=== PATIENT | male | born 1975 | race Caucasian/White ===

== ENCOUNTER → 2016-08-14 | Outpatient (CLI) | payer MEDICAID ==
[~2016-08-14] MED LIST: ACET65TA; ALBUTEROL MDI; ALTA5CAP; DEPA500T; HYDR-727; NAPR250T; POTA10CA; PRIL20CA; THERGRAN; VALI2TAB
[2016-08-14 12:53] LABS: ANION GAP 8 MEQ/L (8-16); BLOOD UREA NITROGEN 24 MG/DL (7-18); CALCIUM LEVEL 8.7 MG/DL (8.5-10.1); CARBON DIOXIDE LEVEL 30 MEQ/L (21-32); CHLORIDE LEVEL 103 MEQ/L (98-107); CREATININE FOR GFR 1.08 MG/DL (0.70-1.30); GLOMERULAR FILTRATION RATE > 60.0 (>60); GLUCOSE, FASTING 113 MG/DL (70-105); POTASSIUM SERUM 4.2 MEQ/L (3.5-5.1); SODIUM LEVEL 141 MEQ/L (136-145)
== END ==
LOC: M WUC 09:55
PROVIDERS: ATTEND Nurse Practitioner Family
DX: R51 Headache (principal)

== ENCOUNTER → 2016-09-23 | Outpatient (CLI) | payer MEDICAID ==
[2016-09-23 13:20] LABS: ALBUMIN 4.1 GM/DL (3.2-5.2); ALBUMIN/GLOBULIN RATIO 1.21 (1.00-1.93); ALKALINE PHOSPHATASE 96 U/L (45-117); ALT/SGPT 17 U/L (12-78); ANION GAP 10 MEQ/L (8-16); AST/SGOT 11 U/L (15-37); BILIRUBIN,TOTAL 0.5 MG/DL (0.2-1.0); BLOOD UREA NITROGEN 15 MG/DL (7-18); CALCIUM LEVEL 8.4 MG/DL (8.5-10.1); CARBON DIOXIDE LEVEL 28 MEQ/L (21-32); CHLORIDE LEVEL 100 MEQ/L (98-107); CHOLESTEROL LEVEL 152 MG/DL (<200); GLOMERULAR FILTRATION RATE > 60.0 (>60); GLUCOSE, FASTING 101 MG/DL (70-105); POTASSIUM SERUM 4.2 MEQ/L (3.5-5.1); SODIUM LEVEL 138 MEQ/L (136-145); TOTAL PROTEIN 7.5 GM/DL (6.4-8.2); TRIGLYCERIDES LEVEL 156 MG/DL (<150)
[2016-09-25 00:08] LABS: PSA TOTAL 0.4 ng/mL (0.0-4.0)
== END ==
LOC: M WUC 08:40
PROVIDERS: ATTEND Nurse Practitioner Family
DX: Z12.5 Encounter for screening for malignant neoplasm of prostate (principal); E78.4 Other hyperlipidemia; I10 Essential (primary) hypertension

== ENCOUNTER → 2017-01-24 | Outpatient (CLI) | payer MEDICAID, OTHER ==
[2017-01-24 18:41] LABS: ANION GAP 6 MEQ/L (8-16); BLOOD UREA NITROGEN 20 MG/DL (7-18); CALCIUM LEVEL 8.1 MG/DL (8.5-10.1); CARBON DIOXIDE LEVEL 27 MEQ/L (21-32); CHLORIDE LEVEL 103 MEQ/L (98-107); CREATININE FOR GFR 0.92 MG/DL (0.70-1.30); FREE T4 1.04 NG/DL (0.76-1.46); GLOMERULAR FILTRATION RATE > 60.0 (>60); GLUCOSE, FASTING 98 MG/DL (70-105); POTASSIUM SERUM 4.3 MEQ/L (3.5-5.1); SODIUM LEVEL 136 MEQ/L (136-145)
== END ==
LOC: M WUC 09:57
PROVIDERS: ATTEND Nurse Practitioner Family
DX: I10 Essential (primary) hypertension (principal); R00.2 Palpitations

== ENCOUNTER → 2017-06-16 | Outpatient (CLI) | payer OTHER ==
--- NOTE | 2017-06-16 10:01 | REP ---
Right upper quadrant sonography: History: Gastroesophageal reflux disease with esophagitis. History of biliary colic type abdominal pain. Evaluate gallbladder and biliary tree. Comparison study: No comparison study. Findings: Scanning through the right upper quadrant of the abdomen demonstrates a normal sized, thin-walled gallbladder without evidence of stone or polyp. Common bile duct is normal measuring 0.5 cm in greatest diameter. No focal liver lesion is seen. There is evidence of mild fatty infiltration of the liver. Liver size is normal. No pancreatic abnormality is observed. No right renal abnormality is seen. There is no evidence of ascites. The right kidney measures 11.8 x 4.6 x 5.2 cm. Impression: Mild fatty infiltration of the liver suspected, otherwise negative right upper quadrant sonography. Signed by Amrik Mckee MD 06/16/2017 11:18 A
== END ==
LOC: M RAD 08:44
PROVIDERS: ATTEND Internal Medicine Gastroenterology
DX: K21.9 Gastro-esophageal reflux disease without esophagitis (principal)

== ENCOUNTER 2017-07-27 09:35 | Day surgery (SDC) | payer OTHER ==
[2017-07-27] MEDS: NS 1,000 ML IV (10:51)
[2017-07-27] MEDS ORDERED: fentaNYL 100 MCG/2 ML INJECTION (J3010) As Ordered (11:26)
[2017-07-27] MEDS ORDERED: LIDOCAINE 2% INJ 100 MG/5 ML SDV (FOR ANES.) As Ordered (11:36)
[2017-07-27] MEDS ORDERED: PROPOFOL 200 MG/20 ML VIAL As Ordered (11:36)
== END 2017-07-27 12:25 | disposition home or self-care (01) ==
LOC: M OPP 09:35
DX: K21.0 Gastro-esophageal reflux disease with esophagitis (principal); K29.70 Gastritis, unspecified, without bleeding; I10 Essential (primary) hypertension; F17.210 Nicotine dependence, cigarettes, uncomplicated; R06.83 Snoring; Z79.899 Other long term (current) drug therapy; Z88.0 Allergy status to penicillin; Z88.2 Allergy status to sulfonamides; Z88.8 Allergy status to other drugs, medicaments and biological substances; Z91.89 Other specified personal risk factors, not elsewhere classified; Z87.820 Personal history of traumatic brain injury; Z87.09 Personal history of other diseases of the respiratory system
CPT/HCPCS: 43239

== ENCOUNTER → 2017-10-12 | Outpatient (CLI) | payer OTHER ==
[2017-10-12 14:19] LABS: BASO % 0.6 % (0.0-1.0); EOS # 0.1 10^3/uL (0.0-0.50); EOS % 1.9 % (0.0-3.0); HEMATOCRIT 42.3 % (42.0-52.0); HEMOGLOBIN 14.3 g/dl (14.0-18.0); IMMATURE GRANULOCYTE % 0.3 % (0-3.0); LYMPH # 1.8 10^3/uL (1.5-4.5); LYMPH % 27.2 % (24.0-44.0); MEAN CORPUSCULAR HGB CONC 33.8 g/dl (32.0-36.5); MEAN CORPUSCULAR VOLUME 91.6 fl (80.0-96.0); MONO # 0.5 10^3/uL (0.0-0.8); MONO % 7.6 % (0.0-5.0); NEUTROPHILS # 4.2 10^3/uL (1.8-7.7); NEUTROPHILS % 62.4 % (36.0-66.0); PLATELET COUNT, AUTOMATED 170 10^3/uL (150-450); RED BLOOD COUNT 4.62 10^6/uL (4.30-6.10); RED CELL DISTRIBUTION WIDTH 12.5 % (11.5-14.5); WHITE BLOOD COUNT 6.7 10^3/uL (4.0-10.0)
[2017-10-12 14:40] LABS: ALBUMIN 3.8 GM/DL (3.2-5.2); ALBUMIN/GLOBULIN RATIO 1.09 (1.00-1.93); ALKALINE PHOSPHATASE 92 U/L (45-117); ALT/SGPT 50 U/L (12-78); ANION GAP 7 MEQ/L (8-16); AST/SGOT 22 U/L (7-37); BILIRUBIN,TOTAL 0.3 MG/DL (0.2-1.0); BLOOD UREA NITROGEN 17 MG/DL (7-18); CALCIUM LEVEL 8.3 MG/DL (8.5-10.1); CARBON DIOXIDE LEVEL 28 MEQ/L (21-32); CHLORIDE LEVEL 107 MEQ/L (98-107); CHOLESTEROL LEVEL 178 MG/DL (<200); CHOLESTEROL RISK RATIO 4.564 (<5); CREATININE FOR GFR 0.94 MG/DL (0.70-1.30); GLOMERULAR FILTRATION RATE > 60.0 (>60); GLUCOSE, FASTING 87 MG/DL (70-100); HDL CHOLESTEROL 39 MG/DL (>40); LDL CHOLESTEROL 104.6 MG/DL (<100); NON-HDL-C 139 MG/DL; POTASSIUM SERUM 4.6 MEQ/L (3.5-5.1); SODIUM LEVEL 142 MEQ/L (136-145); TOTAL PROTEIN 7.3 GM/DL (6.4-8.2); TRIGLYCERIDES LEVEL 172 MG/DL (<150)
== END ==
LOC: M WUC 08:28
DX: E78.4 Other hyperlipidemia (principal); I10 Essential (primary) hypertension
CPT/HCPCS: 80053

== ENCOUNTER 2018-02-27 19:49 | Emergency (ER) | payer MEDICAID ==
[2018-02-27 20:12] LABS: BASO # 0.1 10^3/uL (0.0-0.2); BASO % 0.5 % (0.0-1.0); EOS # 0.2 10^3/uL (0.0-0.50); EOS % 1.3 % (0.0-3.0); HEMATOCRIT 39.4 % (42.0-52.0); HEMOGLOBIN 13.4 g/dl (13.5-17.5); IMMATURE GRANULOCYTE % 0.2 % (0-3.0); LYMPH % 30.2 % (24.0-44.0); MONO % 7.2 % (0.0-5.0); NEUTROPHILS # 8.1 10^3/uL (1.8-7.7); NEUTROPHILS % 60.6 % (36.0-66.0); PLATELET COUNT, AUTOMATED 207 10^3/uL (150-450); RED BLOOD COUNT 4.19 10^6/uL (4.30-6.10); RED CELL DISTRIBUTION WIDTH 12.2 % (11.5-14.5); WHITE BLOOD COUNT 13.4 10^3/uL (4.0-10.0)
[2018-02-27] MEDS: ONDANSETRON 4MG/2ML VIAL (J2405) IV ×2 (20:15)
[2018-02-27 20:25] LABS: INR 0.95; PROTHROMBIN TIME 12.8 SECONDS (12.1-14.4)
[2018-02-27 20:26] LABS: PARTIAL THROMBOPLASTIN TIME 29.4 SECONDS (25.4-37.6)
[2018-02-27 20:34] LABS: LACTIC ACID SEPSIS PROTOCOL 1.2 MMOL/L (0.4-2.0)
[2018-02-27 20:35] LABS: ALBUMIN 3.6 GM/DL (3.2-5.2); ALBUMIN/GLOBULIN RATIO 0.92 (1.00-1.93); ALKALINE PHOSPHATASE 83 U/L (45-117); ALT/SGPT 27 U/L (12-78); ANION GAP 6 MEQ/L (8-16); AST/SGOT 17 U/L (7-37); BILIRUBIN,DIRECT < 0.1 MG/DL (0.0-0.2); BILIRUBIN,TOTAL 0.3 MG/DL (0.2-1.0); BLOOD UREA NITROGEN 21 MG/DL (7-18); CALCIUM LEVEL 8.5 MG/DL (8.5-10.1); CARBON DIOXIDE LEVEL 30 MEQ/L (21-32); CHLORIDE LEVEL 105 MEQ/L (98-107); CK-MB VALUE MASS 3.2 NG/ML (<3.6); CPK CREATINE PHOSPHOKINASE 102 U/L (39-308); CREATININE FOR GFR 1.26 MG/DL (0.70-1.30); GLOMERULAR FILTRATION RATE > 60.0 (>60); GLUCOSE, FASTING 90 MG/DL (70-100); MB/CK RELATIVE INDEX 3.13 (< OR =4); SODIUM LEVEL 141 MEQ/L (136-145); TOTAL PROTEIN 7.5 GM/DL (6.4-8.2)
[2018-02-27 20:51] LABS: TROPONIN I 1.84 NG/ML (< 0.10)
[2018-02-27] MEDS: PANTOPRAZOLE 40MG TAB (PROTONIX) PO ×2 (21:15)
[2018-02-27] MEDS: ATORVASTATIN 20 MG TAB PO ×2 (21:15)
[2018-02-27] MEDS: HEPARIN SOD (PORCINE) 5000 UNITS/ML VIAL IV ×2 (21:55)
[2018-02-27] MEDS: HEPARIN DRIP 25,000 UNITS in APPROPRIATE DILUENT 1 EA IV (21:55)
[2018-02-27] MEDS: MORPHINE 2 MG/ML 1ML SYRINGE (J2270) IV ×2 (22:10)
[2018-03-08] MEDS ORDERED: ONDANSETRON 4MG/2ML VIAL (J2405) IV ×2 (16:45)
[2018-03-08] MEDS ORDERED: NITROGLYCERIN 0.4 MG SUBL TABLET SL ×2 (16:45)
== END 2018-02-27 22:10 | disposition short-term general hospital (02) ==
LOC: M ED 19:49
DX: I20.0 Unstable angina (principal); I10 Essential (primary) hypertension; K21.9 Gastro-esophageal reflux disease without esophagitis
CPT/HCPCS: 71045

== ENCOUNTER 2018-03-08 15:51 | Emergency (ER) | payer OTHER, MEDICAID ==
[2018-03-08 16:23] LABS: BASO % 0.4 % (0.0-1.0); EOS # 0.1 10^3/uL (0.0-0.50); EOS % 0.8 % (0.0-3.0); HEMATOCRIT 40.5 % (42.0-52.0); HEMOGLOBIN 13.9 g/dl (13.5-17.5); IMMATURE GRANULOCYTE % 0.2 % (0-3.0); LYMPH # 2.5 10^3/uL (1.5-4.5); LYMPH % 26.1 % (24.0-44.0); MEAN CORPUSCULAR HEMOGLOBIN 31.5 pg (27.0-33.0); MEAN CORPUSCULAR HGB CONC 34.3 g/dl (32.0-36.5); MEAN CORPUSCULAR VOLUME 91.8 fl (80.0-96.0); MONO # 0.7 10^3/uL (0.0-0.8); MONO % 7.3 % (0.0-5.0); NEUTROPHILS # 6.3 10^3/uL (1.8-7.7); NEUTROPHILS % 65.2 % (36.0-66.0); PLATELET COUNT, AUTOMATED 195 10^3/uL (150-450); RED BLOOD COUNT 4.41 10^6/uL (4.30-6.10); RED CELL DISTRIBUTION WIDTH 12.4 % (11.5-14.5); WHITE BLOOD COUNT 9.6 10^3/uL (4.0-10.0)
[2018-03-08 16:36] LABS: INR 0.98; PROTHROMBIN TIME 13.1 SECONDS (12.1-14.4)
[2018-03-08 16:51] LABS: ALBUMIN 3.6 GM/DL (3.2-5.2); ALKALINE PHOSPHATASE 80 U/L (45-117); ALT/SGPT 25 U/L (12-78); ANION GAP 6 MEQ/L (8-16); AST/SGOT 14 U/L (7-37); BILIRUBIN,DIRECT 0.1 MG/DL (0.0-0.2); BILIRUBIN,TOTAL 0.4 MG/DL (0.2-1.0); BLOOD UREA NITROGEN 19 MG/DL (7-18); CALCIUM LEVEL 8.3 MG/DL (8.5-10.1); CARBON DIOXIDE LEVEL 29 MEQ/L (21-32); CHLORIDE LEVEL 104 MEQ/L (98-107); CPK CREATINE PHOSPHOKINASE 91 U/L (39-308); CREATININE FOR GFR 1.19 MG/DL (0.70-1.30); GLOMERULAR FILTRATION RATE > 60.0 (>60); GLUCOSE, FASTING 107 MG/DL (70-100); LIPASE 147 U/L (73-393); POTASSIUM SERUM 3.7 MEQ/L (3.5-5.1); SODIUM LEVEL 139 MEQ/L (136-145); TOTAL PROTEIN 7.2 GM/DL (6.4-8.2); TROPONIN I < 0.02 NG/ML (< 0.10)
[2018-03-08 16:55] LABS: ERYTHROCYTE SEDIMENTATION RATE 7 mm/hr (0-15)
[2018-03-08 16:57] LABS: CK-MB VALUE MASS 1.4 NG/ML (<3.6); MB/CK RELATIVE INDEX 1.53 (< OR =4); NT-PRO BNP 104 PG/ML (<125)
[2018-03-08] MEDS: NITROGLYCERIN 0.4 MG SUBL TABLET SL ×3 (17:20)
[2018-03-08] MEDS ORDERED: ISOVUE-370 76% 100ML VIAL (Q9967) As Ordered ×3 (17:40)
[2018-03-08] MEDS: APIXABAN 5 MG TAB (ELIQUIS) PO ×3 (20:53)
[2018-03-08 21:45] LABS: CK-MB VALUE MASS 1.4 NG/ML (<3.6); CPK CREATINE PHOSPHOKINASE 76 U/L (39-308); INR 0.99; MB/CK RELATIVE INDEX 1.84 (< OR =4); PARTIAL THROMBOPLASTIN TIME 29.8 SECONDS (25.4-37.6); PROTHROMBIN TIME 13.2 SECONDS (12.1-14.4); TROPONIN I 0.03 NG/ML (< 0.10)
[2018-03-08 21:46] LABS: NT-PRO BNP 92 PG/ML (<125)
[2018-03-14 14:12] LABS: ANTI THROMBIN 3 ANTIGEN IMMUNO 99 % (72-124); ANTI THROMBIN 3 FUNCT ACTIVITY 105 % (75-135); CARDIOLIPIN IGA ANTIBODY <9 APL U/mL (0-11); CARDIOLIPIN IGG ANTIBODY <9 GPL U/mL (0-14); CARDIOLIPIN IGM ANTIBODY <9 MPL U/mL (0-12); PROTEIN C FUNCTIONAL ACTIVITY 136 % (73-180); PROTEIN S FUNCTIONAL ACTIVITY 86 % (63-140)
[2018-03-14 14:12] LABS: PHOSPHOLIPIDS LEVEL 162 mg/dL (150-250)
[2018-03-15 10:58] LABS: DRVV SCREEN 42.3 SEC
== END 2018-03-08 22:54 | disposition home or self-care (01) ==
LOC: M ED 15:51
DX: I26.99 Other pulmonary embolism without acute cor pulmonale (principal); R11.0 Nausea; Z95.5 Presence of coronary angioplasty implant and graft; Z88.8 Allergy status to other drugs, medicaments and biological substances; Z88.4 Allergy status to anesthetic agent; Z88.0 Allergy status to penicillin; Z88.2 Allergy status to sulfonamides; Z79.899 Other long term (current) drug therapy; Z79.02 Long term (current) use of antithrombotics/antiplatelets; Z98.890 Other specified postprocedural states
CPT/HCPCS: Q9967

== ENCOUNTER → 2018-04-08 | Outpatient (REF) | payer OTHER ==
[2018-04-08 16:27] LABS: CHOLESTEROL LEVEL 107 MG/DL (<200); CHOLESTEROL RISK RATIO 3.147 (<5); HDL CHOLESTEROL 34 MG/DL (>40); LDL CHOLESTEROL 47 MG/DL (<100); NON-HDL-C 73 MG/DL; TRIGLYCERIDES LEVEL 128 MG/DL (<150)
== END ==
LOC: M LABDRAW1 12:16
DX: E78.1 Pure hyperglyceridemia (principal)
CPT/HCPCS: 80061

== ENCOUNTER 2018-04-14 12:28 | Outpatient (RCR) | payer OTHER | END 2018-04-17 | LOC: M CR 12:28 | DX: Z98.61 Coronary angioplasty status (principal) | CPT/HCPCS: 93798 ==

== ENCOUNTER 2018-04-18 13:50 | Outpatient (RCR) | payer OTHER | END 2018-05-18 | LOC: M CR 13:50 | DX: Z98.61 Coronary angioplasty status (principal) | CPT/HCPCS: 93798 ==

== ENCOUNTER → 2018-04-23 | Outpatient (CLI) | payer OTHER | LOC: M ADAMS 11:41 | DX: M25.562 Pain in left knee (principal) | CPT/HCPCS: 73564 ==

== ENCOUNTER 2018-05-19 14:54 | Outpatient (RCR) | payer OTHER | END 2018-06-17 | LOC: M CR 14:54 | DX: Z98.61 Coronary angioplasty status (principal); I25.2 Old myocardial infarction | CPT/HCPCS: 93798 ==

== ENCOUNTER → 2018-07-14 | Outpatient (REF) | payer OTHER ==
[~2018-07-14] MED LIST changes: +AMIT10TA PO; +AMIT25TA PO; +ATOR40TA75 PO; +CLOP75TA2 PO; +COLC1TAB13 PO; +ELIQ5TAB PO; +FLON1SPR; +FLUTISP; +LANS15CA PO; +LISI-542 PO; +LISI-672 PO; +METO37.5 PO; +MULT1TAB10 PO; +MULTCAP PO; +NITR0.4S14 SL; +PAME25CA PO; +PANT40TA3 PO; +PROBCAP4 PO; +VERA40TA PO
[2018-07-14 20:04] LABS: ALBUMIN 4.1 GM/DL (3.2-5.2); ALT/SGPT 38 U/L (12-78); BILIRUBIN,TOTAL 0.3 MG/DL (0.2-1.0); BLOOD UREA NITROGEN 18 MG/DL (7-18); CALCIUM LEVEL 8.8 MG/DL (8.5-10.1); CARBON DIOXIDE LEVEL 28 MEQ/L (21-32); CHLORIDE LEVEL 102 MEQ/L (98-107); CREATININE FOR GFR 0.88 MG/DL (0.70-1.30); GLOMERULAR FILTRATION RATE > 60.0 (>60); GLUCOSE, FASTING 78 MG/DL (70-100); POTASSIUM SERUM 4.1 MEQ/L (3.5-5.1); SODIUM LEVEL 139 MEQ/L (136-145); TOTAL PROTEIN 7.5 GM/DL (6.4-8.2)
[2018-07-14 20:12] LABS: HEMATOCRIT 42.5 % (42.0-52.0); MEAN CORPUSCULAR HEMOGLOBIN 30.6 pg (27.0-33.0); MEAN CORPUSCULAR HGB CONC 32.9 g/dl (32.0-36.5); PLATELET COUNT, AUTOMATED 162 10^3/uL (150-450); RED BLOOD COUNT 4.57 10^6/uL (4.30-6.10); WHITE BLOOD COUNT 8.9 10^3/uL (4.0-10.0)
== END ==
LOC: M SFHCADAM 15:24
PROVIDERS: ATTEND Physician Assistant
DX: I25.118 Atherosclerotic heart disease of native coronary artery with other forms of angina pectoris (principal)

== ENCOUNTER → 2018-07-27 | Outpatient (REF) | payer OTHER | LOC: M SFHCADAM 13:21 | PROVIDERS: ATTEND Physician Assistant | DX: I27.82 Chronic pulmonary embolism (principal) ==

== ENCOUNTER → 2018-09-23 | Outpatient (REF) | payer OTHER ==
[2018-09-27 08:06] LABS: ANTI THROMBIN 3 FUNCT ACTIVITY 108 % (75-135); CARDIOLIPIN IGA ANTIBODY <9 APL U/mL (0-11); CARDIOLIPIN IGG ANTIBODY <9 GPL U/mL (0-14); CARDIOLIPIN IGM ANTIBODY <9 MPL U/mL (0-12); PROTEIN C FUNCTIONAL ACTIVITY 119 % (73-180); PROTEIN S FUNCTIONAL ACTIVITY 90 % (63-140)
[2018-09-27 09:49] LABS: DRVV SCREEN 45.1 SEC
[2018-09-27 09:53] LABS: PTT LUPUS TYPE ANTICOAG SCREEN 1.1 (0-1.2)
== END ==
LOC: M SFHCADAM 08:41
PROVIDERS: ATTEND Physician Assistant
DX: I27.82 Chronic pulmonary embolism (principal)

== ENCOUNTER → 2018-10-16 | Outpatient (CLI) | payer OTHER ==
[2018-10-16 18:30] LABS: CHOLESTEROL RISK RATIO 3.277 (<5)
== END ==
LOC: M ADAMS 10:52
PROVIDERS: ATTEND Physician Assistant
DX: I25.10 Atherosclerotic heart disease of native coronary artery without angina pectoris (principal)

== ENCOUNTER → 2019-08-31 | Outpatient (CLI) | payer OTHER ==
[~2019-08-31] MED LIST changes: +ACET-683 PO; +ALBU83IN INH; +COZA1TAB PO; +DOXY100C PO; +LISI-538 PO; +MONT10TA4 PO; +MULTTAB4 PO; +PRED20TA PO; +SYMB16INH INH
--- NOTE | 2019-08-31 10:43 | REP ---
Clinical: Asthma with acute exacerbation. Dyspnea. Comparison: 03/08/2018 . Technique: PA and lateral. Findings: The mediastinum and cardiac silhouette are normal. The lung chino are clear and without acute consolidation, effusion, or pneumothorax. The skeletal structures are intact and normal. Impression: 1. No focal consolidation. Electronically Signed by Milton Levy MD 08/31/2019 10:35 A
== END ==
LOC: M ADAMS 09:35
PROVIDERS: ATTEND Physician Assistant
DX: J45.41 Moderate persistent asthma with (acute) exacerbation (principal)

== ENCOUNTER 2019-09-04 12:41 | Inpatient (IN) | payer OTHER ==
[~2019-09-04] VITALS: Ht 182.9 cm; Wt 135.5 kg
[~2019-09-04 12:41] MED LIST changes: -ACET-683 PO; -ALBU83IN INH; -COZA1TAB PO; -DOXY100C PO; -LISI-538 PO; -MONT10TA4 PO; -MULTTAB4 PO; -PRED20TA PO; -SYMB16INH INH
[2019-09-04] MEDS ORDERED: ALBU83IN INH (13:02)
[2019-09-04] MEDS ORDERED: DOXY100C PO (13:02)
[2019-09-04] MEDS ORDERED: PRED20TA PO (13:02)
[2019-09-04] MEDS ORDERED: LISI-538 PO (13:02)
[2019-09-04 13:22] LABS: BASO % 0.3 % (0.0-1.0); HEMATOCRIT 43.8 % (42.0-52.0); HEMOGLOBIN 14.8 g/dl (13.5-17.5); LYMPH # 0.9 10^3/uL (1.5-5.0); LYMPH % 14.6 % (24.0-44.0); MEAN CORPUSCULAR HEMOGLOBIN 31.1 pg (27.0-33.0); MEAN CORPUSCULAR HGB CONC 33.8 g/dl (32.0-36.5); MONO # 0.3 10^3/uL (0.0-0.8); MONO % 5.5 % (0.0-5.0); NEUTROPHILS # 4.9 10^3/uL (1.5-8.5); NEUTROPHILS % 79.1 % (36.0-66.0); PLATELET COUNT, AUTOMATED 149 10^3/uL (150-450); RED BLOOD COUNT 4.76 10^6/uL (4.30-6.10); WHITE BLOOD COUNT 6.2 10^3/uL (4.0-10.0)
--- NOTE | 2019-09-04 13:25 | REP ---
Clinical: Shortness of breath . Comparison: 08/31/2019 . Findings: The mediastinum and cardiac silhouette are stable and within normal limits for portable technique. No focal consolidation. No effusion. Skeletal structures are intact. Impression: No focal consolidation or effusion. Electronically Signed by Milton Levy MD 09/04/2019 01:17 P
[2019-09-04 13:34] LABS: INR 0.97; PROTHROMBIN TIME 12.6 SECONDS (11.8-14.0)
[2019-09-04 13:55] LABS: CK-MB VALUE MASS 2.4 NG/ML (<3.6); CPK CREATINE PHOSPHOKINASE 445 U/L (39-308); MB/CK RELATIVE INDEX 0.54 (< OR =4); NT-PRO BNP 14 PG/ML (<125); TROPONIN I < 0.02 NG/ML (< 0.10)
[2019-09-04] MEDS ORDERED: ISOVUE-370 76% 100ML VIAL (Q9967) As Ordered ONE (15:17)
--- NOTE | 2019-09-04 16:06 | REP ---
Clinical: Shortness of breath . Technique: Axial contrast enhanced images from the thoracic inlet to the upper abdomen using 100 ml Isovue 370 intravenous contrast material with multiplanar re-formations. Findings: Satisfactory enhancement of the pulmonary vasculature is achieved and no filling defects are identified to suggest pulmonary embolus. Subtle scattered ground-glass opacities and non solid nodular densities are noted primarily involving the bilateral upper lobes and perihilar regions consistent with early acute multifocal pneumonia. No discrete focal consolidation. No effusion. Further evaluation of the mediastinum demonstrates normal thoracic aorta without aneurysm or dissection. Cardiomegaly is suggested without pericardial effusion. No significant adenopathy. Musculoskeletal structures are intact. Impression: 1. No evidence for pulmonary embolus. 2. Ground-glass opacities and subtle scattered non solid densities primarily involving the perihilar regions and upper lobes most suggestive of early acute pneumonia. Correlation is recommended. 3. Cardiomegaly. Electronically Signed by Milton Levy MD 09/04/2019 03:58 P
[2019-09-04] MEDS ORDERED: MOM 30ML SUSPENSION UDC PO PRN (17:00)
[2019-09-04] MEDS ORDERED: MAALOX 30 ML SUSP *UDC PO PRN (17:00)
[2019-09-04] MEDS ORDERED: MULTTAB4 PO (17:18)
[2019-09-04] MEDS ORDERED: ACET-683 PO (17:21)
[2019-09-04 18:00] VITALS: BP 143/90
[2019-09-04] MEDS ORDERED: ALBUTEROL SULFATE 2.5 MG/0.5 ML INH NEB SOLN NEB PRN (18:00)
[2019-09-04] MEDS: methylPREDNISolone INJ 40 MG/1 ML VIAL (J2920) IV SCH (18:22)
--- NOTE | 2019-09-04 18:25 | HPEPDOC ---
General Date of Admission 09/04/19 Date of Service: Sep 04, 2019 Chief Complaint The patient is a 44-year-old male admitted with a reason for visit of Diff Breathing. Source: Patient, RN/, Old records History of Present Illness 44 year old male with PMH of CAD s/p stents, asthma, arthritis presented to the ED with SOb , cough for 11 days and fever for 3 days. He started with wheezing and sob about 11 days ago when to urgent care was given nebs and prednisone was not improving so went to see PMD and was started on doxycycline, given im solumedrol and continued with the prednisone 40 mg daily however his symptoms were not getting better. Continued to have chest tightness, wheezing and cough , dry in nature. He started having low grade fever of about 101, 3 days ago which continued till yesterday. He has pooor appetite In ED he was found to have Infulenza A , CT angio showed Ground-glass opacities and subtle scattered non solid densities primarily involving the perihilar regions and upper lobes most suggestive of early acute pneumonia. There was no PE, no pericardial efussion, there was cardiomegaly, no dissection or aneurysm. Home Medications Scheduled Amitriptyline HCl (Amitriptyline HCl) 25 Mg Tab, 25 MG PO QHS, (Reported) Atorvastatin Calcium (Atorvastatin Calcium) 40 Mg Tab, 40 MG PO DAILY, (Reported) Clopidogrel Bisulfate (Clopidogrel) 75 Mg Tab, 75 MG PO DAILY, (Reported) Doxycycline Hyclate (Doxycycline Hyclate) 100 Mg Capsule, 100 MG PO BID, (Reported) FILLED ON 08/29/2019 FOR A 10 DAY COURSE Fluticasone Propionate (Fluticasone Propionate) 50 Mcg/Act Spr, 1 SPRAY NA QHS, (Reported) Lisinopril (Lisinopril) 20 Mg Tablet, 20 MG PO DAILY, (Reported) Multivitamin (Multivitamins) 1 Each Tablet, 1 TAB PO DAILY, (Reported) Pantoprazole Sodium (Pantoprazole Sodium) 40 Mg Tab, 40 MG PO DAILY, (Reported) Prednisone (Prednisone) 20 Mg Tablet, 20 MG PO BID, (Reported) FILLED ON 08/31/2019 FOR A 5 DAY SUPPLY Scheduled PRN Acetaminophen (Acetaminophen) 500 Mg Tablet, 1,000 MG PO Q6H PRN for PAIN, (Reported) Albuterol Sulf (Albuterol Sulfate) 2.5 Mg/3 Ml Vial.neb, 1 NEB INH Q4H PRN for SHORTNESS OF BREATH, (Reported) Nitroglycerin (Nitroglycerin) 0.4 Mg Sub, 0.4 MG SL Q5MP PRN for ANGINA, (Reported) Allergies Coded Allergies: Cephalosporins (Verified Allergy, Severe, Anaphylaxis, 09/04/19) Penicillins (Verified Allergy, Severe, Anaphylaxis, 09/04/19) Sulfa (Sulfonamide Antibiotics) (Verified Allergy, Severe, Anaphylaxis, 09/04/19) procaine (Verified Allergy, Severe, Anaphylaxis, 09/04/19) aspirin (Verified Adverse Reaction, Mild, GI upset, 09/04/19) Past Medical History Medical History ASPIRIN ALLERGY CAD S/P NON ST ELEVATION LA 02/2018 AND 2 VESSEL STENT, REPEAT CATH 02/28/18 SHOWED PATENT STENTS THEREFORE TEATED FOR PERICARDITIS 02/28/18 GERD HYPERLIPIDEMIA HTN PE 03/08/18 - S/P 6 MONTHS ELIQUIS (RISK FACTOR - SITS IN TRUCK ALL DAY FOR WORK) ASTHMA ALLERGIC RHINNITIS Surgical History HEART CATHETERIZATION X 2 02/25/18,02/28/18 HEART STENT 02/25/18 TESTICLE SURGERY AGE 12 TONSILLECTOMY AGE 7 ADENOIDECTOMY AGE 7 ORAL SURGERY A CHILD Family History FATHER: CAD S/P LA 30 Y/O, DIAGNOSED WITH DIABETES MOTHER: PVD, COPD, CAD SIBLINGS: SISTER - BREAST CANCER Social History * Smoker: Denies Alcohol: rarely Drugs: denies A-FIB/CHADSVASC A-FIB History Current/History of A-Fib/PAF?: No Review of Systems Constitutional: Reports: Chills, Fever, Weakness Eyes: Denies: Pain, Vision change ENT: Reports: Sinus Congestion; Denies: Head Aches, Ear Pain, Dysphagia Skin: Denies: Rash, Lesions, Breakdown Pulmonary: Reports: Dyspnea, Cough Cardiovascular: Denies: Chest Pain, Palpitations, Orthopnea, Paroxysmal Noc. Dyspnea, Lt Headedness Gastrointestinal: Denies: Nausea, Vomiting, Abdominal Pain, Diarrhea Genitourinary: Denies: Dysuria, Frequency, Incontinence, Retention Hematologic: Denies: Bruising, Bleeding Excessively Musculoskeletal: Denies: Neck Pain, Back Pain, Joint Pain, Muscle Pain, Spasms Neurological: Denies: Weakness, Numbness, Change in speech, Confusion Physical Examination General Exam: Positive: Alert, Cooperative, No Acute Distress Eye Exam: Positive: PERRLA, Conjunctiva & lids normal, EOMI; Negative: Sclera icteric ENT Exam: Positive: Atraumatic, Mucous membr. moist/pink, Pharynx Normal Neck Exam: Positive: Supple; Negative: JVD, thyromegaly Chest Exam: Positive: Rhonchi, Wheezing Heart Exam: Positive: Tachycardic, Regular Rhythm, Normal S1, Normal S2; Negative: Murmurs, Rubs Abdomen Exam: Positive: Normal bowel sounds, Soft; Negative: Tenderness, Hepatospenomegaly Extremity Exam: Positive: Normal pulses; Negative: Clubbing, Cyanosis, Edema Skin Exam: Positive: Nl turgor and temperature; Negative: Breakdown, Lesion Neuro Exam: Positive: Normal Speech, Strength at 5/5 X4 ext, Normal Tone Vital Signs Vital Signs Date Time Temp Pulse Resp B/P (MAP) Pulse Ox O2 Delivery O2 Flow Rate FiO2 09/04/19 13:15 77 22 138/86 (103) 95 Nasal Cannula 3.5 09/04/19 12:41 98.1 Laboratory Data Labs 24H Laboratory Tests 2 09/04/19 13:08: Immature Granulocyte % (Auto) 0.5, Neutrophils (%) (Auto) 79.1H, Lymphocytes (%) (Auto) 14.6L, Monocytes (%) (Auto) 5.5H, Eosinophils (%) (Auto) 0.0, Basophils (%) (Auto) 0.3, Neutrophils # (Auto) 4.9, Lymphocytes # (Auto) 0.9L, Monocytes # (Auto) 0.3, Eosinophils # (Auto) 0.0, Basophils # (Auto) 0.0, Nucleated Red Blood Cells % (auto) 0.0, Prothrombin Time 12.6, Prothromb Time International Ratio 0.97, Total Creatine Kinase 445H, Creatine Kinase MB 2.4, Creatine Kinase MB Relative Index 0.54, Troponin I < 0.02, HW-Sut-F-Type Natriuretic Peptide 14 09/04/19 13:09: Lactic Acid Level 1.3 09/04/19 13:16: POC Glucose (Misc Panel) 115H, POC Sodium (Misc Panel) 139, POC Potassium (Misc Panel) 4.0, POC Chloride (Misc Panel) 100, POC Total CO2 (Misc Panel) 29.0H, POC Blood Urea Nitrogen (Misc Panel 21, POC Ionized Calcium (Misc Panel) 4.5, POC C reatinine (Misc Panel) 0.8, POC Hematocrit (Misc Panel) 42.0 CBC/BMP Laboratory Tests 09/04/19 13:08 Microbiology Microbiology 09/04/19 Respiratory Virus Panel (PCR) ([facility]) - Final, Complete Influenza A H1-200809/04/19 Blood Culture, Received Pending 09/04/19 Blood Culture, Received Pending Assessment/Plan 44 year old male with PMH of CAD s/p stents, asthma, arthritis presented to the ED with SOb , cough for 11 days and fever for 3 days. He started with wheezing and sob about 11 days ago when to urgent care was given nebs and prednisone was not improving so went to see PMD and was started on doxycycline, given im solumedrol and continued with the prednisone 40 mg daily however his symptoms were not getting better. Continued to have chest tightness, wheezing and cough , dry in nature. He started having low grade fever of about 101, 3 days ago which continued till yesterday. He has poor appetite. In ED he was found to have Infulenza A , CT angio showed Ground-glass opacities and subtle scattered non solid densities primarily involving the perihilar regions and upper lobes most suggestive of early acute pneumonia. There was no PE, no pericardial effusion, there was cardiomegaly, no dissection or aneurysm. He was admitted for Influenza A, possible viral pneumonia, post infectious bronchospasm and asthma exacerbation. Influenza A with viral pneumonia Symptomatic management No WBC, No fever at this point pateint was on doxycycline at home will not give any antibiotics. outside the window for tamiflu. isolation Asthma exacerbation/ post infectious bronchospasm will give symbicort, albuterol nebs and methyl prednisone. CAD Continue home meds plavix, stain. Morbid obesity complicating care. Hypertension lisinopril Hyperlipidemia continue statin Plan / VTE VTE Prophylaxis Ordered?: Yes VAIBHAV EILAS MD Sep 04, 2019 17:12
[2019-09-04] MEDS: SYMBICORT 160/4.5MCG INHALER 6GM INH SCH (18:28)
[2019-09-04] MEDS ORDERED: guaiFENesin SYRUP 200 MG/10 ML UDC PO PRN (19:00)
--- NOTE | 2019-09-04 19:45 | ECGEPIP ---
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
[2019-09-04] MEDS: DOCUSATE SODIUM 100 MG CAP PO SCH (20:16)
[2019-09-04 22:00] VITALS: BP 144/88
[2019-09-05] MEDS: methylPREDNISolone INJ 40 MG/1 ML VIAL (J2920) IV SCH ×5 (00:14→23:51)
[2019-09-05 06:00] VITALS: BP 136/84
[2019-09-05 06:14] LABS: HEMATOCRIT 40.7 % (42.0-52.0); HEMOGLOBIN 13.4 g/dl (13.5-17.5); LYMPH # 0.9 10^3/uL (1.5-5.0); LYMPH % 14.9 % (24.0-44.0); MEAN CORPUSCULAR HEMOGLOBIN 30.5 pg (27.0-33.0); MEAN CORPUSCULAR HGB CONC 32.9 g/dl (32.0-36.5); MEAN CORPUSCULAR VOLUME 92.5 fl (80.0-96.0); MONO # 0.1 10^3/uL (0.0-0.8); MONO % 2.3 % (0.0-5.0); NEUTROPHILS # 4.7 10^3/uL (1.5-8.5); NEUTROPHILS % 82.3 % (36.0-66.0); PLATELET COUNT, AUTOMATED 169 10^3/uL (150-450); WHITE BLOOD COUNT 5.7 10^3/uL (4.0-10.0)
[2019-09-05 06:41] LABS: BLOOD UREA NITROGEN 22 MG/DL (7-18); CALCIUM LEVEL 8.9 MG/DL (8.5-10.1); CARBON DIOXIDE LEVEL 27 MEQ/L (21-32); CHLORIDE LEVEL 102 MEQ/L (98-107); CREATININE FOR GFR 0.82 MG/DL (0.70-1.30); GLOMERULAR FILTRATION RATE > 60.0 (>60); GLUCOSE, FASTING 139 MG/DL (70-100); POTASSIUM SERUM 4.1 MEQ/L (3.5-5.1); SODIUM LEVEL 137 MEQ/L (136-145)
[2019-09-05] MEDS: SYMBICORT 160/4.5MCG INHALER 6GM INH SCH ×2 (07:59→21:27)
[2019-09-05] MEDS: DOCUSATE SODIUM 100 MG CAP PO SCH ×2 (09:00→20:24)
[2019-09-05] MEDS: PANTOPRAZOLE 40MG INJ (PROTONIX) (C9113) IV SCH ×2 (09:00→11:16)
[2019-09-05] MEDS: ENOXAPARIN 40 MG/0.4 ML SYRINGE (J1650) SC SCH (09:13)
--- NOTE | 2019-09-05 09:21 | IPNPDOC ---
Subjective Date Seen The patient was seen on 09/05/19. Subjective Chief Complaint/HPI Pt this morning states that his breathing is slightly better today. He feels like he is moving air a little better. + Cough, feels like he is breaking up stuff in his chest better today than he has been. General: Denies: Fatigue Constitutional: Denies: Chills, Fever ENT: Denies: Head Aches Pulmonary: Reports: Dyspnea, Cough Cardiovascular: Denies: Chest Pain, Palpitations Gastrointestinal: Denies: Nausea, Vomiting, Diarrhea Neurological: Denies: Weakness Psych: Reports: Mood Normal Objective Physical Examination General Exam: Positive: Alert, Cooperative, No Acute Distress Eye Exam: Positive: Conjunctiva & lids normal; Negative: Sclera icteric ENT Exam: Positive: Atraumatic, Mucous membr. moist/pink, Pharynx Normal Neck Exam: Positive: Supple; Negative: JVD, thyromegaly Chest Exam: Positive: Rhonchi, Wheezing Heart Exam: Positive: Tachycardic, Regular Rhythm, Normal S1, Normal S2; Negative: Murmurs, Rubs Abdomen Exam: Positive: Normal bowel sounds, Soft; Negative: Tenderness, Hepatospenomegaly Extremity Exam: Positive: Normal pulses; Negative: Clubbing, Cyanosis, Edema Skin Exam: Positive: Nl turgor and temperature; Negative: Breakdown, Lesion Neuro Exam: Positive: Normal Speech, Strength at 5/5 X4 ext, Normal Tone Assessment /Plan Problems (1) Asthma exacerbation Status: Acute Response to Treatment: Stable Discussed With: Nurse, Patient Problem Specific Plan: Monitor Clinically, Repeat Labs Problem Text: Cont with SM 40 mg IV q6h, nebs, will change from PRN to scheduled. Afebrile for more than 24 hours. (2) Influenza A virus subtype H1 2009 pandemic strain present Status: Acute Problem Text: see above. No tamiflu, pt now afebrile. Plan/VTE VTE Prophylaxis Ordered?: Yes VS, I&O, 24H, Fishbone Vital Signs/I&O Vital Signs Date Time Temp Pulse Resp B/P (MAP) Pulse Ox O2 Delivery O2 Flow Rate FiO2 09/05/19 06:00 96.8 63 20 136/84 (101) 92 09/04/19 18:00 Room Air 09/04/19 15:52 3.0 I&O- Last 24 Hours up to 6 AM 09/05/19 06:00 Intake Total 1260 ml Output Total 1250 ml Balance 10 ml Laboratory Data 24H LABS Laboratory Tests 2 09/04/19 13:08: Immature Granulocyte % (Auto) 0.5, Neutrophils (%) (Auto) 79.1H, Lymphocytes (%) (Auto) 14.6L, Monocytes (%) (Auto) 5.5H, Eosinophils (%) (Auto) 0.0, Basophils (%) (Auto) 0.3, Neutrophils # (Auto) 4.9, Lymphocytes # (Auto) 0.9L, Monocytes # (Auto) 0.3, Eosinophils # (Auto) 0.0, Basophils # (Auto) 0.0, Nucleated Red Blood Cells % (auto) 0.0, Prothrombin Time 12.6, Prothromb Time International Ratio 0.97, Total Creatine Kinase 445H, Creatine Kinase MB 2.4, Creatine Kinase MB Relative Index 0.54, Troponin I < 0.02, FI-Gce-I-Type Natriuretic Peptide 14 09/04/19 13:09: Lactic Acid Level 1.3 09/04/19 13:16: POC Glucose (Misc Panel) 115H, POC Sodium (Misc Panel) 139, POC Potassium (Misc Panel) 4.0, POC Chloride (Misc Panel) 100, POC Total CO2 (Misc Panel) 29.0H, POC Blood Urea Nitrogen (Misc Panel 21, POC Ionized Calcium (Misc Panel) 4.5, POC Cr eatinine (Misc Panel) 0.8, POC Hematocrit (Misc Panel) 42.0 09/05/19 05:34: Immature Granulocyte % (Auto) 0.5, Neutrophils (%) (Auto) 82.3H, Lymphocytes (%) (Auto) 14.9L, Monocytes (%) (Auto) 2.3, Eosinophils (%) (Auto) 0.0, Basophils (%) (Auto) 0.0, Neutrophils # (Auto) 4.7, Lymphocytes # (Auto) 0.9L, Monocytes # (Auto) 0.1, Eosinophils # (Auto) 0.0, Basophils # (Auto) 0.0, Nucleated Red Blood Cells % (auto) 0.0, Anion Gap 8, Glomerular Filtration Rate > 60.0, Calcium Level 8.9 CBC/BMP Laboratory Tests 09/04/19 13:08 09/05/19 05:34 Microbiology Microbiology 09/04/19 Respiratory Virus Panel (PCR) ([facility]LES) - Final, Complete Influenza A H1-200809/04/19 Blood Culture, Received Pending 09/04/19 Blood Culture, Received Pending NIGEL RODRIGUEZ PA-C Sep 05, 2019 09:21
[2019-09-05] MEDS: CLOPIDOGREL 75 MG TAB PO SCH (11:15)
[2019-09-05] MEDS: ATORVASTATIN 20 MG TAB PO SCH (11:15)
[2019-09-05] MEDS: lisinopriL 5 MG TAB PO SCH (11:16)
[2019-09-05] MEDS: ALBUTEROL SULFATE 2.5 MG/0.5 ML INH NEB SOLN NEB PRN ×2 (11:18→23:25)
[2019-09-05] MEDS: ALBUTEROL SULFATE 2.5 MG/0.5 ML INH NEB SOLN NEB SCH ×2 (13:58→21:27)
[2019-09-05 14:00] VITALS: BP 155/72
[2019-09-05] MEDS: ACETAMINOPHEN TAB 650MG DOSE (2X325MG) PO PRN (20:28)
[2019-09-05 22:00] VITALS: BP 134/85
[2019-09-06] MEDS: ALBUTEROL SULFATE 2.5 MG/0.5 ML INH NEB SOLN NEB SCH ×4 (03:33→19:47)
[2019-09-06] MEDS: methylPREDNISolone INJ 40 MG/1 ML VIAL (J2920) IV SCH (05:22)
[2019-09-06 06:00] VITALS: BP 133/67
[2019-09-06] MEDS: SYMBICORT 160/4.5MCG INHALER 6GM INH SCH ×2 (07:37→19:47)
[2019-09-06 07:49] LABS: HEMOGLOBIN 14.1 g/dl (13.5-17.5); LYMPH # 0.9 10^3/uL (1.5-5.0); LYMPH % 8.2 % (24.0-44.0); MEAN CORPUSCULAR HEMOGLOBIN 30.9 pg (27.0-33.0); MEAN CORPUSCULAR HGB CONC 33.6 g/dl (32.0-36.5); MEAN CORPUSCULAR VOLUME 91.9 fl (80.0-96.0); MONO # 0.4 10^3/uL (0.0-0.8); MONO % 3.5 % (0.0-5.0); NEUTROPHILS # 9.1 10^3/uL (1.5-8.5); NEUTROPHILS % 87.5 % (36.0-66.0); PLATELET COUNT, AUTOMATED 200 10^3/uL (150-450); RED BLOOD COUNT 4.57 10^6/uL (4.30-6.10); WHITE BLOOD COUNT 10.4 10^3/uL (4.0-10.0)
[2019-09-06 08:16] LABS: BLOOD UREA NITROGEN 22 MG/DL (7-18); CALCIUM LEVEL 8.7 MG/DL (8.5-10.1); CARBON DIOXIDE LEVEL 27 MEQ/L (21-32); CHLORIDE LEVEL 106 MEQ/L (98-107); CREATININE FOR GFR 0.87 MG/DL (0.70-1.30); GLOMERULAR FILTRATION RATE > 60.0 (>60); GLUCOSE, FASTING 132 MG/DL (70-100); POTASSIUM SERUM 4.1 MEQ/L (3.5-5.1); SODIUM LEVEL 139 MEQ/L (136-145)
[2019-09-06] MEDS: ENOXAPARIN 40 MG/0.4 ML SYRINGE (J1650) SC SCH (08:48)
[2019-09-06] MEDS: CLOPIDOGREL 75 MG TAB PO SCH (08:48)
[2019-09-06] MEDS: ATORVASTATIN 20 MG TAB PO SCH (08:48)
[2019-09-06] MEDS: PANTOPRAZOLE 40MG INJ (PROTONIX) (C9113) IV SCH (08:48)
[2019-09-06] MEDS: DOCUSATE SODIUM 100 MG CAP PO SCH ×3 (08:48→20:15)
[2019-09-06] MEDS: lisinopriL 5 MG TAB PO SCH (08:50)
--- NOTE | 2019-09-06 10:01 | REP ---
Clinical: Follow-up recent pneumonitis. . Comparison: 09/04/2019, 08/31/2019 . Technique: PA and lateral. Findings: The mediastinum and cardiac silhouette are normal. The lung chino are clear and without acute consolidation, effusion, or pneumothorax. The skeletal structures are intact and normal. Impression: 1. No acute cardiopulmonary process. Electronically Signed by Milton Levy MD 09/06/2019 09:52 A
--- NOTE | 2019-09-06 10:15 | IPNPDOC ---
Subjective Date Seen The patient was seen on 09/06/19. Subjective Chief Complaint/HPI feels about the same. some productive sputum. Constitutional: Denies: Chills ENT: Denies: Head Aches Pulmonary: Denies: Dyspnea, Cough Cardiovascular: Denies: Chest Pain, Orthopnea Gastrointestinal: Denies: Nausea, Abdominal Pain Hematologic: Denies: Bruising Musculoskeletal: Denies: Neck Pain, Back Pain Neurological: Denies: Weakness Psych: Reports: Mood Normal Objective Physical Examination General Exam: Positive: Alert, Cooperative, No Acute Distress Eye Exam: Positive: Conjunctiva & lids normal; Negative: Sclera icteric ENT Exam: Positive: Atraumatic, Mucous membr. moist/pink, Pharynx Normal Neck Exam: Positive: Supple; Negative: JVD, thyromegaly Chest Exam: Positive: Rhonchi, Wheezing, Other (fair air movement; no accessory muscle use.); Negative: Rales Heart Exam: Positive: Tachycardic, Regular Rhythm, Normal S1, Normal S2; Negative: Murmurs, Rubs Abdomen Exam: Positive: Normal bowel sounds, Soft; Negative: Tenderness, Hepatospenomegaly Extremity Exam: Positive: Normal pulses; Negative: Clubbing, Cyanosis, Edema Skin Exam: Positive: Nl turgor and temperature; Negative: Breakdown, Lesion Neuro Exam: Positive: Normal Speech, Strength at 5/5 X4 ext, Normal Tone Psych Exam: Positive: Mental status NL, Mood NL Assessment /Plan Problems (1) Asthma exacerbation Status: Acute Response to Treatment: Stable Discussed With: Nurse, Patient Problem Specific Plan: Monitor Clinically, Repeat Labs Problem Text: 09/06: still wheezing diffusely but he has good air movement and no accessory muscle use. Sats are adequate but not normal on Room Air at 92% Cont with SM 40 mg IV q6h, nebs, will change from PRN to scheduled. Afebrile for more than 24 hours. (2) Influenza A virus subtype H1 2009 pandemic strain present Status: Acute Response to Treatment: Stable Problem Text: 09/06 with persistent symptoms, will check sputum for bacterial secondary infection and repeat CXR. see above. No tamiflu, pt now afebrile. Plan/VTE VTE Prophylaxis Ordered?: Yes VS, I&O, 24H, Fishbone Vital Signs/I&O Vital Signs Date Time Temp Pulse Resp B/P (MAP) Pulse Ox O2 Delivery O2 Flow Rate FiO2 09/06/19 08:50 142/86 09/06/19 06:00 97.1 78 20 91 09/04/19 18:00 Room Air 09/04/19 15:52 3.0 I&O- Last 24 Hours up to 6 AM 09/06/19 06:00 Intake Total 1855 ml Output Total 2425 ml Balance -570 ml Laboratory Data 24H LABS Laboratory Tests 2 09/06/19 07:24: Immature Granulocyte % (Auto) 0.8, Neutrophils (%) (Auto) 87.5H, Lymphocytes (%) (Auto) 8.2L, Monocytes (%) (Auto) 3.5, Eosinophils (%) (Auto) 0.0, Basophils (%) (Auto) 0.0, Neutrophils # (Auto) 9.1H, Lymphocytes # (Auto) 0.9L, Monocytes # (Auto) 0.4, Eosinophils # (Auto) 0.0, Basophils # (Auto) 0.0, Nucleated Red Blood Cells % (auto) 0.0, Anion Gap 6L, Glomerular Filtration Rate > 60.0, Calcium Level 8.7 CBC/BMP Laboratory Tests 09/06/19 07:24 Microbiology Microbiology 09/04/19 Respiratory Virus Panel (PCR) ([facility]) - Final, Complete Influenza A H1-2009 09/04/19 Blood Culture - Preliminary, Resulted No growth after 24 hours . All specim... 09/04/19 Blood Culture - Preliminary, Resulted No growth after 24 hours . All specim... Titus Norton MD Sep 06, 2019 10:15
[2019-09-06] MEDS: methylPREDNISolone INJ 125 MG/2 ML VIAL (J2930) IV SCH ×2 (11:55→18:57)
[2019-09-06 14:00] VITALS: BP 144/85
[2019-09-06 22:00] VITALS: BP 141/84
[2019-09-07] MEDS: methylPREDNISolone INJ 125 MG/2 ML VIAL (J2930) IV SCH ×4 (02:19→21:31)
[2019-09-07] MEDS: ALBUTEROL SULFATE 2.5 MG/0.5 ML INH NEB SOLN NEB SCH ×2 (02:36→08:27)
[2019-09-07 05:53] LABS: BASO % 0.2 % (0.0-1.0); HEMATOCRIT 40.4 % (42.0-52.0); HEMOGLOBIN 13.4 g/dl (13.5-17.5); LYMPH # 0.8 10^3/uL (1.5-5.0); LYMPH % 6.8 % (24.0-44.0); MEAN CORPUSCULAR HEMOGLOBIN 30.4 pg (27.0-33.0); MEAN CORPUSCULAR HGB CONC 33.2 g/dl (32.0-36.5); MEAN CORPUSCULAR VOLUME 91.6 fl (80.0-96.0); MONO # 0.4 10^3/uL (0.0-0.8); MONO % 3.2 % (0.0-5.0); NEUTROPHILS # 9.9 10^3/uL (1.5-8.5); NEUTROPHILS % 88.8 % (36.0-66.0); PLATELET COUNT, AUTOMATED 207 10^3/uL (150-450); RED BLOOD COUNT 4.41 10^6/uL (4.30-6.10); WHITE BLOOD COUNT 11.2 10^3/uL (4.0-10.0)
[2019-09-07 06:00] VITALS: BP 130/85
[2019-09-07] MEDS ORDERED: DOXYCYCLINE HYCLATE 100 MG TAB PO SCH (06:00)
[2019-09-07 06:13] LABS: BLOOD UREA NITROGEN 25 MG/DL (7-18); CALCIUM LEVEL 8.2 MG/DL (8.5-10.1); CARBON DIOXIDE LEVEL 26 MEQ/L (21-32); CHLORIDE LEVEL 107 MEQ/L (98-107); CREATININE FOR GFR 0.94 MG/DL (0.70-1.30); GLOMERULAR FILTRATION RATE > 60.0 (>60); GLUCOSE, FASTING 139 MG/DL (70-100); POTASSIUM SERUM 4.3 MEQ/L (3.5-5.1); SODIUM LEVEL 140 MEQ/L (136-145)
[2019-09-07] MEDS ORDERED: IPRATROPIUM 0.5MG/ALBUTEROL 2.5MG INH SOL UD 3ML (DUONEB)(J7620) NEB SCH (08:00)
[2019-09-07] MEDS: SYMBICORT 160/4.5MCG INHALER 6GM INH SCH (08:27)
[2019-09-07] MEDS: DOCUSATE SODIUM 100 MG CAP PO SCH ×2 (08:52→21:00)
--- NOTE | 2019-09-07 09:47 | IPNPDOC ---
Subjective Date Seen The patient was seen on 09/07/19. Subjective Chief Complaint/HPI asthma exacerbation. influenza Events since last encounter Breathing is unchanged per patient report. Sputum cx poor quality. CXR negative for pneumonia. Constitutional: Denies: Chills, Fever, Night Sweats Pulmonary: Reports: Dyspnea, Cough Cardiovascular: Denies: Chest Pain, Palpitations, Orthopnea, Paroxysmal Noc. Dyspnea, Lt Headedness Gastrointestinal: Denies: Nausea, Vomiting, Abdominal Pain, Diarrhea, Constipation Psych: Reports: Mood Normal; Denies: Depression, Memory Issues Objective Physical Examination General Exam: Positive: Alert, Cooperative, No Acute Distress Eye Exam: Positive: Conjunctiva & lids normal; Negative: Sclera icteric ENT Exam: Positive: Atraumatic, Mucous membr. moist/pink, Pharynx Normal Neck Exam: Positive: Supple; Negative: JVD, thyromegaly Chest Exam: Positive: Rhonchi, Wheezing, Other (fair air movement; no accessory muscle use.); Negative: Rales Heart Exam: Positive: Tachycardic, Regular Rhythm, Normal S1, Normal S2; Negative: Murmurs, Rubs Abdomen Exam: Positive: Normal bowel sounds, Soft; Negative: Tenderness, Hepatospenomegaly Extremity Exam: Positive: Normal pulses; Negative: Clubbing, Cyanosis, Edema Skin Exam: Positive: Nl turgor and temperature; Negative: Breakdown, Lesion Neuro Exam: Positive: Normal Speech, Strength at 5/5 X4 ext, Normal Tone Psych Exam: Positive: Mental status NL, Mood NL Assessment /Plan Problems (1) Asthma exacerbation Status: Acute Response to Treatment: Stable Discussed With: Nurse, Patient Problem Specific Plan: Monitor Clinically, Repeat Labs Problem Text: 09/07/2019: continues with wheeze. Has occasional desaturations to 86-87%. Was sleeping during the 87% range this am. May have a component of sleep apnea. Will DC Symbicort and start duoneb q [address] chest reviewed with potential early multifocal pneumonia. Added on Doxycycline. Changed to Levofloxacin 750 daily. and after discussion with Dr. Sosa, change solumedrol to 80 q6 hours. Started Tamiflu. 09/06: still wheezing diffusely but he has good air movement and no accessory muscle use. Sats are adequate but not normal on Room Air at 92% Cont with SM 40 mg IV q6h, nebs, will change from PRN to scheduled. Afebrile for more than 24 hours. (2) Influenza A virus subtype H1 2009 pandemic strain present Status: Acute Response to Treatment: Stable Problem Text: 09/07/19: CXR: NAD. sputum cx poor quality. Culture not set up due to poor quality specimen. 09/06 with persistent symptoms, will check sputum for bacterial secondary i nfection and repeat CXR. see above. No tamiflu, pt now afebrile. Plan/VTE VTE Prophylaxis Ordered?: Yes VS, I&O, 24H, Fishbone Vital Signs/I&O Vital Signs Date Time Temp Pulse Resp B/P (MAP) Pulse Ox O2 Delivery O2 Flow Rate FiO2 09/07/19 08:50 63 09/07/19 06:00 98.0 18 130/85 (100) 98 Room Air 09/04/19 15:52 3.0 I&O- Last 24 Hours up to 6 AM 09/07/19 06:00 Intake Total 1255 ml Output Total 1875 ml Balance -620 ml Laboratory Data 24H LABS Laboratory Tests 2 09/07/19 05:31: Immature Granulocyte % (Auto) 1.0, Neutrophils (%) (Auto) 88.8H, Lymphocytes (%) (Auto) 6.8L, Monocytes (%) (Auto) 3.2, Eosinophils (%) (Auto) 0.0, Basophils (%) (Auto) 0.2, Neutrophils # (Auto) 9.9H, Lymphocytes # (Auto) 0.8L, Monocytes # (Auto) 0.4, Eosinophils # (Auto) 0.0, Basophils # (Auto) 0.0, Nucleated Red Blood Cells % (auto) 0.0, Anion Gap 7L, Glomerular Filtration Rate > 60.0, Calcium Level 8.2L CBC/BMP Laboratory Tests 09/07/19 05:31 Microbiology Microbiology 09/06/19 Gram Stain - Final, Complete 09/06/19 Sputum Culture - Final, Complete 09/04/19 Respiratory Virus Panel (PCR) ([facility]) - Final, Complete Influenza A H1-200809/04/19 Blood Culture - Preliminary, Resulted No Growth after 48 hours. All Specime... 09/04/19 Blood Culture - Preliminary, Resulted No Growth after 48 hours. All Specime... Anahy Cool Sep 07, 2019 09:47 Titus Norton MD Sep 07, 2019 12:22
[2019-09-07] MEDS: ENOXAPARIN 40 MG/0.4 ML SYRINGE (J1650) SC SCH (09:59)
[2019-09-07] MEDS: CLOPIDOGREL 75 MG TAB PO SCH (09:59)
[2019-09-07] MEDS: ATORVASTATIN 20 MG TAB PO SCH (09:59)
[2019-09-07] MEDS: PANTOPRAZOLE 40MG INJ (PROTONIX) (C9113) IV SCH (10:00)
[2019-09-07] MEDS: lisinopriL 5 MG TAB PO SCH (10:00)
[2019-09-07] MEDS: ACETAMINOPHEN TAB 650MG DOSE (2X325MG) PO PRN (10:03)
[2019-09-07] MEDS: OSELTAMIVIR PHOSPHATE 75 MG CAP (TAMIFLU) PO SCH ×2 (10:29→21:31)
[2019-09-07] MEDS: ALBUTEROL SULFATE 2.5 MG/0.5 ML INH NEB SOLN NEB PRN (11:33)
[2019-09-07] MEDS: IPRATROPIUM 0.5MG/ALBUTEROL 2.5MG INH SOL UD 3ML (DUONEB)(J7620) NEB SCH ×3 (12:00→19:38)
[2019-09-07] MEDS: LevoFLOXacin IV 750 MG in IV 1 EA IV SCH (13:36)
[2019-09-07 14:00] VITALS: BP 134/81
[2019-09-07 22:00] VITALS: BP 139/70
[2019-09-08] MEDS: methylPREDNISolone INJ 125 MG/2 ML VIAL (J2930) IV SCH ×4 (02:28→20:33)
[2019-09-08] MEDS: IPRATROPIUM 0.5MG/ALBUTEROL 2.5MG INH SOL UD 3ML (DUONEB)(J7620) NEB SCH ×7 (04:00→23:03)
[2019-09-08] MEDS: ALBUTEROL SULFATE 2.5 MG/0.5 ML INH NEB SOLN NEB PRN (05:51)
[2019-09-08 06:00] VITALS: BP 146/72
[2019-09-08 06:01] LABS: BASO % 0.1 % (0.0-1.0); HEMATOCRIT 40.3 % (42.0-52.0); HEMOGLOBIN 13.3 g/dl (13.5-17.5); LYMPH # 0.7 10^3/uL (1.5-5.0); LYMPH % 6.7 % (24.0-44.0); MEAN CORPUSCULAR HEMOGLOBIN 30.4 pg (27.0-33.0); MEAN CORPUSCULAR VOLUME 92.2 fl (80.0-96.0); MONO # 0.3 10^3/uL (0.0-0.8); MONO % 2.6 % (0.0-5.0); NEUTROPHILS # 9.6 10^3/uL (1.5-8.5); NEUTROPHILS % 89.6 % (36.0-66.0); PLATELET COUNT, AUTOMATED 201 10^3/uL (150-450); RED BLOOD COUNT 4.37 10^6/uL (4.30-6.10); WHITE BLOOD COUNT 10.7 10^3/uL (4.0-10.0)
[2019-09-08 06:17] LABS: BLOOD UREA NITROGEN 28 MG/DL (7-18); CALCIUM LEVEL 8.3 MG/DL (8.5-10.1); CARBON DIOXIDE LEVEL 28 MEQ/L (21-32); CHLORIDE LEVEL 107 MEQ/L (98-107); GLOMERULAR FILTRATION RATE > 60.0 (>60); GLUCOSE, FASTING 155 MG/DL (70-100); POTASSIUM SERUM 4.3 MEQ/L (3.5-5.1); SODIUM LEVEL 139 MEQ/L (136-145)
[2019-09-08] MEDS: DOCUSATE SODIUM 100 MG CAP PO SCH ×2 (09:00→20:33)
--- NOTE | 2019-09-08 09:45 | IPNPDOC ---
Subjective Date Seen The patient was seen on 09/08/19. Subjective Chief Complaint/HPI felt definite improvement until after he had missed [place] dose of nebs, and 0400 dose was delayed, now feels about the same as yesterday Constitutional: Denies: Chills ENT: Denies: Head Aches Skin: Denies: Rash Pulmonary: Reports: Cough, Pleuritic Chest Pain (managed with ice pack.), Other Symptoms (wheezes. scant productivity to cough) Cardiovascular: Reports: Chest Pain, Orthopnea; Denies: Palpitations Gastrointestinal: Denies: Nausea, Abdominal Pain, Diarrhea Hematologic: Denies: Bruising Endocrine: Denies: Polydipsia Musculoskeletal: Denies: Neck Pain Neurological: Denies: Weakness, Numbness Psych: Reports: Mood Normal Objective Physical Examination General Exam: Positive: Alert, Cooperative, No Acute Distress Eye Exam: Positive: Conjunctiva & lids normal; Negative: Sclera icteric ENT Exam: Positive: Atraumatic, Mucous membr. moist/pink, Pharynx Normal Neck Exam: Positive: Supple; Negative: JVD, thyromegaly Chest Exam: Positive: Rhonchi, Wheezing, Other (still has good air movement. Sats are >90 on room air. no accessory muscle use. rhonchi/wheezes, slightly better than yesterday afternoon); Negative: Rales Heart Exam: Positive: Tachycardic, Regular Rhythm, Normal S1, Normal S2; Negative: Murmurs, Rubs Abdomen Exam: Positive: Normal bowel sounds, Soft; Negative: Tenderness, Hepatospenomegaly Extremity Exam: Positive: Normal pulses; Negative: Clubbing, Cyanosis, Edema Skin Exam: Positive: Nl turgor and temperature; Negative: Breakdown, Lesion Neuro Exam: Positive: Normal Speech, Strength at 5/5 X4 ext, Normal Tone Psych Exam: Positive: Mental status NL, Mood NL Assessment /Plan Problems (1) Asthma exacerbation Status: Acute Response to Treatment: Stable Discussed With: Nurse, Patient Problem Specific Plan: Monitor Clinically, Repeat Labs Problem Text: 09/08: slightly improved. antibiotic added and steroids added after d/w Dr. Sosa. \ 09/07/2019: continues with wheeze. Has occasional desaturations to 86-87%. Was sleeping during the 87% range this am. May have a component of sleep apnea. Will DC Symbicort and start duoneb q [address] chest reviewed with potential early multifocal pneumonia. Added on Doxycycline. Changed to Levofloxacin 750 daily. and after discussion with Dr. Sosa, change solumedrol to 80 q6 hours. Started Tamiflu. 09/06: still wheezing diffusely but he has good air movement and no accessory muscle use. Sats are adequate but not normal on Room Air at 92% Cont with SM 40 mg IV q6h, nebs, will change from PRN to scheduled. Afebrile for more than 24 hours. (2) Influenza A virus subtype H1 2009 pandemic strain present Status: Acute Response to Treatment: Stable, Improving Problem Text: 09/08: started oseltamivir yesterday, even though it was late. decided that still might be of value and low probability of adverse rxn. 09/07/19: CXR: NAD. sputum cx poor quality. Culture not set up due to poor quality specimen. 09/06 with persistent symptoms, will check sputum for bacterial secondary infection and repeat CXR. see above. No tamiflu, pt now afebrile. Plan/VTE VTE Prophylaxis Ordered?: Yes VS, I&O, 24H, Fishbone Vital Signs/I&O Vital Signs Date Time Temp Pulse Resp B/P (MAP) Pulse Ox O2 Delivery O2 Flow Rate FiO2 09/08/19 06:00 98.0 97 19 146/72 (96) 93 Room Air 09/04/19 15:52 3.0 I&O- Last 24 Hours up to 6 AM 09/08/19 06:00 Intake Total 595 ml Output Total 0 ml Balance 595 ml Laboratory Data 24H LABS Laboratory Tests 2 09/08/19 05:44: Immature Granulocyte % (Auto) 1.0, Neutrophils (%) (Auto) 89.6H, Lymphocytes (%) (Auto) 6.7L, Monocytes (%) (Auto) 2.6, Eosinophils (%) (Auto) 0.0, Basophils (%) (Auto) 0.1, Neutrophils # (Auto) 9.6H, Lymphocytes # (Auto) 0.7L, Monocytes # (Auto) 0.3, Eosinophils # (Auto) 0.0, Basophils # (Auto) 0.0, Nucleated Red Blood Cells % (auto) 0.0, Anion Gap 4L, Glomerular Filtration Rate > 60.0, Calcium Level 8.3L CBC/BMP Laboratory Tests 09/08/19 05:44 Microbiology Microbiology 09/06/19 Gram Stain - Final, Complete 09/06/19 Sputum Culture - Final, Complete 09/04/19 Respiratory Virus Panel (PCR) ([facility]) - Final, Complete Influenza A H1-2009 09/04/19 Blood Culture - Preliminary, Resulted No Growth after 72 hours. All specime... 09/04/19 Blood Culture - Preliminary, Resulted No Growth after 72 hours. All specime... Titus Norton MD Sep 08, 2019 09:45
[2019-09-08] MEDS: CLOPIDOGREL 75 MG TAB PO SCH (09:54)
[2019-09-08] MEDS: ATORVASTATIN 20 MG TAB PO SCH (09:54)
[2019-09-08] MEDS: ENOXAPARIN 40 MG/0.4 ML SYRINGE (J1650) SC SCH (09:54)
[2019-09-08] MEDS: OSELTAMIVIR PHOSPHATE 75 MG CAP (TAMIFLU) PO SCH ×2 (09:54→20:34)
[2019-09-08] MEDS: lisinopriL 5 MG TAB PO SCH (09:55)
[2019-09-08] MEDS: PANTOPRAZOLE 40MG TAB (PROTONIX) PO SCH (09:55)
[2019-09-08 14:00] VITALS: BP 165/79
[2019-09-08] MEDS: LevoFLOXacin IV 750 MG in IV 1 EA IV SCH (14:13)
[2019-09-08] MEDS: ACETAMINOPHEN TAB 650MG DOSE (2X325MG) PO PRN (20:34)
[2019-09-08] MEDS: SYMBICORT 160/4.5MCG INHALER 6GM INH SCH (21:27)
[2019-09-08 22:00] VITALS: BP 140/80
[2019-09-09] MEDS: methylPREDNISolone INJ 125 MG/2 ML VIAL (J2930) IV SCH ×4 (01:33→20:09)
[2019-09-09] MEDS: IPRATROPIUM 0.5MG/ALBUTEROL 2.5MG INH SOL UD 3ML (DUONEB)(J7620) NEB SCH ×6 (02:56→23:32)
[2019-09-09 06:00] VITALS: BP 149/88
[2019-09-09 07:15] LABS: BASO % 0.1 % (0.0-1.0); HEMATOCRIT 40.7 % (42.0-52.0); HEMOGLOBIN 13.5 g/dl (13.5-17.5); LYMPH # 0.7 10^3/uL (1.5-5.0); LYMPH % 6.3 % (24.0-44.0); MEAN CORPUSCULAR HEMOGLOBIN 30.5 pg (27.0-33.0); MEAN CORPUSCULAR HGB CONC 33.2 g/dl (32.0-36.5); MEAN CORPUSCULAR VOLUME 91.9 fl (80.0-96.0); MONO # 0.2 10^3/uL (0.0-0.8); MONO % 2.3 % (0.0-5.0); NEUTROPHILS # 9.5 10^3/uL (1.5-8.5); NEUTROPHILS % 90.1 % (36.0-66.0); PLATELET COUNT, AUTOMATED 196 10^3/uL (150-450); RED BLOOD COUNT 4.43 10^6/uL (4.30-6.10); WHITE BLOOD COUNT 10.6 10^3/uL (4.0-10.0)
[2019-09-09 07:41] LABS: BLOOD UREA NITROGEN 27 MG/DL (7-18); CALCIUM LEVEL 8.4 MG/DL (8.5-10.1); CARBON DIOXIDE LEVEL 27 MEQ/L (21-32); CHLORIDE LEVEL 107 MEQ/L (98-107); CREATININE FOR GFR 0.94 MG/DL (0.70-1.30); GLOMERULAR FILTRATION RATE > 60.0 (>60); GLUCOSE, FASTING 144 MG/DL (70-100); POTASSIUM SERUM 3.9 MEQ/L (3.5-5.1); SODIUM LEVEL 140 MEQ/L (136-145)
[2019-09-09] MEDS: ATORVASTATIN 20 MG TAB PO SCH (08:47)
[2019-09-09] MEDS: CLOPIDOGREL 75 MG TAB PO SCH (08:47)
[2019-09-09] MEDS: PANTOPRAZOLE 40MG TAB (PROTONIX) PO SCH (08:47)
[2019-09-09] MEDS: OSELTAMIVIR PHOSPHATE 75 MG CAP (TAMIFLU) PO SCH ×2 (08:47→20:09)
[2019-09-09] MEDS: lisinopriL 5 MG TAB PO SCH (08:47)
[2019-09-09] MEDS: ENOXAPARIN 40 MG/0.4 ML SYRINGE (J1650) SC SCH (08:48)
[2019-09-09] MEDS: DOCUSATE SODIUM 100 MG CAP PO SCH ×2 (08:48→20:08)
[2019-09-09] MEDS: SYMBICORT 160/4.5MCG INHALER 6GM INH SCH ×2 (09:20→21:16)
[2019-09-09] MEDS: LevoFLOXacin IV 750 MG in IV 1 EA IV SCH (13:26)
[2019-09-09 14:00] VITALS: BP 136/79
--- NOTE | 2019-09-09 16:27 | IPNPDOC ---
Subjective Date Seen The patient was seen on 09/09/19. Subjective Chief Complaint/HPI He was "a little tight" this am but better now. Constitutional: Denies: Chills, Malaise Eyes: Denies: Pain ENT: Denies: Head Aches, Sore Throat Skin: Denies: Rash Pulmonary: Reports: Cough; Denies: Pleuritic Chest Pain Cardiovascular: Denies: Chest Pain, Palpitations Gastrointestinal: Denies: Nausea, Vomiting Genitourinary: Denies: Dysuria Hematologic: Denies: Bruising Musculoskeletal: Denies: Neck Pain, Back Pain Neurological: Reports: Other Symptoms (tremor); Denies: Weakness, Numbness Psych: Reports: Mood Normal Objective Physical Examination General Exam: Positive: Alert, Cooperative, No Acute Distress Eye Exam: Positive: Conjunctiva & lids normal; Negative: Sclera icteric ENT Exam: Positive: Atraumatic, Mucous membr. moist/pink, Pharynx Normal Neck Exam: Positive: Supple; Negative: JVD, thyromegaly Chest Exam: Positive: Rhonchi, Wheezing, Other (reduced noise with breathing, better air movement.); Negative: Rales Heart Exam: Positive: Tachycardic, Regular Rhythm, Normal S1, Normal S2; Negative: Murmurs, Rubs Abdomen Exam: Positive: Normal bowel sounds, Soft; Negative: Tenderness, Hepatospenomegaly Extremity Exam: Positive: Normal pulses; Negative: Clubbing, Cyanosis, Edema Skin Exam: Positive: Nl turgor and temperature; Negative: Breakdown, Lesion Neuro Exam: Positive: Normal Speech, Strength at 5/5 X4 ext, Normal Tone Psych Exam: Positive: Mental status NL, Mood NL Assessment /Plan Problems (1) Asthma exacerbation Status: Acute Response to Treatment: Stable Discussed With: Nurse, Patient Problem Specific Plan: Monitor Clinically, Repeat Labs Problem Text: 09/09 improving today. Symbicort added back last night. 09/08: slightly improved. antibiotic added and steroids added after d/w Dr. Sosa. \\ 09/07/2019: continues with wheeze. Has occasional desaturations to 86-87%. Was sleeping during the 87% range this am. May have a component of sleep apnea. Will DC Symbicort and start duoneb q [address] chest reviewed with potential early multifocal pneumonia. Added on Doxycycline. Changed to Levofloxacin 750 daily. and after discussion with Dr. Sosa, change solumedrol to 80 q6 hours. Started Tamiflu. 09/06: still wheezing diffusely but he has good air movement and no accessory muscle use. Sats are adequate but not normal on Room Air at 92% Cont with SM 40 mg IV q6h, nebs, will change from PRN to scheduled. Afebrile for more than 24 hours. (2) Influenza A virus subtype H1 2009 pandemic strain present Status: Acute Response to Treatment: Stable, Improving Problem Text: 09/08: started oseltamivir yesterday, even though it was late. decided that still might be of value and low probability of adverse rxn. 09/07/19: CXR: NAD. sputum cx poor quality. Culture not set up due to poor quality specimen. 09/06 with persistent symptoms, will check sputum for bacterial secondary infection and repeat CXR. see above. No tamiflu, pt now afebrile. Plan/VTE VTE Prophylaxis Ordered?: Yes VS, I&O, 24H, Fishbone Vital Signs/I&O Vital Signs Date Time Temp Pulse Resp B/P (MAP) Pulse Ox O2 Delivery O2 Flow Rate FiO2 09/09/19 14:00 98.7 94 19 136/79 (98) 91 Room Air 09/04/19 15:52 3.0 I&O- Last 24 Hours up to 6 AM 09/09/19 06:00 Intake Total 2010 ml Output Total 800 ml Balance 1210 ml Laboratory Data 24H LABS Laboratory Tests 2 09/09/19 06:51: Immature Granulocyte % (Auto) 1.2, Neutrophils (%) (Auto) 90.1H, Lymphocytes (%) (Auto) 6.3L, Monocytes (%) (Auto) 2.3, Eosinophils (%) (Auto) 0.0, Basophils (%) (Auto) 0.1, Neutrophils # (Auto) 9.5H, Lymphocytes # (Auto) 0.7L, Monocytes # (Auto) 0.2, Eosinophils # (Auto) 0.0, Basophils # (Auto) 0.0, Nucleated Red Blood Cells % (auto) 0.0, Anion Gap 6L, Glomerular Filtration Rate > 60.0, Calcium Level 8.4L CBC/BMP Laboratory Tests 09/09/19 06:51 Microbiology Microbiology 09/06/19 Gram Stain - Final, Complete 09/06/19 Sputum Culture - Final, Complete 09/04/19 Respiratory Virus Panel (PCR) ([facility]) - Final, Complete Influenza A H1-2009 09/04/19 Blood Culture - Final, Complete NO GROWTH AFTER 5 DAYS 09/04/19 Blood Culture - Final, Complete NO GROWTH AFTER 5 DAYS Titus Norton MD Sep 09, 2019 16:27
[2019-09-09 22:00] VITALS: BP 138/80
[2019-09-10] MEDS: methylPREDNISolone INJ 125 MG/2 ML VIAL (J2930) IV SCH ×4 (02:22→21:07)
[2019-09-10] MEDS: IPRATROPIUM 0.5MG/ALBUTEROL 2.5MG INH SOL UD 3ML (DUONEB)(J7620) NEB SCH ×6 (03:57→23:40)
[2019-09-10 06:00] VITALS: BP 148/82
[2019-09-10 06:07] LABS: BASO % 0.1 % (0.0-1.0); EOS % 0.1 % (0.0-3.0); HEMATOCRIT 39.3 % (42.0-52.0); HEMOGLOBIN 13.3 g/dl (13.5-17.5); LYMPH # 0.5 10^3/uL (1.5-5.0); LYMPH % 5.2 % (24.0-44.0); MEAN CORPUSCULAR HEMOGLOBIN 31.1 pg (27.0-33.0); MEAN CORPUSCULAR HGB CONC 33.8 g/dl (32.0-36.5); MEAN CORPUSCULAR VOLUME 91.8 fl (80.0-96.0); MONO # 0.3 10^3/uL (0.0-0.8); MONO % 3.3 % (0.0-5.0); NEUTROPHILS # 8.7 10^3/uL (1.5-8.5); PLATELET COUNT, AUTOMATED 195 10^3/uL (150-450); RED BLOOD COUNT 4.28 10^6/uL (4.30-6.10); WHITE BLOOD COUNT 9.7 10^3/uL (4.0-10.0)
[2019-09-10 06:34] LABS: BLOOD UREA NITROGEN 29 MG/DL (7-18); CALCIUM LEVEL 8.2 MG/DL (8.5-10.1); CARBON DIOXIDE LEVEL 28 MEQ/L (21-32); CHLORIDE LEVEL 107 MEQ/L (98-107); CREATININE FOR GFR 0.95 MG/DL (0.70-1.30); GLOMERULAR FILTRATION RATE > 60.0 (>60); GLUCOSE, FASTING 154 MG/DL (70-100); POTASSIUM SERUM 4.4 MEQ/L (3.5-5.1); SODIUM LEVEL 140 MEQ/L (136-145)
[2019-09-10] MEDS: SYMBICORT 160/4.5MCG INHALER 6GM INH SCH ×2 (08:08→21:20)
[2019-09-10] MEDS: ATORVASTATIN 20 MG TAB PO SCH (10:48)
[2019-09-10] MEDS: CLOPIDOGREL 75 MG TAB PO SCH (10:48)
[2019-09-10] MEDS: OSELTAMIVIR PHOSPHATE 75 MG CAP (TAMIFLU) PO SCH ×2 (10:48→21:07)
[2019-09-10] MEDS: ENOXAPARIN 40 MG/0.4 ML SYRINGE (J1650) SC SCH (10:48)
[2019-09-10] MEDS: PANTOPRAZOLE 40MG TAB (PROTONIX) PO SCH (10:49)
[2019-09-10] MEDS: lisinopriL 5 MG TAB PO SCH (10:49)
[2019-09-10] MEDS: DOCUSATE SODIUM 100 MG CAP PO SCH ×2 (10:49→20:05)
--- NOTE | 2019-09-10 11:21 | IPNPDOC ---
Subjective Date Seen The patient was seen on 09/10/19. Subjective Chief Complaint/HPI still wheezing and coughing. about the same as yesterday. Constitutional: Denies: Chills ENT: Denies: Head Aches Skin: Denies: Rash Pulmonary: Reports: Dyspnea (after getting up to shower.), Cough Cardiovascular: Denies: Chest Pain, Palpitations Gastrointestinal: Denies: Nausea, Abdominal Pain Endocrine: Denies: Polydipsia Neurological: Denies: Weakness, Numbness Psych: Reports: Mood Normal Objective Physical Examination General Exam: Positive: Alert, Cooperative, No Acute Distress Eye Exam: Positive: Conjunctiva & lids normal; Negative: Sclera icteric ENT Exam: Positive: Atraumatic, Mucous membr. moist/pink, Pharynx Normal Neck Exam: Positive: Supple; Negative: JVD, thyromegaly Chest Exam: Positive: Normal air movement, Rhonchi, Wheezing, Other (rhonchi and wheezes througout. about the same as previous day; good air movement. no rales.); Negative: Rales Heart Exam: Positive: Tachycardic, Regular Rhythm, Normal S1, Normal S2; Negative: Murmurs, Rubs Abdomen Exam: Positive: Normal bowel sounds, Soft; Negative: Tenderness, Hepatospenomegaly Extremity Exam: Positive: Normal pulses; Negative: Clubbing, Cyanosis, Edema Skin Exam: Positive: Nl turgor and temperature; Negative: Breakdown, Lesion Neuro Exam: Positive: Normal Speech, Strength at 5/5 X4 ext, Normal Tone Psych Exam: Positive: Mental status NL, Mood NL Assessment /Plan Problems (1) Asthma exacerbation Status: Acute Response to Treatment: Stable Discussed With: Nurse, Patient Problem Specific Plan: Monitor Clinically, Repeat Labs Problem Text: 09/10 Little change compared to yesterday. Tomorrow may be ready for steroid taper. 09/09 improving today. Symbicort added back last night. 09/08: slightly improved. antibiotic added and steroids added after d/w Dr. Sosa. \ 09/07/2019: continues with wheeze. Has occasional desaturations to 86-87%. Was sleeping during the 87% range this am. May have a component of sleep apnea. Will DC Symbicort and start duoneb q [address] chest reviewed with potential early multifocal pneumonia. Added on Doxycycline. Changed to Levofloxacin 750 daily. and after discussion with Dr. Sosa, change solumedrol to 80 q6 hours. Started Tamiflu. 09/06: still wheezing diffusely but he has good air movement and no accessory muscle use. Sats are adequate but not normal on Room Air at 92% Cont with SM 40 mg IV q6h, nebs, will change from PRN to scheduled. Afebrile for more than 24 hours. (2) Influenza A virus subtype H1 2009 pandemic strain present Status: Acute Response to Treatment: Stable, Improving Problem Text: 09/08: started oseltamivir yesterday, even though it was late. decided that still might be of value and low probability of adverse rxn. 09/07/19: CXR: NAD. sputum cx poor quality. Culture not set up due to poor quality specimen. 09/06 with persistent symptoms, will check sputum for bacterial secondary infection and repeat CXR. see above. No tamiflu, pt now afebrile. Plan/VTE VTE Prophylaxis Ordered?: Yes Plan Anticipated Discharge: Home VS, I&O, 24H, [facility] Vital Signs/I&O Vital Signs Date Time Temp Pulse Resp B/P (MAP) Pulse Ox O2 Delivery O2 Flow Rate FiO2 09/10/19 10:49 148/82 09/10/19 06:00 97.6 77 20 92 09/09/19 14:00 Room Air 09/04/19 15:52 3.0 I&O- Last 24 Hours up to 6 AM 09/10/19 06:00 Intake Total 2718 ml Output Total 1050 ml Balance 1668 ml Laboratory Data 24H LABS Laboratory Tests 2 09/10/19 05:32: Immature Granulocyte % (Auto) 1.3, Neutrophils (%) (Auto) 90.0H, Lymphocytes (%) (Auto) 5.2L, Monocytes (%) (Auto) 3.3, Eosinophils (%) (Auto) 0.1, Basophils (%) (Auto) 0.1, Neutrophils # (Auto) 8.7H, Lymphocytes # (Auto) 0.5L, Monocytes # (Auto) 0.3, Eosinophils # (Auto) 0.0, Basophils # (Auto) 0.0, Nucleated Red Blood Cells % (auto) 0.0, Anion Gap 5L, Glomerular Filtration Rate > 60.0, Calcium Level 8.2L CBC/BMP Laboratory Tests 09/10/19 05:32 Microbiology Microbiology 09/06/19 Gram Stain - Final, Complete 09/06/19 Sputum Culture - Final, Complete 09/04/19 Respiratory Virus Panel (PCR) ([facility]) - Final, Complete Influenza A H1-2009 09/04/19 Blood Culture - Final, Complete NO GROWTH AFTER 5 DAYS 09/04/19 Blood Culture - Final, Complete NO GROWTH AFTER 5 DAYS Titus Norton MD Sep 10, 2019 11:20
[2019-09-10 14:00] VITALS: BP 135/70
[2019-09-10] MEDS: LevoFLOXacin IV 750 MG in IV 1 EA IV SCH (15:08)
[2019-09-10 22:00] VITALS: BP 139/83
[2019-09-11] MEDS: methylPREDNISolone INJ 125 MG/2 ML VIAL (J2930) IV SCH ×4 (01:57→20:57)
[2019-09-11] MEDS: IPRATROPIUM 0.5MG/ALBUTEROL 2.5MG INH SOL UD 3ML (DUONEB)(J7620) NEB SCH ×6 (04:09→23:52)
[2019-09-11 05:49] LABS: BASO % 0.1 % (0.0-1.0); HEMATOCRIT 37.2 % (42.0-52.0); HEMOGLOBIN 12.4 g/dl (13.5-17.5); LYMPH # 0.4 10^3/uL (1.5-5.0); LYMPH % 3.8 % (24.0-44.0); MEAN CORPUSCULAR HEMOGLOBIN 30.8 pg (27.0-33.0); MEAN CORPUSCULAR HGB CONC 33.3 g/dl (32.0-36.5); MEAN CORPUSCULAR VOLUME 92.3 fl (80.0-96.0); MONO # 0.2 10^3/uL (0.0-0.8); MONO % 2.5 % (0.0-5.0); NEUTROPHILS # 8.4 10^3/uL (1.5-8.5); PLATELET COUNT, AUTOMATED 182 10^3/uL (150-450); RED BLOOD COUNT 4.03 10^6/uL (4.30-6.10); WHITE BLOOD COUNT 9.1 10^3/uL (4.0-10.0)
[2019-09-11] MEDS: ACETAMINOPHEN TAB 650MG DOSE (2X325MG) PO PRN (05:56)
[2019-09-11 06:00] VITALS: BP 145/82
[2019-09-11 06:10] LABS: BLOOD UREA NITROGEN 26 MG/DL (7-18); CALCIUM LEVEL 8.1 MG/DL (8.5-10.1); CARBON DIOXIDE LEVEL 28 MEQ/L (21-32); CHLORIDE LEVEL 106 MEQ/L (98-107); CREATININE FOR GFR 0.97 MG/DL (0.70-1.30); GLOMERULAR FILTRATION RATE > 60.0 (>60); GLUCOSE, FASTING 165 MG/DL (70-100); POTASSIUM SERUM 4.2 MEQ/L (3.5-5.1); SODIUM LEVEL 138 MEQ/L (136-145)
[2019-09-11] MEDS: DOCUSATE SODIUM 100 MG CAP PO SCH ×2 (09:00→20:57)
[2019-09-11] MEDS: SYMBICORT 160/4.5MCG INHALER 6GM INH SCH ×2 (09:22→20:25)
[2019-09-11] MEDS: CLOPIDOGREL 75 MG TAB PO SCH (09:28)
[2019-09-11] MEDS: PANTOPRAZOLE 40MG TAB (PROTONIX) PO SCH (09:28)
[2019-09-11] MEDS: OSELTAMIVIR PHOSPHATE 75 MG CAP (TAMIFLU) PO SCH ×2 (09:28→20:57)
[2019-09-11] MEDS: ATORVASTATIN 20 MG TAB PO SCH (09:29)
[2019-09-11] MEDS: lisinopriL 5 MG TAB PO SCH (09:36)
[2019-09-11] MEDS: ENOXAPARIN 40 MG/0.4 ML SYRINGE (J1650) SC SCH (09:37)
[2019-09-11] MEDS: LevoFLOXacin 750 MG TABLET PO SCH (09:39)
--- NOTE | 2019-09-11 11:17 | IPNPDOC ---
Subjective Date Seen The patient was seen on 09/11/19. Subjective Chief Complaint/HPI Pt this morning without new concerns. at bedside. He states that he is frustrated he isn't getting better faster. General: Denies: Fatigue Constitutional: Denies: Chills, Fever Pulmonary: Reports: Dyspnea, Cough (mostly dry) Cardiovascular: Denies: Chest Pain, Palpitations Gastrointestinal: Denies: Nausea, Vomiting, Abdominal Pain, Diarrhea Psych: Reports: Mood Normal Objective Physical Examination General Exam: Positive: Alert, Cooperative, No Acute Distress Eye Exam: Negative: Sclera icteric ENT Exam: Positive: Mucous membr. moist/pink Neck Exam: Positive: Supple; Negative: JVD, thyromegaly Chest Exam: Positive: Normal air movement, Rhonchi, Wheezing, Other (rhonchi and wheezes througout, good air movement. no rales.); Negative: Rales Heart Exam: Positive: Rate Normal, Regular Rhythm, Normal S1, Normal S2; Negative: Murmurs, Rubs Abdomen Exam: Positive: Normal bowel sounds, Soft; Negative: Tenderness, Hepatospenomegaly Extremity Exam: Positive: Normal pulses; Negative: Clubbing, Cyanosis, Edema Skin Exam: Positive: Nl turgor and temperature; Negative: Breakdown, Lesion Neuro Exam: Positive: Normal Speech Psych Exam: Positive: Mental status NL, Mood NL Assessment /Plan Problems (1) Asthma exacerbation Status: Acute Response to Treatment: Stable Discussed With: Nurse, Patient Problem Specific Plan: Monitor Clinically, Repeat Labs Problem Text: 09/11 He is moving air much better than he was last week, He is SM 80 mg Q6h, will reduce him to 60 mg Q8h, cont with nebs. 09/10 Little change compared to yesterday. Tomorrow may be ready for steroid ta per. 09/09 improving today. Symbicort added back last night. 09/08: slightly improved. antibiotic added and steroids added after d/w Dr. Sosa. \ 09/07/2019: continues with wheeze. Has occasional desaturations to 86-87%. Was sleeping during the 87% range this am. May have a component of sleep apnea. Will DC Symbicort and start duoneb q [address] chest reviewed with potential early multifocal pneumonia. Added on Doxycycline. Changed to Levofloxacin 750 daily. and after discussion with Dr. Sosa, change solumedrol to 80 q6 hours. Started Tamiflu. 09/06: still wheezing diffusely but he has good air movement and no accessory muscle use. Sats are adequate but not normal on Room Air at 92% Cont with SM 40 mg IV q6h, nebs, will change from PRN to scheduled. Afebrile for more than 24 hours. (2) Influenza A virus subtype H1 2009 pandemic strain present Status: Acute Response to Treatment: Stable, Improving Problem Text: 09/08: started oseltamivir yesterday, even though it was late. decided that still might be of value and low probability of adverse rxn. 09/07/19: CXR: NAD. sputum cx poor quality. Culture not set up due to poor quality specimen. 09/06 with persistent symptoms, will check sputum for bacterial secondary infection and repeat CXR. see above. No tamiflu, pt now afebrile. Plan/VTE VTE Prophylaxis Ordered?: Yes Plan Anticipated Discharge: Home VS, I&O, 24H, [facility] Vital Signs/I&O Vital Signs Date Time Temp Pulse Resp B/P (MAP) Pulse Ox O2 Delivery O2 Flow Rate FiO2 09/11/19 09:36 147/86 09/11/19 06:00 97.9 87 20 94 09/09/19 14:00 Room Air I&O- Last 24 Hours up to 6 AM 09/11/19 06:00 Intake Total 2450 ml Output Total 1400 ml Balance 1050 ml Laboratory Data 24H LABS Laboratory Tests 2 09/11/19 05:26: Immature Granulocyte % (Auto) 1.6, Neutrophils (%) (Auto) 92.0H, Lymphocytes (%) (Auto) 3.8L, Monocytes (%) (Auto) 2.5, Eosinophils (%) (Auto) 0.0, Basophils (%) (Auto) 0.1, Neutrophils # (Auto) 8.4, Lymphocytes # (Auto) 0.4L, Monocytes # (Auto) 0.2, Eosinophils # (Auto) 0.0, Basophils # (Auto) 0.0, Nucleated Red Bl ood Cells % (auto) 0.0, Anion Gap 4L, Glomerular Filtration Rate > 60.0, Calcium Level 8.1L CBC/BMP Laboratory Tests 09/11/19 05:26 Microbiology Microbiology 09/06/19 Gram Stain - Final, Complete 09/06/19 Sputum Culture - Final, Complete 09/04/19 Respiratory Virus Panel (PCR) ([facility]) - Final, Complete Influenza A H1-2009 09/04/19 Blood Culture - Final, Complete NO GROWTH AFTER 5 DAYS 09/04/19 Blood Culture - Final, Complete NO GROWTH AFTER 5 DAYS NIGEL RODRIGUEZ PA-C Sep 11, 2019 11:17
[2019-09-11 14:00] VITALS: BP 145/88
[2019-09-11 22:00] VITALS: BP 135/84
[2019-09-12] MEDS: methylPREDNISolone INJ 125 MG/2 ML VIAL (J2930) IV SCH ×4 (02:05→20:42)
[2019-09-12] MEDS: IPRATROPIUM 0.5MG/ALBUTEROL 2.5MG INH SOL UD 3ML (DUONEB)(J7620) NEB SCH ×6 (04:03→23:36)
[2019-09-12 06:00] VITALS: BP 132/78
[2019-09-12] MEDS: LevoFLOXacin 750 MG TABLET PO SCH (06:08)
[2019-09-12] MEDS: CLOPIDOGREL 75 MG TAB PO SCH (08:19)
[2019-09-12] MEDS: ATORVASTATIN 20 MG TAB PO SCH (08:19)
[2019-09-12] MEDS: OSELTAMIVIR PHOSPHATE 75 MG CAP (TAMIFLU) PO SCH ×2 (08:19→20:42)
[2019-09-12] MEDS: ACETAMINOPHEN TAB 650MG DOSE (2X325MG) PO PRN ×2 (08:19→12:19)
[2019-09-12] MEDS: ENOXAPARIN 40 MG/0.4 ML SYRINGE (J1650) SC SCH (08:20)
[2019-09-12] MEDS: PANTOPRAZOLE 40MG TAB (PROTONIX) PO SCH (08:20)
[2019-09-12] MEDS: DOCUSATE SODIUM 100 MG CAP PO SCH ×2 (08:20→20:26)
[2019-09-12] MEDS: lisinopriL 5 MG TAB PO SCH (08:20)
[2019-09-12] MEDS: SYMBICORT 160/4.5MCG INHALER 6GM INH SCH ×2 (09:21→20:19)
--- NOTE | 2019-09-12 11:55 | IPNPDOC ---
Subjective Date Seen The patient was seen on 09/12/19. Subjective Chief Complaint/HPI Continues to having wheezing and KERN - not much improvement since admission Constitutional: Denies: Chills, Fever Pulmonary: Reports: Dyspnea; Denies: Cough Cardiovascular: Denies: Chest Pain, Palpitations Gastrointestinal: Denies: Nausea, Vomiting, Abdominal Pain, Diarrhea, Constipation Objective Physical Examination General Exam: Positive: Alert, Cooperative, No Acute Distress Eye Exam: Negative: Sclera icteric Chest Exam: Positive: Normal air movement, Wheezing; Negative: Rales Heart Exam: Positive: Rate Normal, Regular Rhythm, Normal S1, Normal S2; Negative: Murmurs, Rubs Abdomen Exam: Positive: Normal bowel sounds, Soft, Hepatospenomegaly; Negative: Tenderness Extremity Exam: Negative: Edema Psych Exam: Positive: Mental status NL, Mood NL Assessment /Plan Problems (1) Asthma exacerbation Status: Acute Response to Treatment: Stable Discussed With: Nurse, Patient Problem Specific Plan: Monitor Clinically, Repeat Labs Problem Text: D2 levo 09/12 - Continues to have wheezing and KERN. Better air movement on exam and able to talk without bronchospastic cough now, but over all not that much better than when he was seen in the office on 08/29 despite HD Solumedrol and nebulized bronchodilators and inhaled steroids and broad spectrum antibiotics. favor slow, albeit steady improvement. + monte 10 QHS, repeat CT chest to reeval GG opacities, hold ACEI, check interstitial pneumonia mckoy CT angio on admission: 1. No evidence for pulmonary embolus. 2. Ground-glass opacities and subtle scattered non solid densities primarily involving the perihilar regions and upper lobes most suggestive of early acute pneumonia. Correlation is recommended. 3. Cardiomegaly. 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 09/10 Little change compared to yesterday. Tomorrow may be ready for steroid taper. 09/09 improving today. Symbicort added back last night. 09/08: slightly improved. antibiotic added and steroids added after d/w Dr. Sosa. \ 09/07/2019: continues with wheeze. Has occasional desaturations to 86-87%. Was sleeping during the 87% range this am. May have a component of sleep apnea. Will DC Symbicort and start duoneb q [address] chest reviewed with potential early multifocal pneumonia. Added on Doxycycline. Changed to Levofloxacin 750 daily. and after discussion with Dr. Sosa, change solumedrol to 80 q6 hours. Started Tamiflu. 09/06: still wheezing diffusely but he has good air movement and no accessory muscle use. Sats are adequate but not normal on Room Air at 92% Cont with SM 40 mg IV q6h, nebs, will change from PRN to scheduled. Afebrile for more than 24 hours. (2) Interstitial pneumonia Status: Acute Problem Text: favor 2 inf A, but check mckoy (3) Influenza A virus subtype H1 2009 pandemic strain present Status: Acute Response to Treatment: Stable, Improving Problem Text: 09/08: started oseltamivir yesterday, even though it was late. decided that still might be of value and low probability of adverse rxn. 09/07/19: CXR: NAD. sputum cx poor quality. Culture not set up due to poor quality specimen. 09/06 with persistent symptoms, will check sputum for bacterial secondary infection and repeat CXR. see above. No tamiflu, pt now afebrile. (4) Presence of stent in coronary artery in patient with coronary artery disease Status: Chronic Response to Treatment: Stable Problem Text: Per cardiology Last Echo 2018 - consider repeat due to persistent KERN and wheezing - No CHF clinically but lack of response to traditional management for viral URI/Asthma Exacerbation (5) History of pulmonary embolism Problem Text: H/O PE in 2018 s/p 6 months AC - hypercoag wkup neg - no recurrence Plan/VTE VTE Prophylaxis Ordered?: Yes Plan Anticipated Discharge: Home VS, I&O, 24H, Fishbone Vital Signs/I&O Vital Signs Date Time Temp Pulse Resp B/P (MAP) Pulse Ox O2 Delivery O2 Flow Rate FiO2 09/12/19 08:20 147/86 09/12/19 06:00 98.3 76 19 92 Room Air I&O- Last 24 Hours up to 6 AM 09/12/19 06:00 Intake Total 1300 ml Output Total 1300 ml Balance 0 ml Laboratory Data Microbiology Microbiology 2/19/20 Gram Stain - Final, Complete 09/06/19 Sputum Culture - Final, Complete 09/04/19 Respiratory Virus Panel (PCR) ([facility]) - Final, Complete Influenza A H1-2009 09/04/19 Blood Culture - Final, Complete NO GROWTH AFTER 5 DAYS 09/04/19 Blood Culture - Final, Complete NO GROWTH AFTER 5 DAYS SABRINA PADRON PA-C Sep 12, 2019 11:55 Edgard Cobb M.D. Sep 12, 2019 18:21
[2019-09-12 14:00] VITALS: BP 132/82
[2019-09-12 19:19] LABS: RHEUMATOID FACTOR QUANT < 10.0 IU/ML (<15.0)
[2019-09-12] MEDS: MONTELUKAST 10 MG TAB PO SCH (20:42)
[2019-09-12 22:00] VITALS: BP 148/54
[2019-09-13] MEDS: methylPREDNISolone INJ 125 MG/2 ML VIAL (J2930) IV SCH ×3 (02:21→21:13)
[2019-09-13] MEDS: IPRATROPIUM 0.5MG/ALBUTEROL 2.5MG INH SOL UD 3ML (DUONEB)(J7620) NEB SCH ×5 (04:01→19:45)
[2019-09-13 06:00] VITALS: BP 153/88
[2019-09-13] MEDS: LevoFLOXacin 750 MG TABLET PO SCH (06:15)
[2019-09-13] MEDS: SYMBICORT 160/4.5MCG INHALER 6GM INH SCH ×2 (07:54→21:37)
[2019-09-13] MEDS ORDERED: ISOVUE-370 76% 100ML VIAL (Q9967) As Ordered ONE (07:57)
[2019-09-13] MEDS: DOCUSATE SODIUM 100 MG CAP PO SCH ×2 (09:26→21:12)
[2019-09-13] MEDS: PANTOPRAZOLE 40MG TAB (PROTONIX) PO SCH (09:26)
[2019-09-13] MEDS: ATORVASTATIN 20 MG TAB PO SCH (09:26)
[2019-09-13] MEDS: CLOPIDOGREL 75 MG TAB PO SCH (09:26)
[2019-09-13] MEDS: OSELTAMIVIR PHOSPHATE 75 MG CAP (TAMIFLU) PO SCH ×2 (09:26→21:12)
[2019-09-13] MEDS: ENOXAPARIN 40 MG/0.4 ML SYRINGE (J1650) SC SCH (09:27)
--- NOTE | 2019-09-13 11:04 | REP ---
CT CHEST WITH IV CONTRAST: HISTORY: Reassess pneumonia. CT CONTRAST DOSE: 75 mL of intravenous Isovue 370. Comparison CT study is from September 04, 2019. CT FINDINGS: There is improved aeration in the lung chino diffusely. There are however scattered multifocal predominately peripheral areas of parenchymal opacification consistent with post inflammatory changes in the upper lobes bilaterally. There are some perihilar and peribronchovascular changes remaining in the upper lobes bilaterally. No pleural or pericardial effusion is seen. There is fairly prominent coronary artery vascular calcification versus stenting. No hilar or mediastinal mass is seen. No adenopathy. Normal adrenal glands. IMPRESSION: Improved aeration in the lung chino with some residual scattered peripheral and peribronchovascular opacities in the upper lobes bilaterally. Electronically Signed by Amrik Mckee MD 09/13/2019 07:31 P
--- NOTE | 2019-09-13 11:22 | IPNPDOC ---
Subjective Date Seen The patient was seen on 09/13/19. Subjective Chief Complaint/HPI Feels much better today Constitutional: Denies: Chills, Fever Pulmonary: Reports: Dyspnea (still with KERN, but improving), Cough Cardiovascular: Denies: Chest Pain, Palpitations, Orthopnea Gastrointestinal: Denies: Nausea, Vomiting, Abdominal Pain, Diarrhea, Constipation Objective Physical Examination General Exam: Positive: Alert, Cooperative, No Acute Distress Chest Exam: Positive: Normal air movement; Negative: Rales, Rhonchi, Wheezing Heart Exam: Positive: Rate Normal, Regular Rhythm, Normal S1, Normal S2; Negative: Murmurs, Rubs Abdomen Exam: Positive: Normal bowel sounds, Soft, Hepatospenomegaly; Negative: Tenderness Extremity Exam: Negative: Edema Psych Exam: Positive: Mental status NL, Mood NL Assessment /Plan Problems (1) Asthma exacerbation Status: Acute Response to Treatment: Stable Discussed With: Nurse, Patient Problem Specific Plan: Monitor Clinically, Repeat Labs Problem Text: 09/13 - Much improved with addition of Singulair- less bronchospasm. Still with fair amount of KERN - Get echo F/U CT results: Improved aeration in the lung chino with some residual scat tered peripheral and peribronchovascular opacities in the upper lobes bilaterally. D7 levofloxacin Decrease Solumedrol and plan to d/c home tomorrow if continues to improve. Since symptoms rapidly improved with addition of Singulair, I will continue ARNAUD, but may need to d/c if cough persists. 09/12 - Continues to have wheezing and KERN. Better air movement on exam and able to talk without bronchospastic cough now, but over all not that much better than when he was seen in the office on 08/29 despite HD Solumedrol and nebulized bronchodilators and inhaled steroids and broad spectrum antibiotics. favor slow, albeit steady improvement. + monte 10 QHS, repeat CT chest to reeval GG opacities, hold ACEI, check interstitial pneumonia mckoy CT angio on admission: 1. No evidence for pulmonary embolus. 2. Ground-glass opacities and subtle scattered non solid densities primarily involving the perihilar regions and upper lobes most suggestive of early acute pneumonia. Correlation is recommended. 3. Cardiomegaly. 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 09/10 Little change compared to yesterday. Tomorrow may be ready for steroid taper. 09/09 improving today. Symbicort added back last night. 09/08: slightly improved. antibiotic added and steroids added after d/w Dr. Sosa. \ 09/07/2019: continues with wheeze. Has occasional desaturations to 86-87%. Was sleeping during the 87% range this am. May have a component of sleep apnea. Will DC Symbicort and start duoneb q [address] chest reviewed with potential early multifocal pneumonia. Added on Doxycycline. Changed to Levofloxacin 750 daily. and after discussion with Dr. Sosa, change solumedrol to 80 q6 hours. Started Tamiflu. 09/06: still wheezing diffusely but he has good air movement and no accessory muscle use. Sats are adequate but not normal on Room Air at 92% Cont with SM 40 mg IV q6h, nebs, will change from PRN to scheduled. Afebrile for more than 24 hours. (2) Interstitial pneumonia Status: Acute Problem Text: favor 2 inf A, but check mckoy (3) Influenza A virus subtype H1 2009 pandemic strain present Status: Acute Response to Treatment: Stable, Improving Problem Text: 09/08: started oseltamivir yesterday, even though it was late. decided that still might be of value and low probability of adverse rxn. 09/07/19: CXR: NAD. sputum cx poor quality. Culture not set up due to poor quality specimen. 09/06 with persistent symptoms, will check sputum for bacterial secondary infection and repeat CXR. see above. No tamiflu, pt now afebrile. (4) Presence of stent in coronary artery in patient with coronary artery disease Status: Chronic Response to Treatment: Stable Problem Text: Per cardiology Last Echo 2017 - consider repeat due to persistent KERN and wheezing - No CHF clinically but lack of response to traditional management for viral URI/Asthma Exacerbation (5) History of pulmonary embolism Problem Text: H/O PE in 2018 s/p 6 months AC - hypercoag wkup neg - no recurrence Plan/VTE VTE Prophylaxis Ordered?: Yes Plan Anticipated Discharge: Home VS, I&O, 24H, Fishbone Vital Signs/I&O Vital Signs Date Time Temp Pulse Resp B/P (MAP) Pulse Ox O2 Delivery O2 Flow Rate FiO2 09/13/19 06:00 98.6 80 18 153/88 (109) 90 Room Air I&O- Last 24 Hours up to 6 AM 09/13/19 05:59 Intake Total 600 ml Output Total 1850 ml Balance -1250 ml Laboratory Data 24H LABS Laboratory Tests 2 09/12/19 19:18: Microbiology Microbiology 09/06/19 Gram Stain - Final, Complete 09/06/19 Sputum Culture - Final, Complete 09/04/19 Respiratory Virus Panel (PCR) ([facility]) - Final, Complete Influenza A H1-2009 09/04/19 Blood Culture - Final, Complete NO GROWTH AFTER 5 DAYS 09/04/19 Blood Culture - Final, Complete NO GROWTH AFTER 5 DAYS SABRINA PADRON PA-C Sep 13, 2019 11:22
[2019-09-13] MEDS: lisinopriL 5 MG TAB PO SCH (12:04)
[2019-09-13 14:00] VITALS: BP 148/83
[2019-09-13] MEDS: MONTELUKAST 10 MG TAB PO SCH (21:12)
[2019-09-13 22:00] VITALS: BP 122/84
[2019-09-14] MEDS: IPRATROPIUM 0.5MG/ALBUTEROL 2.5MG INH SOL UD 3ML (DUONEB)(J7620) NEB SCH ×6 (00:14→19:57)
[2019-09-14] MEDS: diphenhydrAMINE 25 MG CAP PO PRN (05:11)
[2019-09-14] MEDS: LevoFLOXacin 750 MG TABLET PO SCH (05:11)
[2019-09-14 06:00] VITALS: BP 152/89
[2019-09-14] MEDS: SYMBICORT 160/4.5MCG INHALER 6GM INH SCH ×2 (08:37→19:57)
[2019-09-14] MEDS: ENOXAPARIN 40 MG/0.4 ML SYRINGE (J1650) SC SCH (08:41)
[2019-09-14] MEDS: CLOPIDOGREL 75 MG TAB PO SCH (08:41)
[2019-09-14] MEDS: PANTOPRAZOLE 40MG TAB (PROTONIX) PO SCH (08:41)
[2019-09-14] MEDS: ATORVASTATIN 20 MG TAB PO SCH (08:42)
[2019-09-14] MEDS: OSELTAMIVIR PHOSPHATE 75 MG CAP (TAMIFLU) PO SCH (08:42)
[2019-09-14] MEDS: lisinopriL 5 MG TAB PO SCH (08:42)
[2019-09-14] MEDS: DOCUSATE SODIUM 100 MG CAP PO SCH ×2 (08:42→20:01)
[2019-09-14] MEDS: methylPREDNISolone INJ 125 MG/2 ML VIAL (J2930) IV SCH (08:42)
--- NOTE | 2019-09-14 10:49 | ECHO ---
DATE OF STUDY: 09/13/2019 AGE: 44. HEIGHT: 72 inches. WEIGHT: 299 pounds. BODY SURFACE AREA: 2.53 sq m. INPATIENT: [address] [place] [address], room 4234. REFERRING PROVIDER: FEDERICO Sanches INDICATION: Dyspnea. MEASUREMENTS: 2D measurements: RV - 4.2 cm LV - 5.2 cm Septum 1.2 cm Posterior wall 1.2 cm Aortic root 3.8 cm LA - 4.6 cm LVEF 75% Doppler measurements: AV - 1.83 m/s LVOT - 1.28 m/s LVOT diameter 2.3 cm MV - E 87 A 96 EA ratio 0.9 Early mitral deceleration time 225 ms E prime medial 8.3 A prime medial 12 E prime lateral 10.5 Average E/E prime ratio 9.3/PCWP - 13.4 mmHg PV - 1.1 m/s Pulmonary artery acceleration time 95 ms PASP 36 mmHg IVC - 2.1 cm COMMENTS: Normal sinus rhythm without intraventricular conduction disturbance. Technically challenging study in light of the patient's body habitus, but diagnostically useful information was still obtained. M-mode and two-dimensional echocardiography was performed with pulsed, continuous wave, color flow, and tissue Doppler studies. Borderline concentric left ventricle hypertrophy with hyperkinetic wall motion. Mildly dilated left atrium with grade 1 LV diastolic dysfunction and estimated mean left atrial pressure upper limits of normal to slightly increased. Right heart chamber sizes upper limits of normal in size with normal wall motion and current estimated pulmonary arterial pressure only mildly increased. IVC size upper limits of normal with marginally reduced respiratory collapse consistent with central venous pressure upper limits of normal. Normal-appearing valvular structures and function. No apparent intracardiac mass or pericardial effusion. Aortic root size upper limits of normal.
--- NOTE | 2019-09-14 12:49 | IPNPDOC ---
Subjective Date Seen The patient was seen on 09/14/19. Subjective Chief Complaint/HPI Breathing has improved - still with some KERN. Getting hives on hands after Solumedrol - takes Benedryl with relief Constitutional: Denies: Chills, Fever Pulmonary: Denies: Dyspnea, Cough Cardiovascular: Denies: Chest Pain, Palpitations, Orthopnea Gastrointestinal: Denies: Nausea, Vomiting, Abdominal Pain, Diarrhea, Constipation Objective Physical Examination General Exam: Positive: Alert, Cooperative, No Acute Distress Chest Exam: Positive: Normal air movement; Negative: Rales, Rhonchi, Wheezing Heart Exam: Positive: Rate Normal, Regular Rhythm, Normal S1, Normal S2; Negative: Murmurs, Rubs Abdomen Exam: Positive: Normal bowel sounds, Soft, Hepatospenomegaly; Negative: Tenderness Extremity Exam: Negative: Edema Psych Exam: Positive: Mental status NL, Mood NL Assessment /Plan Problems (1) Asthma exacerbation Status: Acute Response to Treatment: Stable Discussed With: Nurse, Patient Problem Specific Plan: Monitor Clinically, Repeat Labs Problem Text: 09/14 - Change to oral prednisone, ACEI (lisin 5 QD-HD was 20 QD) to ARB los 25 BID to avoid any component of ACEI-induced angioedema Stop Levaquin D# 8 09/13 - Much improved with addition of Singulair- less bronchospasm. Still with fair amount of KERN - Get echo F/U CT results: Improved aeration in the lung chino with some residual scattered peripheral and peribronchovascular opacities in the upper lobes bilaterally. D7 levofloxacin Decrease Solumedrol and plan to d/c home tomorrow if continues to improve. Since symptoms rapidly improved with addition of Singulair, I will continue ARNAUD, but may need to d/c if cough persists. 09/12 - Continues to have wheezing and KERN. Better air movement on exam and able to talk without bronchospastic cough now, but over all not that much better than when he was seen in the office on 08/29 despite HD Solumedrol and nebulized bronchodilators and inhaled steroids and broad spectrum antibiotics. favor slow, albeit steady improvement. + monte 10 QHS, repeat CT chest to reeval GG opacities, hold ACEI, check interstitial pneumonia mckoy CT angio on admission: 1. No evidence for pulmonary embolus. 2. Ground-glass opacities and subtle scattered non solid densities primarily involving the perihilar regions and upper lobes most suggestive of early acute pneumonia. Correlation is recommended. 3. Cardiomegaly. 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 09/10 Little change compared to yesterday. Tomorrow may be ready for steroid taper. 09/09 improving today. Symbicort added back last night. 09/08: slightly improved. antibiotic added and steroids added after d/w Dr. Sosa. \ 09/07/2019: continues with wheeze. Has occasional desaturations to 86-87%. Was sleeping during the 87% range this am. May have a component of sleep apnea. Will DC Symbicort and start duoneb q [address] chest reviewed with potential early multifocal pneumonia. Added on Doxycycline. Changed to Levofloxacin 750 daily. and after discussion with Dr. Sosa, change solumedrol to 80 q6 hours. Started Tamiflu. 09/06: still wheezing diffusely but he has good air movement and no accessory muscle use. Sats are adequate but not normal on Room Air at 92% Cont with SM 40 mg IV q6h, nebs, will change from PRN to scheduled. Afebrile for more than 24 hours. (2) Interstitial pneumonia Status: Acute Problem Text: 09/14 - F/U CT - IMPRESSION: Improved aeration in the lung chino with some residual scattered peripheral and peribronchovascular opacities in the upper lobes bilaterally. favor 2 inf A, but check mckoy (3) Influenza A virus subtype H1 2009 pandemic strain present Status: Acute Response to Treatment: Stable, Improving Problem Text: 09/08: started oseltamivir yesterday, even though it was late. decided that still might be of value and low probability of adverse rxn. 09/07/19: CXR: NAD. sputum cx poor quality. Culture not set up due to poor quality specimen. 09/06 with persistent symptoms, will check sputum for bacterial secondary infection and repeat CXR. see above. No tamiflu, pt now afebrile. (4) Presence of stent in coronary artery in patient with coronary artery disease Status: Chronic Response to Treatment: Stable Problem Text: F/U Echo:Normal sinus rhythm without intraventricular conduction disturbance. Technically challenging study in light of the patient's body habitus, but diagnostically useful information was still obtained. M-mode and two-dimensional echocardiography was performed with pulsed, continuous wave, color flow, and tissue Doppler studies. Borderline concentric left ventricle hypertrophy with hyperkinetic wall motion. Mildly dilated left atrium with grade 1 LV diastolic dysfunction and estimated mean left atrial pressure upper limits of normal to slightly increased. Right heart chamber sizes upper limits of normal in size with normal wall motion and current estimated pulmonary arterial pressure only mildly increased. IVC size upper limits of normal with marginally reduced respiratory collapse consistent with central venous pressure upper limits of normal. Normal-appearing valvular structures and function. No apparent intracardiac mass or pericardial effusion Last Echo 2018 - consider repeat due to persistent KERN and wheezing - No CHF clinically but lack of response to traditional management for viral URI/Asthma Exacerbation (5) History of pulmonary embolism Problem Text: H/O PE in 2018 s/p 6 months AC - hypercoag wkup neg - no recurrence Plan/VTE VTE Prophylaxis Ordered?: Yes Plan Anticipated Discharge: Home VS, I&O, 24H, Fishbone Vital Signs/I&O Vital Signs Date Time Temp Pulse Resp B/P (MAP) Pulse Ox O2 Delivery O2 Flow Rate FiO2 09/14/19 08:42 152/89 09/14/19 06:00 97.8 80 18 95 Room Air I&O- Last 24 Hours up to 6 AM 09/14/19 06:00 Intake Total 1820 ml Output Total 850 ml Balance 970 ml Laboratory Data Microbiology Microbiology 09/06/19 Gram Stain - Final, Complete 09/06/19 Sputum Culture - Final, Complete 09/04/19 Respiratory Virus Panel (PCR) ([facility]) - Final, Complete Influenza A H1-2009 09/04/19 Blood Culture - Final, Complete NO GROWTH AFTER 5 DAYS 09/04/19 Blood Culture - Final, Complete NO GROWTH AFTER 5 DAYS SABRINA PADRON PA-C Sep 14, 2019 12:48 Edgard Cobb M.D. Sep 14, 2019 16:07
[2019-09-14 14:00] VITALS: BP 159/98
[2019-09-14] MEDS: LOSARTAN 25 MG TAB PO SCH (20:01)
[2019-09-14] MEDS: predniSONE 10 MG TAB PO SCH (20:01)
[2019-09-14] MEDS: MONTELUKAST 10 MG TAB PO SCH (20:01)
[2019-09-14 22:00] VITALS: BP 147/72
[2019-09-15] MEDS: IPRATROPIUM 0.5MG/ALBUTEROL 2.5MG INH SOL UD 3ML (DUONEB)(J7620) NEB SCH ×7 (00:26→23:37)
[2019-09-15] MEDS: LevoFLOXacin 750 MG TABLET PO SCH (05:06)
[2019-09-15 06:00] VITALS: BP 140/83
[2019-09-15] MEDS: SYMBICORT 160/4.5MCG INHALER 6GM INH SCH ×2 (08:03→20:03)
[2019-09-15] MEDS: CLOPIDOGREL 75 MG TAB PO SCH (08:25)
[2019-09-15] MEDS: PANTOPRAZOLE 40MG TAB (PROTONIX) PO SCH (08:25)
[2019-09-15] MEDS: ATORVASTATIN 20 MG TAB PO SCH (08:26)
[2019-09-15] MEDS: predniSONE 10 MG TAB PO SCH ×2 (08:26→22:42)
[2019-09-15] MEDS: LOSARTAN 25 MG TAB PO SCH ×2 (08:27→22:43)
[2019-09-15] MEDS: ENOXAPARIN 40 MG/0.4 ML SYRINGE (J1650) SC SCH (08:28)
[2019-09-15] MEDS: DOCUSATE SODIUM 100 MG CAP PO SCH ×2 (08:28→21:00)
[2019-09-15] MEDS ORDERED: COZA1TAB PO (10:29)
[2019-09-15] MEDS ORDERED: MONT10TA4 PO (10:29)
[2019-09-15] MEDS ORDERED: PRED20TA PO (10:29)
[2019-09-15] MEDS ORDERED: SYMB16INH INH (10:29)
[2019-09-15] MEDS: diphenhydrAMINE 25 MG CAP PO PRN (10:56)
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
[2019-09-15 14:00] VITALS: BP 121/70
[2019-09-15] MEDS: MONTELUKAST 10 MG TAB PO SCH (22:43)
[2019-09-16] MEDS: IPRATROPIUM 0.5MG/ALBUTEROL 2.5MG INH SOL UD 3ML (DUONEB)(J7620) NEB SCH ×3 (03:53→11:05)
[2019-09-16] MEDS: diphenhydrAMINE 25 MG CAP PO PRN (04:34)
[2019-09-16 06:00] VITALS: BP 123/72
[2019-09-16] MEDS: CLOPIDOGREL 75 MG TAB PO SCH (08:52)
[2019-09-16] MEDS: ATORVASTATIN 20 MG TAB PO SCH (08:52)
[2019-09-16] MEDS: PANTOPRAZOLE 40MG TAB (PROTONIX) PO SCH (08:52)
[2019-09-16] MEDS: predniSONE 10 MG TAB PO SCH (08:52)
[2019-09-16 08:53] VITALS: BP 153/96
[2019-09-16] MEDS: LOSARTAN 25 MG TAB PO SCH (08:53)
[2019-09-16] MEDS: ENOXAPARIN 40 MG/0.4 ML SYRINGE (J1650) SC SCH (08:53)
[2019-09-16] MEDS: DOCUSATE SODIUM 100 MG CAP PO SCH (08:53)
[2019-09-16] MEDS: SYMBICORT 160/4.5MCG INHALER 6GM INH SCH (09:01)
[2019-09-18 14:06] LABS: ASPERGILLUS FUMIGATUS AB Negative (Negative); AUREOBASIDIUM PULLULANS Negative (Negative); CYCLIC CITRULLINATED PEPTIDE 9 units (0-19); MICROPOLYSPORA FAENI AB Negative (Negative); PIGEON SERUM AB Negative (Negative); THERMOACTINOMYCES SACCHARI Negative (Negative); THERMOACTINOMYCES VULGARIS Negative (Negative)
== END 2019-09-16 11:53 | disposition home or self-care (01) | DRG 141 ==
LOC: M ED 12:41 → M ED INP 16:59 → ENRESERV 17:20 → M MSPAV 17:55
PROVIDERS: ADMIT Internal Medicine Nephrology; ATTEND Family Medicine
DX: J45.901 Unspecified asthma with (acute) exacerbation (principal); J10.00 Influenza due to other identified influenza virus with unspecified type of pneumonia; Z68.41 Body mass index [BMI] 40.0-44.9, adult; E66.01 Morbid (severe) obesity due to excess calories; I10 Essential (primary) hypertension; K21.9 Gastro-esophageal reflux disease without esophagitis; I25.10 Atherosclerotic heart disease of native coronary artery without angina pectoris; Z95.1 Presence of aortocoronary bypass graft; M19.90 Unspecified osteoarthritis, unspecified site; R50.9 Fever, unspecified; R06.02 Shortness of breath; Z79.899 Other long term (current) drug therapy; Z88.0 Allergy status to penicillin; Z88.1 Allergy status to other antibiotic agents; Z88.2 Allergy status to sulfonamides; Z88.6 Allergy status to analgesic agent; E78.5 Hyperlipidemia, unspecified; Z86.711 Personal history of pulmonary embolism; Z90.49 Acquired absence of other specified parts of digestive tract

== ENCOUNTER → 2019-10-10 | Outpatient (REF) | payer OTHER ==
[~2019-10-10] MED LIST changes: +ACET-683 PO; +ALBU83IN INH; +COZA1TAB PO; +DOXY100C PO; +LISI-538 PO; +MONT10TA4 PO; +MULTTAB4 PO; +PRED20TA PO; +SYMB16INH INH
[2019-10-10 14:13] LABS: EOS # 0.1 10^3/uL (0.0-0.5)
[2019-10-12 14:06] LABS: D001-IgE D pteronyssinus <0.10 kU/L (Class 0); E001-IgE Cat Epith/Dander < 0.10 kU/L (Class 0); E005-IgE Dog Dander < 0.10 kU/L (Class 0); G002-IgE Bermuda Grass < 0.10 kU/L (Class 0); G008-IgE Kentucky Bluegrass < 0.10 kU/L (Class 0); M001-IgE Penicillium chrysogen < 0.10 kU/L (Class 0); M002 IgE Cladosporium herbaru < 0.10 kU/L (Class 0); M003 IgE Aspergillus fumigatu < 0.10 kU/L (Class 0); M006-IgE Alternaria alternata 0.25 kU/L (Class 0/I); T001-IgE Maple/Box Elder < 0.10 kU/L (Class 0); T003-IgE Common Silver Birch < 0.10 kU/L (Class 0); T006-IgE Cedar, Mountain < 0.10 kU/L (Class 0); T007-IgE Oak, White < 0.10 kU/L (Class 0); T008-IgE Elm, American < 0.10 kU/L (Class 0); T015-IgE Ash, White < 0.10 kU/L (Class 0); T041-IgE Hickory, White < 0.10 kU/L (Class 0); T070-IgE White Mulberry < 0.10 kU/L (Class 0); W001-IgE Ragweed, Short < 0.10 kU/L (Class 0); W009-IgE Plantain, English < 0.10 kU/L (Class 0); W014-IgE Pigweed, Rough < 0.10 kU/L (Class 0); W018-IgE Sheep Sorrel < 0.10 kU/L (Class 0)
== END ==
LOC: M LAB REF 13:14
PROVIDERS: ATTEND Internal Medicine Pulmonary Disease
DX: J30.9 Allergic rhinitis, unspecified (principal)

== ENCOUNTER → 2020-03-01 | Outpatient (CLI) | payer OTHER ==
[~2020-03-01] MED LIST changes: -LISI-672 PO; +LISI30TA4 PO; +MULT1TAB74 PO; -MULTTAB4 PO; +PANT40TA29 PO; -PANT40TA3 PO
--- NOTE | 2020-04-12 10:27 | REP ---
CT STUDY OF THE CHEST WITHOUT CONTRAST HISTORY: Other nonspecific abnormal finding of lung field. COMPARISON: Chest CT studies are reviewed the most remote of which is from 03/08/2018 and the most recent is dated 09/13/2019. CT FINDINGS: There are very subtle areas of postinflammatory fibrosis in the right upper lobe posteriorly and the left upper lobe anteriorly where earlier study showed infiltrate. There is no evidence of pulmonary nodule or mass lesion. No focal infiltrate is seen at present. No pleural or pericardial effusion is seen. Normal adrenal glands are seen bilaterally. No mediastinal mass or adenopathy is observed. There is extensive vascular calcification including the coronary bed. IMPRESSION: Coronary artery vascular calcification. Bilateral subtle areas of fibrosis improved from the earlier study. MTDD
== END ==
LOC: M RAD 13:25
PROVIDERS: ATTEND Internal Medicine Pulmonary Disease
DX: R91.8 Other nonspecific abnormal finding of lung field (principal)

== ENCOUNTER → 2020-08-01 | Outpatient (CLI) | payer OTHER ==
[~2020-08-01] MED LIST changes: -AMIT25TA PO; +AMIT25TA17 PO; +COLC0.6T47 PO; -COLC1TAB13 PO; -MONT10TA4 PO; +MONT5TAB2 PO
== END ==
LOC: M RAD 07:48
PROVIDERS: ATTEND Physician Assistant
DX: R60.0 Localized edema (principal); M79.605 Pain in left leg

== ENCOUNTER 2020-12-19 11:53 | Emergency (ER) | payer MEDICAID, OTHER, SELFPAY ==
[~2020-12-19] VITALS: Ht 182.9 cm; Wt 138.6 kg
[~2020-12-19 11:53] MED LIST changes: -AMIT10TA PO; +AMIT10TA7 PO; -LISI-538 PO; -LISI-542 PO; +LISI-898 PO; +LISI20TA33 PO; +MONT10TA10 PO; -MONT5TAB2 PO
[2020-12-19] MEDS ORDERED: fentaNYL 100 MCG/2 ML INJECTION (J3010) IV ONE (13:05)
[2020-12-19] MEDS ORDERED: NS 1,000 ML IV ONE (13:05)
[2020-12-19] MEDS ORDERED: ONDANSETRON 4MG/2ML VIAL IV ONE (13:50)
[2020-12-19] MEDS ORDERED: MORPHINE 4 MG/ML 1ML VIAL/SYRINGE (J2270) IV ONE (13:50)
[2020-12-19] MEDS ORDERED: BACITRACIN OINTMENT 30GM TUBE TOP STA (14:40)
[2020-12-19] MEDS ORDERED: BACI500O21 TOP (14:43)
[2020-12-19] MEDS ORDERED: HYDR-3713 PO (14:43)
[2020-12-19 15:00] VITALS: BP 159/79
== END 2020-12-19 15:03 | disposition home or self-care (01) ==
LOC: M ED 11:53
DX: T22.211A Burn of second degree of right forearm, initial encounter (principal); X19.XXXA Contact with other heat and hot substances, initial encounter; Y92.018 Other place in single-family (private) house as the place of occurrence of the external cause; I25.2 Old myocardial infarction; Z95.5 Presence of coronary angioplasty implant and graft; Z79.899 Other long term (current) drug therapy; Z79.01 Long term (current) use of anticoagulants; Z88.0 Allergy status to penicillin; Z88.1 Allergy status to other antibiotic agents; Z88.2 Allergy status to sulfonamides; Z88.6 Allergy status to analgesic agent; Z88.8 Allergy status to other drugs, medicaments and biological substances; F17.220 Nicotine dependence, chewing tobacco, uncomplicated
CPT/HCPCS: 96361; 96374; 96375; 99284; J2270; J2405; J3010

== ENCOUNTER → 2021-01-31 | Outpatient (CLI) | payer OTHER ==
[~2021-01-31] MED LIST changes: +BACI500O21 TOP; +HYDR-3713 PO
--- NOTE | 2021-01-31 12:36 | REP ---
INDICATION: ELLE LEG EDEMA. COMPARISON: Comparison sonography March 07 study 2017.. TECHNIQUE: Bilateral lower extremity duplex venous scanning is performed from the groin to the ankle level. FINDINGS: The deep veins are anechoic and fully compressible from the groin to the popliteal fossa in the left and right lower extremity. Color flow imaging is homogeneous. Spectral Doppler interrogation demonstrates intact respiratory variation in flow and normal manual augmentation of flow. There is no evidence of deep vein thrombosis in the femoropopliteal veins. There is no evidence of deep vein thrombosis in the visualized calf veins. Calf vein visualization was severely limited, particularly on the left, due to patient body habitus. IMPRESSION: No evidence of DVT in the femoropopliteal veins. No DVT in the visible portions of the calf veins. <Electronically signed by Shubham Mckee > 01/31/21 [id number]
--- NOTE | 2021-01-31 13:42 | REP ---
INDICATION: ELLE LEG EDEMA COMPARISON: None. TECHNIQUE: Bilateral lower extremity arterial ultrasound with Doppler FINDINGS: All numeric values represent peak systolic velocity in cm / SEC On the right: The ankle brachial index is unobtainable SECTION CREWS ACTIVITIES CLERK: 98.5 triphasic Profunda: 62.4 triphasic SFA proximal: 74.8 triphasic SFA Mid: 74.2 triphasic SFA distal: 67.6 triphasic Popliteal: 62.4 triphasic NAINA proximal: 39.1 triphasic Tibioperoneal trunk: 84.7 triphasic TECHNICIAN'S HELPER proximal: 52.4 triphasic TECHNICIAN'S HELPER distal: 67.0 triphasic NAINA distal: 65.4 triphasic On the left: The ankle brachial index is unobtainable SECTION CREWS ACTIVITIES CLERK: 112.7 triphasic Profunda: 42.9 triphasic SFA proximal: 88.6 triphasic SFA Mid: 87.2 triphasic SFA distal: 76.4 triphasic Popliteal: 69.9 triphasic NAINA proximal: 45.5 triphasic Tibioperoneal trunk: 83.8 triphasic TECHNICIAN'S HELPER proximal: 66.5 triphasic TECHNICIAN'S HELPER distal: 60.7 triphasic NAINA distal: 101.9 triphasic Minimal plaque was seen bilaterally. IMPRESSION: As above. <Electronically signed by Sreedhar Acosta > 01/31/21 [id number]
== END ==
LOC: M RAD 10:40
PROVIDERS: ATTEND Physician Assistant
DX: R60.0 Localized edema (principal)

== ENCOUNTER → 2021-06-24 | Outpatient (REF) | payer OTHER ==
[~2021-06-24] MED LIST changes: -DOXY100C PO; +DOXY100C3 PO
[2021-06-24 17:10] LABS: BASO # 0.1 10^3/uL (0.0-0.2); BASO % 0.8 % (0.0-1.0); EOS # 0.1 10^3/uL (0.0-0.5); EOS % 1.3 % (0.0-3.0); HEMATOCRIT 43.4 % (42.0-52.0); HEMOGLOBIN 14.5 g/dl (13.5-17.5); LYMPH # 2.6 10^3/uL (1.5-5.0); LYMPH % 25.6 % (24.0-44.0); MEAN CORPUSCULAR HEMOGLOBIN 30.7 pg (27.0-33.0); MEAN CORPUSCULAR HGB CONC 33.4 g/dl (32.0-36.5); MEAN CORPUSCULAR VOLUME 91.8 fl (80.0-96.0); MONO # 0.7 10^3/uL (0.0-0.8); NEUTROPHILS # 6.6 10^3/uL (1.5-8.5); NEUTROPHILS % 64.9 % (36.0-66.0); PLATELET COUNT, AUTOMATED 201 10^3/uL (150-450); RED BLOOD COUNT 4.73 10^6/uL (4.30-6.10); WHITE BLOOD COUNT 10.1 10^3/uL (4.0-10.0)
[2021-06-24 17:38] LABS: ALBUMIN 4.2 GM/DL (3.2-5.2); ALT/SGPT 27 U/L (12-78); BILIRUBIN,TOTAL 0.5 MG/DL (0.2-1.0); BLOOD UREA NITROGEN 20 MG/DL (7-18); CALCIUM LEVEL 8.4 MG/DL (8.5-10.1); CARBON DIOXIDE LEVEL 31 MEQ/L (21-32); CHLORIDE LEVEL 104 MEQ/L (98-107); CREATININE FOR GFR 1.03 MG/DL (0.70-1.30); GLOMERULAR FILTRATION RATE > 60.0 (>60); GLUCOSE, FASTING 81 MG/DL (70-100); POTASSIUM SERUM 3.9 MEQ/L (3.5-5.1); SODIUM LEVEL 141 MEQ/L (136-145); TOTAL PROTEIN 7.5 GM/DL (6.4-8.2)
== END ==
LOC: M SFHCADAM 16:19
PROVIDERS: ATTEND Physician Assistant
DX: J45.41 Moderate persistent asthma with (acute) exacerbation (principal); R07.81 Pleurodynia; Z86.711 Personal history of pulmonary embolism

== ENCOUNTER → 2021-07-03 | Outpatient (CLI) | payer OTHER ==
[~2021-07-03] MED LIST changes: +ISOVUE-370 76% 100ML VIAL As Ordered ONE
--- NOTE | 2021-07-03 10:33 | REP ---
INDICATION: COUGH, CHEST PAIN, SOB COMPARISON: Chest CT dated 03/01/2020 TECHNIQUE: Axial contrast enhanced images from the thoracic inlet to the upper abdomen using pulmonary embolus technique with multiplanar re-formations. 75 ml Isovue 370 intravenous contrast material administered without complication. This CT examination was performed using the following dose reduction techniques: Automated exposure control, adjustment of mA and/or kv according to the patient's size, and use of iterative reconstruction technique. FINDINGS: Satisfactory enhancement of the pulmonary vasculature is achieved and no filling defects are identified to suggest pulmonary embolus. Further evaluation of the mediastinum demonstrates normal thoracic aorta. Atherosclerotic changes to the coronary arteries noted without cardiomegaly or pericardial effusion. The bilateral lung chino are well aerated and clear without consolidation pleural effusion or pneumothorax. Tracheobronchial tree is patent. No nodule or mass lesion is identified. No adenopathy noted. Surrounding musculoskeletal structures intact IMPRESSION: No evidence for pulmonary embolus. No acute mediastinal or pleural parenchymal process. <Electronically signed by Milton Levy > 07/03/21 [id number]
== END ==
LOC: M RAD 08:51
PROVIDERS: ATTEND Physician Assistant
DX: R05.9 Cough, unspecified (principal); R07.81 Pleurodynia; R06.02 Shortness of breath
CPT/HCPCS: 71275; Q9967

== ENCOUNTER 2021-08-07 15:36 | Emergency (ER) | payer OTHER ==
[~2021-08-07] VITALS: Ht 182.9 cm; Wt 142.7 kg
[~2021-08-07 15:36] MED LIST changes: -ISOVUE-370 76% 100ML VIAL As Ordered ONE; -LISI-898 PO; +LISI5TAB11 PO; -MONT10TA10 PO; +MONT10TA97 PO
[2021-08-07] MEDS ORDERED: MOLN200C (15:55)
[2021-08-07] MEDS ORDERED: LOSA25TA13 PO (15:55)
[2021-08-07] MEDS ORDERED: FURO20TA2 (15:55)
[2021-08-07] MEDS ORDERED: FLUT11IN (15:56)
[2021-08-07] MEDS ORDERED: CETI10CH PO (15:56)
[2021-08-07] MEDS ORDERED: dexameTHASONE 20MG/5ML VIAL (J1100 PER 1MG) IV ONE (21:10)
[2021-08-07] MEDS ORDERED: IPRATROPIUM 0.5MG/ALBUTEROL 2.5MG INH SOL UD 3ML (DUONEB) NEB ONE ×2 (21:10)
[2021-08-07 22:07] LABS: HEMATOCRIT 42.9 % (42.0-52.0); HEMOGLOBIN 14.5 g/dl (13.5-17.5); MEAN CORPUSCULAR HEMOGLOBIN 30.7 pg (27.0-33.0); MEAN CORPUSCULAR HGB CONC 33.8 g/dl (32.0-36.5); MEAN CORPUSCULAR VOLUME 90.9 fl (80.0-96.0); PLATELET COUNT, AUTOMATED 209 10^3/uL (150-450); RED BLOOD COUNT 4.72 10^6/uL (4.30-6.10); WHITE BLOOD COUNT 10.7 10^3/uL (4.0-10.0)
[2021-08-07 22:30] LABS: ALBUMIN 4.1 GM/DL (3.2-5.2); ALT/SGPT 40 U/L (12-78); BILIRUBIN,TOTAL 0.4 MG/DL (0.2-1.0); BLOOD UREA NITROGEN 19 MG/DL (7-18); CARBON DIOXIDE LEVEL 29 MEQ/L (21-32); CHLORIDE LEVEL 107 MEQ/L (98-107); CREATININE FOR GFR 1.03 MG/DL (0.70-1.30); GLOMERULAR FILTRATION RATE > 60.0 (>60); GLUCOSE, FASTING 100 MG/DL (70-100); MAGNESIUM LEVEL 2.2 MG/DL (1.8-2.4); POTASSIUM SERUM 3.8 MEQ/L (3.5-5.1); SODIUM LEVEL 141 MEQ/L (136-145); TOTAL PROTEIN 7.2 GM/DL (6.4-8.2)
[2021-08-07] MEDS ORDERED: DEXA6TAB PO (22:51)
[2021-08-07] MEDS ORDERED: IPRA0.00 NEB (22:51)
[2021-08-07 23:58] VITALS: BP 111/58
== END 2021-08-08 00:08 | disposition home or self-care (01) ==
LOC: M ED 15:36
DX: J45.909 Unspecified asthma, uncomplicated (principal); J98.01 Acute bronchospasm; I11.0 Hypertensive heart disease with heart failure; I50.9 Heart failure, unspecified; E78.5 Hyperlipidemia, unspecified; K21.9 Gastro-esophageal reflux disease without esophagitis; Z95.5 Presence of coronary angioplasty implant and graft; Z79.899 Other long term (current) drug therapy; Z79.01 Long term (current) use of anticoagulants; Z88.0 Allergy status to penicillin; Z88.1 Allergy status to other antibiotic agents; Z88.2 Allergy status to sulfonamides; Z88.4 Allergy status to anesthetic agent; Z88.8 Allergy status to other drugs, medicaments and biological substances
CPT/HCPCS: 71045; 80053; 83735; 84484; 85027; 85379; 93005; 96374; 99284; J1100

== ENCOUNTER → 2021-10-15 | Outpatient (REF) | payer OTHER ==
[~2021-10-15] MED LIST changes: +CETI10CH PO; +DEXA6TAB PO; +FLUT11IN; +FURO20TA2; +IPRA0.00 NEB; +LOSA25TA13 PO; +MOLN200C
== END ==
LOC: M SFHCADAM 12:17
PROVIDERS: ATTEND Physician Assistant
DX: R09.89 Other specified symptoms and signs involving the circulatory and respiratory systems (principal)

== ENCOUNTER 2022-03-15 20:14 | Emergency (ER) | payer OTHER ==
[~2022-03-15] VITALS: Ht 182.9 cm; Wt 142.8 kg
[~2022-03-15 20:14] MED LIST changes: +ALBU2.5V10 INH; -ALBU83IN INH
[2022-03-15] MEDS ORDERED: LASI20TA3 PO (20:23)
[2022-03-15] MEDS ORDERED: LIDOCAINE 4% CREAM 5GM (LMX4) TOP ONE (21:25)
[2022-03-15] MEDS ORDERED: ACETAMINOPHEN 500 MG TAB PO ONE (21:25)
[2022-03-15 22:00] LABS: BASO # 0.1 10^3/uL (0.0-0.2); BASO % 0.8 % (0.0-1.0); EOS # 0.1 10^3/uL (0.0-0.5); EOS % 1.1 % (0.0-3.0); HEMATOCRIT 38.8 % (42.0-52.0); HEMOGLOBIN 12.9 g/dl (13.5-17.5); LYMPH % 21.3 % (24.0-44.0); MEAN CORPUSCULAR HEMOGLOBIN 30.7 pg (27.0-33.0); MEAN CORPUSCULAR HGB CONC 33.2 g/dl (32.0-36.5); MEAN CORPUSCULAR VOLUME 92.4 fl (80.0-96.0); MONO # 0.7 10^3/uL (0.0-0.8); MONO % 7.5 % (2.0-8.0); NEUTROPHILS # 6.6 10^3/uL (1.5-8.5); NEUTROPHILS % 69.1 % (36.0-66.0); PLATELET COUNT, AUTOMATED 172 10^3/uL (150-450); WHITE BLOOD COUNT 9.5 10^3/uL (4.0-10.0)
[2022-03-15 22:34] LABS: C REACTIVE PROTEIN QUANTITATIV 0.42 MG/DL (0.00-0.30); URIC ACID 6.2 MG/DL (3.5-7.2)
[2022-03-15 22:57] LABS: ERYTHROCYTE SEDIMENTATION RATE 14 mm/hr (0-15)
[2022-03-16 00:23] VITALS: BP 135/87
== END 2022-03-16 00:44 | disposition home or self-care (01) ==
LOC: M ED 20:14
DX: L89.899 Pressure ulcer of other site, unspecified stage (principal); I10 Essential (primary) hypertension; Z86.711 Personal history of pulmonary embolism; Z95.5 Presence of coronary angioplasty implant and graft; Z79.899 Other long term (current) drug therapy; Z79.01 Long term (current) use of anticoagulants; Z88.0 Allergy status to penicillin; Z88.1 Allergy status to other antibiotic agents; Z88.2 Allergy status to sulfonamides; Z88.4 Allergy status to anesthetic agent; Z88.8 Allergy status to other drugs, medicaments and biological substances

== ENCOUNTER → 2022-04-15 | Outpatient (CLI) | payer OTHER ==
[~2022-04-15] MED LIST changes: +LASI20TA3 PO
== END ==
LOC: M RAD 15:18
PROVIDERS: ATTEND Physician Assistant
DX: J45.41 Moderate persistent asthma with (acute) exacerbation (principal)

== ENCOUNTER → 2022-04-15 | Outpatient (REF) | payer OTHER ==
[2022-04-15 17:15] LABS: HEMATOCRIT 43.8 % (42.0-52.0); HEMOGLOBIN 14.6 g/dl (13.5-17.5); MEAN CORPUSCULAR HEMOGLOBIN 30.6 pg (27.0-33.0); MEAN CORPUSCULAR HGB CONC 33.3 g/dl (32.0-36.5); MEAN CORPUSCULAR VOLUME 91.8 fl (80.0-96.0); PLATELET COUNT, AUTOMATED 209 10^3/uL (150-450); RED BLOOD COUNT 4.77 10^6/uL (4.30-6.10); WHITE BLOOD COUNT 13.5 10^3/uL (4.0-10.0)
[2022-04-15 17:44] LABS: ALBUMIN 4.1 GM/DL (3.2-5.2); ALT/SGPT 39 U/L (12-78); BILIRUBIN,TOTAL 0.3 MG/DL (0.2-1.0); BLOOD UREA NITROGEN 18 MG/DL (7-18); CALCIUM LEVEL 9.1 MG/DL (8.5-10.1); CARBON DIOXIDE LEVEL 27 MEQ/L (21-32); CHLORIDE LEVEL 105 MEQ/L (98-107); CREATININE FOR GFR 0.98 MG/DL (0.70-1.30); GLOMERULAR FILTRATION RATE > 60.0 (>60); GLUCOSE, FASTING 107 MG/DL (70-100); SODIUM LEVEL 137 MEQ/L (136-145); TOTAL PROTEIN 7.8 GM/DL (6.4-8.2)
== END ==
LOC: M SFHCADAM 14:37
PROVIDERS: ATTEND Physician Assistant
DX: J45.41 Moderate persistent asthma with (acute) exacerbation (principal)

== ENCOUNTER → 2022-04-17 | Outpatient (CLI) | payer OTHER ==
[~2022-04-17] MED LIST changes: +ALBU2.5V10 NEB; +LOSA50TA28 PO; +PRED10TA2 PO; +SYMB16INH PO; +VENTAER INH
== END ==
LOC: M LAB 17:23
PROVIDERS: ATTEND Physician Assistant
DX: R06.09 Other forms of dyspnea (principal); Z86.711 Personal history of pulmonary embolism

== ENCOUNTER → 2022-04-17 | Outpatient (CLI) | payer OTHER ==
[~2022-04-17] MED LIST changes: +ISOVUE-370 76% 100ML VIAL As Ordered ONE
== END ==
LOC: M RAD 12:31
PROVIDERS: ATTEND Physician Assistant
DX: R06.09 Other forms of dyspnea (principal); R07.89 Other chest pain; Z86.711 Personal history of pulmonary embolism
CPT/HCPCS: 71275; Q9967

== ENCOUNTER 2022-04-19 17:07 | Inpatient (IN) | payer OTHER ==
[~2022-04-19] VITALS: Ht 182.9 cm; Wt 145.9 kg
[~2022-04-19 17:07] MED LIST changes: -ALBU2.5V10 NEB; -ISOVUE-370 76% 100ML VIAL As Ordered ONE; -LOSA50TA28 PO; -PRED10TA2 PO; -SYMB16INH PO; -VENTAER INH
[2022-04-19] MEDS: IPRATROPIUM 0.5MG/ALBUTEROL 2.5MG INH SOL UD 3ML (DUONEB) NEB PRN ×3 (19:30→20:55)
[2022-04-19 19:38] LABS: BASO % 0.2 % (0.0-1.0); HEMATOCRIT 43.8 % (42.0-52.0); HEMOGLOBIN 14.5 g/dl (13.5-17.5); LYMPH # 1.4 10^3/uL (1.5-5.0); LYMPH % 10.5 % (24.0-44.0); MEAN CORPUSCULAR HEMOGLOBIN 30.5 pg (27.0-33.0); MEAN CORPUSCULAR HGB CONC 33.1 g/dl (32.0-36.5); MEAN CORPUSCULAR VOLUME 92.2 fl (80.0-96.0); MONO # 0.6 10^3/uL (0.0-0.8); MONO % 4.6 % (2.0-8.0); NEUTROPHILS # 11.5 10^3/uL (1.5-8.5); NEUTROPHILS % 84.2 % (36.0-66.0); PLATELET COUNT, AUTOMATED 224 10^3/uL (150-450); RED BLOOD COUNT 4.75 10^6/uL (4.30-6.10); WHITE BLOOD COUNT 13.6 10^3/uL (4.0-10.0)
[2022-04-19 20:08] LABS: CK-MB VALUE MASS 3.3 NG/ML (<3.6); MB/CK RELATIVE INDEX 0.77 (< OR =4)
[2022-04-19] MEDS: MAG SULF 1GM/100ML (MAG RUN) 1 GM in IV 1 EA IV SCH ×2 (20:20→20:31)
[2022-04-19] MEDS ORDERED: NS 1,000 ML IV ONE (20:25)
[2022-04-19] MEDS ORDERED: methylPREDNISolone 125MG 2ML VIAL IV ONE (20:55)
[2022-04-19 21:14] LABS: ALBUMIN 3.8 GM/DL (3.2-5.2); ALT/SGPT 26 U/L (12-78); BILIRUBIN,DIRECT < 0.1 MG/DL (0.0-0.2); BILIRUBIN,TOTAL 0.5 MG/DL (0.2-1.0); BLOOD UREA NITROGEN 19 MG/DL (7-18); CALCIUM LEVEL 8.5 MG/DL (8.5-10.1); CARBON DIOXIDE LEVEL 27 MEQ/L (21-32); CHLORIDE LEVEL 106 MEQ/L (98-107); CREATININE FOR GFR 1.04 MG/DL (0.70-1.30); GLOMERULAR FILTRATION RATE > 60.0 (>60); GLUCOSE, FASTING 113 MG/DL (70-100); NT-PRO BNP 166 PG/ML (<125); POTASSIUM SERUM 4.6 MEQ/L (3.5-5.1); SODIUM LEVEL 138 MEQ/L (136-145); THYROXINE (T4) 5.1 UG/DL (4.5-12.0); TOTAL PROTEIN 7.1 GM/DL (6.4-8.2)
[2022-04-19] MEDS ORDERED: ALBU2.5V10 NEB (22:12)
[2022-04-19] MEDS ORDERED: LOSA50TA28 PO (22:12)
[2022-04-19] MEDS ORDERED: PRED10TA2 PO (22:12)
[2022-04-19] MEDS ORDERED: MONT10TA97 PO (22:12)
[2022-04-19] MEDS ORDERED: SYMB16INH PO (22:12)
[2022-04-19] MEDS ORDERED: HOME MED LIST COMPLETE! XX SCH (22:15)
[2022-04-20] MEDS ORDERED: ACETAMINOPHEN TAB 650MG DOSE (2X325MG) PO PRN (00:05)
[2022-04-20] MEDS ORDERED: ALBUTEROL SULFATE 2.5 MG/0.5 ML INH NEB SOLN INH PRN (00:05)
[2022-04-20] MEDS ORDERED: GLUCOSE 4GM CHEW TABLET PO PRN (00:05)
[2022-04-20] MEDS ORDERED: DEXTROSE 50% 50 ML SYRINGE IV PRN (00:05)
[2022-04-20] MEDS ORDERED: GLUCAGON INJ 1MG VIAL SC PRN (00:05)
[2022-04-20] MEDS: methylPREDNISolone 40MG 1ML VIAL IV SCH ×3 (02:39→14:21)
[2022-04-20 03:18] VITALS: BP 159/83
[2022-04-20] MEDS: HEPARIN SOD (PORCINE) 5000UNITS/ML 1ML VIAL/SYRINGE SC SCH ×3 (05:20→21:17)
[2022-04-20 06:00] VITALS: BP 152/93
[2022-04-20] MEDS: SYMBICORT 160/4.5MCG INHALER 6GM INH SCH ×2 (07:08→20:25)
[2022-04-20] MEDS: IPRATROPIUM 0.5MG/ALBUTEROL 2.5MG INH SOL UD 3ML (DUONEB) NEB SCH ×4 (07:08→20:25)
[2022-04-20] MEDS: MONTELUKAST 10 MG TAB PO SCH (08:06)
[2022-04-20] MEDS: PANTOPRAZOLE 40MG TAB (PROTONIX) PO SCH (08:06)
[2022-04-20] MEDS: ATORVASTATIN 20 MG TAB PO SCH (08:06)
[2022-04-20] MEDS: INSULIN LISPRO (NovoLOG) PER UNIT SC SCH ×3 (08:06→17:46)
[2022-04-20] MEDS: CLOPIDOGREL 75 MG TAB PO SCH (08:06)
[2022-04-20] MEDS ORDERED: LOSARTAN 50MG TABLET PO SCH (09:00)
[2022-04-20 10:00] VITALS: BP 154/88
[2022-04-20 14:00] VITALS: BP 190/86
[2022-04-20 14:36] VITALS: BP 180/88
[2022-04-20] MEDS ORDERED: LOSARTAN 25 MG TAB PO ONE (15:05)
[2022-04-20] MEDS ORDERED: INSULIN LISPRO (NovoLOG) PER UNIT SC SCH (21:00)
[2022-04-20] MEDS: methylPREDNISolone 125MG 2ML VIAL IV SCH (21:17)
[2022-04-20 22:00] VITALS: BP 153/91; O2SAT 92
[2022-04-21 00:50] VITALS: O2SAT 71
[2022-04-21 01:00] VITALS: O2SAT 95
[2022-04-21] MEDS: methylPREDNISolone 125MG 2ML VIAL IV SCH ×2 (01:59→08:53)
[2022-04-21] MEDS ORDERED: FUROSEMIDE 20MG/2ML VIAL (J1940) IV ONE (04:00)
[2022-04-21] MEDS: HEPARIN SOD (PORCINE) 5000UNITS/ML 1ML VIAL/SYRINGE SC SCH (05:17)
[2022-04-21 05:24] VITALS: BP 150/95
[2022-04-21 07:00] LABS: BLOOD UREA NITROGEN 21 MG/DL (7-18); CALCIUM LEVEL 9.1 MG/DL (8.5-10.1); CARBON DIOXIDE LEVEL 28 MEQ/L (21-32); CHLORIDE LEVEL 105 MEQ/L (98-107); CREATININE FOR GFR 1.03 MG/DL (0.70-1.30); GLOMERULAR FILTRATION RATE > 60.0 (>60); GLUCOSE, FASTING 140 MG/DL (70-100); POTASSIUM SERUM 4.1 MEQ/L (3.5-5.1); SODIUM LEVEL 138 MEQ/L (136-145)
[2022-04-21] MEDS: IPRATROPIUM 0.5MG/ALBUTEROL 2.5MG INH SOL UD 3ML (DUONEB) NEB SCH (07:34)
[2022-04-21] MEDS: SYMBICORT 160/4.5MCG INHALER 6GM INH SCH (07:34)
[2022-04-21] MEDS ORDERED: VENTAER INH (08:24)
[2022-04-21] MEDS ORDERED: LOSA50TA28 PO (08:24)
[2022-04-21] MEDS ORDERED: PRED10TA2 PO (08:24)
[2022-04-21] MEDS: CLOPIDOGREL 75 MG TAB PO SCH (08:52)
[2022-04-21] MEDS: PANTOPRAZOLE 40MG TAB (PROTONIX) PO SCH (08:52)
[2022-04-21 08:53] VITALS: BP 150/95
[2022-04-21] MEDS: MONTELUKAST 10 MG TAB PO SCH (08:53)
[2022-04-21] MEDS: ATORVASTATIN 20 MG TAB PO SCH (08:53)
[2022-04-21] MEDS: INSULIN LISPRO (NovoLOG) PER UNIT SC SCH ×2 (08:54→12:00)
[2022-04-21] MEDS ORDERED: LOSARTAN 25 MG TAB PO SCH (09:00)
[2022-04-21] MEDS ORDERED: ALBUTEROL SULFATE 2.5 MG/0.5 ML INH NEB SOLN NEB SCH (12:00)
[2022-04-22] MEDS ORDERED: LOSA50TA28 PO (20:55)
[2022-04-22] MEDS ORDERED: MULT1TAB8 PO (20:57)
== END 2022-04-21 13:05 | disposition home or self-care (01) | DRG 141 ==
LOC: M ED 17:07 → M ED INP 04-20 00:02 → M MS5PR 04-20 01:58
PROVIDERS: ADMIT Internal Medicine; ATTEND General Practice
DX: J45.901 Unspecified asthma with (acute) exacerbation (principal); I10 Essential (primary) hypertension; I31.9 Disease of pericardium, unspecified; E66.01 Morbid (severe) obesity due to excess calories; Z68.41 Body mass index [BMI] 40.0-44.9, adult; G47.33 Obstructive sleep apnea (adult) (pediatric); I25.10 Atherosclerotic heart disease of native coronary artery without angina pectoris; K21.9 Gastro-esophageal reflux disease without esophagitis; E78.5 Hyperlipidemia, unspecified; Z95.5 Presence of coronary angioplasty implant and graft; Z86.711 Personal history of pulmonary embolism; Z79.52 Long term (current) use of systemic steroids; Z79.899 Other long term (current) drug therapy; Z20.822 Contact with and (suspected) exposure to COVID-19; Z88.0 Allergy status to penicillin; Z88.1 Allergy status to other antibiotic agents; Z88.2 Allergy status to sulfonamides; Z88.6 Allergy status to analgesic agent; Z88.8 Allergy status to other drugs, medicaments and biological substances; Z90.49 Acquired absence of other specified parts of digestive tract

== ENCOUNTER 2022-04-22 17:14 | Inpatient (IN) | payer OTHER ==
[~2022-04-22] VITALS: Ht 182.9 cm; Wt 138.1 kg
[~2022-04-22 17:14] MED LIST changes: +ALBU2.5V10 NEB; +LOSA50TA28 PO; +PRED10TA2 PO; +SYMB16INH PO; +VENTAER INH
[2022-04-22] MEDS ORDERED: IPRATROPIUM 0.5MG/ALBUTEROL 2.5MG INH SOL UD 3ML (DUONEB) NEB ONE (17:40)
[2022-04-22] MEDS ORDERED: methylPREDNISolone 125MG 2ML VIAL IV ONE (17:40)
[2022-04-22 18:36] LABS: BASO % 0.1 % (0.0-1.0); HEMATOCRIT 44.2 % (42.0-52.0); HEMOGLOBIN 14.8 g/dl (13.5-17.5); LYMPH # 1.3 10^3/uL (1.5-5.0); LYMPH % 8.9 % (24.0-44.0); MEAN CORPUSCULAR HEMOGLOBIN 30.5 pg (27.0-33.0); MEAN CORPUSCULAR HGB CONC 33.5 g/dl (32.0-36.5); MEAN CORPUSCULAR VOLUME 91.1 fl (80.0-96.0); MONO # 0.9 10^3/uL (0.0-0.8); MONO % 6.2 % (2.0-8.0); NEUTROPHILS # 12.4 10^3/uL (1.5-8.5); NEUTROPHILS % 83.9 % (36.0-66.0); PLATELET COUNT, AUTOMATED 230 10^3/uL (150-450); RED BLOOD COUNT 4.85 10^6/uL (4.30-6.10); WHITE BLOOD COUNT 14.8 10^3/uL (4.0-10.0)
[2022-04-22 19:09] LABS: BLOOD UREA NITROGEN 29 MG/DL (7-18); CALCIUM LEVEL 8.8 MG/DL (8.5-10.1); CARBON DIOXIDE LEVEL 28 MEQ/L (21-32); CHLORIDE LEVEL 106 MEQ/L (98-107); CREATININE FOR GFR 1.17 MG/DL (0.70-1.30); GLOMERULAR FILTRATION RATE > 60.0 (>60); GLUCOSE, FASTING 109 MG/DL (70-100); POTASSIUM SERUM 4.2 MEQ/L (3.5-5.1); SODIUM LEVEL 140 MEQ/L (136-145)
[2022-04-22 19:31] LABS: RSV AMPLIFICATION NEGATIVE (NEGATIVE)
[2022-04-22] MEDS: SYMBICORT 160/4.5MCG INHALER 6GM INH SCH (20:00)
[2022-04-22] MEDS ORDERED: ALBUTEROL SULFATE 2.5 MG/0.5 ML INH NEB SOLN NEB PRN (20:05)
[2022-04-22] MEDS ORDERED: MOM 30ML SUSPENSION UDC PO PRN (20:05)
[2022-04-22] MEDS ORDERED: LOSA50TA28 PO (20:55)
[2022-04-22] MEDS ORDERED: MULT1TAB8 PO (20:57)
[2022-04-22] MEDS ORDERED: ADVAIR HFA 115/21MCG INHALER INH SCH (21:00)
[2022-04-22] MEDS ORDERED: HOME MED LIST COMPLETE! XX SCH (21:00)
[2022-04-22 21:55] VITALS: BP 140/78
[2022-04-22] MEDS: FUROSEMIDE 20 MG TAB PO SCH (22:04)
[2022-04-23 02:24] VITALS: BP 126/72
[2022-04-23] MEDS: methylPREDNISolone 125MG 2ML VIAL IV SCH ×3 (04:05→18:14)
[2022-04-23 04:07] VITALS: BP 123/77
[2022-04-23 06:20] LABS: HEMATOCRIT 44.3 % (42.0-52.0); HEMOGLOBIN 14.4 g/dl (13.5-17.5); MEAN CORPUSCULAR HEMOGLOBIN 30.6 pg (27.0-33.0); MEAN CORPUSCULAR HGB CONC 32.5 g/dl (32.0-36.5); MEAN CORPUSCULAR VOLUME 94.3 fl (80.0-96.0); PLATELET COUNT, AUTOMATED 215 10^3/uL (150-450); WHITE BLOOD COUNT 11.2 10^3/uL (4.0-10.0)
[2022-04-23 07:07] LABS: ALBUMIN 3.7 GM/DL (3.2-5.2); ALT/SGPT 27 U/L (12-78); BILIRUBIN,TOTAL 0.6 MG/DL (0.2-1.0); BLOOD UREA NITROGEN 27 MG/DL (7-18); CALCIUM LEVEL 8.7 MG/DL (8.5-10.1); CARBON DIOXIDE LEVEL 30 MEQ/L (21-32); CHLORIDE LEVEL 103 MEQ/L (98-107); GLOMERULAR FILTRATION RATE > 60.0 (>60); GLUCOSE, FASTING 153 MG/DL (70-100); POTASSIUM SERUM 4.6 MEQ/L (3.5-5.1); SODIUM LEVEL 138 MEQ/L (136-145); TOTAL PROTEIN 7.1 GM/DL (6.4-8.2)
[2022-04-23] MEDS: SYMBICORT 160/4.5MCG INHALER 6GM INH SCH ×2 (08:48→19:47)
[2022-04-23] MEDS: ATORVASTATIN 20 MG TAB PO SCH (09:17)
[2022-04-23] MEDS: LOSARTAN 50MG TABLET PO SCH (09:17)
[2022-04-23] MEDS: PANTOPRAZOLE 40MG TAB (PROTONIX) PO SCH (09:17)
[2022-04-23] MEDS: MONTELUKAST 10 MG TAB PO SCH (09:17)
[2022-04-23] MEDS: CLOPIDOGREL 75 MG TAB PO SCH (09:17)
[2022-04-23] MEDS: FUROSEMIDE 20 MG TAB PO SCH ×2 (09:17→20:46)
[2022-04-23] MEDS: ENOXAPARIN 40MG/0.4ML SYRINGE (J1650 PER 10MG) SC SCH ×2 (09:18→20:46)
[2022-04-23] MEDS ORDERED: INFLUENZA QUADRIVALENT PF VACCINE 0.5ML SYRINGE IM.IMMUN ONE (12:00)
[2022-04-23 14:00] VITALS: BP 146/80
[2022-04-23] MEDS: ALBUTEROL SULFATE 2.5 MG/0.5 ML INH NEB SOLN NEB SCH ×3 (17:10→23:23)
[2022-04-23 20:59] VITALS: BP 140/80
[2022-04-24] MEDS: methylPREDNISolone 125MG 2ML VIAL IV SCH ×3 (03:05→18:13)
[2022-04-24] MEDS: ALBUTEROL SULFATE 2.5 MG/0.5 ML INH NEB SOLN NEB SCH ×6 (04:00→23:50)
[2022-04-24 06:27] VITALS: BP 148/83
[2022-04-24] MEDS: ENOXAPARIN 40MG/0.4ML SYRINGE (J1650 PER 10MG) SC SCH ×2 (09:03→20:38)
[2022-04-24] MEDS: CLOPIDOGREL 75 MG TAB PO SCH (09:05)
[2022-04-24] MEDS: LOSARTAN 50MG TABLET PO SCH (09:05)
[2022-04-24] MEDS: MONTELUKAST 10 MG TAB PO SCH (09:06)
[2022-04-24] MEDS: PANTOPRAZOLE 40MG TAB (PROTONIX) PO SCH (09:06)
[2022-04-24] MEDS: FUROSEMIDE 20 MG TAB PO SCH ×2 (09:06→18:41)
[2022-04-24] MEDS: ATORVASTATIN 20 MG TAB PO SCH (09:06)
[2022-04-24] MEDS: SYMBICORT 160/4.5MCG INHALER 6GM INH SCH ×2 (09:20→19:52)
[2022-04-24] MEDS: ACETAMINOPHEN 500 MG TAB PO PRN ×2 (11:41→20:38)
[2022-04-24 14:00] VITALS: BP 157/79
[2022-04-24 21:39] VITALS: BP 145/80
[2022-04-24 22:00] VITALS: O2SAT 96
[2022-04-25] MEDS: methylPREDNISolone 125MG 2ML VIAL IV SCH ×3 (02:00→17:52)
[2022-04-25] MEDS: ALBUTEROL SULFATE 2.5 MG/0.5 ML INH NEB SOLN NEB SCH ×6 (04:07→23:11)
[2022-04-25 06:00] VITALS: BP 144/80
[2022-04-25] MEDS: SYMBICORT 160/4.5MCG INHALER 6GM INH SCH ×2 (08:02→20:17)
[2022-04-25 09:00] VITALS: O2SAT 95
[2022-04-25] MEDS: ATORVASTATIN 20 MG TAB PO SCH (09:02)
[2022-04-25] MEDS: CLOPIDOGREL 75 MG TAB PO SCH (09:02)
[2022-04-25] MEDS: PANTOPRAZOLE 40MG TAB (PROTONIX) PO SCH (09:02)
[2022-04-25] MEDS: MONTELUKAST 10 MG TAB PO SCH (09:02)
[2022-04-25] MEDS: ENOXAPARIN 40MG/0.4ML SYRINGE (J1650 PER 10MG) SC SCH ×2 (09:02→20:43)
[2022-04-25] MEDS: FUROSEMIDE 20 MG TAB PO SCH ×2 (09:03→17:51)
[2022-04-25] MEDS: LOSARTAN 50MG TABLET PO SCH (09:03)
[2022-04-25] MEDS: AZITHROMYCIN 250MG TABLET PO SCH (13:36)
[2022-04-25 14:00] VITALS: BP 138/78
[2022-04-25] MEDS: ACETAMINOPHEN 500 MG TAB PO PRN (20:43)
[2022-04-25 21:00] VITALS: O2SAT 95
[2022-04-25 22:00] VITALS: BP 134/76
[2022-04-26] MEDS: methylPREDNISolone 125MG 2ML VIAL IV SCH (02:04)
[2022-04-26] MEDS: ALBUTEROL SULFATE 2.5 MG/0.5 ML INH NEB SOLN NEB SCH ×6 (03:50→23:13)
[2022-04-26 06:00] VITALS: BP 144/81
[2022-04-26] MEDS: SYMBICORT 160/4.5MCG INHALER 6GM INH SCH ×2 (07:37→19:32)
[2022-04-26 09:00] VITALS: O2SAT 95
[2022-04-26] MEDS: MONTELUKAST 10 MG TAB PO SCH (09:14)
[2022-04-26] MEDS: PANTOPRAZOLE 40MG TAB (PROTONIX) PO SCH (09:14)
[2022-04-26] MEDS: AZITHROMYCIN 250MG TABLET PO SCH (09:14)
[2022-04-26] MEDS: predniSONE 20 MG TAB PO SCH (09:14)
[2022-04-26] MEDS: CLOPIDOGREL 75 MG TAB PO SCH (09:15)
[2022-04-26] MEDS: FUROSEMIDE 40MG/4ML VIAL (J1940) IV SCH ×2 (09:15→16:14)
[2022-04-26] MEDS: ATORVASTATIN 20 MG TAB PO SCH (09:16)
[2022-04-26] MEDS: ENOXAPARIN 40MG/0.4ML SYRINGE (J1650 PER 10MG) SC SCH ×2 (09:16→20:24)
[2022-04-26] MEDS: LOSARTAN 50MG TABLET PO SCH (09:17)
[2022-04-26 14:00] VITALS: BP 134/78
[2022-04-26] MEDS: ACETAMINOPHEN 500 MG TAB PO PRN (20:24)
[2022-04-26 21:00] VITALS: O2SAT 95
[2022-04-26 21:39] VITALS: BP 126/77
[2022-04-27] MEDS: ALBUTEROL SULFATE 2.5 MG/0.5 ML INH NEB SOLN NEB SCH ×6 (03:33→23:06)
[2022-04-27 04:00] VITALS: O2SAT 64
[2022-04-27 06:00] VITALS: BP 134/75
[2022-04-27] MEDS: SYMBICORT 160/4.5MCG INHALER 6GM INH SCH ×2 (07:22→20:29)
[2022-04-27] MEDS: MONTELUKAST 10 MG TAB PO SCH (08:00)
[2022-04-27] MEDS: PANTOPRAZOLE 40MG TAB (PROTONIX) PO SCH (08:00)
[2022-04-27] MEDS: ATORVASTATIN 20 MG TAB PO SCH (08:01)
[2022-04-27] MEDS: predniSONE 20 MG TAB PO SCH (08:01)
[2022-04-27] MEDS: FUROSEMIDE 40 MG TAB PO SCH ×2 (08:01→16:03)
[2022-04-27] MEDS: CLOPIDOGREL 75 MG TAB PO SCH (08:01)
[2022-04-27] MEDS: AZITHROMYCIN 250MG TABLET PO SCH (08:01)
[2022-04-27] MEDS: LOSARTAN 50MG TABLET PO SCH (08:01)
[2022-04-27] MEDS: ENOXAPARIN 40MG/0.4ML SYRINGE (J1650 PER 10MG) SC SCH ×2 (08:02→20:17)
[2022-04-27 09:25] VITALS: O2SAT 94
[2022-04-27] MEDS ORDERED: methylPREDNISolone 125MG 2ML VIAL IV STA (09:51)
[2022-04-27 10:12] VITALS: BP 140/77
[2022-04-27] MEDS ORDERED: MAALOX 30 ML SUSP *UDC PO ONE (10:40)
[2022-04-27 14:00] VITALS: BP 139/67
[2022-04-27] MEDS: ACETAMINOPHEN 500 MG TAB PO PRN (16:03)
[2022-04-27 20:24] VITALS: BP 143/84
[2022-04-28] MEDS: ALBUTEROL SULFATE 2.5 MG/0.5 ML INH NEB SOLN NEB SCH ×3 (03:05→11:31)
[2022-04-28 06:41] VITALS: BP 133/93
[2022-04-28] MEDS: SYMBICORT 160/4.5MCG INHALER 6GM INH SCH (08:02)
[2022-04-28] MEDS ORDERED: metOLazone 5 MG TAB PO ONE (09:00)
[2022-04-28] MEDS: ENOXAPARIN 40MG/0.4ML SYRINGE (J1650 PER 10MG) SC SCH (09:22)
[2022-04-28] MEDS: MONTELUKAST 10 MG TAB PO SCH (09:23)
[2022-04-28] MEDS: predniSONE 20 MG TAB PO SCH (09:23)
[2022-04-28] MEDS: ATORVASTATIN 20 MG TAB PO SCH (09:23)
[2022-04-28] MEDS: PANTOPRAZOLE 40MG TAB (PROTONIX) PO SCH (09:23)
[2022-04-28] MEDS: CLOPIDOGREL 75 MG TAB PO SCH (09:23)
[2022-04-28] MEDS: AZITHROMYCIN 250MG TABLET PO SCH (09:23)
[2022-04-28 09:24] VITALS: BP 133/93
[2022-04-28] MEDS: LOSARTAN 50MG TABLET PO SCH (09:24)
[2022-04-28] MEDS ORDERED: PRED20TA PO ×2 (09:25→13:10)
[2022-04-28] MEDS ORDERED: PRED10TA2 PO (09:25)
[2022-04-28] MEDS ORDERED: AZIT-12 PO (09:25)
[2022-04-28] MEDS ORDERED: FUROSEMIDE 40MG/4ML VIAL (J1940) IV ONE (09:30)
[2022-04-28 09:53] VITALS: O2SAT 96
[2022-04-28 10:15] LABS: BLOOD UREA NITROGEN 31 MG/DL (7-18); CALCIUM LEVEL 8.6 MG/DL (8.5-10.1); CARBON DIOXIDE LEVEL 31 MEQ/L (21-32); CHLORIDE LEVEL 101 MEQ/L (98-107); CREATININE FOR GFR 1.12 MG/DL (0.70-1.30); GLOMERULAR FILTRATION RATE > 60.0 (>60); GLUCOSE, FASTING 112 MG/DL (70-100); MAGNESIUM LEVEL 2.6 MG/DL (1.8-2.4); NT-PRO BNP 20 PG/ML (<125); POTASSIUM SERUM 3.4 MEQ/L (3.5-5.1); SODIUM LEVEL 137 MEQ/L (136-145)
[2022-04-28] MEDS ORDERED: LASI40TA9 PO (12:56)
[2022-04-28] MEDS ORDERED: POTASSIUM CHLORIDE 10MEQ SR TABLET PO ONE (13:00)
[2022-04-28] MEDS ORDERED: POTA1TAB14 PO (13:09)
[2022-04-28] MEDS ORDERED: SELF1KIT MC (13:09)
[2022-04-28 14:00] VITALS: BP 126/68
[2022-04-28 14:03] LABS: HEMOGLOBIN A1c 5.7 %
== END 2022-04-28 14:55 | disposition home or self-care (01) | DRG 141 ==
LOC: M ED 17:14 → M ED INP 20:01 → M MS5PR 21:45
PROVIDERS: ADMIT Family Medicine; ATTEND General Practice
DX: J45.901 Unspecified asthma with (acute) exacerbation (principal); I25.10 Atherosclerotic heart disease of native coronary artery without angina pectoris; E66.01 Morbid (severe) obesity due to excess calories; G47.33 Obstructive sleep apnea (adult) (pediatric); K21.9 Gastro-esophageal reflux disease without esophagitis; E78.5 Hyperlipidemia, unspecified; I10 Essential (primary) hypertension; Z86.711 Personal history of pulmonary embolism; Z90.49 Acquired absence of other specified parts of digestive tract; Z20.822 Contact with and (suspected) exposure to COVID-19; Z79.52 Long term (current) use of systemic steroids; Z79.899 Other long term (current) drug therapy; Z88.0 Allergy status to penicillin; Z88.1 Allergy status to other antibiotic agents; Z88.2 Allergy status to sulfonamides; Z88.8 Allergy status to other drugs, medicaments and biological substances; Z88.6 Allergy status to analgesic agent; Z95.5 Presence of coronary angioplasty implant and graft; Z68.41 Body mass index [BMI] 40.0-44.9, adult

== ENCOUNTER → 2022-05-05 | Outpatient (CLI) | payer OTHER ==
[~2022-05-05] MED LIST changes: +AZIT-12 PO; +LASI40TA9 PO; +MULT1TAB8 PO; +POTA1TAB14 PO; +SELF1KIT MC
[2022-05-05 13:54] LABS: BLOOD UREA NITROGEN 17 MG/DL (7-18); CALCIUM LEVEL 8.5 MG/DL (8.5-10.1); CARBON DIOXIDE LEVEL 30 MEQ/L (21-32); CHLORIDE LEVEL 101 MEQ/L (98-107); CREATININE FOR GFR 1.24 MG/DL (0.70-1.30); GLOMERULAR FILTRATION RATE > 60.0 (>60); GLUCOSE, FASTING 163 MG/DL (70-100); MAGNESIUM LEVEL 2.1 MG/DL (1.8-2.4); NT-PRO BNP 82 PG/ML (<125); POTASSIUM SERUM 3.8 MEQ/L (3.5-5.1); SODIUM LEVEL 137 MEQ/L (136-145)
== END ==
LOC: M LAB 11:49
PROVIDERS: ATTEND Physician Assistant
DX: R06.02 Shortness of breath (principal)

== ENCOUNTER 2022-05-09 10:13 | Inpatient (IN) | payer OTHER ==
[~2022-05-09] VITALS: Ht 182.9 cm; Wt 146.0 kg
[2022-05-09] MEDS ORDERED: PRED10TA2 PO (12:41)
[2022-05-09] MEDS ORDERED: FURO40TA2 PO (12:41)
[2022-05-09] MEDS ORDERED: POTA-151 PO (12:41)
[2022-05-09] MEDS ORDERED: HOME MED LIST COMPLETE! XX SCH (12:55)
[2022-05-09 13:26] LABS: HEMATOCRIT 41.9 % (42.0-52.0); MEAN CORPUSCULAR HEMOGLOBIN 30.8 pg (27.0-33.0); MEAN CORPUSCULAR HGB CONC 33.4 g/dl (32.0-36.5); MEAN CORPUSCULAR VOLUME 92.1 fl (80.0-96.0); PLATELET COUNT, AUTOMATED 139 10^3/uL (150-450); RED BLOOD COUNT 4.55 10^6/uL (4.30-6.10); WHITE BLOOD COUNT 10.7 10^3/uL (4.0-10.0)
[2022-05-09 13:44] LABS: ALBUMIN 3.7 GM/DL (3.2-5.2); ALT/SGPT 43 U/L (12-78); BILIRUBIN,TOTAL 0.4 MG/DL (0.2-1.0); BLOOD UREA NITROGEN 24 MG/DL (7-18); CALCIUM LEVEL 9.1 MG/DL (8.5-10.1); CARBON DIOXIDE LEVEL 32 MEQ/L (21-32); CHLORIDE LEVEL 104 MEQ/L (98-107); CREATININE FOR GFR 0.98 MG/DL (0.70-1.30); GLOMERULAR FILTRATION RATE > 60.0 (>60); GLUCOSE, FASTING 119 MG/DL (70-100); SODIUM LEVEL 139 MEQ/L (136-145); TOTAL PROTEIN 6.8 GM/DL (6.4-8.2)
[2022-05-09] MEDS: IPRATROPIUM 0.5MG/ALBUTEROL 2.5MG INH SOL UD 3ML (DUONEB) NEB SCH ×2 (13:50→19:45)
[2022-05-09] MEDS: methylPREDNISolone 125MG 2ML VIAL IV SCH (14:13)
[2022-05-09] MEDS: ACETAMINOPHEN TAB 650MG DOSE (2X325MG) PO PRN (14:13)
[2022-05-09 14:39] LABS: IMMUNOGLOBULIN E 33.5 IU/ML (<100)
[2022-05-09 14:49] LABS: BASO % 0.2 % (0.0-1.0); HEMATOCRIT 42.5 % (42.0-52.0); LYMPH # 0.8 10^3/uL (1.5-5.0); LYMPH % 8.5 % (24.0-44.0); MEAN CORPUSCULAR HEMOGLOBIN 30.4 pg (27.0-33.0); MEAN CORPUSCULAR HGB CONC 32.9 g/dl (32.0-36.5); MEAN CORPUSCULAR VOLUME 92.4 fl (80.0-96.0); MONO # 0.4 10^3/uL (0.0-0.8); MONO % 3.9 % (2.0-8.0); NEUTROPHILS # 8.6 10^3/uL (1.5-8.5); NEUTROPHILS % 86.6 % (36.0-66.0); PLATELET COUNT, AUTOMATED 143 10^3/uL (150-450); WHITE BLOOD COUNT 9.9 10^3/uL (4.0-10.0)
[2022-05-09] MEDS: DOXYCYCLINE HYCLATE 100 MG in D5W MINI-BAG PLUS 100 ML IV SCH (15:01)
[2022-05-09 16:00] VITALS: BP 141/79
[2022-05-09] MEDS: IPRATROPIUM 0.5MG/ALBUTEROL 2.5MG INH SOL UD 3ML (DUONEB) NEB PRN ×2 (17:35→23:54)
[2022-05-09] MEDS: SYMBICORT 160/4.5MCG INHALER 6GM INH SCH (19:43)
[2022-05-09] MEDS: MONTELUKAST 10 MG TAB PO SCH (23:14)
[2022-05-10] MEDS: IPRATROPIUM 0.5MG/ALBUTEROL 2.5MG INH SOL UD 3ML (DUONEB) NEB SCH ×4 (01:08→19:58)
[2022-05-10] MEDS: DOXYCYCLINE HYCLATE 100 MG in D5W MINI-BAG PLUS 100 ML IV SCH ×2 (02:00→14:20)
[2022-05-10] MEDS: IPRATROPIUM 0.5MG/ALBUTEROL 2.5MG INH SOL UD 3ML (DUONEB) NEB PRN ×3 (02:05→15:47)
[2022-05-10] MEDS: methylPREDNISolone 125MG 2ML VIAL IV SCH ×2 (02:24→14:19)
[2022-05-10] MEDS: SYMBICORT 160/4.5MCG INHALER 6GM INH SCH ×2 (07:28→19:59)
[2022-05-10 07:38] LABS: HEMATOCRIT 41.4 % (42.0-52.0); HEMOGLOBIN 13.8 g/dl (13.5-17.5); MEAN CORPUSCULAR HEMOGLOBIN 30.6 pg (27.0-33.0); MEAN CORPUSCULAR HGB CONC 33.3 g/dl (32.0-36.5); MEAN CORPUSCULAR VOLUME 91.8 fl (80.0-96.0); PLATELET COUNT, AUTOMATED 137 10^3/uL (150-450); RED BLOOD COUNT 4.51 10^6/uL (4.30-6.10); WHITE BLOOD COUNT 10.2 10^3/uL (4.0-10.0)
[2022-05-10 08:05] LABS: BLOOD UREA NITROGEN 22 MG/DL (7-18); CARBON DIOXIDE LEVEL 28 MEQ/L (21-32); CHLORIDE LEVEL 102 MEQ/L (98-107); GLOMERULAR FILTRATION RATE > 60.0 (>60); GLUCOSE, FASTING 143 MG/DL (70-100); POTASSIUM SERUM 4.1 MEQ/L (3.5-5.1); SODIUM LEVEL 136 MEQ/L (136-145)
[2022-05-10] MEDS ORDERED: LOSARTAN 25 MG TAB PO SCH (09:00)
[2022-05-10] MEDS: PANTOPRAZOLE 40MG TAB (PROTONIX) PO SCH (09:43)
[2022-05-10] MEDS: ATORVASTATIN 20 MG TAB PO SCH (09:43)
[2022-05-10] MEDS: CLOPIDOGREL 75 MG TAB PO SCH (09:43)
[2022-05-10] MEDS: ENOXAPARIN 40MG/0.4ML SYRINGE (J1650 PER 10MG) SC SCH (09:44)
[2022-05-10] MEDS ORDERED: LOSARTAN 25 MG TAB PO ONE (10:40)
[2022-05-10 12:54] VITALS: BP 162/77
[2022-05-10] MEDS: ACETAMINOPH W/CODEINE #3 TAB UD PO PRN (15:05)
[2022-05-10 16:00] VITALS: BP 174/80
[2022-05-10 20:20] VITALS: BP 154/68
[2022-05-10] MEDS: MONTELUKAST 10 MG TAB PO SCH (21:17)
[2022-05-10 23:53] VITALS: BP 145/69
[2022-05-11] MEDS: DOXYCYCLINE HYCLATE 100 MG in D5W MINI-BAG PLUS 100 ML IV SCH (01:14)
[2022-05-11] MEDS: methylPREDNISolone 125MG 2ML VIAL IV SCH ×2 (01:14→13:31)
[2022-05-11] MEDS: ACETAMINOPHEN TAB 650MG DOSE (2X325MG) PO PRN ×2 (01:19→13:31)
[2022-05-11] MEDS: IPRATROPIUM 0.5MG/ALBUTEROL 2.5MG INH SOL UD 3ML (DUONEB) NEB SCH ×4 (01:21→19:43)
[2022-05-11 04:13] VITALS: BP_SYST 145; BP_SYST 182; BP_DIAS 69; BP_DIAS 88
[2022-05-11 06:26] LABS: HEMATOCRIT 38.6 % (42.0-52.0); HEMOGLOBIN 12.8 g/dl (13.5-17.5); MEAN CORPUSCULAR HEMOGLOBIN 30.5 pg (27.0-33.0); MEAN CORPUSCULAR HGB CONC 33.2 g/dl (32.0-36.5); MEAN CORPUSCULAR VOLUME 92.1 fl (80.0-96.0); PLATELET COUNT, AUTOMATED 128 10^3/uL (150-450); RED BLOOD COUNT 4.19 10^6/uL (4.30-6.10); WHITE BLOOD COUNT 10.6 10^3/uL (4.0-10.0)
[2022-05-11] MEDS: IPRATROPIUM 0.5MG/ALBUTEROL 2.5MG INH SOL UD 3ML (DUONEB) NEB PRN ×4 (06:44→23:16)
[2022-05-11 07:15] LABS: BLOOD UREA NITROGEN 26 MG/DL (7-18); CALCIUM LEVEL 8.8 MG/DL (8.5-10.1); CARBON DIOXIDE LEVEL 28 MEQ/L (21-32); CHLORIDE LEVEL 103 MEQ/L (98-107); GLOMERULAR FILTRATION RATE > 60.0 (>60); GLUCOSE, FASTING 151 MG/DL (70-100); POTASSIUM SERUM 4.1 MEQ/L (3.5-5.1); SODIUM LEVEL 139 MEQ/L (136-145)
[2022-05-11 07:40] VITALS: BP 169/90
[2022-05-11] MEDS: ATORVASTATIN 20 MG TAB PO SCH (08:16)
[2022-05-11] MEDS: ENOXAPARIN 40MG/0.4ML SYRINGE (J1650 PER 10MG) SC SCH (08:16)
[2022-05-11] MEDS: CLOPIDOGREL 75 MG TAB PO SCH (08:16)
[2022-05-11] MEDS: LOSARTAN 50MG TABLET PO SCH (08:17)
[2022-05-11] MEDS: PANTOPRAZOLE 40MG TAB (PROTONIX) PO SCH (08:17)
[2022-05-11] MEDS: SYMBICORT 160/4.5MCG INHALER 6GM INH SCH ×2 (09:56→19:41)
[2022-05-11] MEDS: DOXYCYCLINE HYCLATE 100MG TABLET PO SCH ×2 (10:34→20:39)
[2022-05-11 12:01] VITALS: BP 136/84
[2022-05-11] MEDS: INDAPAMIDE 1.25MG TABLET PO SCH (13:31)
[2022-05-11 16:09] VITALS: BP 135/69
[2022-05-11] MEDS: ACETAMINOPH W/CODEINE #3 TAB UD PO PRN ×2 (17:28→22:58)
[2022-05-11 20:05] VITALS: BP 139/68
[2022-05-11] MEDS: MONTELUKAST 10 MG TAB PO SCH (20:38)
[2022-05-12] VITALS (8 sets, daily range): BP systolic 130–180; BP diastolic 77–97
[2022-05-12] MEDS: methylPREDNISolone 125MG 2ML VIAL IV SCH ×4 (01:15→20:11)
[2022-05-12] MEDS: IPRATROPIUM 0.5MG/ALBUTEROL 2.5MG INH SOL UD 3ML (DUONEB) NEB SCH ×4 (02:59→19:44)
[2022-05-12] MEDS: ACETAMINOPH W/CODEINE #3 TAB UD PO PRN ×2 (03:43→12:04)
[2022-05-12] MEDS: IPRATROPIUM 0.5MG/ALBUTEROL 2.5MG INH SOL UD 3ML (DUONEB) NEB PRN ×2 (06:15→17:21)
[2022-05-12] MEDS: SYMBICORT 160/4.5MCG INHALER 6GM INH SCH (07:52)
[2022-05-12] MEDS ORDERED: ALBUTEROL SULFATE 2.5 MG/0.5 ML INH NEB SOLN NEB PRN (08:00)
[2022-05-12] MEDS: ENOXAPARIN 40MG/0.4ML SYRINGE (J1650 PER 10MG) SC SCH (08:43)
[2022-05-12] MEDS: INDAPAMIDE 1.25MG TABLET PO SCH (08:44)
[2022-05-12] MEDS: VITAMIN D 50,000 UNITS CAPSULE (ERGOCALCIFEROL 1.25MG) PO SCH (08:44)
[2022-05-12] MEDS: LOSARTAN 50MG TABLET PO SCH (08:44)
[2022-05-12] MEDS: ATORVASTATIN 20 MG TAB PO SCH (08:44)
[2022-05-12] MEDS: DOXYCYCLINE HYCLATE 100MG TABLET PO SCH ×2 (08:44→20:12)
[2022-05-12] MEDS: PANTOPRAZOLE 40MG TAB (PROTONIX) PO SCH (08:44)
[2022-05-12] MEDS: CLOPIDOGREL 75 MG TAB PO SCH (08:44)
[2022-05-12] MEDS: BUDESONIDE 0.5 MG/2 ML INHALATION SUSPENSION INH SCH ×2 (09:07→19:44)
[2022-05-12 09:27] LABS: HEMOGLOBIN 13.4 g/dl (13.5-17.5); MEAN CORPUSCULAR HEMOGLOBIN 30.9 pg (27.0-33.0); MEAN CORPUSCULAR HGB CONC 32.7 g/dl (32.0-36.5); MEAN CORPUSCULAR VOLUME 94.5 fl (80.0-96.0); PLATELET COUNT, AUTOMATED 118 10^3/uL (150-450); RED BLOOD COUNT 4.34 10^6/uL (4.30-6.10); WHITE BLOOD COUNT 9.7 10^3/uL (4.0-10.0)
[2022-05-12 10:05] LABS: BLOOD UREA NITROGEN 29 MG/DL (7-18); CARBON DIOXIDE LEVEL 27 MEQ/L (21-32); CHLORIDE LEVEL 105 MEQ/L (98-107); CREATININE FOR GFR 1.12 MG/DL (0.70-1.30); GLOMERULAR FILTRATION RATE > 60.0 (>60); GLUCOSE, FASTING 150 MG/DL (70-100); SODIUM LEVEL 138 MEQ/L (136-145)
[2022-05-12] MEDS: FORMOTEROL FUMARATE 20 MCG/2 ML INHALATION SOLUTION (PERFOROMIST) INH SCH ×2 (11:13→19:42)
[2022-05-12] MEDS: **hydrALAZINE HCL** 25 MG TAB PO PRN (12:23)
[2022-05-12] MEDS: MONTELUKAST 10 MG TAB PO SCH (20:12)
[2022-05-12] MEDS: ACETAMINOPHEN TAB 650MG DOSE (2X325MG) PO PRN (20:13)
[2022-05-13] MEDS: methylPREDNISolone 125MG 2ML VIAL IV SCH ×4 (02:32→20:45)
[2022-05-13] MEDS: IPRATROPIUM 0.5MG/ALBUTEROL 2.5MG INH SOL UD 3ML (DUONEB) NEB SCH ×4 (02:37→20:33)
[2022-05-13] MEDS: ACETAMINOPH W/CODEINE #3 TAB UD PO PRN (02:59)
[2022-05-13] MEDS: BUDESONIDE 0.5 MG/2 ML INHALATION SUSPENSION INH SCH ×2 (06:16→20:33)
[2022-05-13 06:26] LABS: HEMATOCRIT 39.5 % (42.0-52.0); HEMOGLOBIN 13.2 g/dl (13.5-17.5); MEAN CORPUSCULAR HEMOGLOBIN 30.8 pg (27.0-33.0); MEAN CORPUSCULAR HGB CONC 33.4 g/dl (32.0-36.5); MEAN CORPUSCULAR VOLUME 92.1 fl (80.0-96.0); PLATELET COUNT, AUTOMATED 131 10^3/uL (150-450); RED BLOOD COUNT 4.29 10^6/uL (4.30-6.10); WHITE BLOOD COUNT 9.6 10^3/uL (4.0-10.0)
[2022-05-13 06:50] VITALS: BP 155/99
[2022-05-13 07:03] LABS: BLOOD UREA NITROGEN 29 MG/DL (7-18); CALCIUM LEVEL 8.8 MG/DL (8.5-10.1); CARBON DIOXIDE LEVEL 26 MEQ/L (21-32); CHLORIDE LEVEL 104 MEQ/L (98-107); CREATININE FOR GFR 1.04 MG/DL (0.70-1.30); GLOMERULAR FILTRATION RATE > 60.0 (>60); GLUCOSE, FASTING 141 MG/DL (70-100); POTASSIUM SERUM 4.6 MEQ/L (3.5-5.1); SODIUM LEVEL 138 MEQ/L (136-145)
[2022-05-13] MEDS: ENOXAPARIN 40MG/0.4ML SYRINGE (J1650 PER 10MG) SC SCH (10:43)
[2022-05-13] MEDS: **hydrALAZINE HCL** 25 MG TAB PO PRN (10:43)
[2022-05-13] MEDS: ATORVASTATIN 20 MG TAB PO SCH (10:43)
[2022-05-13] MEDS: INDAPAMIDE 1.25MG TABLET PO SCH (10:44)
[2022-05-13] MEDS: DOXYCYCLINE HYCLATE 100MG TABLET PO SCH ×2 (10:44→20:43)
[2022-05-13] MEDS: PANTOPRAZOLE 40MG TAB (PROTONIX) PO SCH (10:44)
[2022-05-13] MEDS: CLOPIDOGREL 75 MG TAB PO SCH (10:44)
[2022-05-13] MEDS: LOSARTAN 50MG TABLET PO SCH (10:45)
[2022-05-13] MEDS: FORMOTEROL FUMARATE 20 MCG/2 ML INHALATION SOLUTION (PERFOROMIST) INH SCH ×2 (12:48→20:33)
[2022-05-13 14:00] VITALS: BP 148/82
[2022-05-13 19:42] VITALS: BP 131/76
[2022-05-13] MEDS: ACETAMINOPHEN TAB 650MG DOSE (2X325MG) PO PRN (20:44)
[2022-05-13] MEDS: MONTELUKAST 10 MG TAB PO SCH (20:44)
[2022-05-14] VITALS (9 sets, daily range): BP systolic 129–158; BP diastolic 79–100; O2SAT 92
[2022-05-14] MEDS: methylPREDNISolone 125MG 2ML VIAL IV SCH ×4 (02:59→21:45)
[2022-05-14] MEDS: ACETAMINOPHEN TAB 650MG DOSE (2X325MG) PO PRN ×2 (03:00→18:46)
[2022-05-14] MEDS: IPRATROPIUM 0.5MG/ALBUTEROL 2.5MG INH SOL UD 3ML (DUONEB) NEB SCH ×6 (03:10→23:19)
[2022-05-14] MEDS: guaiFENesin 200 MG TAB PO SCH ×3 (06:00→18:45)
[2022-05-14 06:40] LABS: HEMATOCRIT 39.9 % (42.0-52.0); HEMOGLOBIN 13.6 g/dl (13.5-17.5); MEAN CORPUSCULAR HEMOGLOBIN 30.6 pg (27.0-33.0); MEAN CORPUSCULAR HGB CONC 34.1 g/dl (32.0-36.5); MEAN CORPUSCULAR VOLUME 89.7 fl (80.0-96.0); PLATELET COUNT, AUTOMATED 143 10^3/uL (150-450); RED BLOOD COUNT 4.45 10^6/uL (4.30-6.10); WHITE BLOOD COUNT 10.3 10^3/uL (4.0-10.0)
[2022-05-14 07:21] LABS: BLOOD UREA NITROGEN 28 MG/DL (7-18); CARBON DIOXIDE LEVEL 25 MEQ/L (21-32); CHLORIDE LEVEL 101 MEQ/L (98-107); CREATININE FOR GFR 0.99 MG/DL (0.70-1.30); GLOMERULAR FILTRATION RATE > 60.0 (>60); GLUCOSE, FASTING 142 MG/DL (70-100); SODIUM LEVEL 134 MEQ/L (136-145)
[2022-05-14] MEDS: BUDESONIDE 0.5 MG/2 ML INHALATION SUSPENSION INH SCH ×2 (08:12→20:01)
[2022-05-14] MEDS: FORMOTEROL FUMARATE 20 MCG/2 ML INHALATION SOLUTION (PERFOROMIST) INH SCH ×2 (08:12→20:01)
[2022-05-14] MEDS ORDERED: LIDOCAINE 5% (LIDODERM) PATCH TD SCH (09:00)
[2022-05-14] MEDS: INDAPAMIDE 1.25MG TABLET PO SCH (10:05)
[2022-05-14] MEDS: DOXYCYCLINE HYCLATE 100MG TABLET PO SCH ×2 (10:05→21:45)
[2022-05-14] MEDS: ATORVASTATIN 20 MG TAB PO SCH (10:05)
[2022-05-14] MEDS: CLOPIDOGREL 75 MG TAB PO SCH (10:05)
[2022-05-14] MEDS: LOSARTAN 50MG TABLET PO SCH (10:06)
[2022-05-14] MEDS: **hydrALAZINE HCL** 25 MG TAB PO PRN (10:06)
[2022-05-14] MEDS: ENOXAPARIN 40MG/0.4ML SYRINGE (J1650 PER 10MG) SC SCH (10:07)
[2022-05-14] MEDS: PANTOPRAZOLE 40MG TAB (PROTONIX) PO SCH (10:07)
[2022-05-14] MEDS: ACETAMINOPH W/CODEINE #3 TAB UD PO PRN (10:07)
[2022-05-14] MEDS ORDERED: MAGNESIUM SULFATE IN WATER 2 GM in IV 1 EA IV STA ×2 (12:08)
[2022-05-14] MEDS ORDERED: MAG SULF 1GM/100ML (MAG RUN) X 2 DOSES (2GM TOTAL) IV SCH ×2 (12:30)
[2022-05-14] MEDS: MONTELUKAST 10 MG TAB PO SCH (21:45)
[2022-05-15] MEDS: guaiFENesin 200 MG TAB PO SCH ×5 (00:29→23:54)
[2022-05-15] MEDS: ACETAMINOPHEN TAB 650MG DOSE (2X325MG) PO PRN (02:16)
[2022-05-15] MEDS: methylPREDNISolone 125MG 2ML VIAL IV SCH ×4 (02:17→20:17)
[2022-05-15] MEDS: IPRATROPIUM 0.5MG/ALBUTEROL 2.5MG INH SOL UD 3ML (DUONEB) NEB SCH ×6 (03:04→23:07)
[2022-05-15 04:40] VITALS: BP 146/87
[2022-05-15 06:21] LABS: HEMOGLOBIN 13.4 g/dl (13.5-17.5); MEAN CORPUSCULAR HGB CONC 34.4 g/dl (32.0-36.5); MEAN CORPUSCULAR VOLUME 90.3 fl (80.0-96.0); PLATELET COUNT, AUTOMATED 136 10^3/uL (150-450); RED BLOOD COUNT 4.32 10^6/uL (4.30-6.10); WHITE BLOOD COUNT 10.3 10^3/uL (4.0-10.0)
[2022-05-15 06:58] LABS: BLOOD UREA NITROGEN 31 MG/DL (7-18); CALCIUM LEVEL 8.4 MG/DL (8.5-10.1); CARBON DIOXIDE LEVEL 25 MEQ/L (21-32); CHLORIDE LEVEL 104 MEQ/L (98-107); CREATININE FOR GFR 1.13 MG/DL (0.70-1.30); GLOMERULAR FILTRATION RATE > 60.0 (>60); GLUCOSE, FASTING 175 MG/DL (70-100); POTASSIUM SERUM 3.9 MEQ/L (3.5-5.1); SODIUM LEVEL 136 MEQ/L (136-145)
[2022-05-15] MEDS: FORMOTEROL FUMARATE 20 MCG/2 ML INHALATION SOLUTION (PERFOROMIST) INH SCH ×2 (07:26→19:49)
[2022-05-15] MEDS: BUDESONIDE 0.5 MG/2 ML INHALATION SUSPENSION INH SCH ×2 (07:26→19:49)
[2022-05-15 09:09] LABS: ASPERGILLUS FUMIGATUS AB Negative (Negative); AUREOBASIDIUM PULLULANS Negative (Negative); MICROPOLYSPORA FAENI AB Negative (Negative); PIGEON SERUM AB Negative (Negative); THERMOACTINOMYCES SACCHARI Negative (Negative); THERMOACTINOMYCES VULGARIS Negative (Negative)
[2022-05-15] MEDS: ENOXAPARIN 40MG/0.4ML SYRINGE (J1650 PER 10MG) SC SCH (09:21)
[2022-05-15] MEDS: PANTOPRAZOLE 40MG TAB (PROTONIX) PO SCH (09:21)
[2022-05-15] MEDS: ATORVASTATIN 20 MG TAB PO SCH (09:21)
[2022-05-15] MEDS: CLOPIDOGREL 75 MG TAB PO SCH (09:21)
[2022-05-15] MEDS: LOSARTAN 50MG TABLET PO SCH (09:21)
[2022-05-15] MEDS: DOXYCYCLINE HYCLATE 100MG TABLET PO SCH ×2 (09:21→20:17)
[2022-05-15] MEDS: IPRATROPIUM 0.5MG/ALBUTEROL 2.5MG INH SOL UD 3ML (DUONEB) NEB PRN ×2 (09:34→18:23)
[2022-05-15] MEDS: INDAPAMIDE 1.25MG TABLET PO SCH (10:19)
[2022-05-15] MEDS: ACETAMINOPH W/CODEINE #3 TAB UD PO PRN ×2 (12:31→21:37)
[2022-05-15 14:00] VITALS: BP 152/92
[2022-05-15 15:09] LABS: CHLAMYDIA PNEUMONIAE IgM < 1:10 (< 1:10); CHLAMYDIA PSITTACI IgM < 1:10 (< 1:10); CHLAMYDIA TRACHOMATIS IgM < 1:10 (< 1:10)
[2022-05-15 20:00] VITALS: BP 125/87
[2022-05-15] MEDS: MONTELUKAST 10 MG TAB PO SCH (20:17)
[2022-05-16] MEDS: methylPREDNISolone 125MG 2ML VIAL IV SCH ×4 (02:27→19:46)
[2022-05-16] MEDS: IPRATROPIUM 0.5MG/ALBUTEROL 2.5MG INH SOL UD 3ML (DUONEB) NEB SCH ×6 (03:07→23:26)
[2022-05-16] MEDS: guaiFENesin 200 MG TAB PO SCH ×3 (05:38→18:40)
[2022-05-16 06:00] VITALS: BP 151/117
[2022-05-16 06:53] LABS: HEMATOCRIT 40.6 % (42.0-52.0); HEMOGLOBIN 13.8 g/dl (13.5-17.5); MEAN CORPUSCULAR HEMOGLOBIN 30.3 pg (27.0-33.0); MEAN CORPUSCULAR VOLUME 89.2 fl (80.0-96.0); PLATELET COUNT, AUTOMATED 142 10^3/uL (150-450); RED BLOOD COUNT 4.55 10^6/uL (4.30-6.10); WHITE BLOOD COUNT 11.2 10^3/uL (4.0-10.0)
[2022-05-16 07:34] LABS: BLOOD UREA NITROGEN 25 MG/DL (7-18); CALCIUM LEVEL 8.6 MG/DL (8.5-10.1); CARBON DIOXIDE LEVEL 27 MEQ/L (21-32); CHLORIDE LEVEL 102 MEQ/L (98-107); CREATININE FOR GFR 0.96 MG/DL (0.70-1.30); GLOMERULAR FILTRATION RATE > 60.0 (>60); GLUCOSE, FASTING 145 MG/DL (70-100); POTASSIUM SERUM 3.7 MEQ/L (3.5-5.1); SODIUM LEVEL 136 MEQ/L (136-145)
[2022-05-16] MEDS: FORMOTEROL FUMARATE 20 MCG/2 ML INHALATION SOLUTION (PERFOROMIST) INH SCH ×2 (08:08→19:52)
[2022-05-16] MEDS: BUDESONIDE 0.5 MG/2 ML INHALATION SUSPENSION INH SCH ×2 (08:08→19:52)
[2022-05-16] MEDS: LOSARTAN 50MG TABLET PO SCH (10:31)
[2022-05-16] MEDS: CLOPIDOGREL 75 MG TAB PO SCH (10:31)
[2022-05-16] MEDS: DOXYCYCLINE HYCLATE 100MG TABLET PO SCH ×2 (10:32→20:10)
[2022-05-16] MEDS: ATORVASTATIN 20 MG TAB PO SCH (10:32)
[2022-05-16] MEDS: PANTOPRAZOLE 40MG TAB (PROTONIX) PO SCH (10:32)
[2022-05-16] MEDS: INDAPAMIDE 1.25MG TABLET PO SCH (10:32)
[2022-05-16] MEDS: ENOXAPARIN 40MG/0.4ML SYRINGE (J1650 PER 10MG) SC SCH (10:33)
[2022-05-16] MEDS: ACETAMINOPH W/CODEINE #3 TAB UD PO PRN ×2 (11:33→20:11)
[2022-05-16] MEDS: IPRATROPIUM 0.5MG/ALBUTEROL 2.5MG INH SOL UD 3ML (DUONEB) NEB PRN ×2 (13:35→18:37)
[2022-05-16 15:36] VITALS: BP 152/88
[2022-05-16 20:00] VITALS: BP 146/84
[2022-05-16] MEDS: MONTELUKAST 10 MG TAB PO SCH (20:10)
[2022-05-17] MEDS: guaiFENesin 200 MG TAB PO SCH ×5 (00:25→23:45)
[2022-05-17] MEDS: methylPREDNISolone 125MG 2ML VIAL IV SCH ×4 (01:25→21:10)
[2022-05-17] MEDS: IPRATROPIUM 0.5MG/ALBUTEROL 2.5MG INH SOL UD 3ML (DUONEB) NEB SCH ×6 (03:12→23:30)
[2022-05-17] MEDS: ACETAMINOPH W/CODEINE #3 TAB UD PO PRN ×4 (05:56→21:28)
[2022-05-17 06:00] VITALS: BP 173/102
[2022-05-17 06:10] LABS: BASO % 0.1 % (0.0-1.0); HEMATOCRIT 40.6 % (42.0-52.0); HEMOGLOBIN 13.7 g/dl (13.5-17.5); LYMPH # 0.6 10^3/uL (1.5-5.0); LYMPH % 5.8 % (24.0-44.0); MEAN CORPUSCULAR HEMOGLOBIN 30.3 pg (27.0-33.0); MEAN CORPUSCULAR HGB CONC 33.7 g/dl (32.0-36.5); MEAN CORPUSCULAR VOLUME 89.8 fl (80.0-96.0); MONO # 0.3 10^3/uL (0.0-0.8); MONO % 2.7 % (2.0-8.0); NEUTROPHILS # 8.7 10^3/uL (1.5-8.5); NEUTROPHILS % 89.1 % (36.0-66.0); PLATELET COUNT, AUTOMATED 141 10^3/uL (150-450); RED BLOOD COUNT 4.52 10^6/uL (4.30-6.10); WHITE BLOOD COUNT 9.8 10^3/uL (4.0-10.0)
[2022-05-17 06:46] LABS: ALBUMIN 3.3 GM/DL (3.2-5.2); ALT/SGPT 40 U/L (12-78); BILIRUBIN,TOTAL 0.4 MG/DL (0.2-1.0); BLOOD UREA NITROGEN 24 MG/DL (7-18); CALCIUM LEVEL 8.6 MG/DL (8.5-10.1); CARBON DIOXIDE LEVEL 28 MEQ/L (21-32); CHLORIDE LEVEL 101 MEQ/L (98-107); CREATININE FOR GFR 1.03 MG/DL (0.70-1.30); GLOMERULAR FILTRATION RATE > 60.0 (>60); GLUCOSE, FASTING 163 MG/DL (70-100); MAGNESIUM LEVEL 2.5 MG/DL (1.8-2.4); POTASSIUM SERUM 3.7 MEQ/L (3.5-5.1); SODIUM LEVEL 135 MEQ/L (136-145); TOTAL PROTEIN 6.1 GM/DL (6.4-8.2)
[2022-05-17] MEDS: FORMOTEROL FUMARATE 20 MCG/2 ML INHALATION SOLUTION (PERFOROMIST) INH SCH ×2 (08:08→19:43)
[2022-05-17] MEDS: BUDESONIDE 0.5 MG/2 ML INHALATION SUSPENSION INH SCH ×2 (08:08→19:42)
[2022-05-17] MEDS: ENOXAPARIN 40MG/0.4ML SYRINGE (J1650 PER 10MG) SC SCH (09:20)
[2022-05-17] MEDS: INDAPAMIDE 1.25MG TABLET PO SCH (09:21)
[2022-05-17] MEDS: DOXYCYCLINE HYCLATE 100MG TABLET PO SCH ×2 (09:22→21:10)
[2022-05-17] MEDS: CLOPIDOGREL 75 MG TAB PO SCH (09:22)
[2022-05-17] MEDS: LOSARTAN 50MG TABLET PO SCH (09:22)
[2022-05-17] MEDS: PANTOPRAZOLE 40MG TAB (PROTONIX) PO SCH (09:22)
[2022-05-17] MEDS: ATORVASTATIN 20 MG TAB PO SCH (09:22)
[2022-05-17 14:00] VITALS: BP 145/90
[2022-05-17] MEDS: IPRATROPIUM 0.5MG/ALBUTEROL 2.5MG INH SOL UD 3ML (DUONEB) NEB PRN ×2 (15:03→23:00)
[2022-05-17 20:00] VITALS: BP 145/78
[2022-05-17] MEDS: MONTELUKAST 10 MG TAB PO SCH (21:10)
[2022-05-18] MEDS: IPRATROPIUM 0.5MG/ALBUTEROL 2.5MG INH SOL UD 3ML (DUONEB) NEB PRN ×2 (01:09→13:22)
[2022-05-18] MEDS: ACETAMINOPH W/CODEINE #3 TAB UD PO PRN ×5 (01:17→22:22)
[2022-05-18] MEDS: methylPREDNISolone 125MG 2ML VIAL IV SCH ×4 (01:17→20:54)
[2022-05-18] MEDS: IPRATROPIUM 0.5MG/ALBUTEROL 2.5MG INH SOL UD 3ML (DUONEB) NEB SCH ×6 (03:25→23:15)
[2022-05-18] MEDS: guaiFENesin 200 MG TAB PO SCH ×3 (05:50→17:55)
[2022-05-18 06:00] VITALS: BP 157/91
[2022-05-18 06:27] LABS: BASO % 0.2 % (0.0-1.0); HEMATOCRIT 40.5 % (42.0-52.0); HEMOGLOBIN 14.2 g/dl (13.5-17.5); LYMPH # 0.7 10^3/uL (1.5-5.0); LYMPH % 5.3 % (24.0-44.0); MEAN CORPUSCULAR HEMOGLOBIN 31.5 pg (27.0-33.0); MEAN CORPUSCULAR HGB CONC 35.1 g/dl (32.0-36.5); MEAN CORPUSCULAR VOLUME 89.8 fl (80.0-96.0); MONO # 0.3 10^3/uL (0.0-0.8); MONO % 2.4 % (2.0-8.0); PLATELET COUNT, AUTOMATED 158 10^3/uL (150-450); RED BLOOD COUNT 4.51 10^6/uL (4.30-6.10); WHITE BLOOD COUNT 12.3 10^3/uL (4.0-10.0)
[2022-05-18 06:52] LABS: ALBUMIN 3.4 GM/DL (3.2-5.2); ALT/SGPT 49 U/L (12-78); BILIRUBIN,TOTAL 0.5 MG/DL (0.2-1.0); BLOOD UREA NITROGEN 25 MG/DL (7-18); CALCIUM LEVEL 8.7 MG/DL (8.5-10.1); CARBON DIOXIDE LEVEL 28 MEQ/L (21-32); CHLORIDE LEVEL 100 MEQ/L (98-107); GLOMERULAR FILTRATION RATE > 60.0 (>60); GLUCOSE, FASTING 167 MG/DL (70-100); MAGNESIUM LEVEL 2.4 MG/DL (1.8-2.4); POTASSIUM SERUM 3.8 MEQ/L (3.5-5.1); SODIUM LEVEL 135 MEQ/L (136-145); TOTAL PROTEIN 6.3 GM/DL (6.4-8.2)
[2022-05-18] MEDS: CLOPIDOGREL 75 MG TAB PO SCH (08:03)
[2022-05-18] MEDS: ENOXAPARIN 40MG/0.4ML SYRINGE (J1650 PER 10MG) SC SCH (08:03)
[2022-05-18] MEDS: INDAPAMIDE 1.25MG TABLET PO SCH (08:03)
[2022-05-18] MEDS: DOXYCYCLINE HYCLATE 100MG TABLET PO SCH ×2 (08:04→20:54)
[2022-05-18] MEDS: LOSARTAN 50MG TABLET PO SCH (08:04)
[2022-05-18] MEDS: ATORVASTATIN 20 MG TAB PO SCH (08:04)
[2022-05-18] MEDS: PANTOPRAZOLE 40MG TAB (PROTONIX) PO SCH (08:04)
[2022-05-18] MEDS: BUDESONIDE 0.5 MG/2 ML INHALATION SUSPENSION INH SCH ×2 (08:20→21:03)
[2022-05-18] MEDS: FORMOTEROL FUMARATE 20 MCG/2 ML INHALATION SOLUTION (PERFOROMIST) INH SCH ×2 (08:20→19:56)
[2022-05-18 14:00] VITALS: BP 135/84
[2022-05-18] MEDS: LORATADINE 10 MG TAB PO SCH (17:56)
[2022-05-18] MEDS: MONTELUKAST 10 MG TAB PO SCH (20:54)
[2022-05-18 22:00] VITALS: BP 154/92
[2022-05-19] MEDS: guaiFENesin 200 MG TAB PO SCH ×4 (00:23→18:12)
[2022-05-19] MEDS: IPRATROPIUM 0.5MG/ALBUTEROL 2.5MG INH SOL UD 3ML (DUONEB) NEB PRN ×3 (01:25→17:54)
[2022-05-19] MEDS: methylPREDNISolone 125MG 2ML VIAL IV SCH ×4 (03:06→18:13)
[2022-05-19] MEDS: IPRATROPIUM 0.5MG/ALBUTEROL 2.5MG INH SOL UD 3ML (DUONEB) NEB SCH ×6 (03:30→23:19)
[2022-05-19] MEDS: ACETAMINOPH W/CODEINE #3 TAB UD PO PRN ×3 (04:10→12:56)
[2022-05-19 06:00] VITALS: BP 157/92
[2022-05-19 07:04] LABS: BASO % 0.3 % (0.0-1.0); HEMATOCRIT 40.1 % (42.0-52.0); HEMOGLOBIN 13.6 g/dl (13.5-17.5); LYMPH # 0.6 10^3/uL (1.5-5.0); LYMPH % 5.2 % (24.0-44.0); MEAN CORPUSCULAR HEMOGLOBIN 30.8 pg (27.0-33.0); MEAN CORPUSCULAR HGB CONC 33.9 g/dl (32.0-36.5); MEAN CORPUSCULAR VOLUME 90.7 fl (80.0-96.0); MONO # 0.3 10^3/uL (0.0-0.8); MONO % 2.6 % (2.0-8.0); NEUTROPHILS # 9.5 10^3/uL (1.5-8.5); NEUTROPHILS % 88.3 % (36.0-66.0); PLATELET COUNT, AUTOMATED 132 10^3/uL (150-450); RED BLOOD COUNT 4.42 10^6/uL (4.30-6.10); WHITE BLOOD COUNT 10.7 10^3/uL (4.0-10.0)
[2022-05-19 07:36] LABS: ALBUMIN 3.2 GM/DL (3.2-5.2); ALT/SGPT 51 U/L (12-78); BILIRUBIN,TOTAL 0.6 MG/DL (0.2-1.0); BLOOD UREA NITROGEN 31 MG/DL (7-18); CALCIUM LEVEL 8.6 MG/DL (8.5-10.1); CARBON DIOXIDE LEVEL 26 MEQ/L (21-32); CHLORIDE LEVEL 100 MEQ/L (98-107); GLOMERULAR FILTRATION RATE > 60.0 (>60); GLUCOSE, FASTING 176 MG/DL (70-100); MAGNESIUM LEVEL 2.4 MG/DL (1.8-2.4); SODIUM LEVEL 135 MEQ/L (136-145); TOTAL PROTEIN 5.8 GM/DL (6.4-8.2)
[2022-05-19] MEDS: FORMOTEROL FUMARATE 20 MCG/2 ML INHALATION SOLUTION (PERFOROMIST) INH SCH ×2 (07:37→19:33)
[2022-05-19] MEDS: BUDESONIDE 0.5 MG/2 ML INHALATION SUSPENSION INH SCH ×2 (07:37→19:32)
[2022-05-19] MEDS: ATORVASTATIN 20 MG TAB PO SCH (08:38)
[2022-05-19] MEDS: VITAMIN D 50,000 UNITS CAPSULE (ERGOCALCIFEROL 1.25MG) PO SCH (08:38)
[2022-05-19] MEDS: CLOPIDOGREL 75 MG TAB PO SCH (08:38)
[2022-05-19] MEDS: DOXYCYCLINE HYCLATE 100MG TABLET PO SCH ×2 (08:38→22:02)
[2022-05-19] MEDS: INDAPAMIDE 1.25MG TABLET PO SCH (08:38)
[2022-05-19] MEDS: PANTOPRAZOLE 40MG TAB (PROTONIX) PO SCH (08:38)
[2022-05-19] MEDS: LOSARTAN 50MG TABLET PO SCH (08:39)
[2022-05-19] MEDS: ENOXAPARIN 40MG/0.4ML SYRINGE (J1650 PER 10MG) SC SCH (08:39)
[2022-05-19] MEDS: NYSTATIN 500,000 U/5 ML SUSP UDC SS SCH ×2 (12:57→18:13)
[2022-05-19 14:00] VITALS: BP 113/80
[2022-05-19] MEDS: LORATADINE 10 MG TAB PO SCH (18:13)
[2022-05-19 22:00] VITALS: BP 134/78
[2022-05-19] MEDS: MONTELUKAST 10 MG TAB PO SCH (22:01)
[2022-05-20] MEDS: guaiFENesin 200 MG TAB PO SCH ×4 (00:18→19:01)
[2022-05-20] MEDS: NYSTATIN 500,000 U/5 ML SUSP UDC SS SCH ×4 (00:18→19:01)
[2022-05-20] MEDS: methylPREDNISolone 125MG 2ML VIAL IV SCH ×4 (01:26→20:47)
[2022-05-20] MEDS: IPRATROPIUM 0.5MG/ALBUTEROL 2.5MG INH SOL UD 3ML (DUONEB) NEB PRN (01:35)
[2022-05-20] MEDS: IPRATROPIUM 0.5MG/ALBUTEROL 2.5MG INH SOL UD 3ML (DUONEB) NEB SCH ×3 (03:22→11:07)
[2022-05-20 06:00] VITALS: BP 134/80
[2022-05-20 06:15] LABS: BASO % 0.3 % (0.0-1.0); HEMATOCRIT 40.2 % (42.0-52.0); HEMOGLOBIN 13.8 g/dl (13.5-17.5); LYMPH # 0.6 10^3/uL (1.5-5.0); LYMPH % 5.3 % (24.0-44.0); MEAN CORPUSCULAR HEMOGLOBIN 30.8 pg (27.0-33.0); MEAN CORPUSCULAR HGB CONC 34.3 g/dl (32.0-36.5); MEAN CORPUSCULAR VOLUME 89.7 fl (80.0-96.0); MONO # 0.4 10^3/uL (0.0-0.8); MONO % 3.3 % (2.0-8.0); NEUTROPHILS # 10.2 10^3/uL (1.5-8.5); NEUTROPHILS % 88.8 % (36.0-66.0); PLATELET COUNT, AUTOMATED 130 10^3/uL (150-450); RED BLOOD COUNT 4.48 10^6/uL (4.30-6.10); WHITE BLOOD COUNT 11.4 10^3/uL (4.0-10.0)
[2022-05-20 07:01] LABS: ALBUMIN 3.2 GM/DL (3.2-5.2); ALT/SGPT 49 U/L (12-78); BILIRUBIN,TOTAL 0.5 MG/DL (0.2-1.0); BLOOD UREA NITROGEN 23 MG/DL (7-18); CALCIUM LEVEL 8.8 MG/DL (8.5-10.1); CARBON DIOXIDE LEVEL 29 MEQ/L (21-32); CHLORIDE LEVEL 100 MEQ/L (98-107); CREATININE FOR GFR 1.06 MG/DL (0.70-1.30); GLOMERULAR FILTRATION RATE > 60.0 (>60); GLUCOSE, FASTING 163 MG/DL (70-100); MAGNESIUM LEVEL 2.3 MG/DL (1.8-2.4); POTASSIUM SERUM 3.7 MEQ/L (3.5-5.1); SODIUM LEVEL 136 MEQ/L (136-145); TOTAL PROTEIN 5.8 GM/DL (6.4-8.2)
[2022-05-20] MEDS: FORMOTEROL FUMARATE 20 MCG/2 ML INHALATION SOLUTION (PERFOROMIST) INH SCH ×2 (07:38→19:36)
[2022-05-20] MEDS: BUDESONIDE 0.5 MG/2 ML INHALATION SUSPENSION INH SCH ×2 (07:38→19:36)
[2022-05-20] MEDS: ATORVASTATIN 20 MG TAB PO SCH (10:23)
[2022-05-20] MEDS: ENOXAPARIN 40MG/0.4ML SYRINGE (J1650 PER 10MG) SC SCH (10:23)
[2022-05-20] MEDS: INDAPAMIDE 1.25MG TABLET PO SCH (10:23)
[2022-05-20] MEDS: PANTOPRAZOLE 40MG TAB (PROTONIX) PO SCH (10:23)
[2022-05-20] MEDS: CLOPIDOGREL 75 MG TAB PO SCH (10:23)
[2022-05-20] MEDS: ACETAMINOPH W/CODEINE #3 TAB UD PO PRN ×2 (10:24→16:21)
[2022-05-20] MEDS: LOSARTAN 50MG TABLET PO SCH (10:24)
[2022-05-20 14:00] VITALS: BP 158/93
[2022-05-20] MEDS ORDERED: ALBUTEROL 90 MCG/ACT 8GM HFA INHALER INH PRN (14:05)
[2022-05-20] MEDS: ALBUTEROL SULFATE 2.5 MG/0.5 ML INH NEB SOLN NEB SCH ×6 (14:26→23:48)
[2022-05-20] MEDS: IPRATROPIUM 0.02% SOLN 0.5MG 2.5ML NEB INH SCH ×3 (15:41→23:48)
[2022-05-20] MEDS: LORATADINE 10 MG TAB PO SCH (16:21)
[2022-05-20] MEDS ORDERED: TEZEPELUMAB-EKKO 210MG 1.91ML SYRINGE (TEZSPIRE) SQ ONE (17:00)
[2022-05-20 20:00] VITALS: BP 127/71
[2022-05-20] MEDS: MONTELUKAST 10 MG TAB PO SCH (20:47)
[2022-05-20 20:57] VITALS: BP 127/71
[2022-05-21] MEDS: NYSTATIN 500,000 U/5 ML SUSP UDC SS SCH ×4 (01:13→17:28)
[2022-05-21] MEDS: guaiFENesin 200 MG TAB PO SCH ×4 (01:13→17:28)
[2022-05-21] MEDS: methylPREDNISolone 125MG 2ML VIAL IV SCH ×4 (01:13→20:15)
[2022-05-21] MEDS: ALBUTEROL SULFATE 2.5 MG/0.5 ML INH NEB SOLN NEB SCH ×12 (01:34→23:22)
[2022-05-21] MEDS: IPRATROPIUM 0.02% SOLN 0.5MG 2.5ML NEB INH SCH ×5 (03:08→19:45)
[2022-05-21 06:00] VITALS: BP 146/59
[2022-05-21 06:26] LABS: BASO % 0.1 % (0.0-1.0); HEMATOCRIT 41.1 % (42.0-52.0); HEMOGLOBIN 13.7 g/dl (13.5-17.5); LYMPH # 0.6 10^3/uL (1.5-5.0); LYMPH % 5.4 % (24.0-44.0); MEAN CORPUSCULAR HEMOGLOBIN 30.3 pg (27.0-33.0); MEAN CORPUSCULAR HGB CONC 33.3 g/dl (32.0-36.5); MEAN CORPUSCULAR VOLUME 90.9 fl (80.0-96.0); MONO # 0.3 10^3/uL (0.0-0.8); MONO % 2.7 % (2.0-8.0); NEUTROPHILS # 9.9 10^3/uL (1.5-8.5); NEUTROPHILS % 89.4 % (36.0-66.0); PLATELET COUNT, AUTOMATED 140 10^3/uL (150-450); RED BLOOD COUNT 4.52 10^6/uL (4.30-6.10); WHITE BLOOD COUNT 11.1 10^3/uL (4.0-10.0)
[2022-05-21] MEDS: FORMOTEROL FUMARATE 20 MCG/2 ML INHALATION SOLUTION (PERFOROMIST) INH SCH ×2 (07:17→19:45)
[2022-05-21] MEDS: BUDESONIDE 0.5 MG/2 ML INHALATION SUSPENSION INH SCH ×2 (07:17→19:45)
[2022-05-21 07:46] LABS: ALBUMIN 3.3 GM/DL (3.2-5.2); ALT/SGPT 52 U/L (12-78); BILIRUBIN,TOTAL 0.6 MG/DL (0.2-1.0); BLOOD UREA NITROGEN 23 MG/DL (7-18); CALCIUM LEVEL 8.6 MG/DL (8.5-10.1); CARBON DIOXIDE LEVEL 27 MEQ/L (21-32); CHLORIDE LEVEL 98 MEQ/L (98-107); CREATININE FOR GFR 1.19 MG/DL (0.70-1.30); GLOMERULAR FILTRATION RATE > 60.0 (>60); GLUCOSE, FASTING 188 MG/DL (70-100); MAGNESIUM LEVEL 2.4 MG/DL (1.8-2.4); POTASSIUM SERUM 3.9 MEQ/L (3.5-5.1); SODIUM LEVEL 137 MEQ/L (136-145); TOTAL PROTEIN 6.4 GM/DL (6.4-8.2)
[2022-05-21] MEDS: ACETAMINOPH W/CODEINE #3 TAB UD PO PRN (10:13)
[2022-05-21] MEDS: INDAPAMIDE 1.25MG TABLET PO SCH (10:13)
[2022-05-21] MEDS: PANTOPRAZOLE 40MG TAB (PROTONIX) PO SCH (10:15)
[2022-05-21] MEDS: CLOPIDOGREL 75 MG TAB PO SCH (10:15)
[2022-05-21] MEDS: LOSARTAN 50MG TABLET PO SCH (10:15)
[2022-05-21] MEDS: ATORVASTATIN 20 MG TAB PO SCH (10:15)
[2022-05-21] MEDS: ENOXAPARIN 40MG/0.4ML SYRINGE (J1650 PER 10MG) SC SCH (10:16)
[2022-05-21 14:00] VITALS: BP 132/77
[2022-05-21] MEDS: LORATADINE 10 MG TAB PO SCH (17:28)
[2022-05-21] MEDS: MONTELUKAST 10 MG TAB PO SCH (20:15)
[2022-05-21 22:00] VITALS: BP 133/70
[2022-05-22] MEDS: ALBUTEROL SULFATE 2.5 MG/0.5 ML INH NEB SOLN NEB SCH ×6 (01:45→11:34)
[2022-05-22] MEDS: methylPREDNISolone 125MG 2ML VIAL IV SCH ×2 (02:41→09:02)
[2022-05-22] MEDS: IPRATROPIUM 0.02% SOLN 0.5MG 2.5ML NEB INH SCH ×3 (03:39→07:31)
[2022-05-22] MEDS: guaiFENesin 200 MG TAB PO SCH ×2 (05:54)
[2022-05-22] MEDS: NYSTATIN 500,000 U/5 ML SUSP UDC SS SCH ×2 (05:54)
[2022-05-22 05:58] VITALS: BP 129/73
[2022-05-22 07:12] LABS: BASO % 0.1 % (0.0-1.0); HEMATOCRIT 40.6 % (42.0-52.0); HEMOGLOBIN 13.7 g/dl (13.5-17.5); LYMPH # 0.5 10^3/uL (1.5-5.0); LYMPH % 4.1 % (24.0-44.0); MEAN CORPUSCULAR HEMOGLOBIN 30.7 pg (27.0-33.0); MEAN CORPUSCULAR HGB CONC 33.7 g/dl (32.0-36.5); MONO # 0.5 10^3/uL (0.0-0.8); MONO % 3.9 % (2.0-8.0); NEUTROPHILS # 10.5 10^3/uL (1.5-8.5); NEUTROPHILS % 90.1 % (36.0-66.0); PLATELET COUNT, AUTOMATED 133 10^3/uL (150-450); RED BLOOD COUNT 4.46 10^6/uL (4.30-6.10); WHITE BLOOD COUNT 11.7 10^3/uL (4.0-10.0)
[2022-05-22] MEDS: BUDESONIDE 0.5 MG/2 ML INHALATION SUSPENSION INH SCH (07:31)
[2022-05-22] MEDS: FORMOTEROL FUMARATE 20 MCG/2 ML INHALATION SOLUTION (PERFOROMIST) INH SCH (07:32)
[2022-05-22] MEDS ORDERED: NYST50SS SS (07:47)
[2022-05-22] MEDS ORDERED: IPRA2IN INH (07:47)
[2022-05-22] MEDS ORDERED: CLAR10TA7 PO (07:47)
[2022-05-22] MEDS ORDERED: GUAI20TA PO (07:47)
[2022-05-22] MEDS ORDERED: ALBU2.5V10 NEB (07:47)
[2022-05-22 07:55] LABS: ALBUMIN 3.3 GM/DL (3.2-5.2); ALT/SGPT 58 U/L (12-78); BILIRUBIN,TOTAL 0.6 MG/DL (0.2-1.0); BLOOD UREA NITROGEN 25 MG/DL (7-18); CALCIUM LEVEL 8.5 MG/DL (8.5-10.1); CARBON DIOXIDE LEVEL 31 MEQ/L (21-32); CHLORIDE LEVEL 99 MEQ/L (98-107); CREATININE FOR GFR 0.96 MG/DL (0.70-1.30); GLOMERULAR FILTRATION RATE > 60.0 (>60); GLUCOSE, FASTING 158 MG/DL (70-100); MAGNESIUM LEVEL 2.4 MG/DL (1.8-2.4); POTASSIUM SERUM 3.8 MEQ/L (3.5-5.1); SODIUM LEVEL 137 MEQ/L (136-145); TOTAL PROTEIN 5.7 GM/DL (6.4-8.2)
[2022-05-22] MEDS ORDERED: INDA1.253 PO (08:02)
[2022-05-22] MEDS ORDERED: DRIS50003 PO (08:02)
[2022-05-22] MEDS ORDERED: CODE30TA PO ×3 (08:02→11:06)
[2022-05-22] MEDS ORDERED: PRED20TA PO (08:14)
[2022-05-22] MEDS: ENOXAPARIN 40MG/0.4ML SYRINGE (J1650 PER 10MG) SC SCH (09:02)
[2022-05-22] MEDS: ATORVASTATIN 20 MG TAB PO SCH (09:03)
[2022-05-22] MEDS: INDAPAMIDE 1.25MG TABLET PO SCH (09:03)
[2022-05-22] MEDS: PANTOPRAZOLE 40MG TAB (PROTONIX) PO SCH (09:03)
[2022-05-22] MEDS: CLOPIDOGREL 75 MG TAB PO SCH (09:03)
[2022-05-22 09:06] VITALS: BP 181/92
[2022-05-22] MEDS: LOSARTAN 50MG TABLET PO SCH (09:06)
[2022-05-22] MEDS ORDERED: BUDE0.5S6 INH (11:06)
[2022-05-22] MEDS ORDERED: PERF20NE2 INH (11:06)
[2022-05-23] MEDS ORDERED: BUDE0.5S6 INH (06:45)
[2022-05-23] MEDS ORDERED: ELIQ5TAB PO (09:01)
[2022-05-23] MEDS ORDERED: DILT180C95 PO (09:01)
[2022-05-23] MEDS ORDERED: PRED20TA PO (09:02)
== END 2022-05-22 12:13 | disposition home or self-care (01) | DRG 141 ==
LOC: EDSTATUS 12:00 → M ED INP 12:16 → ENRESERV 05-10 12:33 → M PCU 05-10 12:49 → M MSPAV 05-12 21:44
PROVIDERS: ADMIT Family Medicine; ATTEND Internal Medicine Nephrology
PROC: B246ZZZ Ultrasonography of Right and Left Heart (ICD-10-PCS; principal; 2022-05-11)
DX: J45.51 Severe persistent asthma with (acute) exacerbation (principal); B37.0 Candidal stomatitis; I11.9 Hypertensive heart disease without heart failure; E66.01 Morbid (severe) obesity due to excess calories; Z68.41 Body mass index [BMI] 40.0-44.9, adult; I25.10 Atherosclerotic heart disease of native coronary artery without angina pectoris; Z95.5 Presence of coronary angioplasty implant and graft; K21.9 Gastro-esophageal reflux disease without esophagitis; E78.5 Hyperlipidemia, unspecified; Z86.711 Personal history of pulmonary embolism; Z86.16 Personal history of COVID-19; Z88.0 Allergy status to penicillin; Z88.2 Allergy status to sulfonamides; Z88.6 Allergy status to analgesic agent; Z91.013 Allergy to seafood; Z79.52 Long term (current) use of systemic steroids; Z79.899 Other long term (current) drug therapy; Z20.822 Contact with and (suspected) exposure to COVID-19; I25.2 Old myocardial infarction; R07.81 Pleurodynia; D72.829 Elevated white blood cell count, unspecified; T38.0X5A Adverse effect of glucocorticoids and synthetic analogues, initial encounter

== ENCOUNTER 2022-05-23 04:53 | Emergency (ER) | payer OTHER ==
[~2022-05-23] VITALS: Ht 182.9 cm; Wt 136.4 kg
[~2022-05-23 04:53] MED LIST changes: +BUDE0.5S6 INH; +CLAR10TA7 PO; +CODE30TA PO; +DRIS50003 PO; +FURO40TA2 PO; +GUAI20TA PO; +INDA1.253 PO; +IPRA2IN INH; +NYST50SS SS; +PERF20NE2 INH; +POTA-151 PO
[2022-05-23] MEDS ORDERED: METOPROLOL 5 MG/5 ML VIAL As Ordered ONE (05:01)
[2022-05-23] MEDS: METOPROLOL 5 MG/5 ML VIAL IV SCH ×3 (05:05→05:15)
[2022-05-23 05:15] VITALS: BP 149/82
[2022-05-23] MEDS ORDERED: AMIODARONE HCL 150 MG in IV 1 EA IV STA ×2 (05:20→07:05)
[2022-05-23 05:35] LABS: BASO % 0.1 % (0.0-1.0); HEMOGLOBIN 14.8 g/dl (13.5-17.5); LYMPH # 0.7 10^3/uL (1.5-5.0); LYMPH % 4.9 % (24.0-44.0); MEAN CORPUSCULAR HEMOGLOBIN 30.2 pg (27.0-33.0); MEAN CORPUSCULAR HGB CONC 32.9 g/dl (32.0-36.5); MEAN CORPUSCULAR VOLUME 91.8 fl (80.0-96.0); MONO # 0.7 10^3/uL (0.0-0.8); MONO % 4.6 % (2.0-8.0); NEUTROPHILS # 13.3 10^3/uL (1.5-8.5); PLATELET COUNT, AUTOMATED 161 10^3/uL (150-450); WHITE BLOOD COUNT 14.9 10^3/uL (4.0-10.0)
[2022-05-23 06:09] LABS: CK-MB VALUE MASS 4.1 NG/ML (<3.6); MB/CK RELATIVE INDEX 1.4 (< OR =4)
[2022-05-23 06:19] LABS: BLOOD UREA NITROGEN 30 MG/DL (7-18); CALCIUM LEVEL 8.6 MG/DL (8.5-10.1); CARBON DIOXIDE LEVEL 27 MEQ/L (21-32); CHLORIDE LEVEL 101 MEQ/L (98-107); CREATININE FOR GFR 1.26 MG/DL (0.70-1.30); GLOMERULAR FILTRATION RATE > 60.0 (>60); GLUCOSE, FASTING 244 MG/DL (70-100); MAGNESIUM LEVEL 2.4 MG/DL (1.8-2.4); POTASSIUM SERUM 3.8 MEQ/L (3.5-5.1); SODIUM LEVEL 137 MEQ/L (136-145)
[2022-05-23] MEDS ORDERED: BUDE0.5S6 INH (06:45)
[2022-05-23] MEDS ORDERED: HOME MED LIST COMPLETE! XX SCH (06:45)
[2022-05-23] MEDS ORDERED: ALBUTEROL SULFATE 2.5 MG/0.5 ML INH NEB SOLN NEB PRN (07:10)
[2022-05-23] MEDS ORDERED: predniSONE 20 MG TAB PO SCH (07:10)
[2022-05-23] MEDS ORDERED: IPRATROPIUM 0.5MG/ALBUTEROL 2.5MG INH SOL UD 3ML (DUONEB) NEB SCH (08:00)
[2022-05-23] MEDS ORDERED: BUDESONIDE 0.5 MG/2 ML INHALATION SUSPENSION INH SCH (08:00)
[2022-05-23] MEDS ORDERED: FORMOTEROL FUMARATE 20 MCG/2 ML INHALATION SOLUTION (PERFOROMIST) INH SCH (08:00)
[2022-05-23] MEDS ORDERED: methylPREDNISolone 125MG 2ML VIAL IV ONE (08:30)
[2022-05-23 08:39] LABS: ALBUMIN 3.1 GM/DL (3.2-5.2); ALT/SGPT 68 U/L (12-78); BILIRUBIN,TOTAL 0.5 MG/DL (0.2-1.0); BLOOD UREA NITROGEN 28 MG/DL (7-18); CALCIUM LEVEL 8.3 MG/DL (8.5-10.1); CARBON DIOXIDE LEVEL 30 MEQ/L (21-32); CHLORIDE LEVEL 100 MEQ/L (98-107); CK-MB VALUE MASS 4.1 NG/ML (<3.6); GLOMERULAR FILTRATION RATE > 60.0 (>60); GLUCOSE, FASTING 158 MG/DL (70-100); MB/CK RELATIVE INDEX 1.6 (< OR =4); PHOSPHORUS LEVEL 3.3 MG/DL (2.5-4.9); POTASSIUM SERUM 3.6 MEQ/L (3.5-5.1); SODIUM LEVEL 136 MEQ/L (136-145); TOTAL PROTEIN 5.8 GM/DL (6.4-8.2)
[2022-05-23] MEDS ORDERED: LOSARTAN 50MG TABLET PO SCH (09:00)
[2022-05-23] MEDS ORDERED: PANTOPRAZOLE 40MG TAB (PROTONIX) PO SCH (09:00)
[2022-05-23] MEDS ORDERED: MONTELUKAST 10 MG TAB PO SCH (09:00)
[2022-05-23] MEDS ORDERED: INDAPAMIDE 1.25MG TABLET PO SCH (09:00)
[2022-05-23] MEDS ORDERED: CLOPIDOGREL 75 MG TAB PO SCH (09:00)
[2022-05-23] MEDS ORDERED: ATORVASTATIN 20 MG TAB PO SCH (09:00)
[2022-05-23 09:01] VITALS: BP 133/85
[2022-05-23] MEDS ORDERED: DILT180C95 PO (09:01)
[2022-05-23] MEDS ORDERED: ELIQ5TAB PO (09:01)
[2022-05-23] MEDS ORDERED: PRED20TA PO (09:02)
[2022-05-23] MEDS ORDERED: APIXABAN 5 MG TAB (ELIQUIS) PO STA (09:05)
[2022-05-23] MEDS ORDERED: guaiFENesin 200 MG TAB PO SCH (12:00)
[2022-05-23] MEDS ORDERED: NYSTATIN 500,000 U/5 ML SUSP UDC SS SCH (12:00)
== END 2022-05-23 09:18 | disposition home or self-care (01) ==
LOC: M ED 04:53 → M ED INP 07:08 → UNDOADMIN 07:08 → UNDODISIN 09:17
DX: I48.91 Unspecified atrial fibrillation (principal); I25.10 Atherosclerotic heart disease of native coronary artery without angina pectoris; I25.2 Old myocardial infarction; K21.9 Gastro-esophageal reflux disease without esophagitis; I31.9 Disease of pericardium, unspecified; E78.5 Hyperlipidemia, unspecified; I10 Essential (primary) hypertension; J45.51 Severe persistent asthma with (acute) exacerbation; B37.0 Candidal stomatitis; E66.01 Morbid (severe) obesity due to excess calories; Z20.822 Contact with and (suspected) exposure to COVID-19; Z79.899 Other long term (current) drug therapy; Z88.8 Allergy status to other drugs, medicaments and biological substances; Z88.2 Allergy status to sulfonamides; Z88.0 Allergy status to penicillin; Z88.5 Allergy status to narcotic agent
CPT/HCPCS: 71045; 80048; 80053; 82550; 82553; 82803; 83735; 84100; 84484; 85025; 93005; 93971; 94640; 96365; 96366; 96375; 99285; J0282

== ENCOUNTER → 2022-05-27 | Outpatient (REF) | payer OTHER ==
[~2022-05-27] MED LIST changes: +DILT180C95 PO
== END ==
LOC: M SFHCADAM 12:47
PROVIDERS: ATTEND Physician Assistant
DX: J02.9 Acute pharyngitis, unspecified (principal)

== ENCOUNTER → 2022-06-18 | Outpatient (CLI) | payer OTHER | LOC: M SLEEP HO 12:09 | PROVIDERS: ATTEND Physician Assistant | DX: G47.9 Sleep disorder, unspecified (principal) ==

== ENCOUNTER 2022-09-04 10:53 | Inpatient (IN) | payer OTHER ==
[~2022-09-04] VITALS: Ht 182.9 cm; Wt 138.0 kg
[~2022-09-04 10:53] MED LIST changes: +NYST-38 SS; -NYST50SS SS
[2022-09-04 11:36] LABS: VENOUS PH 7.483 UNITS (7.330-7.430)
[2022-09-04 11:37] LABS: VENOUS BASE EXCESS 4.4 (-2.0-2.0); VENOUS HCO3 27.9 MEQ/L (23.0-27.0); VENOUS O2 SATURATION 95.8 % (60.0-80.0); VENOUS PARTIAL PRESSURE CO2 38.1 mmHg (38.0-50.0); VENOUS PARTIAL PRESSURE O2 76.3 mmHg (30.0-50.0); VENOUS STANDARD HCO3 28.3 MEQ/L; VENOUS TOTAL CO2 29.1 MEQ/L (24.0-28.0)
[2022-09-04 11:43] LABS: BASO # 0.1 10^3/uL (0.0-0.2); BASO % 0.5 % (0.0-1.0); EOS % 0.1 % (0.0-3.0); HEMATOCRIT 40.5 % (42.0-52.0); HEMOGLOBIN 13.3 g/dl (13.5-17.5); LYMPH # 0.7 10^3/uL (1.5-5.0); LYMPH % 6.2 % (24.0-44.0); MEAN CORPUSCULAR HEMOGLOBIN 30.2 pg (27.0-33.0); MEAN CORPUSCULAR HGB CONC 32.8 g/dl (32.0-36.5); MONO # 0.3 10^3/uL (0.0-0.8); MONO % 2.5 % (2.0-8.0); NEUTROPHILS # 10.3 10^3/uL (1.5-8.5); NEUTROPHILS % 90.3 % (36.0-66.0); PLATELET COUNT, AUTOMATED 233 10^3/uL (150-450); WHITE BLOOD COUNT 11.3 10^3/uL (4.0-10.0)
[2022-09-04 12:09] LABS: CK-MB VALUE MASS 1.4 NG/ML (<3.6)
[2022-09-04 12:11] LABS: CPK CREATINE PHOSPHOKINASE 152 U/L (46-171); MB/CK RELATIVE INDEX 0.92 (< OR =4)
[2022-09-04 12:12] LABS: ALBUMIN 4.1 G/DL (3.2-5.2); ALKALINE PHOSPHATASE 111 U/L (46-116); ALT/SGPT 29 U/L (7.0-40); AST/SGOT 15 U/L (<34); BILIRUBIN,DIRECT 0.1 MG/DL (<0.4); BILIRUBIN,TOTAL 0.4 MG/DL (0.3-1.2); BLOOD UREA NITROGEN 12 MG/DL (9-23); CALCIUM LEVEL 9.1 MG/DL (8.5-10.1); CARBON DIOXIDE LEVEL 32 MMOL/L (20-31); CHLORIDE LEVEL 99 MMOL/L (98-107); CREATININE FOR GFR 0.92 MG/DL (0.70-1.30); GLOMERULAR FILTRATION RATE > 60.0 (>60); GLUCOSE, FASTING 120 MG/DL (60-100); POTASSIUM SERUM 3.1 MMOL/L (3.5-5.1); SODIUM LEVEL 140 MMOL/L (136-145); TOTAL PROTEIN 7.3 G/DL (5.7-8.2)
[2022-09-04 12:13] LABS: THYROXINE (T4) 7.6 UG/DL (4.5-10.9)
[2022-09-04 12:14] LABS: THYROID STIMULATING HORMONE 1.298 uIU/ML (0.55-4.78)
[2022-09-04] MEDS ORDERED: IPRATROPIUM 0.5MG/ALBUTEROL 2.5MG INH SOL UD 3ML (DUONEB) NEB ONE (12:20)
[2022-09-04 13:50] LABS: RSV AMPLIFICATION NEGATIVE (NEGATIVE)
[2022-09-04] MEDS ORDERED: FURO20TA2 PO (15:23)
[2022-09-04] MEDS ORDERED: IPRA2IN NEB (15:23)
[2022-09-04] MEDS ORDERED: ERGO500029 PO (15:23)
[2022-09-04] MEDS ORDERED: PRED20TA PO (15:23)
[2022-09-04] MEDS ORDERED: ALBU2.5V10 NEB (15:23)
[2022-09-04] MEDS ORDERED: INDA1.253 PO (15:23)
[2022-09-04] MEDS ORDERED: SALI0.6530 NARES (15:23)
[2022-09-04] MEDS ORDERED: FLON1SPR NARES (15:23)
[2022-09-04] MEDS ORDERED: FURO40TA2 PO (15:30)
[2022-09-04] MEDS ORDERED: HOME MED LIST COMPLETE! XX SCH (15:35)
[2022-09-04] MEDS: IPRATROPIUM 0.5MG/ALBUTEROL 2.5MG INH SOL UD 3ML (DUONEB) NEB SCH ×3 (15:49→23:45)
[2022-09-04] MEDS: methylPREDNISolone 125MG 2ML VIAL IV SCH ×2 (16:02→21:16)
[2022-09-04 16:50] VITALS: BP 159/87
[2022-09-04] MEDS: BUMETANIDE 1MG/4ML VIAL IV SCH (18:16)
[2022-09-04 20:00] VITALS: BP 154/88
[2022-09-04] MEDS: DOCUSATE SODIUM 100MG CAPSULE PO SCH (21:16)
[2022-09-05] MEDS: ALBUTEROL SULFATE 2.5MG/0.5ML INH NEB SOLN NEB PRN ×2 (01:50→21:33)
[2022-09-05] MEDS: IPRATROPIUM 0.5MG/ALBUTEROL 2.5MG INH SOL UD 3ML (DUONEB) NEB SCH ×6 (04:29→23:45)
[2022-09-05] MEDS: methylPREDNISolone 125MG 2ML VIAL IV SCH ×4 (04:40→21:37)
[2022-09-05] MEDS: BUMETANIDE 1MG/4ML VIAL IV SCH ×2 (04:58→16:19)
[2022-09-05 05:32] LABS: BASO % 0.2 % (0.0-1.0); HEMATOCRIT 41.1 % (42.0-52.0); HEMOGLOBIN 13.4 g/dl (13.5-17.5); LYMPH # 0.8 10^3/uL (1.5-5.0); LYMPH % 7.2 % (24.0-44.0); MEAN CORPUSCULAR HEMOGLOBIN 29.8 pg (27.0-33.0); MEAN CORPUSCULAR HGB CONC 32.6 g/dl (32.0-36.5); MEAN CORPUSCULAR VOLUME 91.5 fl (80.0-96.0); MONO # 0.1 10^3/uL (0.0-0.8); MONO % 1.3 % (2.0-8.0); NEUTROPHILS # 9.8 10^3/uL (1.5-8.5); NEUTROPHILS % 90.6 % (36.0-66.0); PLATELET COUNT, AUTOMATED 260 10^3/uL (150-450); RED BLOOD COUNT 4.49 10^6/uL (4.30-6.10); WHITE BLOOD COUNT 10.8 10^3/uL (4.0-10.0)
[2022-09-05 05:56] LABS: BLOOD UREA NITROGEN 18 MG/DL (9-23); CALCIUM LEVEL 9.4 MG/DL (8.5-10.1); CARBON DIOXIDE LEVEL 29 MMOL/L (20-31); CHLORIDE LEVEL 96 MMOL/L (98-107); CREATININE FOR GFR 0.84 MG/DL (0.70-1.30); GLOMERULAR FILTRATION RATE > 60.0 (>60); GLUCOSE, FASTING 155 MG/DL (60-100); POTASSIUM SERUM 3.2 MMOL/L (3.5-5.1); SODIUM LEVEL 137 MMOL/L (136-145)
[2022-09-05 06:00] VITALS: BP 151/89
[2022-09-05] MEDS: PANTOPRAZOLE 40MG TAB (PROTONIX) PO SCH (08:27)
[2022-09-05] MEDS: ENOXAPARIN 40MG/0.4ML SYRINGE (J1650 PER 10MG) SC SCH (08:27)
[2022-09-05] MEDS: LOSARTAN 50MG TABLET PO SCH (08:29)
[2022-09-05] MEDS: MONTELUKAST 10 MG TAB PO SCH (08:30)
[2022-09-05] MEDS: FLUTICASONE PROP 0.05% NASAL SPRAY 16 GM (FLONASE) NARES SCH (08:31)
[2022-09-05] MEDS: INDAPAMIDE 1.25MG TABLET PO SCH (08:31)
[2022-09-05] MEDS: ATORVASTATIN 20 MG TAB PO SCH (08:31)
[2022-09-05] MEDS: CLOPIDOGREL 75 MG TAB PO SCH (08:31)
[2022-09-05] MEDS: SODIUM CHLORIDE NASAL 0.65% SPRAY BTL (OCEAN) SCH (08:32)
[2022-09-05] MEDS: DOCUSATE SODIUM 100MG CAPSULE PO SCH ×2 (08:32→21:37)
[2022-09-05] MEDS: ACETAMINOPHEN TAB 650MG DOSE (2X325MG) PO PRN (11:02)
[2022-09-05 14:00] VITALS: BP 133/80
[2022-09-05] MEDS ORDERED: GLUCAGON INJ 1MG VIAL SC PRN (17:00)
[2022-09-05] MEDS ORDERED: DEXTROSE 50% 50ML SYRINGE IV PRN (17:00)
[2022-09-05] MEDS ORDERED: GLUCOSE 4GM CHEW TABLET PO PRN (17:00)
[2022-09-05] MEDS: INSULIN LISPRO (NovoLOG) PER UNIT SC SCH ×2 (17:26→21:00)
[2022-09-05] MEDS ORDERED: POTASSIUM CHLORIDE 10MEQ SR TABLET PO ONE (18:00)
[2022-09-05 22:00] VITALS: BP 132/79
[2022-09-06] MEDS: IPRATROPIUM 0.5MG/ALBUTEROL 2.5MG INH SOL UD 3ML (DUONEB) NEB SCH ×5 (03:16→23:17)
[2022-09-06] MEDS: methylPREDNISolone 125MG 2ML VIAL IV SCH ×4 (03:43→21:02)
[2022-09-06 05:53] LABS: BASO % 0.1 % (0.0-1.0); HEMATOCRIT 39.8 % (42.0-52.0); HEMOGLOBIN 12.8 g/dl (13.5-17.5); LYMPH # 0.7 10^3/uL (1.5-5.0); LYMPH % 5.3 % (24.0-44.0); MEAN CORPUSCULAR HEMOGLOBIN 29.6 pg (27.0-33.0); MEAN CORPUSCULAR HGB CONC 32.2 g/dl (32.0-36.5); MEAN CORPUSCULAR VOLUME 92.1 fl (80.0-96.0); MONO # 0.3 10^3/uL (0.0-0.8); NEUTROPHILS # 12.5 10^3/uL (1.5-8.5); NEUTROPHILS % 92.1 % (36.0-66.0); PLATELET COUNT, AUTOMATED 240 10^3/uL (150-450); RED BLOOD COUNT 4.32 10^6/uL (4.30-6.10); WHITE BLOOD COUNT 13.6 10^3/uL (4.0-10.0)
[2022-09-06 06:00] VITALS: BP 117/81
[2022-09-06 06:12] LABS: BLOOD UREA NITROGEN 26 MG/DL (9-23); CALCIUM LEVEL 8.8 MG/DL (8.5-10.1); CARBON DIOXIDE LEVEL 31 MMOL/L (20-31); CHLORIDE LEVEL 98 MMOL/L (98-107); CREATININE FOR GFR 0.93 MG/DL (0.70-1.30); GLOMERULAR FILTRATION RATE > 60.0 (>60); GLUCOSE, FASTING 159 MG/DL (60-100); POTASSIUM SERUM 3.4 MMOL/L (3.5-5.1); SODIUM LEVEL 138 MMOL/L (136-145)
[2022-09-06] MEDS: TIOTROPIUM INHALER/CAPSULE (SPIRIVA) INH SCH (08:00)
[2022-09-06] MEDS: DOCUSATE SODIUM 100MG CAPSULE PO SCH ×2 (09:00→21:00)
[2022-09-06 09:18] VITALS: BP 144/80
[2022-09-06] MEDS: ENOXAPARIN 40MG/0.4ML SYRINGE (J1650 PER 10MG) SC SCH (09:19)
[2022-09-06] MEDS: TORSEMIDE 20 MG TAB PO SCH ×2 (09:20→17:30)
[2022-09-06] MEDS: CLOPIDOGREL 75 MG TAB PO SCH (09:20)
[2022-09-06] MEDS: INSULIN LISPRO (NovoLOG) PER UNIT SC SCH ×4 (09:20→21:00)
[2022-09-06] MEDS: PANTOPRAZOLE 40MG TAB (PROTONIX) PO SCH (09:20)
[2022-09-06] MEDS: INDAPAMIDE 1.25MG TABLET PO SCH (09:20)
[2022-09-06] MEDS: LOSARTAN 50MG TABLET PO SCH (09:20)
[2022-09-06] MEDS: SODIUM CHLORIDE NASAL 0.65% SPRAY BTL (OCEAN) SCH (09:21)
[2022-09-06] MEDS: MONTELUKAST 10 MG TAB PO SCH (09:21)
[2022-09-06] MEDS: ATORVASTATIN 20 MG TAB PO SCH (09:21)
[2022-09-06] MEDS: FLUTICASONE PROP 0.05% NASAL SPRAY 16 GM (FLONASE) NARES SCH (09:21)
[2022-09-06] MEDS ORDERED: POTASSIUM CHLORIDE 10MEQ SR TABLET PO ONE (11:00)
[2022-09-06 14:00] VITALS: BP 143/84
[2022-09-06] MEDS: guaiFENesin DM LIQ 10ML UD PO SCH ×2 (17:30→21:03)
[2022-09-06] MEDS: BUDESONIDE 0.5 MG/2 ML INHALATION SUSPENSION INH SCH (19:32)
[2022-09-06] MEDS: ADVAIR HFA 230/21MCG INHALER INH SCH (21:30)
[2022-09-06 22:00] VITALS: BP 137/90
[2022-09-07] MEDS: guaiFENesin DM LIQ 10ML UD PO SCH ×6 (00:55→19:46)
[2022-09-07] MEDS: methylPREDNISolone 125MG 2ML VIAL IV SCH ×4 (03:19→21:49)
[2022-09-07] MEDS: IPRATROPIUM 0.5MG/ALBUTEROL 2.5MG INH SOL UD 3ML (DUONEB) NEB SCH ×6 (03:28→23:13)
[2022-09-07 06:00] VITALS: BP 127/79
[2022-09-07 06:08] LABS: BASO % 0.1 % (0.0-1.0); HEMATOCRIT 40.5 % (42.0-52.0); LYMPH # 0.7 10^3/uL (1.5-5.0); LYMPH % 5.2 % (24.0-44.0); MEAN CORPUSCULAR HEMOGLOBIN 29.9 pg (27.0-33.0); MEAN CORPUSCULAR HGB CONC 32.1 g/dl (32.0-36.5); MEAN CORPUSCULAR VOLUME 93.1 fl (80.0-96.0); MONO # 0.3 10^3/uL (0.0-0.8); MONO % 2.3 % (2.0-8.0); NEUTROPHILS # 11.7 10^3/uL (1.5-8.5); NEUTROPHILS % 91.8 % (36.0-66.0); PLATELET COUNT, AUTOMATED 240 10^3/uL (150-450); RED BLOOD COUNT 4.35 10^6/uL (4.30-6.10); WHITE BLOOD COUNT 12.8 10^3/uL (4.0-10.0)
[2022-09-07 06:33] LABS: BLOOD UREA NITROGEN 33 MG/DL (9-23); CALCIUM LEVEL 8.9 MG/DL (8.5-10.1); CARBON DIOXIDE LEVEL 30 MMOL/L (20-31); CHLORIDE LEVEL 96 MMOL/L (98-107); CREATININE FOR GFR 1.18 MG/DL (0.70-1.30); GLOMERULAR FILTRATION RATE > 60.0 (>60); GLUCOSE, FASTING 171 MG/DL (60-100); POTASSIUM SERUM 3.2 MMOL/L (3.5-5.1); SODIUM LEVEL 138 MMOL/L (136-145)
[2022-09-07] MEDS: TIOTROPIUM INHALER/CAPSULE (SPIRIVA) INH SCH (07:36)
[2022-09-07] MEDS: BUDESONIDE 0.5 MG/2 ML INHALATION SUSPENSION INH SCH ×2 (07:36→19:03)
[2022-09-07] MEDS: ADVAIR HFA 230/21MCG INHALER INH SCH ×2 (07:36→19:03)
[2022-09-07] MEDS: INSULIN LISPRO (NovoLOG) PER UNIT SC SCH ×4 (08:03→21:00)
[2022-09-07] MEDS: DOCUSATE SODIUM 100MG CAPSULE PO SCH ×2 (08:04→19:46)
[2022-09-07] MEDS: TORSEMIDE 20 MG TAB PO SCH ×2 (08:04→17:19)
[2022-09-07] MEDS: CLOPIDOGREL 75 MG TAB PO SCH (08:04)
[2022-09-07] MEDS: INDAPAMIDE 1.25MG TABLET PO SCH (08:04)
[2022-09-07] MEDS: PANTOPRAZOLE 40MG TAB (PROTONIX) PO SCH (08:04)
[2022-09-07] MEDS: MONTELUKAST 10 MG TAB PO SCH (08:04)
[2022-09-07] MEDS: ATORVASTATIN 20 MG TAB PO SCH (08:04)
[2022-09-07] MEDS: LOSARTAN 50MG TABLET PO SCH (08:04)
[2022-09-07] MEDS: SODIUM CHLORIDE NASAL 0.65% SPRAY BTL (OCEAN) SCH (08:05)
[2022-09-07] MEDS: ENOXAPARIN 40MG/0.4ML SYRINGE (J1650 PER 10MG) SC SCH (08:05)
[2022-09-07] MEDS: FLUTICASONE PROP 0.05% NASAL SPRAY 16 GM (FLONASE) NARES SCH (08:06)
[2022-09-07] MEDS: POTASSIUM CHLORIDE 10MEQ SR TABLET PO SCH (09:58)
[2022-09-07 14:00] VITALS: BP 133/80
[2022-09-07 22:00] VITALS: BP 123/74
[2022-09-08] MEDS: guaiFENesin DM LIQ 10ML UD PO SCH ×7 (00:20→22:56)
[2022-09-08] MEDS: IPRATROPIUM 0.5MG/ALBUTEROL 2.5MG INH SOL UD 3ML (DUONEB) NEB SCH ×6 (03:04→23:20)
[2022-09-08] MEDS: methylPREDNISolone 125MG 2ML VIAL IV SCH ×4 (04:17→22:53)
[2022-09-08 06:00] VITALS: BP 157/87
[2022-09-08 06:29] LABS: BASO % 0.1 % (0.0-1.0); EOS % 0.1 % (0.0-3.0); HEMATOCRIT 41.1 % (42.0-52.0); HEMOGLOBIN 13.5 g/dl (13.5-17.5); LYMPH # 0.7 10^3/uL (1.5-5.0); LYMPH % 5.8 % (24.0-44.0); MEAN CORPUSCULAR HEMOGLOBIN 29.8 pg (27.0-33.0); MEAN CORPUSCULAR HGB CONC 32.8 g/dl (32.0-36.5); MEAN CORPUSCULAR VOLUME 90.7 fl (80.0-96.0); MONO # 0.4 10^3/uL (0.0-0.8); MONO % 2.9 % (2.0-8.0); NEUTROPHILS # 10.8 10^3/uL (1.5-8.5); PLATELET COUNT, AUTOMATED 237 10^3/uL (150-450); RED BLOOD COUNT 4.53 10^6/uL (4.30-6.10)
[2022-09-08] MEDS: BUDESONIDE 0.5 MG/2 ML INHALATION SUSPENSION INH SCH ×2 (07:29→19:26)
[2022-09-08] MEDS: TIOTROPIUM INHALER/CAPSULE (SPIRIVA) INH SCH (07:29)
[2022-09-08] MEDS: ADVAIR HFA 230/21MCG INHALER INH SCH ×2 (07:29→19:26)
[2022-09-08 07:30] LABS: BLOOD UREA NITROGEN 33 MG/DL (9-23); CALCIUM LEVEL 8.5 MG/DL (8.5-10.1); CARBON DIOXIDE LEVEL 31 MMOL/L (20-31); CHLORIDE LEVEL 95 MMOL/L (98-107); CREATININE FOR GFR 1.22 MG/DL (0.70-1.30); GLOMERULAR FILTRATION RATE > 60.0 (>60); GLUCOSE, FASTING 161 MG/DL (60-100); POTASSIUM SERUM 3.2 MMOL/L (3.5-5.1); SODIUM LEVEL 137 MMOL/L (136-145)
[2022-09-08] MEDS: MONTELUKAST 10 MG TAB PO SCH (08:04)
[2022-09-08] MEDS: ATORVASTATIN 20 MG TAB PO SCH (08:04)
[2022-09-08] MEDS: INSULIN LISPRO (NovoLOG) PER UNIT SC SCH ×4 (08:04→21:00)
[2022-09-08] MEDS: INDAPAMIDE 1.25MG TABLET PO SCH (08:04)
[2022-09-08] MEDS: POTASSIUM CHLORIDE 10MEQ SR TABLET PO SCH (08:04)
[2022-09-08] MEDS: CLOPIDOGREL 75 MG TAB PO SCH (08:04)
[2022-09-08] MEDS: LOSARTAN 50MG TABLET PO SCH (08:05)
[2022-09-08] MEDS: ENOXAPARIN 40MG/0.4ML SYRINGE (J1650 PER 10MG) SC SCH (08:05)
[2022-09-08] MEDS: TORSEMIDE 20 MG TAB PO SCH ×2 (08:05→17:29)
[2022-09-08] MEDS: PANTOPRAZOLE 40MG TAB (PROTONIX) PO SCH (08:05)
[2022-09-08] MEDS: DOCUSATE SODIUM 100MG CAPSULE PO SCH ×2 (08:06→20:10)
[2022-09-08] MEDS: FLUTICASONE PROP 0.05% NASAL SPRAY 16 GM (FLONASE) NARES SCH (08:06)
[2022-09-08] MEDS: SODIUM CHLORIDE NASAL 0.65% SPRAY BTL (OCEAN) SCH (08:06)
[2022-09-08 14:00] VITALS: BP 110/64
[2022-09-08 22:00] VITALS: BP 159/92
[2022-09-09] MEDS: IPRATROPIUM 0.5MG/ALBUTEROL 2.5MG INH SOL UD 3ML (DUONEB) NEB SCH ×6 (03:05→23:33)
[2022-09-09] MEDS: methylPREDNISolone 125MG 2ML VIAL IV SCH ×2 (03:57→09:11)
[2022-09-09] MEDS: guaiFENesin DM LIQ 10ML UD PO SCH ×5 (03:57→21:15)
[2022-09-09 05:50] LABS: BASO % 0.1 % (0.0-1.0); HEMOGLOBIN 13.4 g/dl (13.5-17.5); LYMPH # 0.6 10^3/uL (1.5-5.0); MEAN CORPUSCULAR HEMOGLOBIN 29.6 pg (27.0-33.0); MEAN CORPUSCULAR HGB CONC 32.7 g/dl (32.0-36.5); MEAN CORPUSCULAR VOLUME 90.5 fl (80.0-96.0); MONO # 0.4 10^3/uL (0.0-0.8); MONO % 3.2 % (2.0-8.0); NEUTROPHILS # 10.3 10^3/uL (1.5-8.5); NEUTROPHILS % 90.9 % (36.0-66.0); PLATELET COUNT, AUTOMATED 243 10^3/uL (150-450); RED BLOOD COUNT 4.53 10^6/uL (4.30-6.10); WHITE BLOOD COUNT 11.4 10^3/uL (4.0-10.0)
[2022-09-09] MEDS: ACETAMINOPHEN TAB 650MG DOSE (2X325MG) PO PRN (05:59)
[2022-09-09 06:00] VITALS: BP 155/92
[2022-09-09 06:16] LABS: BLOOD UREA NITROGEN 36 MG/DL (9-23); CALCIUM LEVEL 8.9 MG/DL (8.5-10.1); CARBON DIOXIDE LEVEL 32 MMOL/L (20-31); CHLORIDE LEVEL 92 MMOL/L (98-107); CREATININE FOR GFR 1.23 MG/DL (0.70-1.30); GLOMERULAR FILTRATION RATE > 60.0 (>60); GLUCOSE, FASTING 180 MG/DL (60-100); POTASSIUM SERUM 3.2 MMOL/L (3.5-5.1); SODIUM LEVEL 135 MMOL/L (136-145)
[2022-09-09] MEDS: BUDESONIDE 0.5 MG/2 ML INHALATION SUSPENSION INH SCH ×2 (07:17→19:22)
[2022-09-09] MEDS: TIOTROPIUM INHALER/CAPSULE (SPIRIVA) INH SCH (07:17)
[2022-09-09] MEDS: ADVAIR HFA 230/21MCG INHALER INH SCH ×2 (07:18→19:21)
[2022-09-09] MEDS ORDERED: ADVA230A INH (07:45)
[2022-09-09] MEDS ORDERED: TIOT18INH INH (07:45)
[2022-09-09] MEDS: DOCUSATE SODIUM 100MG CAPSULE PO SCH ×2 (09:00→21:00)
[2022-09-09] MEDS: TORSEMIDE 20 MG TAB PO SCH ×2 (09:10→17:00)
[2022-09-09] MEDS: LOSARTAN 50MG TABLET PO SCH (09:10)
[2022-09-09] MEDS: MONTELUKAST 10 MG TAB PO SCH (09:10)
[2022-09-09] MEDS: PANTOPRAZOLE 40MG TAB (PROTONIX) PO SCH (09:10)
[2022-09-09] MEDS: CLOPIDOGREL 75 MG TAB PO SCH (09:10)
[2022-09-09] MEDS: ATORVASTATIN 20 MG TAB PO SCH (09:10)
[2022-09-09] MEDS: ENOXAPARIN 40MG/0.4ML SYRINGE (J1650 PER 10MG) SC SCH (09:11)
[2022-09-09] MEDS: SODIUM CHLORIDE NASAL 0.65% SPRAY BTL (OCEAN) SCH (09:11)
[2022-09-09] MEDS: FLUTICASONE PROP 0.05% NASAL SPRAY 16 GM (FLONASE) NARES SCH (09:11)
[2022-09-09] MEDS: INSULIN LISPRO (NovoLOG) PER UNIT SC SCH ×4 (09:12→21:00)
[2022-09-09] MEDS: POTASSIUM CHLORIDE 10MEQ SR TABLET PO SCH ×2 (09:17→21:15)
[2022-09-09] MEDS: INDAPAMIDE 1.25MG TABLET PO SCH (09:17)
[2022-09-09] MEDS ORDERED: POTASSIUM CHLORIDE 10MEQ SR TABLET PO ONE (12:00)
[2022-09-09 14:00] VITALS: BP 124/82
[2022-09-09] MEDS: predniSONE 20 MG TAB PO SCH (14:46)
[2022-09-09 19:00] LABS: HEMOGLOBIN A1c 5.5 % (4.0-6.0)
[2022-09-09 20:00] VITALS: BP 149/78
[2022-09-10] MEDS: guaiFENesin DM LIQ 10ML UD PO SCH ×4 (00:48→12:00)
[2022-09-10] MEDS: IPRATROPIUM 0.5MG/ALBUTEROL 2.5MG INH SOL UD 3ML (DUONEB) NEB SCH ×3 (03:40→11:05)
[2022-09-10 05:41] LABS: BASO % 0.1 % (0.0-1.0); HEMOGLOBIN 14.3 g/dl (13.5-17.5); LYMPH # 1.4 10^3/uL (1.5-5.0); LYMPH % 9.6 % (24.0-44.0); MEAN CORPUSCULAR HEMOGLOBIN 29.4 pg (27.0-33.0); MEAN CORPUSCULAR HGB CONC 32.5 g/dl (32.0-36.5); MEAN CORPUSCULAR VOLUME 90.5 fl (80.0-96.0); MONO # 0.9 10^3/uL (0.0-0.8); MONO % 6.5 % (2.0-8.0); NEUTROPHILS % 82.7 % (36.0-66.0); PLATELET COUNT, AUTOMATED 215 10^3/uL (150-450); RED BLOOD COUNT 4.86 10^6/uL (4.30-6.10); WHITE BLOOD COUNT 14.5 10^3/uL (4.0-10.0)
[2022-09-10 06:00] VITALS: BP 147/85
[2022-09-10 06:08] LABS: BLOOD UREA NITROGEN 35 MG/DL (9-23); CALCIUM LEVEL 8.6 MG/DL (8.5-10.1); CARBON DIOXIDE LEVEL 34 MMOL/L (20-31); CHLORIDE LEVEL 93 MMOL/L (98-107); CREATININE FOR GFR 1.23 MG/DL (0.70-1.30); GLOMERULAR FILTRATION RATE > 60.0 (>60); GLUCOSE, FASTING 142 MG/DL (60-100); POTASSIUM SERUM 3.2 MMOL/L (3.5-5.1); SODIUM LEVEL 133 MMOL/L (136-145)
[2022-09-10] MEDS: BUDESONIDE 0.5 MG/2 ML INHALATION SUSPENSION INH SCH (07:21)
[2022-09-10] MEDS: TIOTROPIUM INHALER/CAPSULE (SPIRIVA) INH SCH (07:21)
[2022-09-10] MEDS: ADVAIR HFA 230/21MCG INHALER INH SCH (07:21)
[2022-09-10] MEDS: CLOPIDOGREL 75 MG TAB PO SCH (08:57)
[2022-09-10] MEDS: ACETAMINOPHEN TAB 650MG DOSE (2X325MG) PO PRN (08:57)
[2022-09-10 08:58] VITALS: BP 147/85
[2022-09-10] MEDS: PANTOPRAZOLE 40MG TAB (PROTONIX) PO SCH (08:58)
[2022-09-10] MEDS: MONTELUKAST 10 MG TAB PO SCH (08:58)
[2022-09-10] MEDS: LOSARTAN 50MG TABLET PO SCH (08:58)
[2022-09-10] MEDS: ATORVASTATIN 20 MG TAB PO SCH (08:59)
[2022-09-10] MEDS: predniSONE 20 MG TAB PO SCH (08:59)
[2022-09-10] MEDS: TORSEMIDE 20 MG TAB PO SCH (08:59)
[2022-09-10] MEDS: ENOXAPARIN 40MG/0.4ML SYRINGE (J1650 PER 10MG) SC SCH (09:00)
[2022-09-10] MEDS: DOCUSATE SODIUM 100MG CAPSULE PO SCH (09:00)
[2022-09-10] MEDS: INSULIN LISPRO (NovoLOG) PER UNIT SC SCH ×2 (09:00→12:00)
[2022-09-10] MEDS ORDERED: POTASSIUM CHLORIDE 10MEQ SR TABLET PO SCH (09:00)
[2022-09-10] MEDS: SODIUM CHLORIDE NASAL 0.65% SPRAY BTL (OCEAN) SCH (09:01)
[2022-09-10] MEDS: FLUTICASONE PROP 0.05% NASAL SPRAY 16 GM (FLONASE) NARES SCH (09:01)
[2022-09-10] MEDS: INDAPAMIDE 1.25MG TABLET PO SCH (09:04)
[2022-09-10] MEDS ORDERED: IPRA2IN NEB (10:35)
[2022-09-10] MEDS ORDERED: BUDE0.5S6 INH (10:35)
[2022-09-10] MEDS ORDERED: PRED10TA2 PO (10:35)
[2022-09-10] MEDS ORDERED: FURO40TA2 PO (10:35)
[2022-09-10] MEDS ORDERED: GUAISYP5 PO (10:57)
[2022-09-10] MEDS ORDERED: POTA-136 PO (10:57)
== END 2022-09-10 13:44 | disposition home or self-care (01) | DRG 141 ==
LOC: M ED 10:53 → M ED INP 14:37 → M MSPAV 16:44
PROVIDERS: ADMIT Internal Medicine Nephrology; ATTEND Internal Medicine Nephrology
DX: J45.51 Severe persistent asthma with (acute) exacerbation (principal); Z68.41 Body mass index [BMI] 40.0-44.9, adult; I11.9 Hypertensive heart disease without heart failure; E66.01 Morbid (severe) obesity due to excess calories; I48.91 Unspecified atrial fibrillation; E87.70 Fluid overload, unspecified; I25.10 Atherosclerotic heart disease of native coronary artery without angina pectoris; T38.0X5A Adverse effect of glucocorticoids and synthetic analogues, initial encounter; E78.5 Hyperlipidemia, unspecified; E87.6 Hypokalemia; G47.33 Obstructive sleep apnea (adult) (pediatric); Z79.52 Long term (current) use of systemic steroids; Z79.899 Other long term (current) drug therapy; J30.9 Allergic rhinitis, unspecified; Z88.0 Allergy status to penicillin; Z88.1 Allergy status to other antibiotic agents; Z88.2 Allergy status to sulfonamides; Z88.5 Allergy status to narcotic agent; Z88.6 Allergy status to analgesic agent; Z88.8 Allergy status to other drugs, medicaments and biological substances; Z95.5 Presence of coronary angioplasty implant and graft; Z86.711 Personal history of pulmonary embolism; Z90.49 Acquired absence of other specified parts of digestive tract; Z20.822 Contact with and (suspected) exposure to COVID-19; Z86.16 Personal history of COVID-19; R73.9 Hyperglycemia, unspecified

== ENCOUNTER → 2022-09-21 | Outpatient (CLI) | payer OTHER ==
[~2022-09-21] MED LIST changes: +ADVA230A INH; +ERGO500029 PO; +FLON1SPR NARES; +FURO20TA2 PO; +GUAISYP5 PO; +IPRA2IN NEB; +POTA-136 PO; +SALI0.6530 NARES; +TIOT18INH INH
== END ==
LOC: M LABSMTC 11:59
PROVIDERS: ATTEND Anesthesiology
DX: Z01.812 Encounter for preprocedural laboratory examination (principal)

== ENCOUNTER → 2022-09-23 | Day surgery (SDC) | payer OTHER ==
[~2022-09-23] VITALS: Ht 182.9 cm; Wt 139.2 kg
[~2022-09-23] MED LIST changes: +ALBUTEROL SULFATE 2.5MG/0.5ML INH NEB SOLN INH ONE; +CETACAINE SPRAY 5GM As Ordered ONE; +EPINEPHrine 1MG/10ML SYRINGE 1.5IN As Ordered ONE; +FLUT50SP17; -FLUTISP; +HYDROMORPHONE HCL 0.5 MG/ 0.5 ML SYRINGE IV PRN; +LIDOCAINE 1% SDV 30ML VIAL As Ordered ONE; +LIDOCAINE 2% 100MG/5ML SDV (FOR ANES.) As Ordered ONE; +LIDOCAINE PRES-FREE 2% 10ML AMP NEB ONE; +LR 1,000 ML IV SCH; +MIDAZOLAM INJ 2MG/2ML VIAL As Ordered ONE; +ONDANSETRON 4MG 2ML VIAL As Ordered ONE; +ONDANSETRON 4MG 2ML VIAL IV PRN; +ROCURONIUM BROMIDE 50MG/5ML VIAL As Ordered ONE; +THROMBIN 5,000 UNITS VIAL As Ordered ONE; +fentaNYL 100 MCG/2 ML INJECTION As Ordered ONE; +fentaNYL 100 MCG/2 ML INJECTION IV PRN; +oxyCODONE 5MG TAB PO PRN; +propofoL 200 MG/20 ML VIAL As Ordered ONE
[2022-09-23] MEDS: LR 1,000 ML IV SCH ×2 (07:57→08:25)
[2022-09-23 11:11] VITALS: BP 123/71
== END | disposition home or self-care (01) ==
LOC: M SDC 06:54
PROVIDERS: ATTEND Internal Medicine Critical Care Medicine
DX: J45.51 Severe persistent asthma with (acute) exacerbation (principal); G47.30 Sleep apnea, unspecified; I25.10 Atherosclerotic heart disease of native coronary artery without angina pectoris; I25.2 Old myocardial infarction; Z86.711 Personal history of pulmonary embolism; Z88.0 Allergy status to penicillin; Z88.2 Allergy status to sulfonamides; Z88.8 Allergy status to other drugs, medicaments and biological substances; Z88.1 Allergy status to other antibiotic agents; Z88.4 Allergy status to anesthetic agent; Z91.030 Bee allergy status; Z79.899 Other long term (current) drug therapy; Z79.52 Long term (current) use of systemic steroids; Z79.51 Long term (current) use of inhaled steroids; Z79.02 Long term (current) use of antithrombotics/antiplatelets
CPT/HCPCS: 31624; 87070; 87077; 87102; 87116; 87186; 87205; 87206; 88108; 88312; 88313; J1100; J2250; J2405; J3010

== ENCOUNTER → 2022-10-02 | Outpatient (CLI) | payer OTHER ==
[~2022-10-02] MED LIST changes: -ALBUTEROL SULFATE 2.5MG/0.5ML INH NEB SOLN INH ONE; -CETACAINE SPRAY 5GM As Ordered ONE; -EPINEPHrine 1MG/10ML SYRINGE 1.5IN As Ordered ONE; -FLUT50SP17; +FLUTISP; -HYDROMORPHONE HCL 0.5 MG/ 0.5 ML SYRINGE IV PRN; -LIDOCAINE 1% SDV 30ML VIAL As Ordered ONE; -LIDOCAINE 2% 100MG/5ML SDV (FOR ANES.) As Ordered ONE; -LIDOCAINE PRES-FREE 2% 10ML AMP NEB ONE; -LR 1,000 ML IV SCH; -MIDAZOLAM INJ 2MG/2ML VIAL As Ordered ONE; -ONDANSETRON 4MG 2ML VIAL As Ordered ONE; -ONDANSETRON 4MG 2ML VIAL IV PRN; -ROCURONIUM BROMIDE 50MG/5ML VIAL As Ordered ONE; -THROMBIN 5,000 UNITS VIAL As Ordered ONE; -fentaNYL 100 MCG/2 ML INJECTION As Ordered ONE; -fentaNYL 100 MCG/2 ML INJECTION IV PRN; -oxyCODONE 5MG TAB PO PRN; -propofoL 200 MG/20 ML VIAL As Ordered ONE
[2022-10-02 10:43] LABS: BASO % 0.3 % (0.0-1.0); EOS % 0.1 % (0.0-3.0); HEMATOCRIT 41.7 % (42.0-52.0); HEMOGLOBIN 13.6 g/dl (13.5-17.5); LYMPH % 9.7 % (24.0-44.0); MEAN CORPUSCULAR HEMOGLOBIN 29.9 pg (27.0-33.0); MEAN CORPUSCULAR HGB CONC 32.6 g/dl (32.0-36.5); MEAN CORPUSCULAR VOLUME 91.6 fl (80.0-96.0); MONO # 0.3 10^3/uL (0.0-0.8); MONO % 2.7 % (2.0-8.0); NEUTROPHILS # 8.4 10^3/uL (1.5-8.5); NEUTROPHILS % 86.3 % (36.0-66.0); PLATELET COUNT, AUTOMATED 164 10^3/uL (150-450); RED BLOOD COUNT 4.55 10^6/uL (4.30-6.10); WHITE BLOOD COUNT 9.8 10^3/uL (4.0-10.0)
[2022-10-02 10:50] LABS: ERYTHROCYTE SEDIMENTATION RATE 8 mm/hr (0-15)
[2022-10-02 11:04] LABS: ALBUMIN 3.8 G/DL (3.2-5.2); ALKALINE PHOSPHATASE 80 U/L (46-116); ALT/SGPT 39 U/L (7.0-40); AST/SGOT 25 U/L (<34); BILIRUBIN,TOTAL 0.5 MG/DL (0.3-1.2); BLOOD UREA NITROGEN 19 MG/DL (9-23); C REACTIVE PROTEIN QUANTITATIV < 0.40 MG/DL (<1.0); CALCIUM LEVEL 8.8 MG/DL (8.5-10.1); CARBON DIOXIDE LEVEL 32 MMOL/L (20-31); CHLORIDE LEVEL 102 MMOL/L (98-107); CREATININE FOR GFR 0.91 MG/DL (0.70-1.30); GLOMERULAR FILTRATION RATE > 60.0 (>60); GLUCOSE, FASTING 123 MG/DL (60-100); POTASSIUM SERUM 3.8 MMOL/L (3.5-5.1); SODIUM LEVEL 140 MMOL/L (136-145); TOTAL PROTEIN 6.2 G/DL (5.7-8.2)
[2022-10-02 11:33] LABS: IMMUNOGLOBULIN E 4.5 IU/ML (0-378)
== END ==
LOC: M LAB 09:52
PROVIDERS: ATTEND Internal Medicine Critical Care Medicine
DX: J45.51 Severe persistent asthma with (acute) exacerbation (principal)

== ENCOUNTER → 2022-10-22 | Outpatient (CLI) | payer OTHER ==
[~2022-10-22] MED LIST changes: +FLUT50SP17; -FLUTISP
[2022-10-22 11:31] LABS: BLOOD UREA NITROGEN 22 MG/DL (9-23); CALCIUM LEVEL 8.8 MG/DL (8.5-10.1); CARBON DIOXIDE LEVEL 31 MMOL/L (20-31); CHLORIDE LEVEL 98 MMOL/L (98-107); GLOMERULAR FILTRATION RATE > 60.0 (>60); GLUCOSE, FASTING 145 MG/DL (60-100); POTASSIUM SERUM 3.6 MMOL/L (3.5-5.1); SODIUM LEVEL 139 MMOL/L (136-145)
== END ==
LOC: M LAB 09:58
PROVIDERS: ATTEND Internal Medicine Critical Care Medicine
DX: R91.8 Other nonspecific abnormal finding of lung field (principal)

== ENCOUNTER 2022-11-17 09:11 | Inpatient (IN) | payer OTHER ==
[~2022-11-17] VITALS: Ht 182.9 cm; Wt 144.3 kg
[~2022-11-17 09:11] MED LIST changes: +POTA-298 PO; -POTA1TAB14 PO
[2022-11-17] MEDS ORDERED: FLUC150T9 PO (09:29)
[2022-11-17] MEDS ORDERED: FAMO40TA3 PO (09:29)
[2022-11-17] MEDS ORDERED: IPRA0.00 INH (09:29)
[2022-11-17 10:18] LABS: VENOUS HCO3 29.8 MMOL/L (23.0-27.0); VENOUS O2 SATURATION 90.2 % (60.0-80.0); VENOUS PARTIAL PRESSURE CO2 44.3 mmHg (38.0-50.0); VENOUS PARTIAL PRESSURE O2 57.1 mmHg (30.0-50.0); VENOUS PH 7.445 UNITS (7.330-7.430); VENOUS STANDARD HCO3 28.7 MMOL/L; VENOUS TOTAL CO2 31.1 MMOL/L (24.0-28.0)
[2022-11-17 10:32] LABS: BASO # 0.1 10^3/uL (0.0-0.2); BASO % 0.6 % (0.0-1.0); EOS % 0.2 % (0.0-3.0); HEMATOCRIT 40.1 % (42.0-52.0); HEMOGLOBIN 13.4 g/dl (13.5-17.5); LYMPH % 10.3 % (24.0-44.0); MEAN CORPUSCULAR HEMOGLOBIN 29.6 pg (27.0-33.0); MEAN CORPUSCULAR HGB CONC 33.4 g/dl (32.0-36.5); MEAN CORPUSCULAR VOLUME 88.7 fl (80.0-96.0); MONO # 0.8 10^3/uL (0.0-0.8); MONO % 7.9 % (2.0-8.0); NEUTROPHILS # 7.7 10^3/uL (1.5-8.5); NEUTROPHILS % 80.6 % (36.0-66.0); PLATELET COUNT, AUTOMATED 217 10^3/uL (150-450); RED BLOOD COUNT 4.52 10^6/uL (4.30-6.10); WHITE BLOOD COUNT 9.5 10^3/uL (4.0-10.0)
[2022-11-17 10:48] LABS: INR 0.94; PROTHROMBIN TIME 12.8 SECONDS (12.5-14.5)
[2022-11-17 10:57] LABS: CK-MB VALUE MASS 2.6 NG/ML (<3.6)
[2022-11-17 10:59] LABS: CPK CREATINE PHOSPHOKINASE 490 U/L (46-171); MB/CK RELATIVE INDEX 0.53 (< OR =4)
[2022-11-17 11:00] LABS: ALBUMIN 4.3 G/DL (3.2-5.2); ALKALINE PHOSPHATASE 102 U/L (46-116); ALT/SGPT 34 U/L (7.0-40); AST/SGOT 23 U/L (<34); BILIRUBIN,DIRECT 0.4 MG/DL (<0.4); BLOOD UREA NITROGEN 12 MG/DL (9-23); CALCIUM LEVEL 8.9 MG/DL (8.5-10.1); CARBON DIOXIDE LEVEL 31 MMOL/L (20-31); CHLORIDE LEVEL 98 MMOL/L (98-107); CREATININE FOR GFR 1.03 MG/DL (0.70-1.30); GLOMERULAR FILTRATION RATE > 60.0 (>60); GLUCOSE, FASTING 101 MG/DL (60-100); POTASSIUM SERUM 3.3 MMOL/L (3.5-5.1); SODIUM LEVEL 137 MMOL/L (136-145); TOTAL PROTEIN 7.1 G/DL (5.7-8.2)
[2022-11-17 11:02] LABS: THYROID STIMULATING HORMONE 1.621 uIU/ML (0.55-4.78)
[2022-11-17] MEDS ORDERED: methylPREDNISolone 125MG 2ML VIAL IV ONE (11:45)
[2022-11-17] MEDS ORDERED: IPRATROPIUM 0.5MG/ALBUTEROL 2.5MG INH SOL UD 3ML (DUONEB) NEB ONE (11:45)
[2022-11-17] MEDS ORDERED: ALBUTEROL SULFATE 2.5MG/0.5ML INH NEB SOLN INH ONE (11:45)
[2022-11-17] MEDS: MAG SULF 1GM/100ML (MAG RUN) 1 GM in IV 1 EA IV SCH ×2 (12:56→13:27)
[2022-11-17] MEDS ORDERED: CLOT10TR MT (13:13)
[2022-11-17] MEDS ORDERED: BUDE0.254 INH (13:13)
[2022-11-17] MEDS ORDERED: FLUC100T3 PO (13:13)
[2022-11-17] MEDS ORDERED: CETI-24 PO (13:13)
[2022-11-17] MEDS ORDERED: FLUT1BLS8 INH (13:13)
[2022-11-17] MEDS ORDERED: HOME MED LIST COMPLETE! XX SCH (13:15)
[2022-11-17] MEDS: IPRATROPIUM 0.5MG/ALBUTEROL 2.5MG INH SOL UD 3ML (DUONEB) NEB SCH ×4 (15:45→22:37)
[2022-11-17 15:52] VITALS: O2SAT 90
[2022-11-17 16:32] VITALS: BP 141/66
[2022-11-17 16:53] LABS: CK-MB VALUE MASS 2.4 NG/ML (<3.6)
[2022-11-17 16:58] LABS: MB/CK RELATIVE INDEX 0.4 (< OR =4)
[2022-11-17] MEDS ORDERED: POTASSIUM CHLORIDE 10MEQ SR TABLET PO ONE (17:00)
[2022-11-17] MEDS: SUCRALFATE 1 GM TAB PO SCH ×2 (17:37→20:16)
[2022-11-17] MEDS: CLOPIDOGREL 75 MG TAB PO SCH (17:38)
[2022-11-17 19:23] VITALS: BP 138/77
[2022-11-17] MEDS: BUDESONIDE 0.25 MG/2 ML INHALATION SUSPENSION INH SCH (20:14)
[2022-11-17] MEDS: FUROSEMIDE 40 MG TAB PO SCH (20:16)
[2022-11-17] MEDS: CLOTRIMAZOLE 10 MG TROCHE MT SCH (20:16)
[2022-11-17] MEDS: ENOXAPARIN 40MG/0.4ML SYRINGE (J1650 PER 10MG) SC SCH (20:16)
[2022-11-17] MEDS: DOXYCYCLINE HYCLATE 100MG TABLET PO SCH (20:17)
[2022-11-17] MEDS: FAMOTIDINE 20 MG TAB PO SCH (20:17)
[2022-11-17 23:43] VITALS: BP 123/76
[2022-11-18] VITALS (8 sets, daily range): BP systolic 117–135; BP diastolic 55–76
[2022-11-18] MEDS: IPRATROPIUM 0.5MG/ALBUTEROL 2.5MG INH SOL UD 3ML (DUONEB) NEB SCH ×12 (00:33→22:02)
[2022-11-18] MEDS: CLOTRIMAZOLE 10 MG TROCHE MT SCH ×6 (00:59→20:48)
[2022-11-18 05:50] LABS: HEMATOCRIT 38.1 % (42.0-52.0); HEMOGLOBIN 12.8 g/dl (13.5-17.5); MEAN CORPUSCULAR HEMOGLOBIN 29.8 pg (27.0-33.0); MEAN CORPUSCULAR HGB CONC 33.6 g/dl (32.0-36.5); MEAN CORPUSCULAR VOLUME 88.6 fl (80.0-96.0); PLATELET COUNT, AUTOMATED 235 10^3/uL (150-450); WHITE BLOOD COUNT 7.7 10^3/uL (4.0-10.0)
[2022-11-18 06:15] LABS: CPK CREATINE PHOSPHOKINASE 529 U/L (46-171)
[2022-11-18 06:16] LABS: ALKALINE PHOSPHATASE 95 U/L (46-116); ALT/SGPT 30 U/L (7.0-40); AST/SGOT 23 U/L (<34); BILIRUBIN,TOTAL 0.9 MG/DL (0.3-1.2); BLOOD UREA NITROGEN 19 MG/DL (9-23); CALCIUM LEVEL 9.3 MG/DL (8.5-10.1); CARBON DIOXIDE LEVEL 28 MMOL/L (20-31); CHLORIDE LEVEL 98 MMOL/L (98-107); GLOMERULAR FILTRATION RATE > 60.0 (>60); GLUCOSE, FASTING 145 MG/DL (60-100); MAGNESIUM LEVEL 2.4 MG/DL (1.8-2.4); POTASSIUM SERUM 3.9 MMOL/L (3.5-5.1); SODIUM LEVEL 135 MMOL/L (136-145); TOTAL PROTEIN 7.3 G/DL (5.7-8.2)
[2022-11-18] MEDS: BUDESONIDE 0.25 MG/2 ML INHALATION SUSPENSION INH SCH ×2 (08:39→19:40)
[2022-11-18] MEDS: SUCRALFATE 1 GM TAB PO SCH ×3 (09:19→20:49)
[2022-11-18] MEDS: ENOXAPARIN 40MG/0.4ML SYRINGE (J1650 PER 10MG) SC SCH ×2 (09:19→20:49)
[2022-11-18] MEDS: FUROSEMIDE 20 MG TAB PO SCH (09:19)
[2022-11-18] MEDS: INDAPAMIDE 1.25MG TABLET PO SCH (09:20)
[2022-11-18] MEDS: ATORVASTATIN 20 MG TAB PO SCH (09:20)
[2022-11-18] MEDS: DOXYCYCLINE HYCLATE 100MG TABLET PO SCH ×2 (09:20→20:48)
[2022-11-18] MEDS: predniSONE 20 MG TAB PO SCH (09:20)
[2022-11-18] MEDS: FLUCONAZOLE 100 MG TAB PO SCH (09:20)
[2022-11-18] MEDS: CLOPIDOGREL 75 MG TAB PO SCH (09:20)
[2022-11-18] MEDS: MONTELUKAST 10 MG TAB PO SCH (09:21)
[2022-11-18] MEDS: CETIRIZINE (ZyrTEC) 10 MG TAB PO SCH (09:21)
[2022-11-18] MEDS: PANTOPRAZOLE 40MG TAB (PROTONIX) PO SCH (09:21)
[2022-11-18] MEDS: FLUTICASONE PROP 0.05% NASAL SPRAY 16 GM (FLONASE) NARES SCH (09:21)
[2022-11-18] MEDS: LOSARTAN 50MG TABLET PO SCH (09:25)
[2022-11-18] MEDS ORDERED: ROCURONIUM BROMIDE 50MG/5ML VIAL As Ordered ONE (12:14)
[2022-11-18] MEDS ORDERED: LIDOCAINE 2% 100MG/5ML SDV (FOR ANES.) As Ordered ONE (12:14)
[2022-11-18] MEDS ORDERED: propofoL 200 MG/20 ML VIAL As Ordered ONE (12:14)
[2022-11-18] MEDS ORDERED: MIDAZOLAM INJ 2MG/2ML VIAL As Ordered ONE (12:15)
[2022-11-18] MEDS ORDERED: fentaNYL 100 MCG/2 ML INJECTION As Ordered ONE (12:15)
[2022-11-18] MEDS ORDERED: CETACAINE SPRAY 5GM As Ordered ONE (14:05)
[2022-11-18] MEDS ORDERED: ALBUTEROL 6.7GM INHALER **FOR ANES. CART/OMNICELL ONLY As Ordered ONE (14:06)
[2022-11-18] MEDS ORDERED: SUGAMMADEX SODIUM 500 MG/5 ML VIAL (BRIDION) As Ordered ONE (14:07)
[2022-11-18] MEDS ORDERED: ONDANSETRON 4MG 2ML VIAL As Ordered ONE (14:19)
[2022-11-18] MEDS: FAMOTIDINE 20 MG TAB PO SCH (20:48)
[2022-11-18] MEDS: FUROSEMIDE 40 MG TAB PO SCH (20:49)
[2022-11-19] VITALS (7 sets, daily range): BP systolic 112–138; BP diastolic 63–82
[2022-11-19] MEDS: IPRATROPIUM 0.5MG/ALBUTEROL 2.5MG INH SOL UD 3ML (DUONEB) NEB SCH ×13 (00:03→23:25)
[2022-11-19] MEDS: BUDESONIDE 0.25 MG/2 ML INHALATION SUSPENSION INH SCH (05:56)
[2022-11-19 06:07] LABS: BASO % 0.1 % (0.0-1.0); EOS % 0.1 % (0.0-3.0); HEMOGLOBIN 12.8 g/dl (13.5-17.5); LYMPH # 0.9 10^3/uL (1.5-5.0); MEAN CORPUSCULAR HEMOGLOBIN 29.1 pg (27.0-33.0); MEAN CORPUSCULAR VOLUME 90.9 fl (80.0-96.0); MONO # 1.2 10^3/uL (0.0-0.8); MONO % 7.5 % (2.0-8.0); NEUTROPHILS # 13.4 10^3/uL (1.5-8.5); NEUTROPHILS % 85.8 % (36.0-66.0); PLATELET COUNT, AUTOMATED 261 10^3/uL (150-450); WHITE BLOOD COUNT 15.6 10^3/uL (4.0-10.0)
[2022-11-19] MEDS: CLOTRIMAZOLE 10 MG TROCHE MT SCH ×5 (06:25→20:12)
[2022-11-19 06:30] LABS: BLOOD UREA NITROGEN 23 MG/DL (9-23); CALCIUM LEVEL 9.1 MG/DL (8.5-10.1); CARBON DIOXIDE LEVEL 29 MMOL/L (20-31); CHLORIDE LEVEL 101 MMOL/L (98-107); CREATININE FOR GFR 1.09 MG/DL (0.70-1.30); GLOMERULAR FILTRATION RATE > 60.0 (>60); GLUCOSE, FASTING 162 MG/DL (60-100); POTASSIUM SERUM 4.2 MMOL/L (3.5-5.1); SODIUM LEVEL 138 MMOL/L (136-145)
[2022-11-19] MEDS ORDERED: ISOVUE-370 76% 100ML VIAL As Ordered ONE (08:32)
[2022-11-19] MEDS: FLUTICASONE PROP 0.05% NASAL SPRAY 16 GM (FLONASE) NARES SCH (08:52)
[2022-11-19] MEDS: ENOXAPARIN 40MG/0.4ML SYRINGE (J1650 PER 10MG) SC SCH ×2 (08:52→20:12)
[2022-11-19] MEDS: INDAPAMIDE 1.25MG TABLET PO SCH (08:53)
[2022-11-19] MEDS: PANTOPRAZOLE 40MG TAB (PROTONIX) PO SCH (08:53)
[2022-11-19] MEDS: predniSONE 20 MG TAB PO SCH (08:54)
[2022-11-19] MEDS: FUROSEMIDE 20 MG TAB PO SCH (08:54)
[2022-11-19] MEDS: DOXYCYCLINE HYCLATE 100MG TABLET PO SCH ×2 (08:54→20:12)
[2022-11-19] MEDS: FLUCONAZOLE 100 MG TAB PO SCH (08:54)
[2022-11-19] MEDS: MONTELUKAST 10 MG TAB PO SCH (08:55)
[2022-11-19] MEDS: CETIRIZINE (ZyrTEC) 10 MG TAB PO SCH (08:55)
[2022-11-19] MEDS: ATORVASTATIN 20 MG TAB PO SCH (08:55)
[2022-11-19] MEDS: SUCRALFATE 1 GM TAB PO SCH ×3 (08:55→20:12)
[2022-11-19] MEDS: LOSARTAN 50MG TABLET PO SCH (08:55)
[2022-11-19] MEDS: CLOPIDOGREL 75 MG TAB PO SCH (08:55)
[2022-11-19] MEDS: ACETAMINOPHEN TAB 650MG DOSE (2X325MG) PO PRN (11:04)
[2022-11-19] MEDS: BUDESONIDE 0.5 MG/2 ML INHALATION SUSPENSION INH SCH ×2 (13:22→19:35)
[2022-11-19] MEDS: FAMOTIDINE 20 MG TAB PO SCH (20:12)
[2022-11-19] MEDS: FUROSEMIDE 40 MG TAB PO SCH (20:12)
[2022-11-20] MEDS: IPRATROPIUM 0.5MG/ALBUTEROL 2.5MG INH SOL UD 3ML (DUONEB) NEB SCH ×12 (02:06→23:20)
[2022-11-20] MEDS: CLOTRIMAZOLE 10 MG TROCHE MT SCH ×5 (05:47→21:47)
[2022-11-20 06:00] VITALS: BP 104/63
[2022-11-20 06:10] LABS: HEMATOCRIT 37.3 % (42.0-52.0); HEMOGLOBIN 11.9 g/dl (13.5-17.5); MEAN CORPUSCULAR HEMOGLOBIN 29.2 pg (27.0-33.0); MEAN CORPUSCULAR HGB CONC 31.9 g/dl (32.0-36.5); MEAN CORPUSCULAR VOLUME 91.6 fl (80.0-96.0); PLATELET COUNT, AUTOMATED 216 10^3/uL (150-450); RED BLOOD COUNT 4.07 10^6/uL (4.30-6.10); WHITE BLOOD COUNT 11.7 10^3/uL (4.0-10.0)
[2022-11-20 06:42] LABS: ALBUMIN 3.9 G/DL (3.2-5.2); ALKALINE PHOSPHATASE 81 U/L (46-116); ALT/SGPT 23 U/L (7.0-40); AST/SGOT 20 U/L (<34); BILIRUBIN,TOTAL 0.3 MG/DL (0.3-1.2); BLOOD UREA NITROGEN 22 MG/DL (9-23); CALCIUM LEVEL 8.7 MG/DL (8.5-10.1); CARBON DIOXIDE LEVEL 30 MMOL/L (20-31); CHLORIDE LEVEL 102 MMOL/L (98-107); GLOMERULAR FILTRATION RATE > 60.0 (>60); GLUCOSE, FASTING 113 MG/DL (60-100); POTASSIUM SERUM 3.8 MMOL/L (3.5-5.1); SODIUM LEVEL 140 MMOL/L (136-145); TOTAL PROTEIN 6.3 G/DL (5.7-8.2)
[2022-11-20] MEDS: BUDESONIDE 0.5 MG/2 ML INHALATION SUSPENSION INH SCH ×3 (07:09→19:19)
[2022-11-20] MEDS: CETIRIZINE (ZyrTEC) 10 MG TAB PO SCH (08:56)
[2022-11-20] MEDS: CLOPIDOGREL 75 MG TAB PO SCH (08:56)
[2022-11-20] MEDS: INDAPAMIDE 1.25MG TABLET PO SCH (08:56)
[2022-11-20] MEDS: MONTELUKAST 10 MG TAB PO SCH (08:57)
[2022-11-20] MEDS: SUCRALFATE 1 GM TAB PO SCH ×3 (08:57→21:47)
[2022-11-20] MEDS: DOXYCYCLINE HYCLATE 100MG TABLET PO SCH ×2 (08:57→21:48)
[2022-11-20] MEDS: FLUCONAZOLE 100 MG TAB PO SCH (08:57)
[2022-11-20] MEDS: PANTOPRAZOLE 40MG TAB (PROTONIX) PO SCH (08:57)
[2022-11-20] MEDS: predniSONE 20 MG TAB PO SCH (08:58)
[2022-11-20] MEDS: LOSARTAN 50MG TABLET PO SCH (08:58)
[2022-11-20] MEDS: ENOXAPARIN 40MG/0.4ML SYRINGE (J1650 PER 10MG) SC SCH ×2 (08:58→21:48)
[2022-11-20] MEDS: FUROSEMIDE 20 MG TAB PO SCH (08:58)
[2022-11-20] MEDS: ATORVASTATIN 20 MG TAB PO SCH (08:58)
[2022-11-20] MEDS: FLUTICASONE PROP 0.05% NASAL SPRAY 16 GM (FLONASE) NARES SCH (08:59)
[2022-11-20 14:00] VITALS: BP 127/77
[2022-11-20] MEDS: methylPREDNISolone 125MG 2ML VIAL IV SCH ×2 (15:37→21:48)
[2022-11-20] MEDS: ACETAMINOPHEN TAB 650MG DOSE (2X325MG) PO PRN (18:19)
[2022-11-20 20:00] VITALS: BP 126/76
[2022-11-20] MEDS: FUROSEMIDE 40 MG TAB PO SCH (21:47)
[2022-11-21] MEDS: IPRATROPIUM 0.5MG/ALBUTEROL 2.5MG INH SOL UD 3ML (DUONEB) NEB SCH ×9 (01:12→23:13)
[2022-11-21] MEDS: methylPREDNISolone 125MG 2ML VIAL IV SCH ×4 (02:30→21:04)
[2022-11-21] MEDS: CLOTRIMAZOLE 10 MG TROCHE MT SCH ×5 (05:23→21:04)
[2022-11-21 06:00] VITALS: BP 127/77
[2022-11-21 06:22] LABS: HEMATOCRIT 36.9 % (42.0-52.0); HEMOGLOBIN 11.9 g/dl (13.5-17.5); MEAN CORPUSCULAR HEMOGLOBIN 28.9 pg (27.0-33.0); MEAN CORPUSCULAR HGB CONC 32.2 g/dl (32.0-36.5); MEAN CORPUSCULAR VOLUME 89.6 fl (80.0-96.0); PLATELET COUNT, AUTOMATED 231 10^3/uL (150-450); RED BLOOD COUNT 4.12 10^6/uL (4.30-6.10)
[2022-11-21 06:47] LABS: BLOOD UREA NITROGEN 21 MG/DL (9-23); CALCIUM LEVEL 8.9 MG/DL (8.5-10.1); CARBON DIOXIDE LEVEL 29 MMOL/L (20-31); CHLORIDE LEVEL 101 MMOL/L (98-107); CREATININE FOR GFR 1.01 MG/DL (0.70-1.30); GLOMERULAR FILTRATION RATE > 60.0 (>60); GLUCOSE, FASTING 159 MG/DL (60-100); POTASSIUM SERUM 3.8 MMOL/L (3.5-5.1); SODIUM LEVEL 138 MMOL/L (136-145)
[2022-11-21] MEDS: BUDESONIDE 0.5 MG/2 ML INHALATION SUSPENSION INH SCH ×3 (07:01→19:17)
[2022-11-21] MEDS: PANTOPRAZOLE 40MG TAB (PROTONIX) PO SCH (08:06)
[2022-11-21] MEDS: FUROSEMIDE 20 MG TAB PO SCH (08:06)
[2022-11-21] MEDS: INDAPAMIDE 1.25MG TABLET PO SCH (08:06)
[2022-11-21] MEDS: ATORVASTATIN 20 MG TAB PO SCH (08:06)
[2022-11-21] MEDS: LOSARTAN 50MG TABLET PO SCH (08:06)
[2022-11-21] MEDS: FLUTICASONE PROP 0.05% NASAL SPRAY 16 GM (FLONASE) NARES SCH (08:07)
[2022-11-21] MEDS: CLOPIDOGREL 75 MG TAB PO SCH (08:07)
[2022-11-21] MEDS: DOXYCYCLINE HYCLATE 100MG TABLET PO SCH ×2 (08:07→20:11)
[2022-11-21] MEDS: ENOXAPARIN 40MG/0.4ML SYRINGE (J1650 PER 10MG) SC SCH ×2 (08:07→21:05)
[2022-11-21] MEDS: FLUCONAZOLE 100 MG TAB PO SCH (08:07)
[2022-11-21] MEDS: MONTELUKAST 10 MG TAB PO SCH (08:07)
[2022-11-21] MEDS: CETIRIZINE (ZyrTEC) 10 MG TAB PO SCH (08:07)
[2022-11-21] MEDS: SUCRALFATE 1 GM TAB PO SCH ×3 (08:07→20:11)
[2022-11-21] MEDS: FORMOTEROL FUMARATE 20 MCG/2 ML INHALATION SOLUTION (PERFOROMIST) INH SCH ×2 (09:17→19:20)
[2022-11-21] MEDS ORDERED: IPRATROPIUM 0.5MG/ALBUTEROL 2.5MG INH SOL UD 3ML (DUONEB) NEB SCH (12:00)
[2022-11-21] MEDS ORDERED: ALBUTEROL SULFATE 2.5MG/0.5ML INH NEB SOLN INH SCH (12:00)
[2022-11-21] MEDS ORDERED: IPRATROPIUM 0.02% SOLN 0.5MG 2.5ML NEB INH SCH (12:00)
[2022-11-21 14:00] VITALS: BP 129/86
[2022-11-21 20:00] VITALS: BP 132/68
[2022-11-21] MEDS: FUROSEMIDE 40 MG TAB PO SCH (20:11)
[2022-11-22] MEDS: IPRATROPIUM 0.5MG/ALBUTEROL 2.5MG INH SOL UD 3ML (DUONEB) NEB SCH ×6 (02:50→22:53)
[2022-11-22] MEDS: methylPREDNISolone 125MG 2ML VIAL IV SCH ×3 (02:58→16:28)
[2022-11-22] MEDS: CLOTRIMAZOLE 10 MG TROCHE MT SCH ×5 (05:24→21:03)
[2022-11-22 06:00] VITALS: BP 131/73
[2022-11-22 07:14] LABS: HEMOGLOBIN 12.7 g/dl (13.5-17.5); MEAN CORPUSCULAR HEMOGLOBIN 29.3 pg (27.0-33.0); MEAN CORPUSCULAR HGB CONC 32.6 g/dl (32.0-36.5); MEAN CORPUSCULAR VOLUME 89.9 fl (80.0-96.0); PLATELET COUNT, AUTOMATED 244 10^3/uL (150-450); RED BLOOD COUNT 4.34 10^6/uL (4.30-6.10); WHITE BLOOD COUNT 15.4 10^3/uL (4.0-10.0)
[2022-11-22] MEDS: FORMOTEROL FUMARATE 20 MCG/2 ML INHALATION SOLUTION (PERFOROMIST) INH SCH ×2 (07:14→19:02)
[2022-11-22] MEDS: BUDESONIDE 0.5 MG/2 ML INHALATION SUSPENSION INH SCH ×2 (07:34→19:03)
[2022-11-22 07:40] LABS: BLOOD UREA NITROGEN 30 MG/DL (9-23); CARBON DIOXIDE LEVEL 28 MMOL/L (20-31); CHLORIDE LEVEL 102 MMOL/L (98-107); CREATININE FOR GFR 1.13 MG/DL (0.70-1.30); GLOMERULAR FILTRATION RATE > 60.0 (>60); GLUCOSE, FASTING 133 MG/DL (60-100); POTASSIUM SERUM 3.6 MMOL/L (3.5-5.1); SODIUM LEVEL 141 MMOL/L (136-145)
[2022-11-22] MEDS: DOXYCYCLINE HYCLATE 100MG TABLET PO SCH (08:09)
[2022-11-22] MEDS: INDAPAMIDE 1.25MG TABLET PO SCH (08:09)
[2022-11-22] MEDS: MONTELUKAST 10 MG TAB PO SCH (08:10)
[2022-11-22] MEDS: CLOPIDOGREL 75 MG TAB PO SCH (08:10)
[2022-11-22] MEDS: PANTOPRAZOLE 40MG TAB (PROTONIX) PO SCH (08:10)
[2022-11-22] MEDS: FUROSEMIDE 20 MG TAB PO SCH (08:10)
[2022-11-22] MEDS: ATORVASTATIN 20 MG TAB PO SCH (08:10)
[2022-11-22] MEDS: SUCRALFATE 1 GM TAB PO SCH ×3 (08:10→20:45)
[2022-11-22] MEDS: CETIRIZINE (ZyrTEC) 10 MG TAB PO SCH (08:10)
[2022-11-22] MEDS: FLUCONAZOLE 100 MG TAB PO SCH (08:10)
[2022-11-22] MEDS: ENOXAPARIN 40MG/0.4ML SYRINGE (J1650 PER 10MG) SC SCH ×2 (08:11→20:48)
[2022-11-22] MEDS: LOSARTAN 50MG TABLET PO SCH (08:11)
[2022-11-22] MEDS: FLUTICASONE PROP 0.05% NASAL SPRAY 16 GM (FLONASE) NARES SCH (08:11)
[2022-11-22 14:00] VITALS: BP 125/67
[2022-11-22] MEDS: FUROSEMIDE 40 MG TAB PO SCH (20:45)
[2022-11-22 21:00] VITALS: BP 114/66
[2022-11-23] MEDS: methylPREDNISolone 125MG 2ML VIAL IV SCH ×3 (00:17→15:59)
[2022-11-23] MEDS: ALBUTEROL SULFATE 2.5MG/0.5ML INH NEB SOLN NEB PRN ×2 (01:30→05:38)
[2022-11-23] MEDS: IPRATROPIUM 0.5MG/ALBUTEROL 2.5MG INH SOL UD 3ML (DUONEB) NEB SCH ×6 (03:33→23:09)
[2022-11-23] MEDS: CLOTRIMAZOLE 10 MG TROCHE MT SCH ×5 (05:27→20:50)
[2022-11-23 06:00] VITALS: BP 132/85
[2022-11-23 06:05] LABS: HEMATOCRIT 38.7 % (42.0-52.0); HEMOGLOBIN 12.6 g/dl (13.5-17.5); MEAN CORPUSCULAR HEMOGLOBIN 28.8 pg (27.0-33.0); MEAN CORPUSCULAR HGB CONC 32.6 g/dl (32.0-36.5); MEAN CORPUSCULAR VOLUME 88.6 fl (80.0-96.0); PLATELET COUNT, AUTOMATED 214 10^3/uL (150-450); RED BLOOD COUNT 4.37 10^6/uL (4.30-6.10); WHITE BLOOD COUNT 14.3 10^3/uL (4.0-10.0)
[2022-11-23 06:28] LABS: BLOOD UREA NITROGEN 32 MG/DL (9-23); CALCIUM LEVEL 9.1 MG/DL (8.5-10.1); CARBON DIOXIDE LEVEL 30 MMOL/L (20-31); CHLORIDE LEVEL 100 MMOL/L (98-107); CREATININE FOR GFR 1.16 MG/DL (0.70-1.30); GLOMERULAR FILTRATION RATE > 60.0 (>60); GLUCOSE, FASTING 208 MG/DL (60-100); POTASSIUM SERUM 3.1 MMOL/L (3.5-5.1); SODIUM LEVEL 135 MMOL/L (136-145)
[2022-11-23] MEDS ORDERED: IPRATROPIUM 0.5MG/ALBUTEROL 2.5MG INH SOL UD 3ML (DUONEB) NEB PRN (07:40)
[2022-11-23] MEDS: ENOXAPARIN 40MG/0.4ML SYRINGE (J1650 PER 10MG) SC SCH ×2 (08:23→20:50)
[2022-11-23] MEDS: ATORVASTATIN 20 MG TAB PO SCH (08:25)
[2022-11-23] MEDS: FUROSEMIDE 20 MG TAB PO SCH (08:25)
[2022-11-23] MEDS: SUCRALFATE 1 GM TAB PO SCH ×3 (08:26→20:50)
[2022-11-23] MEDS: FLUCONAZOLE 100 MG TAB PO SCH (08:26)
[2022-11-23] MEDS: PANTOPRAZOLE 40MG TAB (PROTONIX) PO SCH (08:26)
[2022-11-23] MEDS: CLOPIDOGREL 75 MG TAB PO SCH (08:26)
[2022-11-23] MEDS: LOSARTAN 50MG TABLET PO SCH (08:26)
[2022-11-23] MEDS: MONTELUKAST 10 MG TAB PO SCH (08:26)
[2022-11-23] MEDS: FLUTICASONE PROP 0.05% NASAL SPRAY 16 GM (FLONASE) NARES SCH (08:27)
[2022-11-23] MEDS: INDAPAMIDE 1.25MG TABLET PO SCH (08:27)
[2022-11-23] MEDS: CETIRIZINE (ZyrTEC) 10 MG TAB PO SCH (08:27)
[2022-11-23] MEDS: FORMOTEROL FUMARATE 20 MCG/2 ML INHALATION SOLUTION (PERFOROMIST) INH SCH ×2 (09:00→18:51)
[2022-11-23] MEDS: BUDESONIDE 0.5 MG/2 ML INHALATION SUSPENSION INH SCH ×2 (09:01→18:51)
[2022-11-23 14:00] VITALS: BP 108/71
[2022-11-23] MEDS: FUROSEMIDE 40 MG TAB PO SCH (20:50)
[2022-11-23 21:00] VITALS: BP 116/73
[2022-11-24] MEDS: methylPREDNISolone 125MG 2ML VIAL IV SCH ×4 (00:09→23:41)
[2022-11-24] MEDS: IPRATROPIUM 0.5MG/ALBUTEROL 2.5MG INH SOL UD 3ML (DUONEB) NEB SCH ×6 (03:17→23:16)
[2022-11-24] MEDS: CLOTRIMAZOLE 10 MG TROCHE MT SCH ×3 (05:53→13:13)
[2022-11-24 05:55] LABS: HEMATOCRIT 39.9 % (42.0-52.0); HEMOGLOBIN 13.2 g/dl (13.5-17.5); MEAN CORPUSCULAR HEMOGLOBIN 29.4 pg (27.0-33.0); MEAN CORPUSCULAR HGB CONC 33.1 g/dl (32.0-36.5); MEAN CORPUSCULAR VOLUME 88.9 fl (80.0-96.0); PLATELET COUNT, AUTOMATED 233 10^3/uL (150-450); RED BLOOD COUNT 4.49 10^6/uL (4.30-6.10); WHITE BLOOD COUNT 14.6 10^3/uL (4.0-10.0)
[2022-11-24 06:00] VITALS: BP 133/71
[2022-11-24 06:18] LABS: BLOOD UREA NITROGEN 30 MG/DL (9-23); CALCIUM LEVEL 8.8 MG/DL (8.5-10.1); CARBON DIOXIDE LEVEL 33 MMOL/L (20-31); CHLORIDE LEVEL 98 MMOL/L (98-107); CREATININE FOR GFR 1.18 MG/DL (0.70-1.30); GLOMERULAR FILTRATION RATE > 60.0 (>60); GLUCOSE, FASTING 170 MG/DL (60-100); POTASSIUM SERUM 3.2 MMOL/L (3.5-5.1); SODIUM LEVEL 138 MMOL/L (136-145)
[2022-11-24] MEDS: BUDESONIDE 0.5 MG/2 ML INHALATION SUSPENSION INH SCH ×2 (07:16→19:39)
[2022-11-24] MEDS: FORMOTEROL FUMARATE 20 MCG/2 ML INHALATION SOLUTION (PERFOROMIST) INH SCH ×2 (07:16→19:39)
[2022-11-24] MEDS: ENOXAPARIN 40MG/0.4ML SYRINGE (J1650 PER 10MG) SC SCH ×2 (08:23→21:00)
[2022-11-24] MEDS: CETIRIZINE (ZyrTEC) 10 MG TAB PO SCH (09:39)
[2022-11-24] MEDS: INDAPAMIDE 1.25MG TABLET PO SCH (09:39)
[2022-11-24] MEDS: MONTELUKAST 10 MG TAB PO SCH (09:40)
[2022-11-24] MEDS: PANTOPRAZOLE 40MG TAB (PROTONIX) PO SCH (09:40)
[2022-11-24] MEDS: FLUCONAZOLE 100 MG TAB PO SCH (09:40)
[2022-11-24] MEDS: SUCRALFATE 1 GM TAB PO SCH ×3 (09:40→21:50)
[2022-11-24] MEDS: CLOPIDOGREL 75 MG TAB PO SCH (09:40)
[2022-11-24] MEDS: LOSARTAN 50MG TABLET PO SCH (09:41)
[2022-11-24] MEDS: ATORVASTATIN 20 MG TAB PO SCH (09:41)
[2022-11-24] MEDS: FLUTICASONE PROP 0.05% NASAL SPRAY 16 GM (FLONASE) NARES SCH (09:41)
[2022-11-24] MEDS: FUROSEMIDE 20 MG TAB PO SCH (09:42)
[2022-11-24 14:00] VITALS: BP 136/86
[2022-11-24 20:00] VITALS: BP 128/78
[2022-11-24] MEDS: FUROSEMIDE 40 MG TAB PO SCH (21:50)
[2022-11-25] VITALS (42 sets, daily range): BP systolic 95–139; BP diastolic 53–90
[2022-11-25] MEDS: IPRATROPIUM 0.5MG/ALBUTEROL 2.5MG INH SOL UD 3ML (DUONEB) NEB SCH ×3 (03:01→11:05)
[2022-11-25 06:41] LABS: HEMATOCRIT 42.3 % (42.0-52.0); HEMOGLOBIN 13.9 g/dl (13.5-17.5); MEAN CORPUSCULAR HEMOGLOBIN 29.1 pg (27.0-33.0); MEAN CORPUSCULAR HGB CONC 32.9 g/dl (32.0-36.5); MEAN CORPUSCULAR VOLUME 88.5 fl (80.0-96.0); PLATELET COUNT, AUTOMATED 250 10^3/uL (150-450); RED BLOOD COUNT 4.78 10^6/uL (4.30-6.10); WHITE BLOOD COUNT 16.2 10^3/uL (4.0-10.0)
[2022-11-25 07:00] LABS: BLOOD UREA NITROGEN 30 MG/DL (9-23); CALCIUM LEVEL 8.8 MG/DL (8.5-10.1); CARBON DIOXIDE LEVEL 30 MMOL/L (20-31); CHLORIDE LEVEL 98 MMOL/L (98-107); CREATININE FOR GFR 1.17 MG/DL (0.70-1.30); GLOMERULAR FILTRATION RATE > 60.0 (>60); GLUCOSE, FASTING 166 MG/DL (60-100); POTASSIUM SERUM 3.3 MMOL/L (3.5-5.1); SODIUM LEVEL 139 MMOL/L (136-145)
[2022-11-25] MEDS: BUDESONIDE 0.5 MG/2 ML INHALATION SUSPENSION INH SCH ×2 (07:03→19:22)
[2022-11-25] MEDS: FORMOTEROL FUMARATE 20 MCG/2 ML INHALATION SOLUTION (PERFOROMIST) INH SCH (07:03)
[2022-11-25] MEDS: methylPREDNISolone 125MG 2ML VIAL IV SCH ×2 (08:05→20:14)
[2022-11-25] MEDS: ENOXAPARIN 40MG/0.4ML SYRINGE (J1650 PER 10MG) SC SCH ×2 (08:05→08:10)
[2022-11-25] MEDS: FLUTICASONE PROP 0.05% NASAL SPRAY 16 GM (FLONASE) NARES SCH (08:05)
[2022-11-25] MEDS: MONTELUKAST 10 MG TAB PO SCH (08:06)
[2022-11-25] MEDS: LOSARTAN 50MG TABLET PO SCH (08:06)
[2022-11-25] MEDS: SUCRALFATE 1 GM TAB PO SCH ×3 (08:06→20:14)
[2022-11-25] MEDS: ATORVASTATIN 20 MG TAB PO SCH (08:06)
[2022-11-25] MEDS: CETIRIZINE (ZyrTEC) 10 MG TAB PO SCH (08:06)
[2022-11-25] MEDS: FLUCONAZOLE 100 MG TAB PO SCH (08:06)
[2022-11-25] MEDS: FUROSEMIDE 20 MG TAB PO SCH (08:06)
[2022-11-25] MEDS: CLOPIDOGREL 75 MG TAB PO SCH (08:06)
[2022-11-25] MEDS: PANTOPRAZOLE 40MG TAB (PROTONIX) PO SCH (08:06)
[2022-11-25] MEDS: INDAPAMIDE 1.25MG TABLET PO SCH (08:08)
[2022-11-25] MEDS: POTASSIUM CHLORIDE 10MEQ SR TABLET PO SCH (13:05)
[2022-11-25] MEDS ORDERED: METOPROLOL 5 MG/5 ML VIAL As Ordered ONE (14:30)
[2022-11-25 16:43] LABS: BLOOD UREA NITROGEN 34 MG/DL (9-23); CALCIUM LEVEL 8.7 MG/DL (8.5-10.1); CARBON DIOXIDE LEVEL 30 MMOL/L (20-31); CHLORIDE LEVEL 100 MMOL/L (98-107); GLOMERULAR FILTRATION RATE > 60.0 (>60); GLUCOSE, FASTING 145 MG/DL (60-100); MAGNESIUM LEVEL 2.3 MG/DL (1.8-2.4); POTASSIUM SERUM 3.4 MMOL/L (3.5-5.1); SODIUM LEVEL 138 MMOL/L (136-145)
[2022-11-25] MEDS ORDERED: diltiaZEM 125 MG in NS 100 ML IV SCH (17:00)
[2022-11-25] MEDS: IPRATROPIUM HFA INHALER 12.9 GRAMS (ATROVENT HFA) INH SCH (19:28)
[2022-11-25] MEDS: KCL 10MEQ/100ML SWI (KRUN) 10 MEQ in IV 1 EA IV SCH ×2 (19:42→20:14)
[2022-11-25] MEDS ORDERED: IPRATROPIUM 0.02% SOLN 0.5MG 2.5ML NEB INH SCH (20:00)
[2022-11-25] MEDS: APIXABAN 5 MG TAB (ELIQUIS) PO SCH (20:14)
[2022-11-25] MEDS: FUROSEMIDE 40 MG TAB PO SCH (20:15)
[2022-11-26] VITALS (23 sets, daily range): BP systolic 110–148; BP diastolic 65–89
[2022-11-26] MEDS: IPRATROPIUM HFA INHALER 12.9 GRAMS (ATROVENT HFA) INH SCH ×4 (01:21→19:24)
[2022-11-26 04:59] LABS: HEMATOCRIT 41.5 % (42.0-52.0); HEMOGLOBIN 13.4 g/dl (13.5-17.5); MEAN CORPUSCULAR HEMOGLOBIN 29.1 pg (27.0-33.0); MEAN CORPUSCULAR HGB CONC 32.3 g/dl (32.0-36.5); PLATELET COUNT, AUTOMATED 213 10^3/uL (150-450); RED BLOOD COUNT 4.61 10^6/uL (4.30-6.10); WHITE BLOOD COUNT 16.3 10^3/uL (4.0-10.0)
[2022-11-26 05:22] LABS: BLOOD UREA NITROGEN 40 MG/DL (9-23); CALCIUM LEVEL 8.3 MG/DL (8.5-10.1); CARBON DIOXIDE LEVEL 30 MMOL/L (20-31); CHLORIDE LEVEL 102 MMOL/L (98-107); CREATININE FOR GFR 1.14 MG/DL (0.70-1.30); GLOMERULAR FILTRATION RATE > 60.0 (>60); GLUCOSE, FASTING 171 MG/DL (60-100); POTASSIUM SERUM 3.9 MMOL/L (3.5-5.1); SODIUM LEVEL 140 MMOL/L (136-145)
[2022-11-26] MEDS: LEVALBUTEROL HFA 45MCG/ACT 15GM INHALER INH PRN ×2 (08:11→13:39)
[2022-11-26] MEDS: BUDESONIDE 0.5 MG/2 ML INHALATION SUSPENSION INH SCH ×2 (08:11→19:23)
[2022-11-26] MEDS: MONTELUKAST 10 MG TAB PO SCH (08:38)
[2022-11-26] MEDS: PANTOPRAZOLE 40MG TAB (PROTONIX) PO SCH (08:38)
[2022-11-26] MEDS: APIXABAN 5 MG TAB (ELIQUIS) PO SCH ×2 (08:38→20:17)
[2022-11-26] MEDS: SUCRALFATE 1 GM TAB PO SCH ×3 (08:38→20:17)
[2022-11-26] MEDS: CETIRIZINE (ZyrTEC) 10 MG TAB PO SCH (08:38)
[2022-11-26] MEDS: ATORVASTATIN 20 MG TAB PO SCH (08:38)
[2022-11-26] MEDS: FUROSEMIDE 20 MG TAB PO SCH (08:39)
[2022-11-26] MEDS: POTASSIUM CHLORIDE 10MEQ SR TABLET PO SCH (08:39)
[2022-11-26] MEDS: methylPREDNISolone 125MG 2ML VIAL IV SCH ×2 (08:40→20:17)
[2022-11-26] MEDS: LOSARTAN 50MG TABLET PO SCH (08:40)
[2022-11-26] MEDS: INDAPAMIDE 1.25MG TABLET PO SCH (08:40)
[2022-11-26] MEDS: FLUTICASONE PROP 0.05% NASAL SPRAY 16 GM (FLONASE) NARES SCH (08:41)
[2022-11-26] MEDS: ACETAMINOPHEN TAB 650MG DOSE (2X325MG) PO PRN ×2 (09:48→18:09)
[2022-11-26] MEDS: FUROSEMIDE 40 MG TAB PO SCH (20:17)
[2022-11-27] VITALS (7 sets, daily range): BP systolic 131–156; BP diastolic 73–98
[2022-11-27] MEDS: IPRATROPIUM HFA INHALER 12.9 GRAMS (ATROVENT HFA) INH SCH ×4 (01:17→19:47)
[2022-11-27] MEDS: ACETAMINOPHEN TAB 650MG DOSE (2X325MG) PO PRN (04:50)
[2022-11-27 04:58] LABS: HEMATOCRIT 40.2 % (42.0-52.0); HEMOGLOBIN 13.2 g/dl (13.5-17.5); MEAN CORPUSCULAR HEMOGLOBIN 29.2 pg (27.0-33.0); MEAN CORPUSCULAR HGB CONC 32.8 g/dl (32.0-36.5); MEAN CORPUSCULAR VOLUME 88.9 fl (80.0-96.0); PLATELET COUNT, AUTOMATED 190 10^3/uL (150-450); RED BLOOD COUNT 4.52 10^6/uL (4.30-6.10); WHITE BLOOD COUNT 14.5 10^3/uL (4.0-10.0)
[2022-11-27 05:14] LABS: BLOOD UREA NITROGEN 42 MG/DL (9-23); CALCIUM LEVEL 8.1 MG/DL (8.5-10.1); CARBON DIOXIDE LEVEL 30 MMOL/L (20-31); CHLORIDE LEVEL 100 MMOL/L (98-107); CREATININE FOR GFR 1.11 MG/DL (0.70-1.30); GLOMERULAR FILTRATION RATE > 60.0 (>60); GLUCOSE, FASTING 201 MG/DL (60-100); POTASSIUM SERUM 3.8 MMOL/L (3.5-5.1); SODIUM LEVEL 136 MMOL/L (136-145)
[2022-11-27] MEDS: BUDESONIDE 0.5 MG/2 ML INHALATION SUSPENSION INH SCH ×2 (08:09→19:47)
[2022-11-27] MEDS: SUCRALFATE 1 GM TAB PO SCH ×3 (08:58→20:09)
[2022-11-27] MEDS: MONTELUKAST 10 MG TAB PO SCH (08:58)
[2022-11-27] MEDS: methylPREDNISolone 125MG 2ML VIAL IV SCH ×2 (08:58→20:10)
[2022-11-27] MEDS: CETIRIZINE (ZyrTEC) 10 MG TAB PO SCH (09:00)
[2022-11-27] MEDS: APIXABAN 5 MG TAB (ELIQUIS) PO SCH ×2 (09:00→20:09)
[2022-11-27] MEDS: POTASSIUM CHLORIDE 10MEQ SR TABLET PO SCH (09:01)
[2022-11-27] MEDS: LOSARTAN 50MG TABLET PO SCH (09:01)
[2022-11-27] MEDS: FLUTICASONE PROP 0.05% NASAL SPRAY 16 GM (FLONASE) NARES SCH (09:02)
[2022-11-27] MEDS: ATORVASTATIN 20 MG TAB PO SCH (09:02)
[2022-11-27] MEDS: PANTOPRAZOLE 40MG TAB (PROTONIX) PO SCH (09:02)
[2022-11-27] MEDS: INDAPAMIDE 1.25MG TABLET PO SCH (09:09)
[2022-11-27] MEDS ORDERED: GLUCAGON INJ 1MG VIAL SC PRN (10:05)
[2022-11-27] MEDS ORDERED: GLUCOSE 4GM CHEW TABLET PO PRN (10:05)
[2022-11-27] MEDS ORDERED: DEXTROSE 50% 50ML SYRINGE IV PRN (10:05)
[2022-11-27] MEDS: TIOTROPIUM INHALER/CAPSULE (SPIRIVA) INH SCH (11:16)
[2022-11-27] MEDS: INSULIN LISPRO (NovoLOG) PER UNIT SC SCH ×3 (13:18→20:10)
[2022-11-27 17:50] LABS: HEMOGLOBIN A1c 6.1 % (4.0-6.0)
[2022-11-28 00:05] VITALS: BP 126/76
[2022-11-28] MEDS: IPRATROPIUM HFA INHALER 12.9 GRAMS (ATROVENT HFA) INH SCH ×4 (01:45→19:42)
[2022-11-28 03:54] VITALS: BP 138/79
[2022-11-28 05:28] VITALS: BP 126/77
[2022-11-28] MEDS: TIOTROPIUM INHALER/CAPSULE (SPIRIVA) INH SCH (07:39)
[2022-11-28] MEDS: BUDESONIDE 0.5 MG/2 ML INHALATION SUSPENSION INH SCH ×2 (07:39→19:43)
[2022-11-28 07:44] LABS: HEMATOCRIT 40.6 % (42.0-52.0); HEMOGLOBIN 13.5 g/dl (13.5-17.5); MEAN CORPUSCULAR HEMOGLOBIN 29.3 pg (27.0-33.0); MEAN CORPUSCULAR HGB CONC 33.3 g/dl (32.0-36.5); MEAN CORPUSCULAR VOLUME 88.3 fl (80.0-96.0); PLATELET COUNT, AUTOMATED 183 10^3/uL (150-450); WHITE BLOOD COUNT 17.2 10^3/uL (4.0-10.0)
[2022-11-28 08:00] VITALS: BP 137/80
[2022-11-28 08:16] LABS: BLOOD UREA NITROGEN 40 MG/DL (9-23); CALCIUM LEVEL 8.1 MG/DL (8.5-10.1); CARBON DIOXIDE LEVEL 27 MMOL/L (20-31); CHLORIDE LEVEL 98 MMOL/L (98-107); CREATININE FOR GFR 0.96 MG/DL (0.70-1.30); GLOMERULAR FILTRATION RATE > 60.0 (>60); GLUCOSE, FASTING 208 MG/DL (60-100); POTASSIUM SERUM 3.8 MMOL/L (3.5-5.1); SODIUM LEVEL 134 MMOL/L (136-145)
[2022-11-28] MEDS: FLUTICASONE PROP 0.05% NASAL SPRAY 16 GM (FLONASE) NARES SCH (08:39)
[2022-11-28] MEDS: PANTOPRAZOLE 40MG TAB (PROTONIX) PO SCH (08:40)
[2022-11-28] MEDS: predniSONE 20 MG TAB PO SCH (08:40)
[2022-11-28] MEDS: SUCRALFATE 1 GM TAB PO SCH ×3 (08:40→20:04)
[2022-11-28] MEDS: CETIRIZINE (ZyrTEC) 10 MG TAB PO SCH (08:40)
[2022-11-28] MEDS: ATORVASTATIN 20 MG TAB PO SCH (08:40)
[2022-11-28] MEDS: MONTELUKAST 10 MG TAB PO SCH (08:40)
[2022-11-28] MEDS: APIXABAN 5 MG TAB (ELIQUIS) PO SCH ×2 (08:40→20:04)
[2022-11-28] MEDS: LOSARTAN 50MG TABLET PO SCH (08:41)
[2022-11-28] MEDS: INSULIN LISPRO (NovoLOG) PER UNIT SC SCH ×4 (08:41→20:04)
[2022-11-28] MEDS: INDAPAMIDE 1.25MG TABLET PO SCH (08:41)
[2022-11-28] MEDS: FUROSEMIDE 40 MG TAB PO SCH (11:42)
[2022-11-28 11:58] VITALS: BP 143/86
[2022-11-28] MEDS: LEVALBUTEROL HFA 45MCG/ACT 15GM INHALER INH PRN (19:42)
[2022-11-28 20:00] VITALS: BP 157/70
[2022-11-28] MEDS: FORMOTEROL FUMARATE 20 MCG/2 ML INHALATION SOLUTION (PERFOROMIST) INH SCH (23:53)
[2022-11-29] VITALS (7 sets, daily range): BP systolic 117–135; BP diastolic 63–90
[2022-11-29] MEDS: ACETAMINOPHEN TAB 650MG DOSE (2X325MG) PO PRN ×3 (00:10→16:42)
[2022-11-29] MEDS: IPRATROPIUM HFA INHALER 12.9 GRAMS (ATROVENT HFA) INH SCH ×4 (01:41→19:06)
[2022-11-29 07:09] LABS: HEMATOCRIT 38.4 % (42.0-52.0); HEMOGLOBIN 12.9 g/dl (13.5-17.5); MEAN CORPUSCULAR HEMOGLOBIN 29.5 pg (27.0-33.0); MEAN CORPUSCULAR HGB CONC 33.6 g/dl (32.0-36.5); MEAN CORPUSCULAR VOLUME 87.7 fl (80.0-96.0); PLATELET COUNT, AUTOMATED 159 10^3/uL (150-450); RED BLOOD COUNT 4.38 10^6/uL (4.30-6.10); WHITE BLOOD COUNT 13.4 10^3/uL (4.0-10.0)
[2022-11-29] MEDS: FORMOTEROL FUMARATE 20 MCG/2 ML INHALATION SOLUTION (PERFOROMIST) INH SCH ×2 (07:19→19:06)
[2022-11-29] MEDS: TIOTROPIUM INHALER/CAPSULE (SPIRIVA) INH SCH (07:19)
[2022-11-29] MEDS: BUDESONIDE 0.5 MG/2 ML INHALATION SUSPENSION INH SCH ×2 (07:19→19:06)
[2022-11-29] MEDS: INSULIN LISPRO (NovoLOG) PER UNIT SC SCH ×4 (07:32→20:13)
[2022-11-29] MEDS: FLUTICASONE PROP 0.05% NASAL SPRAY 16 GM (FLONASE) NARES SCH (08:56)
[2022-11-29] MEDS: SUCRALFATE 1 GM TAB PO SCH ×3 (08:57→20:13)
[2022-11-29] MEDS: PANTOPRAZOLE 40MG TAB (PROTONIX) PO SCH (08:57)
[2022-11-29] MEDS: APIXABAN 5 MG TAB (ELIQUIS) PO SCH ×2 (08:57→20:13)
[2022-11-29] MEDS: predniSONE 20 MG TAB PO SCH (08:57)
[2022-11-29] MEDS: MONTELUKAST 10 MG TAB PO SCH (08:57)
[2022-11-29] MEDS: CETIRIZINE (ZyrTEC) 10 MG TAB PO SCH (08:57)
[2022-11-29] MEDS: ATORVASTATIN 20 MG TAB PO SCH (08:57)
[2022-11-29] MEDS: FUROSEMIDE 40 MG TAB PO SCH (08:58)
[2022-11-29] MEDS: LOSARTAN 50MG TABLET PO SCH (08:58)
[2022-11-29 10:35] LABS: BLOOD UREA NITROGEN 37 MG/DL (9-23); CALCIUM LEVEL 7.7 MG/DL (8.5-10.1); CARBON DIOXIDE LEVEL 30 MMOL/L (20-31); CHLORIDE LEVEL 103 MMOL/L (98-107); CREATININE FOR GFR 0.99 MG/DL (0.70-1.30); GLOMERULAR FILTRATION RATE > 60.0 (>60); GLUCOSE, FASTING 105 MG/DL (60-100); POTASSIUM SERUM 3.5 MMOL/L (3.5-5.1); SODIUM LEVEL 138 MMOL/L (136-145)
[2022-11-29] MEDS ORDERED: POTASSIUM CHLORIDE 10MEQ SR TABLET PO ONE (14:00)
[2022-11-30] MEDS: IPRATROPIUM HFA INHALER 12.9 GRAMS (ATROVENT HFA) INH SCH ×2 (01:14→07:23)
[2022-11-30 03:21] VITALS: BP 136/80
[2022-11-30] MEDS ORDERED: ELIQ5TAB PO (07:08)
[2022-11-30 07:13] LABS: BASO % 0.2 % (0.0-1.0); EOS % 0.2 % (0.0-3.0); HEMATOCRIT 37.4 % (42.0-52.0); HEMOGLOBIN 12.5 g/dl (13.5-17.5); LYMPH # 2.7 10^3/uL (1.5-5.0); LYMPH % 20.5 % (24.0-44.0); MEAN CORPUSCULAR HEMOGLOBIN 29.6 pg (27.0-33.0); MEAN CORPUSCULAR HGB CONC 33.4 g/dl (32.0-36.5); MEAN CORPUSCULAR VOLUME 88.4 fl (80.0-96.0); MONO # 0.8 10^3/uL (0.0-0.8); MONO % 5.8 % (2.0-8.0); NEUTROPHILS # 9.4 10^3/uL (1.5-8.5); NEUTROPHILS % 71.7 % (36.0-66.0); PLATELET COUNT, AUTOMATED 146 10^3/uL (150-450); RED BLOOD COUNT 4.23 10^6/uL (4.30-6.10); WHITE BLOOD COUNT 13.1 10^3/uL (4.0-10.0)
[2022-11-30] MEDS: TIOTROPIUM INHALER/CAPSULE (SPIRIVA) INH SCH (07:22)
[2022-11-30] MEDS: FORMOTEROL FUMARATE 20 MCG/2 ML INHALATION SOLUTION (PERFOROMIST) INH SCH (07:22)
[2022-11-30] MEDS: BUDESONIDE 0.5 MG/2 ML INHALATION SUSPENSION INH SCH (07:22)
[2022-11-30] MEDS: INSULIN LISPRO (NovoLOG) PER UNIT SC SCH (07:30)
[2022-11-30 07:49] LABS: BLOOD UREA NITROGEN 31 MG/DL (9-23); CALCIUM LEVEL 8.2 MG/DL (8.5-10.1); CARBON DIOXIDE LEVEL 30 MMOL/L (20-31); CHLORIDE LEVEL 102 MMOL/L (98-107); CREATININE FOR GFR 0.98 MG/DL (0.70-1.30); GLOMERULAR FILTRATION RATE > 60.0 (>60); GLUCOSE, FASTING 96 MG/DL (60-100); POTASSIUM SERUM 3.3 MMOL/L (3.5-5.1); SODIUM LEVEL 138 MMOL/L (136-145)
[2022-11-30] MEDS: APIXABAN 5 MG TAB (ELIQUIS) PO SCH (09:11)
[2022-11-30] MEDS: PANTOPRAZOLE 40MG TAB (PROTONIX) PO SCH (09:11)
[2022-11-30] MEDS: LOSARTAN 50MG TABLET PO SCH (09:11)
[2022-11-30] MEDS: ATORVASTATIN 20 MG TAB PO SCH (09:11)
[2022-11-30] MEDS: MONTELUKAST 10 MG TAB PO SCH (09:11)
[2022-11-30] MEDS: CETIRIZINE (ZyrTEC) 10 MG TAB PO SCH (09:11)
[2022-11-30 09:12] VITALS: BP 136/80
[2022-11-30] MEDS: FUROSEMIDE 40 MG TAB PO SCH (09:12)
[2022-11-30] MEDS: SUCRALFATE 1 GM TAB PO SCH (09:12)
[2022-11-30] MEDS: predniSONE 20 MG TAB PO SCH (09:12)
[2022-11-30] MEDS: FLUTICASONE PROP 0.05% NASAL SPRAY 16 GM (FLONASE) NARES SCH (09:13)
[2022-11-30] MEDS: ACETAMINOPHEN TAB 650MG DOSE (2X325MG) PO PRN (09:15)
[2022-11-30] MEDS ORDERED: POTASSIUM CHLORIDE 10MEQ SR TABLET PO ONE (10:15)
[2022-11-30] MEDS ORDERED: CARD120C3 PO (11:15)
[2022-11-30] MEDS ORDERED: IPRA0.00 INH (11:15)
[2022-11-30] MEDS ORDERED: POTA-151 PO (11:15)
[2022-11-30] MEDS ORDERED: FURO40TA2 PO (11:15)
[2022-11-30] MEDS ORDERED: METF-838 PO (11:38)
[2022-11-30] MEDS ORDERED: PRED10TA2 PO (15:23)
== END 2022-11-30 14:55 | disposition home or self-care (01) | DRG 141 ==
LOC: M ED 09:11 → M ED INP 14:46 → M PCU 16:32 → M MSPAV 11-19 22:30 → M ICU 11-25 14:40 → M MS4PR 11-28 03:50
PROVIDERS: ADMIT Family Medicine; ATTEND Internal Medicine
PROC: 0B9J8ZX Drainage of Left Lower Lung Lobe, Via Natural or Artificial Opening Endoscopic, Diagnostic (ICD-10-PCS; principal; 2022-11-18 13:00)
DX: J45.51 Severe persistent asthma with (acute) exacerbation (principal); B37.0 Candidal stomatitis; E87.1 Hypo-osmolality and hyponatremia; Z68.41 Body mass index [BMI] 40.0-44.9, adult; I48.91 Unspecified atrial fibrillation; I25.10 Atherosclerotic heart disease of native coronary artery without angina pectoris; K21.9 Gastro-esophageal reflux disease without esophagitis; T38.0X5A Adverse effect of glucocorticoids and synthetic analogues, initial encounter; I10 Essential (primary) hypertension; R73.03 Prediabetes; E78.5 Hyperlipidemia, unspecified; E66.9 Obesity, unspecified; G47.33 Obstructive sleep apnea (adult) (pediatric); E87.6 Hypokalemia; B34.8 Other viral infections of unspecified site; R73.9 Hyperglycemia, unspecified; J20.6 Acute bronchitis due to rhinovirus; Z20.822 Contact with and (suspected) exposure to COVID-19; Z90.49 Acquired absence of other specified parts of digestive tract; Z95.5 Presence of coronary angioplasty implant and graft; Z86.711 Personal history of pulmonary embolism; Z79.899 Other long term (current) drug therapy; Z88.0 Allergy status to penicillin; Z88.1 Allergy status to other antibiotic agents; Z88.2 Allergy status to sulfonamides; Z88.6 Allergy status to analgesic agent; Z88.5 Allergy status to narcotic agent; Z88.8 Allergy status to other drugs, medicaments and biological substances

== ENCOUNTER → 2022-12-02 | Outpatient (REF) | payer OTHER ==
[~2022-12-02] MED LIST changes: +BUDE0.254 INH; +CARD120C3 PO; +CETI-24 PO; +CLOT10TR MT; +FAMO40TA3 PO; +FLUC100T3 PO; +FLUC150T9 PO; +FLUT1BLS8 INH; +IPRA0.00 INH; +METF-838 PO
== END ==
LOC: M SFHCADAM 11:43
PROVIDERS: ATTEND Physician Assistant
DX: R06.02 Shortness of breath (principal)

== ENCOUNTER → 2022-12-08 | Outpatient (REF) | payer OTHER ==
[2022-12-08 13:24] LABS: HEMATOCRIT 40.2 % (42.0-52.0); HEMOGLOBIN 13.6 g/dl (13.5-17.5); MEAN CORPUSCULAR HGB CONC 33.8 g/dl (32.0-36.5); MEAN CORPUSCULAR VOLUME 88.7 fl (80.0-96.0); PLATELET COUNT, AUTOMATED 162 10^3/uL (150-450); RED BLOOD COUNT 4.53 10^6/uL (4.30-6.10); WHITE BLOOD COUNT 11.5 10^3/uL (4.0-10.0)
[2022-12-08 13:51] LABS: ALKALINE PHOSPHATASE 85 U/L (46-116); ALT/SGPT 42 U/L (7.0-40); AST/SGOT 14 U/L (<34); BILIRUBIN,TOTAL 0.9 MG/DL (0.3-1.2); BLOOD UREA NITROGEN 21 MG/DL (9-23); CALCIUM LEVEL 8.9 MG/DL (8.5-10.1); CARBON DIOXIDE LEVEL 32 MMOL/L (20-31); CHLORIDE LEVEL 97 MMOL/L (98-107); CREATININE FOR GFR 0.96 MG/DL (0.70-1.30); GLOMERULAR FILTRATION RATE > 60.0 (>60); GLUCOSE, FASTING 130 MG/DL (60-100); POTASSIUM SERUM 3.4 MMOL/L (3.5-5.1); SODIUM LEVEL 137 MMOL/L (136-145); TOTAL PROTEIN 6.6 G/DL (5.7-8.2)
[2022-12-08 14:30] LABS: HEMOGLOBIN A1c 6.2 % (4.0-6.0)
== END ==
LOC: M SFHCADAM 11:07
PROVIDERS: ATTEND Physician Assistant
DX: E87.6 Hypokalemia (principal); R73.9 Hyperglycemia, unspecified; I48.91 Unspecified atrial fibrillation

== ENCOUNTER → 2023-05-13 | Outpatient (CLI) | payer OTHER ==
[~2023-05-13] MED LIST changes: -AMIT25TA17 PO; +AMIT25TA19 PO; -COZA1TAB PO; -FLUT11IN; +FLUT12AE6; +LOSA-527 PO
== END ==
LOC: M RADPRO 13:10
PROVIDERS: ATTEND Internal Medicine Critical Care Medicine
DX: J98.6 Disorders of diaphragm (principal)

== ENCOUNTER → 2023-05-20 | Outpatient (CLI) | payer OTHER ==
[2023-05-20 12:36] LABS: ABG BASE EXCESS 4.6 (-2.0-2.0); ABG HCO3 30.1 MMOL/L (22.0-26.0); ABG O2 SATURATION 42.4 % (95.0-99.0); ABG PARTIAL PRESSURE CO2 47.5 mmHg (35.0-45.0); ABG STANDARD HCO3 27.1 MMOL/L. (22.0-26.0); ABG TOTAL CO2 31.6 MMOL/L (22.0-29.0)
[2023-05-20 12:37] LABS: ABG PARTIAL PRESSURE O2 22.4 mmHg (75.0-100.0)
== END ==
LOC: M LAB 11:56
PROVIDERS: ATTEND Internal Medicine Critical Care Medicine
DX: J45.51 Severe persistent asthma with (acute) exacerbation (principal)

== ENCOUNTER → 2023-06-03 | Outpatient (REF) | payer OTHER ==
[2023-06-03 14:54] LABS: BLOOD UREA NITROGEN 12 MG/DL (9-23); CALCIUM LEVEL 8.8 MG/DL (8.5-10.1); CARBON DIOXIDE LEVEL 34 MMOL/L (20-31); CHLORIDE LEVEL 101 MMOL/L (98-107); GLOMERULAR FILTRATION RATE > 60.0 (>56); GLUCOSE, FASTING 106 MG/DL (60-100); POTASSIUM SERUM 3.3 MMOL/L (3.5-5.1); SODIUM LEVEL 142 MMOL/L (136-145)
== END ==
LOC: M LABDRWAD 13:11
PROVIDERS: ATTEND Internal Medicine Critical Care Medicine
DX: R10.11 Right upper quadrant pain (principal)

== ENCOUNTER → 2023-06-07 | Outpatient (CLI) | payer OTHER ==
[~2023-06-07] MED LIST changes: +GASTROGRAFIN SOLUTION 30ML As Ordered ONE; +ISOVUE-370 76% 100ML VIAL As Ordered ONE
== END ==
LOC: M RAD 12:04
PROVIDERS: ATTEND Internal Medicine Critical Care Medicine
DX: N20.0 Calculus of kidney (principal); K40.90 Unilateral inguinal hernia, without obstruction or gangrene, not specified as recurrent; R10.11 Right upper quadrant pain
CPT/HCPCS: 74177; Q9963; Q9967

== ENCOUNTER → 2023-09-09 | Outpatient (CLI) | payer OTHER ==
[~2023-09-09] MED LIST changes: -FLUT50SP17; +FLUTISP; -GASTROGRAFIN SOLUTION 30ML As Ordered ONE; -ISOVUE-370 76% 100ML VIAL As Ordered ONE; -SALI0.6530 NARES; +SODI88SP NARES
== END ==
LOC: M RAD 07:35
PROVIDERS: ATTEND Surgery
DX: R10.11 Right upper quadrant pain (principal); K76.0 Fatty (change of) liver, not elsewhere classified
CPT/HCPCS: 76705; 78227; A9537

== ENCOUNTER → 2023-09-28 | Outpatient (CLI) | payer OTHER | LOC: M ADAMS 13:44 | PROVIDERS: ATTEND Physician Assistant | DX: R07.81 Pleurodynia (principal); M47.894 Other spondylosis, thoracic region ==

== ENCOUNTER → 2023-10-12 | Outpatient (CLI) | payer OTHER | LOC: M ADAMS 09:45 | PROVIDERS: ATTEND Internal Medicine Critical Care Medicine | DX: J45.51 Severe persistent asthma with (acute) exacerbation (principal) ==

== ENCOUNTER 2023-12-12 16:13 | Inpatient (IN) | payer OTHER ==
[~2023-12-12] VITALS: Ht 182.9 cm; Wt 149.0 kg
[~2023-12-12 16:13] MED LIST changes: +BLOOKIT21 XX; +BUTA-198 PO; +CARD240C5 PO; +DIGO0.123 PO; +DILT120C89 PO; +DUPI300I INJ; +FIOR1CAP PO; +GABA-282 PO; +GLUC1TES2 XX; +INSU100I48 SQ; +LANC30MI XX; +LANTINJ4 SC; +LORA-1041 PO; +METF500T13 PO; +PEN-308 SC; +THERTAB52 PO
[2023-12-12] MEDS ORDERED: diltiaZEM 125 MG in NS 100 ML IV SCH (17:00)
[2023-12-12 17:19] LABS: BASO % 0.1 % (0.0-1.0); EOS % 0.1 % (0.0-3.0); HEMOGLOBIN 13.8 g/dl (13.5-17.5); LYMPH # 0.7 10^3/uL (1.5-5.0); LYMPH % 7.5 % (24.0-44.0); MEAN CORPUSCULAR HEMOGLOBIN 30.2 pg (27.0-33.0); MEAN CORPUSCULAR HGB CONC 33.7 g/dl (32.0-36.5); MEAN CORPUSCULAR VOLUME 89.7 fl (80.0-96.0); MONO # 0.4 10^3/uL (0.0-0.8); MONO % 4.9 % (2.0-8.0); NEUTROPHILS # 7.8 10^3/uL (1.5-8.5); NEUTROPHILS % 86.5 % (36.0-66.0); RED BLOOD COUNT 4.57 10^6/uL (4.30-6.10); WHITE BLOOD COUNT 9.1 10^3/uL (4.0-10.0)
[2023-12-12] MEDS: diltiaZEM 125 MG in NS 100 ML IV SCH ×2 (17:23→18:00)
[2023-12-12 17:35] LABS: INR 0.96; PARTIAL THROMBOPLASTIN TIME 23.3 SECONDS (24.8-34.2); PLATELET COUNT, AUTOMATED 96 10^3/uL (150-450); PROTHROMBIN TIME 12.5 SECONDS (12.5-14.5)
[2023-12-12 17:49] LABS: LIPASE 42 U/L (12-53)
[2023-12-12] MEDS ORDERED: GLUCAGON INJ 1MG VIAL SC PRN (17:55)
[2023-12-12] MEDS ORDERED: DEXTROSE 50% 50ML SYRINGE IV PRN (17:55)
[2023-12-12] MEDS ORDERED: GLUCOSE 4 GM CHEW PO PRN (17:55)
[2023-12-12 18:03] LABS: ALBUMIN 3.4 G/DL (3.2-5.2); ALKALINE PHOSPHATASE 113 U/L (46-116); ALT/SGPT 99 U/L (7.0-40); AST/SGOT 54 U/L (<34); BILIRUBIN,DIRECT 0.2 MG/DL (<0.4); BILIRUBIN,TOTAL 0.6 MG/DL (0.3-1.2); BLOOD UREA NITROGEN 25 MG/DL (9-23); CALCIUM LEVEL 8.2 MG/DL (8.5-10.1); CARBON DIOXIDE LEVEL 31 MMOL/L (20-31); CHLORIDE LEVEL 100 MMOL/L (98-107); CK-MB VALUE MASS 7.9 NG/ML (<3.6); CREATININE FOR GFR 1.09 MG/DL (0.70-1.30); FREE T4 1.35 NG/DL (0.89-1.76); GLOMERULAR FILTRATION RATE > 60.0 (>56); GLUCOSE, FASTING 167 MG/DL (60-100); MAGNESIUM LEVEL 1.8 MG/DL (1.8-2.4); POTASSIUM SERUM 3.4 MMOL/L (3.5-5.1); SODIUM LEVEL 139 MMOL/L (136-145); THYROID STIMULATING HORMONE 1.344 uIU/ML (0.55-4.78); TOTAL PROTEIN 5.8 G/DL (5.7-8.2)
[2023-12-12] MEDS ORDERED: HOME MED LIST COMPLETE! XX SCH (18:15)
[2023-12-12 18:17] LABS: CPK CREATINE PHOSPHOKINASE 1517 U/L (46-171); MB/CK RELATIVE INDEX 0.52 (< OR =4)
[2023-12-12 18:34] LABS: CK-MB VALUE MASS 7.3 NG/ML (<3.6)
[2023-12-12 18:46] LABS: VALPROIC ACID (DEPAKOTE) < 3.0 UG/ML (50.0-100.0)
[2023-12-12 18:46] LABS: MB/CK RELATIVE INDEX 0.56 (< OR =4)
[2023-12-12] MEDS: LR 1,000 ML IV SCH (19:35)
[2023-12-12 20:00] VITALS: BP 137/87; TEMP 97.2; O2SAT 99
[2023-12-12] MEDS: GLYCOPYRROLATE INJ 0.2 MG/ML 2 ML VIAL NEB SCH (20:00)
[2023-12-12] MEDS: BUDESONIDE 0.5 MG/2 ML INHALATION SUSPENSION NEB SCH (20:00)
[2023-12-12] MEDS: LEVALBUTEROL 1.25MG 0.5ML CONCENTRATE NEB INH SCH (20:10)
[2023-12-12] MEDS: IPRATROPIUM 0.02% SOLN 0.5MG 2.5ML NEB INH SCH (20:10)
[2023-12-12] MEDS: FORMOTEROL FUMARATE 20 MCG/2 ML INHALATION SOLUTION (PERFOROMIST) INH SCH (20:10)
[2023-12-12] MEDS: APIXABAN 5 MG TAB (ELIQUIS) PO SCH (20:15)
[2023-12-12] MEDS: POTASSIUM CHLORIDE 10MEQ SR TABLET PO ONE (20:44)
[2023-12-12 21:00] VITALS: BP 125/79; TEMP 97; O2SAT 99
[2023-12-12] MEDS: LEVEMIR (INSULIN DETEMIR) 1 UNITS/0.01ML SC SCH (21:00)
[2023-12-12] MEDS: INSULIN LISPRO (NovoLOG) PER UNIT SC SCH (21:00)
[2023-12-12 22:20] LABS: BLOOD UREA NITROGEN 23 MG/DL (9-23); CALCIUM LEVEL 7.6 MG/DL (8.5-10.1); CARBON DIOXIDE LEVEL 31 MMOL/L (20-31); CHLORIDE LEVEL 100 MMOL/L (98-107); GLOMERULAR FILTRATION RATE > 60.0 (>56); GLUCOSE, FASTING 138 MG/DL (60-100); POTASSIUM SERUM 3.5 MMOL/L (3.5-5.1); SODIUM LEVEL 137 MMOL/L (136-145)
[2023-12-13] VITALS (10 sets, daily range): BP systolic 133–157; BP diastolic 64–85; TEMP 96.6–98; O2SAT 94–99
[2023-12-13] MEDS: dilTIAZem 30 MG TAB PO SCH (00:04)
[2023-12-13 06:22] LABS: HEMATOCRIT 36.4 % (42.0-52.0); HEMOGLOBIN 12.4 g/dl (13.5-17.5); MEAN CORPUSCULAR HEMOGLOBIN 30.6 pg (27.0-33.0); MEAN CORPUSCULAR HGB CONC 34.1 g/dl (32.0-36.5); MEAN CORPUSCULAR VOLUME 89.9 fl (80.0-96.0); RED BLOOD COUNT 4.05 10^6/uL (4.30-6.10); WHITE BLOOD COUNT 6.8 10^3/uL (4.0-10.0)
[2023-12-13 06:38] LABS: PLATELET COUNT, AUTOMATED 83 10^3/uL (150-450)
[2023-12-13 06:43] LABS: ALBUMIN 2.9 G/DL (3.2-5.2); ALKALINE PHOSPHATASE 80 U/L (46-116); ALT/SGPT 80 U/L (7.0-40); AST/SGOT 37 U/L (<34); BILIRUBIN,TOTAL 0.6 MG/DL (0.3-1.2); BLOOD UREA NITROGEN 24 MG/DL (9-23); CALCIUM LEVEL 7.8 MG/DL (8.5-10.1); CARBON DIOXIDE LEVEL 31 MMOL/L (20-31); CHLORIDE LEVEL 104 MMOL/L (98-107); CREATININE FOR GFR 1.03 MG/DL (0.70-1.30); GLOMERULAR FILTRATION RATE > 60.0 (>56); GLUCOSE, FASTING 98 MG/DL (60-100); POTASSIUM SERUM 3.2 MMOL/L (3.5-5.1); SODIUM LEVEL 140 MMOL/L (136-145); TOTAL PROTEIN 6.3 G/DL (5.7-8.2)
[2023-12-13] MEDS: FIORICET TAB PO PRN (07:03)
[2023-12-13] MEDS: MAG SULF 1GM/100ML (MAG RUN) 1 GM in IV 1 EA IV ONE (08:31)
[2023-12-13] MEDS: INDAPAMIDE 1.25MG TABLET PO SCH (08:33)
[2023-12-13] MEDS: POTASSIUM CHLORIDE 10MEQ SR TABLET PO ONE ×2 (08:33→11:54)
[2023-12-13] MEDS: GABAPENTIN 300 MG CAP PO SCH (08:33)
[2023-12-13] MEDS: LOSARTAN 50MG TABLET PO SCH (08:34)
[2023-12-13] MEDS: predniSONE 20 MG TAB PO SCH (08:35)
[2023-12-13] MEDS: ATORVASTATIN 20 MG TAB PO SCH (08:35)
[2023-12-13] MEDS: FUROSEMIDE 40 MG TAB PO SCH ×2 (08:35→18:42)
[2023-12-13] MEDS: MONTELUKAST 10 MG TAB PO SCH (08:35)
[2023-12-13] MEDS: CETIRIZINE (ZyrTEC) 10 MG TAB PO SCH (08:36)
[2023-12-13] MEDS ORDERED: dilTIAZem 30 MG TAB PO SCH (09:00)
[2023-12-13] MEDS ORDERED: ENOXAPARIN 40MG/0.4ML SYRINGE (J1650 PER 10MG) SC SCH (09:00)
[2023-12-13] MEDS: INSULIN LISPRO (NovoLOG) PER UNIT SC SCH (09:39)
[2023-12-13] MEDS: DUPIXENT SQ SA SCH (14:11)
[2023-12-13] MEDS: DIGOXIN 0.125 MG TAB PO SCH (16:03)
[2023-12-13] MEDS: LEVALBUTEROL 1.25MG 0.5ML CONCENTRATE NEB INH PRN (16:15)
[2023-12-13] MEDS ORDERED: POTASSIUM CHLORIDE 10MEQ SR TABLET PO ONE (17:00)
[2023-12-13 17:31] LABS: BLOOD UREA NITROGEN 22 MG/DL (9-23); CARBON DIOXIDE LEVEL 28 MMOL/L (20-31); CHLORIDE LEVEL 102 MMOL/L (98-107); CREATININE FOR GFR 1.06 MG/DL (0.70-1.30); GLOMERULAR FILTRATION RATE > 60.0 (>56); GLUCOSE, FASTING 243 MG/DL (60-100); POTASSIUM SERUM 4.2 MMOL/L (3.5-5.1); SODIUM LEVEL 137 MMOL/L (136-145)
[2023-12-13] MEDS: LORATADINE 10 MG TAB PO SCH (20:26)
[2023-12-13] MEDS: LEVALBUTEROL 1.25MG 0.5ML CONCENTRATE NEB INH SCH (23:02)
[2023-12-13] MEDS: IPRATROPIUM 0.02% SOLN 0.5MG 2.5ML NEB INH SCH (23:02)
[2023-12-14] VITALS (8 sets, daily range): BP systolic 118–165; BP diastolic 78–90; TEMP 96.9–97.3; O2SAT 98–100
[2023-12-14 04:56] LABS: BLOOD UREA NITROGEN 19 MG/DL (9-23); CARBON DIOXIDE LEVEL 30 MMOL/L (20-31); CHLORIDE LEVEL 104 MMOL/L (98-107); CK-MB VALUE MASS 4.3 NG/ML (<3.6); GLOMERULAR FILTRATION RATE > 60.0 (>56); GLUCOSE, FASTING 101 MG/DL (60-100); POTASSIUM SERUM 3.8 MMOL/L (3.5-5.1); SODIUM LEVEL 140 MMOL/L (136-145)
[2023-12-14 05:05] LABS: MB/CK RELATIVE INDEX 0.82 (< OR =4)
[2023-12-14] MEDS ORDERED: CARD180C4 PO (07:45)
[2023-12-14] MEDS ORDERED: PERF20NE2 INH (07:45)
[2023-12-14] MEDS ORDERED: FURO40TA2 PO (07:45)
[2023-12-14] MEDS ORDERED: MONT10TA97 PO (07:45)
[2023-12-14] MEDS ORDERED: ATRO0.063 INH (07:47)
[2023-12-14] MEDS ORDERED: LEVAINH INH (07:47)
[2023-12-14] MEDS: predniSONE 50 MG TAB PO SCH (08:38)
[2023-12-14] MEDS ORDERED: dilTIAZem 120MG **CD** CAPSULE PO ONE (08:40)
[2023-12-14] MEDS: dilTIAZem 30 MG TAB PO ONE (09:03)
[2023-12-14] MEDS: POTASSIUM CHLORIDE 10MEQ SR TABLET PO SCH (09:04)
[2023-12-14] MEDS: metOLazone 5 MG TAB PO ONE (10:18)
[2023-12-14] MEDS: FUROSEMIDE 20MG/2ML VIAL IV ONE (11:02)
[2023-12-14] MEDS: cloNIDine 0.2 MG TAB PO ONE (12:45)
[2023-12-14] MEDS: FUROSEMIDE 40MG/4ML VIAL IV ONE (12:48)
[2023-12-14] MEDS: ACETAMINOPHEN 500 MG TAB PO ONE (12:48)
[2023-12-14] MEDS ORDERED: ISOVUE-370 76% 100ML VIAL As Ordered ONE (12:57)
[2023-12-14 14:34] LABS: CK-MB VALUE MASS 5.6 NG/ML (<3.6); MB/CK RELATIVE INDEX 0.85 (< OR =4)
[2023-12-14] MEDS ORDERED: dilTIAZem **CD** 180MG CAP PO SCH (21:00)
== END 2023-12-14 16:20 | disposition home or self-care (01) | DRG 201 ==
LOC: M ED 16:13 → M ED INP 17:29 → M ICU 19:40
PROVIDERS: ADMIT Internal Medicine Pulmonary Disease; ATTEND General Practice
DX: I48.91 Unspecified atrial fibrillation (principal); D69.6 Thrombocytopenia, unspecified; Z68.41 Body mass index [BMI] 40.0-44.9, adult; I11.0 Hypertensive heart disease with heart failure; E66.01 Morbid (severe) obesity due to excess calories; I50.32 Chronic diastolic (congestive) heart failure; G62.9 Polyneuropathy, unspecified; J45.909 Unspecified asthma, uncomplicated; E78.5 Hyperlipidemia, unspecified; I25.10 Atherosclerotic heart disease of native coronary artery without angina pectoris; G47.33 Obstructive sleep apnea (adult) (pediatric); E55.9 Vitamin D deficiency, unspecified; R73.9 Hyperglycemia, unspecified; E87.6 Hypokalemia; I16.0 Hypertensive urgency; T38.0X5A Adverse effect of glucocorticoids and synthetic analogues, initial encounter; Z86.711 Personal history of pulmonary embolism; Z79.01 Long term (current) use of anticoagulants; Z79.4 Long term (current) use of insulin; Z79.899 Other long term (current) drug therapy; Z88.0 Allergy status to penicillin; Z95.5 Presence of coronary angioplasty implant and graft; Z88.1 Allergy status to other antibiotic agents; Z88.2 Allergy status to sulfonamides; Z88.5 Allergy status to narcotic agent; Z88.6 Allergy status to analgesic agent; Z88.4 Allergy status to anesthetic agent; Z88.8 Allergy status to other drugs, medicaments and biological substances

== ENCOUNTER → 2023-12-17 | Outpatient (CLI) | payer OTHER ==
[~2023-12-17] MED LIST changes: +ATRO0.063 INH; +CARD180C4 PO; +INSULANT SC; +LEVAINH INH; +METF500T13
[2023-12-17 09:26] LABS: HEMATOCRIT 41.1 % (42.0-52.0); HEMOGLOBIN 13.9 g/dl (13.5-17.5); MEAN CORPUSCULAR HEMOGLOBIN 30.3 pg (27.0-33.0); MEAN CORPUSCULAR HGB CONC 33.8 g/dl (32.0-36.5); MEAN CORPUSCULAR VOLUME 89.5 fl (80.0-96.0); PLATELET COUNT, AUTOMATED 151 10^3/uL (150-450); RED BLOOD COUNT 4.59 10^6/uL (4.30-6.10); WHITE BLOOD COUNT 6.6 10^3/uL (4.0-10.0)
== END ==
LOC: M LAB 08:48
PROVIDERS: ATTEND Internal Medicine
DX: D69.6 Thrombocytopenia, unspecified (principal)

== ENCOUNTER → 2023-12-21 | Outpatient (REF) | payer OTHER ==
[2023-12-21 18:01] LABS: CPK CREATINE PHOSPHOKINASE 644 U/L (46-171)
[2023-12-21 18:09] LABS: BLOOD UREA NITROGEN 21 MG/DL (9-23); CARBON DIOXIDE LEVEL 33 MMOL/L (20-31); CHLORIDE LEVEL 96 MMOL/L (98-107); CREATININE FOR GFR 1.07 MG/DL (0.70-1.30); GLOMERULAR FILTRATION RATE > 60.0 (>56); GLUCOSE, FASTING 201 MG/DL (60-100); SODIUM LEVEL 139 MMOL/L (136-145)
[2023-12-21 18:59] LABS: POTASSIUM SERUM 2.9 MMOL/L (3.5-5.1)
== END ==
LOC: M SFHCADAM 10:40
PROVIDERS: ATTEND Physician Assistant
DX: R74.8 Abnormal levels of other serum enzymes (principal); E11.9 Type 2 diabetes mellitus without complications

== ENCOUNTER → 2023-12-22 | Outpatient (REF) | payer OTHER ==
[2023-12-22 14:20] LABS: BLOOD UREA NITROGEN 19 MG/DL (9-23); CALCIUM LEVEL 8.8 MG/DL (8.5-10.1); CARBON DIOXIDE LEVEL 34 MMOL/L (20-31); CHLORIDE LEVEL 94 MMOL/L (98-107); CREATININE FOR GFR 1.07 MG/DL (0.70-1.30); GLOMERULAR FILTRATION RATE > 60.0 (>56); GLUCOSE, FASTING 187 MG/DL (60-100); MAGNESIUM LEVEL 1.6 MG/DL (1.8-2.4); POTASSIUM SERUM 2.9 MMOL/L (3.5-5.1); SODIUM LEVEL 136 MMOL/L (136-145)
== END ==
LOC: M SFHCADAM 10:08
PROVIDERS: ATTEND Physician Assistant
DX: E87.6 Hypokalemia (principal)

== ENCOUNTER → 2023-12-27 | Outpatient (CLI) | payer OTHER ==
[2023-12-27 15:40] LABS: BLOOD UREA NITROGEN 19 MG/DL (9-23); CALCIUM LEVEL 9.1 MG/DL (8.5-10.1); CARBON DIOXIDE LEVEL 30 MMOL/L (20-31); CHLORIDE LEVEL 98 MMOL/L (98-107); CREATININE FOR GFR 1.06 MG/DL (0.70-1.30); GLOMERULAR FILTRATION RATE > 60.0 (>56); GLUCOSE, FASTING 160 MG/DL (60-100); MAGNESIUM LEVEL 1.6 MG/DL (1.8-2.4); POTASSIUM SERUM 3.3 MMOL/L (3.5-5.1); SODIUM LEVEL 137 MMOL/L (136-145)
== END ==
LOC: M PLALAB 13:53
PROVIDERS: ATTEND Physician Assistant
DX: E87.6 Hypokalemia (principal); E83.42 Hypomagnesemia

== ENCOUNTER → 2024-01-03 | Outpatient (CLI) | payer OTHER ==
[2024-01-03 11:24] LABS: BLOOD UREA NITROGEN 22 MG/DL (9-23); CALCIUM LEVEL 8.8 MG/DL (8.5-10.1); CARBON DIOXIDE LEVEL 32 MMOL/L (20-31); CHLORIDE LEVEL 102 MMOL/L (98-107); CPK CREATINE PHOSPHOKINASE 332 U/L (46-171); CREATININE FOR GFR 1.12 MG/DL (0.70-1.30); GLOMERULAR FILTRATION RATE > 60.0 (>56); GLUCOSE, FASTING 118 MG/DL (60-100); MAGNESIUM LEVEL 2.1 MG/DL (1.8-2.4); POTASSIUM SERUM 3.6 MMOL/L (3.5-5.1); SODIUM LEVEL 139 MMOL/L (136-145)
== END ==
LOC: M PLALAB 08:00
PROVIDERS: ATTEND Physician Assistant
DX: E87.6 Hypokalemia (principal); E83.42 Hypomagnesemia; R74.8 Abnormal levels of other serum enzymes

== ENCOUNTER 2024-01-27 15:13 | Emergency (ER) | payer OTHER ==
[~2024-01-27] VITALS: Ht 182.9 cm; Wt 150.3 kg
[2024-01-27] MEDS ORDERED: FAMO40TA3 PO (15:41)
[2024-01-27] MEDS ORDERED: MAGN400C2 PO (15:41)
[2024-01-27 15:57] LABS: BASO # 0.1 10^3/uL (0.0-0.2); BASO % 0.5 % (0.0-1.0); EOS % 0.2 % (0.0-3.0); HEMATOCRIT 37.7 % (42.0-52.0); HEMOGLOBIN 12.5 g/dl (13.5-17.5); LYMPH # 1.4 10^3/uL (1.5-5.0); MEAN CORPUSCULAR HEMOGLOBIN 30.7 pg (27.0-33.0); MEAN CORPUSCULAR HGB CONC 33.2 g/dl (32.0-36.5); MEAN CORPUSCULAR VOLUME 92.6 fl (80.0-96.0); MONO # 0.8 10^3/uL (0.0-0.8); MONO % 6.4 % (2.0-8.0); NEUTROPHILS # 10.6 10^3/uL (1.5-8.5); NEUTROPHILS % 81.3 % (36.0-66.0); PLATELET COUNT, AUTOMATED 246 10^3/uL (150-450); RED BLOOD COUNT 4.07 10^6/uL (4.30-6.10); WHITE BLOOD COUNT 13.1 10^3/uL (4.0-10.0)
[2024-01-27 16:12] LABS: INR 1.11
[2024-01-27 16:27] LABS: CK-MB VALUE MASS 3.3 NG/ML (<3.6); LIPASE 36 U/L (12-53)
[2024-01-27 16:29] LABS: ALBUMIN 3.9 G/DL (3.2-5.2); ALKALINE PHOSPHATASE 103 U/L (46-116); ALT/SGPT 41 U/L (7.0-40); AST/SGOT 13 U/L (<34); BILIRUBIN,DIRECT 0.2 MG/DL (<0.4); BILIRUBIN,TOTAL 0.5 MG/DL (0.3-1.2); BLOOD UREA NITROGEN 14 MG/DL (9-23); CALCIUM LEVEL 8.9 MG/DL (8.5-10.1); CARBON DIOXIDE LEVEL 32 MMOL/L (20-31); CHLORIDE LEVEL 100 MMOL/L (98-107); CPK CREATINE PHOSPHOKINASE 154 U/L (46-171); CREATININE FOR GFR 0.92 MG/DL (0.70-1.30); GLOMERULAR FILTRATION RATE > 60.0 (>56); GLUCOSE, FASTING 127 MG/DL (60-100); MB/CK RELATIVE INDEX 2.14 (< OR =4); POTASSIUM SERUM 3.3 MMOL/L (3.5-5.1); SODIUM LEVEL 139 MMOL/L (136-145); TOTAL PROTEIN 6.3 G/DL (5.7-8.2)
[2024-01-27] MEDS ORDERED: ISOVUE-370 76% 100ML VIAL As Ordered ONE (16:35)
[2024-01-27] MEDS: POTASSIUM CHLORIDE 10MEQ SR TABLET PO ONE (16:45)
[2024-01-27 16:50] LABS: DIGOXIN LEVEL 0.5 NG/ML (0.8-2.0)
[2024-01-27 20:03] VITALS: BP 136/73; TEMP 98.4; O2SAT 97
== END 2024-01-27 20:07 | disposition home or self-care (01) ==
LOC: M ED 15:13
DX: R07.9 Chest pain, unspecified (principal); I48.91 Unspecified atrial fibrillation; I10 Essential (primary) hypertension; E11.9 Type 2 diabetes mellitus without complications; J45.909 Unspecified asthma, uncomplicated; G47.33 Obstructive sleep apnea (adult) (pediatric); M79.7 Fibromyalgia; F32.A Depression, unspecified; Z95.5 Presence of coronary angioplasty implant and graft; Z86.711 Personal history of pulmonary embolism; Z82.49 Family history of ischemic heart disease and other diseases of the circulatory system; Z79.4 Long term (current) use of insulin; Z79.01 Long term (current) use of anticoagulants; Z79.899 Other long term (current) drug therapy; Z88.8 Allergy status to other drugs, medicaments and biological substances; Z88.0 Allergy status to penicillin; Z88.2 Allergy status to sulfonamides; Z88.5 Allergy status to narcotic agent
CPT/HCPCS: 71046; 71275; 80048; 80076; 80162; 82550; 82553; 83690; 83880; 84484; 85025; 85610; 93005; 93041; 93970; 94760; 99291; Q9967

== ENCOUNTER → 2024-05-03 | Outpatient (REF) | payer OTHER ==
[~2024-05-03] MED LIST changes: +GABA-1172 PO; -GABA-282 PO; +MAGN400C2 PO
[2024-05-03 19:25] LABS: BASO # 0.1 10^3/uL (0.0-0.2); BASO % 0.5 % (0.0-1.0); EOS % 0.2 % (0.0-3.0); HEMATOCRIT 43.6 % (42.0-52.0); HEMOGLOBIN 13.9 g/dl (13.5-17.5); LYMPH # 1.3 10^3/uL (1.5-5.0); LYMPH % 10.8 % (24.0-44.0); MEAN CORPUSCULAR HEMOGLOBIN 28.3 pg (27.0-33.0); MEAN CORPUSCULAR HGB CONC 31.9 g/dl (32.0-36.5); MEAN CORPUSCULAR VOLUME 88.6 fl (80.0-96.0); MONO # 0.7 10^3/uL (0.0-0.8); MONO % 6.1 % (2.0-8.0); NEUTROPHILS # 9.6 10^3/uL (1.5-8.5); PLATELET COUNT, AUTOMATED 235 10^3/uL (150-450); RED BLOOD COUNT 4.92 10^6/uL (4.30-6.10); WHITE BLOOD COUNT 11.7 10^3/uL (4.0-10.0)
[2024-05-03 19:59] LABS: CPK CREATINE PHOSPHOKINASE 177 U/L (46-171)
[2024-05-03 20:00] LABS: ALKALINE PHOSPHATASE 114 U/L (46-116); ALT/SGPT 68 U/L (7.0-40); AST/SGOT 40 U/L (<34); BILIRUBIN,TOTAL 0.4 MG/DL (0.3-1.2); BLOOD UREA NITROGEN 14 MG/DL (9-23); CALCIUM LEVEL 9.4 MG/DL (8.5-10.1); CARBON DIOXIDE LEVEL 31 MMOL/L (20-31); CHLORIDE LEVEL 103 MMOL/L (98-107); CHOLESTEROL LEVEL 196 MG/DL (<200); CHOLESTEROL RISK RATIO 5.85 (<5); FREE T4 1.23 NG/DL (0.89-1.76); GLOMERULAR FILTRATION RATE > 60.0 (>56); GLUCOSE, FASTING 107 MG/DL (60-100); HDL CHOLESTEROL 33.5 MG/DL (>40); LDL CHOLESTEROL 116.9 MG/DL (<100); NON-HDL-C 162.5 MG/DL; POTASSIUM SERUM 3.7 MMOL/L (3.5-5.1); PSA SCREENING 0.28 NG/ML (< 4.00); SODIUM LEVEL 138 MMOL/L (136-145); TOTAL PROTEIN 7.1 G/DL (5.7-8.2); TRIGLYCERIDES LEVEL 228 MG/DL (<150)
[2024-05-03 20:02] LABS: THYROID STIMULATING HORMONE 1.515 uIU/ML (0.55-4.78)
== END ==
LOC: M SFHCADAM 13:49
PROVIDERS: ATTEND Physician Assistant
DX: Z12.11 Encounter for screening for malignant neoplasm of colon (principal)
CPT/HCPCS: 80053; 80061; 82550; 83036; 83735; 84439; 84443; 85025; G0103

== ENCOUNTER 2024-08-26 13:39 | Emergency (ER) | payer OTHER ==
[~2024-08-26] VITALS: Ht 182.9 cm; Wt 150.0 kg
[~2024-08-26 13:39] MED LIST changes: +LEVA15HF2 INH; -LEVAINH INH
[2024-08-26 14:19] LABS: BASO # 0.1 10^3/uL (0.0-0.2); BASO % 0.5 % (0.0-1.0); EOS # 0.1 10^3/uL (0.0-0.5); EOS % 0.6 % (0.0-3.0); HEMATOCRIT 43.8 % (42.0-52.0); HEMOGLOBIN 14.5 g/dl (13.5-17.5); LYMPH # 1.4 10^3/uL (1.5-5.0); LYMPH % 11.1 % (24.0-44.0); MEAN CORPUSCULAR HEMOGLOBIN 29.6 pg (27.0-33.0); MEAN CORPUSCULAR HGB CONC 33.1 g/dl (32.0-36.5); MEAN CORPUSCULAR VOLUME 89.4 fl (80.0-96.0); MONO # 0.8 10^3/uL (0.0-0.8); MONO % 6.1 % (2.0-8.0); NEUTROPHILS # 10.3 10^3/uL (1.5-8.5); NEUTROPHILS % 81.3 % (36.0-66.0); PLATELET COUNT, AUTOMATED 264 10^3/uL (150-450); WHITE BLOOD COUNT 12.7 10^3/uL (4.0-10.0)
[2024-08-26 14:30] LABS: INR 1.13; PROTHROMBIN TIME 14.8 SECONDS (12.5-14.5)
[2024-08-26] MEDS ORDERED: NITROGLYCERIN 0.4MG SUBL TABLET SL PRN (14:45)
[2024-08-26 14:47] LABS: ALKALINE PHOSPHATASE 127 U/L (40-129); ALT/SGPT 42 U/L (7.0-40); AST/SGOT 47 U/L (<34); BILIRUBIN,DIRECT 0.2 MG/DL (<0.4); BILIRUBIN,TOTAL 0.6 MG/DL (0.3-1.2); BLOOD UREA NITROGEN 11 MG/DL (9-23); CALCIUM LEVEL 8.6 MG/DL (8.5-10.1); CARBON DIOXIDE LEVEL 31 MMOL/L (20-31); CHLORIDE LEVEL 99 MMOL/L (98-107); CK-MB VALUE MASS < 1.0 NG/ML (<3.6); CPK CREATINE PHOSPHOKINASE 199 U/L (46-171); CREATININE FOR GFR 0.89 MG/DL (0.70-1.30); FREE T4 1.14 NG/DL (0.89-1.76); GLOMERULAR FILTRATION RATE > 60.0 (>56); GLUCOSE, FASTING 108 MG/DL (60-100); LIPASE 28 U/L (12-53); SODIUM LEVEL 140 MMOL/L (136-145); THYROID STIMULATING HORMONE 3.092 uIU/ML (0.55-4.78); TOTAL PROTEIN 7.8 G/DL (5.7-8.2)
[2024-08-26 15:38] LABS: CK-MB VALUE MASS 1.4 NG/ML (<3.6)
[2024-08-26 15:39] LABS: MB/CK RELATIVE INDEX 0.88 (< OR =4)
[2024-08-26 18:02] LABS: CK-MB VALUE MASS 1.3 NG/ML (<3.6)
[2024-08-26 18:09] LABS: MB/CK RELATIVE INDEX 0.79 (< OR =4)
[2024-08-26 18:55] VITALS: BP 107/64; TEMP 97.4; O2SAT 98
== END 2024-08-26 18:58 | disposition home or self-care (01) ==
LOC: M ED 13:39
DX: R07.89 Other chest pain (principal); I48.91 Unspecified atrial fibrillation; I25.10 Atherosclerotic heart disease of native coronary artery without angina pectoris; I25.2 Old myocardial infarction; I10 Essential (primary) hypertension; E78.5 Hyperlipidemia, unspecified; Z98.61 Coronary angioplasty status; F17.220 Nicotine dependence, chewing tobacco, uncomplicated; Z79.4 Long term (current) use of insulin; Z79.01 Long term (current) use of anticoagulants; Z79.899 Other long term (current) drug therapy; Z88.0 Allergy status to penicillin; Z88.2 Allergy status to sulfonamides; Z88.5 Allergy status to narcotic agent; Z88.8 Allergy status to other drugs, medicaments and biological substances

== ENCOUNTER → 2024-08-30 | Outpatient (REF) | payer OTHER ==
[2024-08-30 18:18] LABS: BASO # 0.1 10^3/uL (0.0-0.2); BASO % 0.5 % (0.0-1.0); EOS # 0.2 10^3/uL (0.0-0.5); EOS % 1.6 % (0.0-3.0); HEMATOCRIT 41.6 % (42.0-52.0); HEMOGLOBIN 13.7 g/dl (13.5-17.5); LYMPH % 10.5 % (24.0-44.0); MEAN CORPUSCULAR HGB CONC 32.9 g/dl (32.0-36.5); NEUTROPHILS # 7.1 10^3/uL (1.5-8.5); PLATELET COUNT, AUTOMATED 236 10^3/uL (150-450); RED BLOOD COUNT 4.57 10^6/uL (4.30-6.10); WHITE BLOOD COUNT 9.4 10^3/uL (4.0-10.0)
== END ==
LOC: M SFHCADAM 12:44
PROVIDERS: ATTEND Physician Assistant
DX: R05.1 Acute cough (principal); J45.51 Severe persistent asthma with (acute) exacerbation

== ENCOUNTER → 2024-08-30 | Outpatient (CLI) | payer OTHER | LOC: M ADAMS 11:18 | PROVIDERS: ATTEND Physician Assistant | DX: R05.1 Acute cough (principal) ==

== ENCOUNTER → 2024-10-01 | Outpatient (CLI) | payer OTHER ==
[2024-10-01 12:05] LABS: CHOLESTEROL RISK RATIO 3.01 (<5); HDL CHOLESTEROL 46.1 MG/DL (>40); LDL CHOLESTEROL 69.7 MG/DL (<100); NON-HDL-C 92.9 MG/DL
== END ==
LOC: M LAB 10:48
PROVIDERS: ATTEND Registered Nurse
DX: E78.2 Mixed hyperlipidemia (principal)

== ENCOUNTER → 2024-10-12 | Outpatient (CLI) | payer OTHER ==
[2024-10-12 11:37] LABS: BASO % 0.3 % (0.0-1.0); EOS # 0.1 10^3/uL (0.0-0.5); EOS % 0.7 % (0.0-3.0); HEMATOCRIT 42.9 % (42.0-52.0); HEMOGLOBIN 14.3 g/dl (13.5-17.5); LYMPH # 1.6 10^3/uL (1.5-5.0); LYMPH % 12.3 % (24.0-44.0); MEAN CORPUSCULAR HEMOGLOBIN 29.9 pg (27.0-33.0); MEAN CORPUSCULAR HGB CONC 33.3 g/dl (32.0-36.5); MEAN CORPUSCULAR VOLUME 89.6 fl (80.0-96.0); MONO # 0.9 10^3/uL (0.0-0.8); MONO % 7.1 % (2.0-8.0); NEUTROPHILS # 10.1 10^3/uL (1.5-8.5); NEUTROPHILS % 78.9 % (36.0-66.0); PLATELET COUNT, AUTOMATED 202 10^3/uL (150-450); RED BLOOD COUNT 4.79 10^6/uL (4.30-6.10); WHITE BLOOD COUNT 12.8 10^3/uL (4.0-10.0)
[2024-10-12 12:06] LABS: ALBUMIN 3.8 G/DL (3.2-5.2); ALKALINE PHOSPHATASE 130 U/L (40-129); ALT/SGPT 46 U/L (7.0-40); AST/SGOT 19 U/L (<34); BILIRUBIN,TOTAL 0.6 MG/DL (0.3-1.2); BLOOD UREA NITROGEN 15 MG/DL (9-23); CARBON DIOXIDE LEVEL 34 MMOL/L (20-31); CHLORIDE LEVEL 97 MMOL/L (98-107); CREATININE FOR GFR 0.95 MG/DL (0.70-1.30); GLOMERULAR FILTRATION RATE > 60.0 (>56); GLUCOSE, FASTING 118 MG/DL (60-100); SODIUM LEVEL 139 MMOL/L (136-145); TOTAL PROTEIN 7.3 G/DL (5.7-8.2)
== END ==
LOC: M LAB 10:58
PROVIDERS: ATTEND Registered Nurse
DX: I25.10 Atherosclerotic heart disease of native coronary artery without angina pectoris (principal)

== ENCOUNTER → 2024-10-19 | Outpatient (REF) | payer OTHER | LOC: M LAB REF 16:48 | PROVIDERS: ATTEND Internal Medicine Critical Care Medicine | DX: J45.51 Severe persistent asthma with (acute) exacerbation (principal) ==

== ENCOUNTER → 2024-10-20 | Outpatient (CLI) | payer OTHER ==
[2024-10-20 12:06] LABS: BLOOD UREA NITROGEN 18 MG/DL (9-23); CALCIUM LEVEL 8.8 MG/DL (8.5-10.1); CARBON DIOXIDE LEVEL 31 MMOL/L (20-31); CHLORIDE LEVEL 98 MMOL/L (98-107); CREATININE FOR GFR 0.99 MG/DL (0.70-1.30); GLOMERULAR FILTRATION RATE > 60.0 (>56); GLUCOSE, FASTING 184 MG/DL (60-100); POTASSIUM SERUM 3.8 MMOL/L (3.5-5.1); SODIUM LEVEL 139 MMOL/L (136-145)
== END ==
LOC: M LAB 10:52
PROVIDERS: ATTEND Registered Nurse
DX: I10 Essential (primary) hypertension (principal)

== ENCOUNTER → 2024-10-20 | Outpatient (CLI) | payer OTHER | LOC: M RAD 10:56 | PROVIDERS: ATTEND Internal Medicine Critical Care Medicine | DX: J45.51 Severe persistent asthma with (acute) exacerbation (principal) ==

== ENCOUNTER → 2024-11-10 | Outpatient (REF) | payer OTHER ==
[~2024-11-10] MED LIST changes: -CLOT10TR MT; +CLOT10TR11 MT
[2024-11-10 14:18] LABS: HEMOGLOBIN A1c 8.6 % (4.0-6.0)
== END ==
LOC: M SFHCADAM 08:17
PROVIDERS: ATTEND Physician Assistant
DX: R73.03 Prediabetes (principal)

== ENCOUNTER → 2024-11-27 | Outpatient (CLI) | payer OTHER | LOC: M EKG 12:01 | PROVIDERS: ATTEND Internal Medicine Pulmonary Disease | DX: G47.33 Obstructive sleep apnea (adult) (pediatric) (principal) ==

== ENCOUNTER 2024-12-25 13:32 | Inpatient (IN) | payer MEDICARE, OTHER ==
[~2024-12-25] VITALS: Ht 182.9 cm; Wt 150.6 kg
[~2024-12-25 13:32] MED LIST changes: +AMIT10TA11 PO; -AMIT10TA7 PO
[2024-12-25] MEDS: IPRATROPIUM 0.5 MG/ALBUTEROL 2.5 MG INH SOL UD 3 ML NEB PRN (14:12)
[2024-12-25 14:19] LABS: VENOUS BASE EXCESS 1.6 (-2.0-2.0); VENOUS HCO3 25.7 MMOL/L (23.0-27.0); VENOUS O2 SATURATION 93.5 % (60.0-80.0); VENOUS PARTIAL PRESSURE CO2 38.8 mmHg (38.0-50.0); VENOUS PARTIAL PRESSURE O2 68.1 mmHg (30.0-50.0); VENOUS PH 7.439 UNITS (7.330-7.430); VENOUS STANDARD HCO3 25.8 MMOL/L; VENOUS TOTAL CO2 26.9 MMOL/L (24.0-28.0)
[2024-12-25 14:28] LABS: BASO # 0.1 10^3/uL (0.0-0.2); BASO % 0.7 % (0.0-1.0); EOS # 0.1 10^3/uL (0.0-0.5); EOS % 0.4 % (0.0-3.0); LYMPH # 1.3 10^3/uL (1.5-5.0); LYMPH % 9.6 % (24.0-44.0); MONO # 0.9 10^3/uL (0.0-0.8); MONO % 7.1 % (2.0-8.0); NEUTROPHILS # 10.7 10^3/uL (1.5-8.5); NEUTROPHILS % 81.8 % (36.0-66.0); PLATELET COUNT, AUTOMATED 285 10^3/uL (150-450)
[2024-12-25 15:00] LABS: ALT/SGPT 65.0 U/L (7.0-40); AST/SGOT 44.0 U/L (<34); CALCIUM LEVEL 8.7 MG/DL (8.5-10.1); CARBON DIOXIDE LEVEL 28.0 MMOL/L (20-31); CHLORIDE LEVEL 101.0 MMOL/L (98-107); CREATININE FOR GFR 1.01 MG/DL (0.70-1.30); GLOMERULAR FILTRATION RATE 90.0 (>56); POTASSIUM SERUM 3.6 MMOL/L (3.5-5.1); SODIUM LEVEL 140.0 MMOL/L (136-145)
[2024-12-25] MEDS ORDERED: TIRZ2.5P INJ (15:37)
[2024-12-25] MEDS ORDERED: JARD1TAB3 PO (15:37)
[2024-12-25] MEDS ORDERED: DILT180C78 PO (15:37)
[2024-12-25] MEDS ORDERED: POTA-298 PO (15:40)
[2024-12-25] MEDS ORDERED: ISOS1TAB35 PO (15:44)
[2024-12-25] MEDS ORDERED: SPIR-10 PO (15:44)
[2024-12-25] MEDS ORDERED: DIGO0.123 PO (15:45)
[2024-12-25] MEDS ORDERED: HOME MED LIST COMPLETE! XX SCH (15:45)
[2024-12-25] MEDS ORDERED: MAG SULF 1GM/100ML (MAG RUN) 2 GM in IV 1 EA IV ONE (16:15)
[2024-12-25] MEDS ORDERED: GLUCAGON INJ 1 MG VIAL SC PRN (16:25)
[2024-12-25] MEDS ORDERED: GLUCOSE 4 GM CHEW PO PRN (16:25)
[2024-12-25] MEDS ORDERED: DEXTROSE 50% 50 ML SYRINGE IV PRN (16:25)
[2024-12-25] MEDS: MAG SULF 1GM/100ML (MAG RUN) 1 GM in IV 1 EA IV SCH (17:17)
[2024-12-25] MEDS: FUROSEMIDE 40 MG TAB PO SCH (17:17)
[2024-12-25 17:33] VITALS: BP 128/65; TEMP 98.3; O2SAT 92
[2024-12-25 18:16] LABS: ESTIMATED AVERAGE GLUCOSE 123.0 MG/DL (60-110)
[2024-12-25] MEDS: INSULIN LISPRO (NovoLOG) PER UNIT SC SCH ×2 (18:43→21:00)
[2024-12-25] MEDS: IPRATROPIUM 0.5 MG/ALBUTEROL 2.5 MG INH SOL UD 3 ML NEB SCH (18:58)
[2024-12-25] MEDS: BUDESONIDE 0.25 MG/2 ML INHALATION SUSPENSION INH SCH (19:00)
[2024-12-25 20:17] VITALS: BP 129/69; O2SAT 91
[2024-12-25] MEDS: POTASSIUM CHLORIDE 10MEQ SR TABLET PO SCH (20:24)
[2024-12-25] MEDS: APIXABAN 5 MG TAB PO SCH (20:24)
[2024-12-25] MEDS: dilTIAZem 180 MG **CD** CAPSULE PO SCH (20:24)
[2024-12-25 20:34] VITALS: TEMP 98.9
[2024-12-25 20:39] VITALS: BP 133/60; TEMP 98.1; O2SAT 92
[2024-12-26 00:21] VITALS: BP 107/63; TEMP 97.5; O2SAT 94
[2024-12-26 03:23] VITALS: BP 130/73; TEMP 97; O2SAT 90
[2024-12-26 05:42] LABS: PLATELET COUNT, AUTOMATED 243 10^3/uL (150-450)
[2024-12-26 06:12] LABS: CALCIUM LEVEL 9.1 MG/DL (8.5-10.1); CARBON DIOXIDE LEVEL 28 MMOL/L (20-31); CHLORIDE LEVEL 101 MMOL/L (98-107); CREATININE FOR GFR 0.92 MG/DL (0.70-1.30); GLOMERULAR FILTRATION RATE > 90.0 (>56); POTASSIUM SERUM 3.5 MMOL/L (3.5-5.1); SODIUM LEVEL 138 MMOL/L (136-145)
[2024-12-26] MEDS: TIOTROPIUM BROM 2.5MCG/ACTUATION 4GM INH INH SCH (07:05)
[2024-12-26 08:17] VITALS: BP 147/69; TEMP 97.2; O2SAT 96
[2024-12-26] MEDS ORDERED: PILL CUTTER 1 EACH XX ONE (08:46)
[2024-12-26] MEDS: FLUTICASONE PROPIONATE 0.05% NASAL SPRAY 16 GM NARES SCH (08:53)
[2024-12-26] MEDS: MONTELUKAST 10 MG TAB PO SCH (08:54)
[2024-12-26] MEDS: LOSARTAN 50 MG TABLET PO SCH (08:54)
[2024-12-26] MEDS: ISOSORBIDE MONONITRATE 30 MG XR TAB PO SCH (08:54)
[2024-12-26] MEDS: FAMOTIDINE 20 MG TAB PO SCH (08:54)
[2024-12-26] MEDS: CLOPIDOGREL 75 MG TAB PO SCH (08:55)
[2024-12-26] MEDS: CETIRIZINE 10 MG TAB PO SCH (08:58)
[2024-12-26] MEDS: PANTOPRAZOLE 40MG TAB PO SCH (08:58)
[2024-12-26] MEDS: SPIRONOLACTONE 25 MG TAB PO SCH (08:59)
[2024-12-26] MEDS: DIGOXIN 0.125 MG TAB PO SCH (08:59)
[2024-12-26 11:09] VITALS: BP 135/78; TEMP 97.4; O2SAT 94
[2024-12-26 11:35] LABS: ALT/SGPT 58 U/L (7.0-40); AST/SGOT 27 U/L (<34)
[2024-12-26] MEDS ORDERED: NITR0.4S14 SL (12:02)
[2024-12-26] MEDS ORDERED: NITROGLYCERIN 0.4MG SUBL TABLET SL PRN (12:15)
[2024-12-26 15:49] VITALS: BP 127/59; TEMP 98.2; O2SAT 91
[2024-12-26 19:22] VITALS: BP 139/76; TEMP 98.2; O2SAT 94
[2024-12-27] VITALS (7 sets, daily range): BP systolic 105–128; BP diastolic 48–63; TEMP 97–98.3; O2SAT 91–94
[2024-12-27 05:29] LABS: BASO # 0.0 10^3/uL (0.0-0.2); BASO % 0.1 % (0.0-1.0); EOS # 0.0 10^3/uL (0.0-0.5); EOS % 0.0 % (0.0-3.0); LYMPH # 0.4 10^3/uL (1.5-5.0); LYMPH % 3.0 % (24.0-44.0); MONO # 0.4 10^3/uL (0.0-0.8); MONO % 2.8 % (2.0-8.0); NEUTROPHILS # 13.3 10^3/uL (1.5-8.5); NEUTROPHILS % 93.5 % (36.0-66.0); PLATELET COUNT, AUTOMATED 250 10^3/uL (150-450)
[2024-12-27 05:57] LABS: CALCIUM LEVEL 8.7 MG/DL (8.5-10.1); CARBON DIOXIDE LEVEL 27.0 MMOL/L (20-31); CHLORIDE LEVEL 102.0 MMOL/L (98-107); CREATININE FOR GFR 1.05 MG/DL (0.70-1.30); GLOMERULAR FILTRATION RATE 85.9 (>56); MAGNESIUM LEVEL 3.0 MG/DL (1.8-2.4); POTASSIUM SERUM 3.8 MMOL/L (3.5-5.1); SODIUM LEVEL 140.0 MMOL/L (136-145)
[2024-12-27] MEDS: AZITHROMYCIN 250 MG TABLET PO SCH (13:01)
[2024-12-28 04:58] VITALS: BP 109/59; TEMP 96.9; O2SAT 93
[2024-12-28 05:45] LABS: BASO # 0.0 10^3/uL (0.0-0.2); BASO % 0.1 % (0.0-1.0); EOS # 0.0 10^3/uL (0.0-0.5); EOS % 0.0 % (0.0-3.0); LYMPH # 0.5 10^3/uL (1.5-5.0); LYMPH % 3.7 % (24.0-44.0); MONO # 0.3 10^3/uL (0.0-0.8); MONO % 2.4 % (2.0-8.0); NEUTROPHILS # 12.2 10^3/uL (1.5-8.5); NEUTROPHILS % 93.1 % (36.0-66.0); PLATELET COUNT, AUTOMATED 264 10^3/uL (150-450)
[2024-12-28 06:02] LABS: CALCIUM LEVEL 8.5 MG/DL (8.5-10.1); CARBON DIOXIDE LEVEL 28.0 MMOL/L (20-31); CHLORIDE LEVEL 104.0 MMOL/L (98-107); CREATININE FOR GFR 1.05 MG/DL (0.70-1.30); GLOMERULAR FILTRATION RATE 85.9 (>56); MAGNESIUM LEVEL 2.4 MG/DL (1.8-2.4); POTASSIUM SERUM 4.0 MMOL/L (3.5-5.1); SODIUM LEVEL 143.0 MMOL/L (136-145)
[2024-12-28 08:12] VITALS: BP 129/60; TEMP 97.2; O2SAT 96
[2024-12-28 12:00] VITALS: BP 121/67; TEMP 98.1; O2SAT 94
[2024-12-28 15:56] VITALS: BP 118/59; TEMP 98.1; O2SAT 93
[2024-12-28] MEDS: BUDESONIDE 0.25 MG/2 ML INHALATION SUSPENSION INH SCH (19:18)
[2024-12-28 19:45] VITALS: BP 117/58; TEMP 97.9; O2SAT 93
[2024-12-28] MEDS: ACETAMINOPHEN 325 MG TAB PO PRN (23:20)
[2024-12-28 23:29] VITALS: BP 109/56; TEMP 97.4; O2SAT 94
[2024-12-29 04:18] VITALS: BP 122/59; TEMP 97.9; O2SAT 92
[2024-12-29 07:52] LABS: BASO # 0.0 10^3/uL (0.0-0.2); BASO % 0.1 % (0.0-1.0); EOS # 0.0 10^3/uL (0.0-0.5); EOS % 0.0 % (0.0-3.0); LYMPH # 0.5 10^3/uL (1.5-5.0); LYMPH % 4.8 % (24.0-44.0); MONO # 0.3 10^3/uL (0.0-0.8); MONO % 2.5 % (2.0-8.0); NEUTROPHILS # 10.3 10^3/uL (1.5-8.5); NEUTROPHILS % 91.5 % (36.0-66.0); PLATELET COUNT, AUTOMATED 217 10^3/uL (150-450)
[2024-12-29 08:02] VITALS: BP 144/67; TEMP 97.6; O2SAT 95
[2024-12-29 08:16] LABS: CALCIUM LEVEL 8.6 MG/DL (8.5-10.1); CARBON DIOXIDE LEVEL 29.0 MMOL/L (20-31); CHLORIDE LEVEL 103.0 MMOL/L (98-107); CREATININE FOR GFR 1.08 MG/DL (0.70-1.30); GLOMERULAR FILTRATION RATE 83.1 (>56); MAGNESIUM LEVEL 2.4 MG/DL (1.8-2.4); POTASSIUM SERUM 4.1 MMOL/L (3.5-5.1); SODIUM LEVEL 143.0 MMOL/L (136-145)
[2024-12-29] MEDS: FUROSEMIDE 40 MG/4 ML VIAL IV SCH (08:25)
[2024-12-29] MEDS: AZITHROMYCIN 250 MG TABLET PO SCH (08:27)
[2024-12-29 11:46] VITALS: BP 149/63; TEMP 97.7; O2SAT 93
[2024-12-29 16:01] VITALS: BP 112/56; TEMP 97.4; O2SAT 91
[2024-12-29 20:25] VITALS: BP 121/63; TEMP 97.8; O2SAT 92
[2024-12-30] VITALS (7 sets, daily range): BP systolic 116–135; BP diastolic 56–69; TEMP 97.3–98.4; O2SAT 91–95
[2024-12-30 06:06] LABS: BASO # 0.0 10^3/uL (0.0-0.2); BASO % 0.1 % (0.0-1.0); EOS # 0.0 10^3/uL (0.0-0.5); EOS % 0.0 % (0.0-3.0); LYMPH # 0.4 10^3/uL (1.5-5.0); LYMPH % 4.4 % (24.0-44.0); MONO # 0.2 10^3/uL (0.0-0.8); MONO % 2.4 % (2.0-8.0); NEUTROPHILS # 8.8 10^3/uL (1.5-8.5); NEUTROPHILS % 92.0 % (36.0-66.0); PLATELET COUNT, AUTOMATED 211 10^3/uL (150-450)
[2024-12-30 06:37] LABS: CALCIUM LEVEL 8.3 MG/DL (8.5-10.1); CARBON DIOXIDE LEVEL 28 MMOL/L (20-31); CHLORIDE LEVEL 103 MMOL/L (98-107); CREATININE FOR GFR 0.96 MG/DL (0.70-1.30); DIGOXIN LEVEL 0.5 NG/ML (0.8-2.0); GLOMERULAR FILTRATION RATE > 90.0 (>56); MAGNESIUM LEVEL 2.5 MG/DL (1.8-2.4); POTASSIUM SERUM 4.0 MMOL/L (3.5-5.1); SODIUM LEVEL 141 MMOL/L (136-145)
[2024-12-31 03:35] VITALS: BP 133/61; TEMP 97.5; O2SAT 96
[2024-12-31 05:31] LABS: BASO # 0.0 10^3/uL (0.0-0.2); BASO % 0.1 % (0.0-1.0); EOS # 0.0 10^3/uL (0.0-0.5); EOS % 0.0 % (0.0-3.0); LYMPH # 0.3 10^3/uL (1.5-5.0); LYMPH % 2.7 % (24.0-44.0); MONO # 0.3 10^3/uL (0.0-0.8); MONO % 3.2 % (2.0-8.0); NEUTROPHILS # 8.9 10^3/uL (1.5-8.5); NEUTROPHILS % 93.1 % (36.0-66.0); PLATELET COUNT, AUTOMATED 211 10^3/uL (150-450)
[2024-12-31 05:57] LABS: CALCIUM LEVEL 8.1 MG/DL (8.5-10.1); CARBON DIOXIDE LEVEL 27.0 MMOL/L (20-31); CHLORIDE LEVEL 103.0 MMOL/L (98-107); CREATININE FOR GFR 1.02 MG/DL (0.70-1.30); GLOMERULAR FILTRATION RATE 89.0 (>56); MAGNESIUM LEVEL 2.5 MG/DL (1.8-2.4); POTASSIUM SERUM 3.6 MMOL/L (3.5-5.1); SODIUM LEVEL 141.0 MMOL/L (136-145)
[2024-12-31 08:00] VITALS: BP 155/84; TEMP 97.2; O2SAT 92
[2024-12-31] MEDS: LanTUS (INSULIN GLARGINE INJ) 1 UNITS/0.01 ML SC SCH ×2 (08:37→20:10)
[2024-12-31 11:27] VITALS: BP 136/61; TEMP 97.6; O2SAT 96
[2024-12-31 16:05] VITALS: BP 127/62; TEMP 97.6; O2SAT 96
[2024-12-31 20:05] VITALS: BP 131/77; TEMP 98.4; O2SAT 92
[2025-01-01 04:04] VITALS: BP 127/66; TEMP 97.1; O2SAT 91
[2025-01-01 06:10] LABS: BASO # 0.0 10^3/uL (0.0-0.2); BASO % 0.1 % (0.0-1.0); EOS # 0.0 10^3/uL (0.0-0.5); EOS % 0.0 % (0.0-3.0); LYMPH # 0.3 10^3/uL (1.5-5.0); LYMPH % 2.8 % (24.0-44.0); MONO # 0.2 10^3/uL (0.0-0.8); MONO % 2.5 % (2.0-8.0); NEUTROPHILS # 8.8 10^3/uL (1.5-8.5); NEUTROPHILS % 93.6 % (36.0-66.0); PLATELET COUNT, AUTOMATED 191 10^3/uL (150-450)
[2025-01-01 06:29] LABS: CALCIUM LEVEL 8.3 MG/DL (8.5-10.1); CARBON DIOXIDE LEVEL 31.0 MMOL/L (20-31); CHLORIDE LEVEL 102.0 MMOL/L (98-107); CREATININE FOR GFR 1.25 MG/DL (0.70-1.30); GLOMERULAR FILTRATION RATE 69.7 (>56); MAGNESIUM LEVEL 2.6 MG/DL (1.8-2.4); POTASSIUM SERUM 3.9 MMOL/L (3.5-5.1); SODIUM LEVEL 143.0 MMOL/L (136-145)
[2025-01-01 07:47] VITALS: BP 137/72; TEMP 98.1; O2SAT 95
[2025-01-01] MEDS: LEVALBUTEROL 1.25 MG 0.5ML CONCENTRATE NEB INH PRN (07:55)
[2025-01-01] MEDS: FUROSEMIDE 40 MG TAB PO SCH (08:08)
[2025-01-01 11:57] VITALS: BP 109/53; TEMP 98.3; O2SAT 95
[2025-01-01 12:14] VITALS: BP 106/57; TEMP 97.7; O2SAT 95
[2025-01-01] MEDS ORDERED: IPRATROPIUM HFA INHALER 12.9 GRAMS INH PRN (12:50)
[2025-01-01] MEDS: GABAPENTIN 300 MG CAP PO SCH (13:58)
[2025-01-01 18:00] VITALS: BP 139/69; TEMP 97.3; O2SAT 96
[2025-01-01] MEDS: DUPILUMAB SQ SCH (18:05)
[2025-01-01 20:17] VITALS: BP 128/63; TEMP 97.4; O2SAT 96
[2025-01-01] MEDS: LanTUS (INSULIN GLARGINE INJ) 1 UNITS/0.01 ML SC SCH (21:08)
[2025-01-02 03:12] VITALS: BP 113/55; TEMP 97.3; O2SAT 95
[2025-01-02] MEDS: IPRATROPIUM HFA INHALER 12.9 GRAMS INH SCH ×2 (06:00→13:45)
[2025-01-02 07:25] LABS: BASO # 0.0 10^3/uL (0.0-0.2); BASO % 0.1 % (0.0-1.0); EOS # 0.0 10^3/uL (0.0-0.5); EOS % 0.0 % (0.0-3.0); LYMPH # 0.4 10^3/uL (1.5-5.0); LYMPH % 3.4 % (24.0-44.0); MONO # 0.5 10^3/uL (0.0-0.8); MONO % 5.1 % (2.0-8.0); NEUTROPHILS # 9.5 10^3/uL (1.5-8.5); NEUTROPHILS % 89.5 % (36.0-66.0); PLATELET COUNT, AUTOMATED 182 10^3/uL (150-450)
[2025-01-02 07:48] LABS: CALCIUM LEVEL 8.3 MG/DL (8.5-10.1); CARBON DIOXIDE LEVEL 28.0 MMOL/L (20-31); CHLORIDE LEVEL 101.0 MMOL/L (98-107); CREATININE FOR GFR 1.01 MG/DL (0.70-1.30); GLOMERULAR FILTRATION RATE 90.0 (>56); MAGNESIUM LEVEL 2.6 MG/DL (1.8-2.4); POTASSIUM SERUM 3.7 MMOL/L (3.5-5.1); SODIUM LEVEL 142.0 MMOL/L (136-145)
[2025-01-02 07:56] VITALS: BP 140/80; TEMP 98.3; O2SAT 96
[2025-01-02] MEDS: predniSONE 20 MG TAB PO SCH (08:56)
[2025-01-02] MEDS ORDERED: DEXTROMETHORPHAN 60 MG/10 ML SUSP 90 ML BTL PO SCH (11:35)
[2025-01-02 12:30] VITALS: BP 136/75
[2025-01-02] MEDS: DEXTROMETHORPHAN 60 MG/10 ML SUSP 90 ML BTL PO SCH (12:31)
[2025-01-02] MEDS: FUROSEMIDE 20 MG/2 ML VIAL IV ONE (12:36)
[2025-01-02 16:00] VITALS: BP 129/68; TEMP 98.1; O2SAT 95
[2025-01-02 20:02] VITALS: BP 133/65; TEMP 97.8; O2SAT 93
[2025-01-02] MEDS: GABAPENTIN 300 MG CAP PO SCH (21:54)
[2025-01-03 04:26] VITALS: BP 132/91; TEMP 97.9; O2SAT 95
[2025-01-03 07:45] VITALS: BP 160/72; TEMP 97.8; O2SAT 96
[2025-01-03 08:23] LABS: BASO # 0.0 10^3/uL (0.0-0.2); BASO % 0.1 % (0.0-1.0); EOS # 0.0 10^3/uL (0.0-0.5); EOS % 0.2 % (0.0-3.0); LYMPH # 1.3 10^3/uL (1.5-5.0); LYMPH % 12.9 % (24.0-44.0); MONO # 0.7 10^3/uL (0.0-0.8); MONO % 6.4 % (2.0-8.0); NEUTROPHILS # 8.2 10^3/uL (1.5-8.5); NEUTROPHILS % 79.3 % (36.0-66.0); PLATELET COUNT, AUTOMATED 171 10^3/uL (150-450)
[2025-01-03 08:58] LABS: CALCIUM LEVEL 7.9 MG/DL (8.5-10.1); CARBON DIOXIDE LEVEL 35.0 MMOL/L (20-31); CHLORIDE LEVEL 101.0 MMOL/L (98-107); CREATININE FOR GFR 1.2 MG/DL (0.70-1.30); GLOMERULAR FILTRATION RATE 73.2 (>56); MAGNESIUM LEVEL 2.5 MG/DL (1.8-2.4); POTASSIUM SERUM 3.9 MMOL/L (3.5-5.1); SODIUM LEVEL 145.0 MMOL/L (136-145)
[2025-01-03 15:56] VITALS: BP 143/58; TEMP 98.1; O2SAT 97
[2025-01-03 19:36] VITALS: BP 107/52; TEMP 97.3; O2SAT 90
[2025-01-04 03:22] VITALS: BP 136/74; TEMP 97.1; O2SAT 93
[2025-01-04 07:57] VITALS: BP 145/70; TEMP 97.7; O2SAT 95
[2025-01-04] MEDS: DAPSONE 100 MG TAB PO SCH (14:04)
[2025-01-04 15:40] VITALS: BP 132/73; TEMP 98.5; O2SAT 91
[2025-01-04 20:00] VITALS: BP 134/74; TEMP 99; O2SAT 93
[2025-01-05 03:33] VITALS: BP 128/84; TEMP 97.3; O2SAT 96
[2025-01-05 06:17] LABS: BASO # 0.0 10^3/uL (0.0-0.2); BASO % 0.1 % (0.0-1.0); EOS # 0.0 10^3/uL (0.0-0.5); EOS % 0.0 % (0.0-3.0); LYMPH # 0.2 10^3/uL (1.5-5.0); LYMPH % 1.9 % (24.0-44.0); MONO # 0.1 10^3/uL (0.0-0.8); MONO % 0.9 % (2.0-8.0); NEUTROPHILS # 11.2 10^3/uL (1.5-8.5); NEUTROPHILS % 96.2 % (36.0-66.0); PLATELET COUNT, AUTOMATED 158 10^3/uL (150-450)
[2025-01-05 06:54] LABS: CALCIUM LEVEL 8.5 MG/DL (8.5-10.1); CARBON DIOXIDE LEVEL 27 MMOL/L (20-31); CHLORIDE LEVEL 103 MMOL/L (98-107); CREATININE FOR GFR 0.87 MG/DL (0.70-1.30); GLOMERULAR FILTRATION RATE > 90.0 (>56); POTASSIUM SERUM 4.1 MMOL/L (3.5-5.1); SODIUM LEVEL 141 MMOL/L (136-145)
[2025-01-05 07:30] VITALS: BP 152/72; TEMP 97.5; O2SAT 98
[2025-01-05] MEDS ORDERED: BACTRIM 160MG/800MG DS TAB PO SCH (09:00)
[2025-01-05 11:25] LABS: MAGNESIUM LEVEL 2.5 MG/DL (1.8-2.4)
[2025-01-05 11:58] VITALS: BP 122/64; TEMP 98; O2SAT 95
[2025-01-05 15:58] VITALS: BP 137/64; TEMP 97.1; O2SAT 92
[2025-01-05 20:04] VITALS: BP 138/64; TEMP 98.5; O2SAT 91
[2025-01-06 03:42] VITALS: BP 157/71; TEMP 98.2; O2SAT 90
[2025-01-06 06:30] LABS: BASO # 0.0 10^3/uL (0.0-0.2); BASO % 0.1 % (0.0-1.0); EOS # 0.0 10^3/uL (0.0-0.5); EOS % 0.0 % (0.0-3.0); LYMPH # 0.2 10^3/uL (1.5-5.0); LYMPH % 1.6 % (24.0-44.0); MONO # 0.4 10^3/uL (0.0-0.8); MONO % 2.8 % (2.0-8.0); NEUTROPHILS # 14.0 10^3/uL (1.5-8.5); NEUTROPHILS % 94.0 % (36.0-66.0); PLATELET COUNT, AUTOMATED 163 10^3/uL (150-450)
[2025-01-06 07:04] LABS: CALCIUM LEVEL 8.4 MG/DL (8.5-10.1); CARBON DIOXIDE LEVEL 28 MMOL/L (20-31); CHLORIDE LEVEL 103 MMOL/L (98-107); CREATININE FOR GFR 0.89 MG/DL (0.70-1.30); GLOMERULAR FILTRATION RATE > 90.0 (>56); POTASSIUM SERUM 4.3 MMOL/L (3.5-5.1); SODIUM LEVEL 141 MMOL/L (136-145)
[2025-01-06] MEDS ORDERED: ISOVUE-370 76% 100 ML VIAL As Ordered ONE (07:16)
[2025-01-06 07:30] VITALS: BP 162/73; TEMP 97.7; O2SAT 92
[2025-01-06] MEDS: FUROSEMIDE 20 MG/2 ML VIAL IV ONE (12:46)
[2025-01-06 15:35] VITALS: BP 119/69; TEMP 98.6; O2SAT 95
[2025-01-06 17:34] VITALS: BP 135/68
[2025-01-06 20:11] VITALS: BP 144/67; TEMP 98.6; O2SAT 90
[2025-01-07 03:11] VITALS: BP 150/81; TEMP 97.2; O2SAT 91
[2025-01-07 07:03] LABS: BASO # 0.0 10^3/uL (0.0-0.2); BASO % 0.1 % (0.0-1.0); EOS # 0.0 10^3/uL (0.0-0.5); EOS % 0.0 % (0.0-3.0); LYMPH # 0.2 10^3/uL (1.5-5.0); LYMPH % 1.3 % (24.0-44.0); MONO # 0.4 10^3/uL (0.0-0.8); MONO % 2.8 % (2.0-8.0); NEUTROPHILS # 12.6 10^3/uL (1.5-8.5); NEUTROPHILS % 94.4 % (36.0-66.0); PLATELET COUNT, AUTOMATED 159 10^3/uL (150-450)
[2025-01-07 07:27] LABS: CALCIUM LEVEL 8.7 MG/DL (8.5-10.1); CARBON DIOXIDE LEVEL 30 MMOL/L (20-31); CHLORIDE LEVEL 101 MMOL/L (98-107); CREATININE FOR GFR 0.95 MG/DL (0.70-1.30); GLOMERULAR FILTRATION RATE > 90.0 (>56); POTASSIUM SERUM 4.4 MMOL/L (3.5-5.1); SODIUM LEVEL 140 MMOL/L (136-145)
[2025-01-07 07:45] VITALS: BP 163/78; TEMP 97.8; O2SAT 91
[2025-01-07 15:57] VITALS: BP 136/62; TEMP 97.6; O2SAT 90
[2025-01-07] MEDS: BUDESONIDE 0.5 MG/2 ML INHALATION SUSPENSION INH SCH (19:23)
[2025-01-07 20:06] VITALS: BP 136/70; TEMP 97.8; O2SAT 92
[2025-01-08 03:55] VITALS: BP 158/68; TEMP 98; O2SAT 90
[2025-01-08 05:06] LABS: BASO # 0.0 10^3/uL (0.0-0.2); BASO % 0.1 % (0.0-1.0); EOS # 0.0 10^3/uL (0.0-0.5); EOS % 0.0 % (0.0-3.0); LYMPH # 0.2 10^3/uL (1.5-5.0); LYMPH % 2.1 % (24.0-44.0); MONO # 0.4 10^3/uL (0.0-0.8); MONO % 4.1 % (2.0-8.0); NEUTROPHILS # 9.7 10^3/uL (1.5-8.5); NEUTROPHILS % 92.7 % (36.0-66.0); PLATELET COUNT, AUTOMATED 144 10^3/uL (150-450)
[2025-01-08 05:39] LABS: CALCIUM LEVEL 8.6 MG/DL (8.5-10.1); CARBON DIOXIDE LEVEL 30 MMOL/L (20-31); CHLORIDE LEVEL 100 MMOL/L (98-107); CREATININE FOR GFR 0.92 MG/DL (0.70-1.30); GLOMERULAR FILTRATION RATE > 90.0 (>56); POTASSIUM SERUM 4.5 MMOL/L (3.5-5.1); SODIUM LEVEL 141 MMOL/L (136-145)
[2025-01-08 08:19] VITALS: BP 172/70; TEMP 97.9; O2SAT 92
[2025-01-08 12:28] VITALS: BP 151/76; TEMP 97.8; O2SAT 95
[2025-01-08 19:27] VITALS: BP 149/69; TEMP 97.7; O2SAT 91
[2025-01-09 04:48] VITALS: BP 143/72; TEMP 97.1; O2SAT 92
[2025-01-09 05:39] LABS: BASO # 0.0 10^3/uL (0.0-0.2); BASO % 0.1 % (0.0-1.0); EOS # 0.0 10^3/uL (0.0-0.5); EOS % 0.0 % (0.0-3.0); LYMPH # 0.4 10^3/uL (1.5-5.0); LYMPH % 3.9 % (24.0-44.0); MONO # 0.3 10^3/uL (0.0-0.8); MONO % 3.0 % (2.0-8.0); NEUTROPHILS # 8.3 10^3/uL (1.5-8.5); NEUTROPHILS % 91.7 % (36.0-66.0); PLATELET COUNT, AUTOMATED 131 10^3/uL (150-450)
[2025-01-09 05:54] LABS: CALCIUM LEVEL 8.0 MG/DL (8.5-10.1); CARBON DIOXIDE LEVEL 28 MMOL/L (20-31); CHLORIDE LEVEL 101 MMOL/L (98-107); CREATININE FOR GFR 0.93 MG/DL (0.70-1.30); GLOMERULAR FILTRATION RATE > 90.0 (>56); POTASSIUM SERUM 4.7 MMOL/L (3.5-5.1); SODIUM LEVEL 139 MMOL/L (136-145)
[2025-01-09 12:48] VITALS: BP 130/61; TEMP 97.3; O2SAT 91
[2025-01-09 15:48] VITALS: BP 145/76; TEMP 97.2; O2SAT 95
[2025-01-09] MEDS: FUROSEMIDE 100 MG/10 ML VIAL IV SCH (16:20)
[2025-01-09 19:21] VITALS: BP 155/79; TEMP 97; O2SAT 93
[2025-01-10 03:16] VITALS: BP 133/66; TEMP 96.8; O2SAT 95
[2025-01-10 06:07] LABS: BASO # 0.0 10^3/uL (0.0-0.2); BASO % 0.1 % (0.0-1.0); EOS # 0.0 10^3/uL (0.0-0.5); EOS % 0.0 % (0.0-3.0); LYMPH # 0.4 10^3/uL (1.5-5.0); LYMPH % 4.3 % (24.0-44.0); MONO # 0.2 10^3/uL (0.0-0.8); MONO % 2.1 % (2.0-8.0); NEUTROPHILS # 9.4 10^3/uL (1.5-8.5); NEUTROPHILS % 92.6 % (36.0-66.0); PLATELET COUNT, AUTOMATED 131 10^3/uL (150-450)
[2025-01-10 06:31] LABS: CALCIUM LEVEL 8.4 MG/DL (8.5-10.1); CARBON DIOXIDE LEVEL 28 MMOL/L (20-31); CHLORIDE LEVEL 98 MMOL/L (98-107); CREATININE FOR GFR 1.00 MG/DL (0.70-1.30); GLOMERULAR FILTRATION RATE > 90.0 (>56); POTASSIUM SERUM 4.2 MMOL/L (3.5-5.1); SODIUM LEVEL 140 MMOL/L (136-145)
[2025-01-10 07:26] VITALS: BP 169/79; TEMP 97.2; O2SAT 92
[2025-01-10 12:31] VITALS: BP 136/70; TEMP 96.9; O2SAT 92
[2025-01-10] MEDS: FUROSEMIDE 20 MG/2 ML VIAL IV SCH (12:51)
[2025-01-10] MEDS: BUDESONIDE 0.5 MG/2 ML INHALATION SUSPENSION INH SCH (16:48)
[2025-01-10 19:25] VITALS: BP 134/60; TEMP 97; O2SAT 90
[2025-01-10] MEDS: ACETAMINOPH W/CODEINE #3 TAB UD PO SCH (21:12)
[2025-01-10] MEDS: FUROSEMIDE 40 MG/4 ML VIAL IV SCH (21:13)
[2025-01-11] VITALS (8 sets, daily range): BP systolic 138–170; BP diastolic 72–91; TEMP 96.9–99.1; O2SAT 92–93
[2025-01-11 06:50] LABS: BASO # 0.0 10^3/uL (0.0-0.2); BASO % 0.1 % (0.0-1.0); EOS # 0.0 10^3/uL (0.0-0.5); EOS % 0.0 % (0.0-3.0); LYMPH # 0.4 10^3/uL (1.5-5.0); LYMPH % 4.2 % (24.0-44.0); MONO # 0.2 10^3/uL (0.0-0.8); MONO % 1.8 % (2.0-8.0); NEUTROPHILS # 9.2 10^3/uL (1.5-8.5); NEUTROPHILS % 93.4 % (36.0-66.0); PLATELET COUNT, AUTOMATED 115 10^3/uL (150-450)
[2025-01-11 07:11] LABS: LDH LACTATE DEHYDROGENASE 375 U/L (120-246)
[2025-01-11 07:12] LABS: ALT/SGPT 57 U/L (7.0-40); AST/SGOT 27 U/L (<34); CALCIUM LEVEL 8.0 MG/DL (8.5-10.1); CARBON DIOXIDE LEVEL 33 MMOL/L (20-31); CHLORIDE LEVEL 97 MMOL/L (98-107); CHOLESTEROL LEVEL 179 MG/DL (<200); CREATININE FOR GFR 1.03 MG/DL (0.70-1.30); GLOMERULAR FILTRATION RATE 88.0 (>56); PHOSPHORUS LEVEL 4.7 MG/DL (2.5-4.9); POTASSIUM SERUM 4.4 MMOL/L (3.5-5.1); RHEUMATOID FACTOR QUANT < 3.5 IU/ML (<14); SODIUM LEVEL 141 MMOL/L (136-145); TRIGLYCERIDES LEVEL 112 MG/DL (<150)
[2025-01-11 07:18] LABS: CPK CREATINE PHOSPHOKINASE 211 U/L (46-171)
[2025-01-12 04:54] VITALS: BP 148/74; TEMP 97.5; O2SAT 95
[2025-01-12 12:00] VITALS: BP 150/69; TEMP 97.5; O2SAT 92
[2025-01-12 20:00] VITALS: BP 168/85; TEMP 97.3; O2SAT 92
[2025-01-13 03:53] VITALS: BP 158/56; TEMP 97; O2SAT 94
[2025-01-13 05:54] LABS: BASO # 0.0 10^3/uL (0.0-0.2); BASO % 0.1 % (0.0-1.0); EOS # 0.0 10^3/uL (0.0-0.5); EOS % 0.0 % (0.0-3.0); LYMPH # 0.3 10^3/uL (1.5-5.0); LYMPH % 2.2 % (24.0-44.0); MONO # 0.3 10^3/uL (0.0-0.8); MONO % 2.0 % (2.0-8.0); NEUTROPHILS # 12.3 10^3/uL (1.5-8.5); NEUTROPHILS % 95.1 % (36.0-66.0); PLATELET COUNT, AUTOMATED 117 10^3/uL (150-450)
[2025-01-13 06:30] LABS: CALCIUM LEVEL 8.5 MG/DL (8.5-10.1); CARBON DIOXIDE LEVEL 28 MMOL/L (20-31); CHLORIDE LEVEL 98 MMOL/L (98-107); CREATININE FOR GFR 0.99 MG/DL (0.70-1.30); GLOMERULAR FILTRATION RATE > 90.0 (>56); POTASSIUM SERUM 4.4 MMOL/L (3.5-5.1); SODIUM LEVEL 138 MMOL/L (136-145)
[2025-01-13 06:37] LABS: IMMUNOGLOBULIN E < 2.5 IU/ML (0-378)
[2025-01-13 12:00] VITALS: BP 167/92; TEMP 97; O2SAT 95
[2025-01-13 20:58] VITALS: BP 167/70; TEMP 98.2; O2SAT 92
[2025-01-14 05:01] VITALS: BP 152/64; TEMP 98.1; O2SAT 91
[2025-01-14 11:47] VITALS: BP 155/70; TEMP 97.1; O2SAT 94
[2025-01-14 19:32] VITALS: BP 150/68; TEMP 97.7; O2SAT 93
[2025-01-14] MEDS: LanTUS (INSULIN GLARGINE INJ) 1 UNITS/0.01 ML SC SCH (22:07)
[2025-01-15 06:06] VITALS: BP 160/70; TEMP 98.1; O2SAT 90
[2025-01-15 06:38] LABS: CALCIUM LEVEL 8.5 MG/DL (8.5-10.1); CARBON DIOXIDE LEVEL 31 MMOL/L (20-31); CHLORIDE LEVEL 98 MMOL/L (98-107); CREATININE FOR GFR 0.97 MG/DL (0.70-1.30); GLOMERULAR FILTRATION RATE > 90.0 (>56); POTASSIUM SERUM 4.4 MMOL/L (3.5-5.1); SODIUM LEVEL 140 MMOL/L (136-145)
[2025-01-15 06:42] LABS: BASO # 0.0 10^3/uL (0.0-0.2); BASO % 0.0 % (0.0-1.0); EOS # 0.0 10^3/uL (0.0-0.5); EOS % 0.0 % (0.0-3.0); LYMPH # 0.2 10^3/uL (1.5-5.0); LYMPH % 2.8 % (24.0-44.0); MONO # 0.2 10^3/uL (0.0-0.8); MONO % 2.6 % (2.0-8.0); NEUTROPHILS # 7.3 10^3/uL (1.5-8.5); NEUTROPHILS % 94.0 % (36.0-66.0)
[2025-01-15 07:18] LABS: PLATELET COUNT, AUTOMATED 87 10^3/uL (150-450)
[2025-01-15 12:00] VITALS: BP 136/72; TEMP 97.3; O2SAT 95
[2025-01-15 20:40] VITALS: O2SAT 88
[2025-01-15 20:41] VITALS: BP 138/50; TEMP 97.9; O2SAT 92
[2025-01-16 00:08] LABS: Antimyeloperxidase(MPO) Abs < 1.0 AI (<1.0)
[2025-01-16 04:37] VITALS: BP 148/70; TEMP 97.3; O2SAT 64
[2025-01-16 07:20] VITALS: O2SAT 96
[2025-01-16 08:48] LABS: BASO # 0.0 10^3/uL (0.0-0.2); BASO % 0.1 % (0.0-1.0); EOS # 0.0 10^3/uL (0.0-0.5); EOS % 0.0 % (0.0-3.0); LYMPH # 0.2 10^3/uL (1.5-5.0); LYMPH % 2.2 % (24.0-44.0); MONO # 0.2 10^3/uL (0.0-0.8); MONO % 2.2 % (2.0-8.0); NEUTROPHILS # 7.2 10^3/uL (1.5-8.5); NEUTROPHILS % 94.8 % (36.0-66.0); PLATELET COUNT, AUTOMATED 86 10^3/uL (150-450)
[2025-01-16 09:05] LABS: PTT-LA 33 sec (<=40)
[2025-01-16 09:24] LABS: CALCIUM LEVEL 8.3 MG/DL (8.5-10.1); CARBON DIOXIDE LEVEL 29 MMOL/L (20-31); CHLORIDE LEVEL 97 MMOL/L (98-107); CREATININE FOR GFR 0.90 MG/DL (0.70-1.30); GLOMERULAR FILTRATION RATE > 90.0 (>56); POTASSIUM SERUM 4.3 MMOL/L (3.5-5.1); SODIUM LEVEL 137 MMOL/L (136-145)
[2025-01-16 11:42] VITALS: BP 140/70; TEMP 97.9; O2SAT 91
[2025-01-16] MEDS: FUROSEMIDE 40 MG TAB PO SCH (17:38)
[2025-01-16 20:14] VITALS: BP 128/62; TEMP 97.2; O2SAT 90
[2025-01-17 02:18] LABS: ANCA SCREEN REFLEX Negative (Negative)
[2025-01-17 03:56] VITALS: BP 148/78; TEMP 97.2; O2SAT 95
[2025-01-17 06:26] LABS: BASO # 0.0 10^3/uL (0.0-0.2); BASO % 0.1 % (0.0-1.0); EOS # 0.0 10^3/uL (0.0-0.5); EOS % 0.0 % (0.0-3.0); LYMPH # 0.3 10^3/uL (1.5-5.0); LYMPH % 2.7 % (24.0-44.0); MONO # 0.3 10^3/uL (0.0-0.8); MONO % 3.1 % (2.0-8.0); NEUTROPHILS # 8.7 10^3/uL (1.5-8.5); NEUTROPHILS % 92.9 % (36.0-66.0); PLATELET COUNT, AUTOMATED 111 10^3/uL (150-450)
[2025-01-17 07:00] LABS: ALT/SGPT 84 U/L (7.0-40); AST/SGOT 19 U/L (<34); CALCIUM LEVEL 8.4 MG/DL (8.5-10.1); CARBON DIOXIDE LEVEL 27 MMOL/L (20-31); CHLORIDE LEVEL 98 MMOL/L (98-107); CREATININE FOR GFR 0.94 MG/DL (0.70-1.30); GLOMERULAR FILTRATION RATE > 90.0 (>56); POTASSIUM SERUM 4.8 MMOL/L (3.5-5.1); SODIUM LEVEL 138 MMOL/L (136-145)
[2025-01-17] MEDS: INSULIN LISPRO (NovoLOG) PER UNIT SC SCH ×2 (08:13→12:28)
[2025-01-17] MEDS: LanTUS (INSULIN GLARGINE INJ) 1 UNITS/0.01 ML SC SCH (08:13)
[2025-01-17] MEDS: FUROSEMIDE 20 MG TAB PO SCH (08:21)
[2025-01-17 12:21] VITALS: BP 152/82; TEMP 97.5; O2SAT 92
[2025-01-17] MEDS: ACETAMINOPHEN 325 MG TAB PO PRN (13:17)
[2025-01-17] MEDS: FUROSEMIDE 40 MG TAB PO SCH (17:28)
[2025-01-17 20:12] VITALS: BP 136/68; TEMP 98.1; O2SAT 94
[2025-01-18 04:22] VITALS: BP 122/80; TEMP 97.7; O2SAT 100
[2025-01-18 08:57] LABS: BASO # 0.0 10^3/uL (0.0-0.2); BASO % 0.1 % (0.0-1.0); EOS # 0.0 10^3/uL (0.0-0.5); EOS % 0.0 % (0.0-3.0); LYMPH # 0.3 10^3/uL (1.5-5.0); LYMPH % 4.8 % (24.0-44.0); MONO # 0.3 10^3/uL (0.0-0.8); MONO % 4.1 % (2.0-8.0); NEUTROPHILS # 6.1 10^3/uL (1.5-8.5); NEUTROPHILS % 89.2 % (36.0-66.0); PLATELET COUNT, AUTOMATED 96 10^3/uL (150-450)
[2025-01-18 09:06] LABS: ESTIMATED AVERAGE GLUCOSE 166.0 MG/DL (60-110)
[2025-01-18 09:16] LABS: CALCIUM LEVEL 8.1 MG/DL (8.5-10.1); CARBON DIOXIDE LEVEL 29 MMOL/L (20-31); CHLORIDE LEVEL 101 MMOL/L (98-107); CREATININE FOR GFR 0.92 MG/DL (0.70-1.30); GLOMERULAR FILTRATION RATE > 90.0 (>56); POTASSIUM SERUM 4.5 MMOL/L (3.5-5.1); SODIUM LEVEL 142 MMOL/L (136-145)
[2025-01-18 11:42] VITALS: BP 130/74; TEMP 97.5; O2SAT 94
[2025-01-18 20:20] VITALS: BP 132/68; TEMP 98.1; O2SAT 94
[2025-01-19 05:12] VITALS: BP 146/74; TEMP 97.9; O2SAT 92
[2025-01-19 06:00] LABS: BASO # 0.0 10^3/uL (0.0-0.2); BASO % 0.2 % (0.0-1.0); EOS # 0.0 10^3/uL (0.0-0.5); EOS % 0.0 % (0.0-3.0); LYMPH # 0.3 10^3/uL (1.5-5.0); LYMPH % 4.4 % (24.0-44.0); MONO # 0.2 10^3/uL (0.0-0.8); MONO % 3.5 % (2.0-8.0); NEUTROPHILS # 5.3 10^3/uL (1.5-8.5); NEUTROPHILS % 89.4 % (36.0-66.0); PLATELET COUNT, AUTOMATED 100 10^3/uL (150-450)
[2025-01-19 06:22] LABS: CALCIUM LEVEL 7.9 MG/DL (8.5-10.1); CARBON DIOXIDE LEVEL 28 MMOL/L (20-31); CHLORIDE LEVEL 99 MMOL/L (98-107); CREATININE FOR GFR 0.92 MG/DL (0.70-1.30); GLOMERULAR FILTRATION RATE > 90.0 (>56); POTASSIUM SERUM 4.7 MMOL/L (3.5-5.1); SODIUM LEVEL 139 MMOL/L (136-145)
[2025-01-19] MEDS: LanTUS (INSULIN GLARGINE INJ) 1 UNITS/0.01 ML SC SCH (09:18)
[2025-01-19 09:24] VITALS: BP 144/60
[2025-01-19 11:25] VITALS: BP 124/70; TEMP 97.9; O2SAT 93
[2025-01-19] MEDS ORDERED: DAPS100T22 PO (12:35)
[2025-01-19] MEDS ORDERED: LANTINJ4 SC (12:35)
[2025-01-19] MEDS ORDERED: HUMA100I5 SC (12:35)
[2025-01-19] MEDS ORDERED: AZIT500T5 PO (12:35)
[2025-01-19] MEDS ORDERED: PRED20TA PO (12:35)
[2025-01-19] MEDS ORDERED: GABA-1490 PO (12:35)
[2025-01-26 15:07] LABS: PNEUMOCOCCAL AB TYPE 14 POST >30.6 ug/mL (>1.3); PNEUMOCOCCAL AB TYPE 19 POST 1.0 ug/mL (>1.3); PNEUMOCOCCAL AB TYPE 23 POST 6.5 ug/mL (>1.3); PNEUMOCOCCAL AB TYPE 26 POST 3.1 ug/mL (>1.3); PNEUMOCOCCAL AB TYPE 4 POST 0.5 ug/mL (>1.3); PNEUMOCOCCAL AB TYPE 68 POST 1.3 ug/mL (>1.3); PNEUMOCOCCAL AB TYPE18C POST 2.6 ug/mL (>1.3)
== END 2025-01-19 14:32 | disposition home or self-care (01) | DRG 202 ==
LOC: M ED 13:32 → M ED INP 16:15 → M PCU 17:29 → M MS5PR 01-11 20:24 → M MSPAV 01-11 22:01
PROVIDERS: ADMIT Internal Medicine; ATTEND Internal Medicine
PROC: 09JK8ZZ Inspection of Nasal Mucosa and Soft Tissue, Via Natural or Artificial Opening Endoscopic (ICD-10-PCS; principal; 2024-12-29)
DX: J45.51 Severe persistent asthma with (acute) exacerbation (principal); I50.33 Acute on chronic diastolic (congestive) heart failure; Z68.42 Body mass index [BMI] 45.0-49.9, adult; I48.91 Unspecified atrial fibrillation; I25.10 Atherosclerotic heart disease of native coronary artery without angina pectoris; E11.42 Type 2 diabetes mellitus with diabetic polyneuropathy; I11.0 Hypertensive heart disease with heart failure; G47.33 Obstructive sleep apnea (adult) (pediatric); E78.5 Hyperlipidemia, unspecified; K76.0 Fatty (change of) liver, not elsewhere classified; R74.01 Elevation of levels of liver transaminase levels; E83.42 Hypomagnesemia; K21.9 Gastro-esophageal reflux disease without esophagitis; J06.9 Acute upper respiratory infection, unspecified; R55 Syncope and collapse; R05.4 Cough syncope; R49.0 Dysphonia; B97.10 Unspecified enterovirus as the cause of diseases classified elsewhere; E66.01 Morbid (severe) obesity due to excess calories; B97.89 Other viral agents as the cause of diseases classified elsewhere; D69.6 Thrombocytopenia, unspecified; T38.0X5A Adverse effect of glucocorticoids and synthetic analogues, initial encounter; Z79.01 Long term (current) use of anticoagulants; Z79.899 Other long term (current) drug therapy; Z88.0 Allergy status to penicillin; Z88.1 Allergy status to other antibiotic agents; Z88.2 Allergy status to sulfonamides; Z88.5 Allergy status to narcotic agent; Z88.6 Allergy status to analgesic agent; Z88.4 Allergy status to anesthetic agent; Z88.8 Allergy status to other drugs, medicaments and biological substances; Z95.5 Presence of coronary angioplasty implant and graft; Z79.52 Long term (current) use of systemic steroids

== ENCOUNTER → 2025-02-01 | Outpatient (REF) | payer OTHER ==
[~2025-02-01] MED LIST changes: +AZIT500T5 PO; +DAPS100T22 PO; +DILT180C78 PO; +GABA-1490 PO; +HUMA100I5 SC; +ISOS1TAB35 PO; +JARD1TAB3 PO; +SPIR-10 PO; +TIRZ2.5P INJ
[2025-02-01 16:05] LABS: BASO # 0.0 10^3/uL (0.0-0.2); BASO % 0.3 % (0.0-1.0); EOS # 0.0 10^3/uL (0.0-0.5); EOS % 0.2 % (0.0-3.0); LYMPH # 0.5 10^3/uL (1.5-5.0); LYMPH % 8.8 % (24.0-44.0); MONO # 0.5 10^3/uL (0.0-0.8); MONO % 8.0 % (2.0-8.0); NEUTROPHILS # 4.7 10^3/uL (1.5-8.5); NEUTROPHILS % 79.8 % (36.0-66.0); PLATELET COUNT, AUTOMATED 116 10^3/uL (150-450)
[2025-02-01 16:11] LABS: C REACTIVE PROTEIN QUANTITATIV < 0.50 MG/DL (<1.0); RHEUMATOID FACTOR QUANT < 3.5 IU/ML (<14)
[2025-02-01 16:12] LABS: ALT/SGPT 102 U/L (7.0-40); AST/SGOT 37 U/L (<34); CALCIUM LEVEL 8.3 MG/DL (8.5-10.1); CARBON DIOXIDE LEVEL 34 MMOL/L (20-31); CHLORIDE LEVEL 93 MMOL/L (98-107); CREATININE FOR GFR 1.17 MG/DL (0.70-1.30); GLOMERULAR FILTRATION RATE 75.5 (>56); POTASSIUM SERUM 3.5 MMOL/L (3.5-5.1); SODIUM LEVEL 138 MMOL/L (136-145)
[2025-02-01 16:14] LABS: ERYTHROCYTE SEDIMENTATION RATE 10 mm/hr (0-20)
== END ==
LOC: M SFHCADAM 10:47
PROVIDERS: ATTEND Physician Assistant
DX: K76.0 Fatty (change of) liver, not elsewhere classified (principal); D69.6 Thrombocytopenia, unspecified; R76.8 Other specified abnormal immunological findings in serum

== ENCOUNTER → 2025-02-08 | Outpatient (CLI) | payer MEDICARE, OTHER ==
[2025-02-08 10:47] LABS: BASO # 0.0 10^3/uL (0.0-0.2); BASO % 0.4 % (0.0-1.0); EOS # 0.0 10^3/uL (0.0-0.5); EOS % 0.1 % (0.0-3.0); LYMPH # 0.8 10^3/uL (1.5-5.0); LYMPH % 10.8 % (24.0-44.0); MONO # 0.9 10^3/uL (0.0-0.8); MONO % 12.4 % (2.0-8.0); NEUTROPHILS # 5.2 10^3/uL (1.5-8.5); NEUTROPHILS % 71.3 % (36.0-66.0); PLATELET COUNT, AUTOMATED 161 10^3/uL (150-450)
[2025-02-08 10:51] LABS: ERYTHROCYTE SEDIMENTATION RATE 6 mm/hr (0-20)
[2025-02-08 11:06] LABS: C REACTIVE PROTEIN QUANTITATIV 1.04 MG/DL (<1.0)
[2025-02-08 11:07] LABS: ALT/SGPT 81 U/L (7.0-40); AST/SGOT 41 U/L (<34); CALCIUM LEVEL 8.0 MG/DL (8.5-10.1); CARBON DIOXIDE LEVEL 33 MMOL/L (20-31); CHLORIDE LEVEL 99 MMOL/L (98-107); CREATININE FOR GFR 1.22 MG/DL (0.70-1.30); GLOMERULAR FILTRATION RATE 71.8 (>56); POTASSIUM SERUM 3.3 MMOL/L (3.5-5.1); SODIUM LEVEL 145 MMOL/L (136-145)
[2025-02-08 11:08] LABS: RHEUMATOID FACTOR QUANT < 3.5 IU/ML (<14)
[2025-02-09 18:32] LABS: ANA TITER 2 1:40 titer (NEGATIVE)
[2025-02-15 08:42] LABS: HLA-B27 Negative (Negative)
== END ==
LOC: M PLALAB 08:42
PROVIDERS: ATTEND Internal Medicine Critical Care Medicine
DX: J45.51 Severe persistent asthma with (acute) exacerbation (principal)

== ENCOUNTER → 2025-04-05 | Outpatient (REF) | payer MEDICARE, OTHER ==
[~2025-04-05] MED LIST changes: -COLC0.6T47 PO; +COLC0.6T53 PO
[2025-04-05 14:12] LABS: BASO # 0.1 10^3/uL (0.0-0.2); BASO % 0.6 % (0.0-1.0); EOS # 0.1 10^3/uL (0.0-0.5); EOS % 1.3 % (0.0-3.0); LYMPH # 1.1 10^3/uL (1.5-5.0); LYMPH % 12.2 % (24.0-44.0); MONO # 1.0 10^3/uL (0.0-0.8); MONO % 11.1 % (2.0-8.0); NEUTROPHILS # 7.0 10^3/uL (1.5-8.5); NEUTROPHILS % 74.4 % (36.0-66.0); PLATELET COUNT, AUTOMATED 253 10^3/uL (150-450)
[2025-04-05 14:18] LABS: C REACTIVE PROTEIN QUANTITATIV 1.71 MG/DL (<1.0)
[2025-04-05 14:19] LABS: RHEUMATOID FACTOR QUANT < 3.5 IU/ML (<14)
[2025-04-05 14:43] LABS: ERYTHROCYTE SEDIMENTATION RATE 52 mm/hr (0-20)
== END ==
LOC: M SFHCADAM 09:12
PROVIDERS: ATTEND Physician Assistant
DX: M25.561 Pain in right knee (principal); E11.59 Type 2 diabetes mellitus with other circulatory complications; Z68.42 Body mass index [BMI] 45.0-49.9, adult; I48.91 Unspecified atrial fibrillation

== ENCOUNTER → 2025-04-05 | Outpatient (CLI) | payer MEDICARE, OTHER | LOC: M ADAMS 10:05 | PROVIDERS: ATTEND Physician Assistant | DX: M25.561 Pain in right knee (principal) ==

== ENCOUNTER → 2025-07-02 | Outpatient (CLI) | payer MEDICARE, OTHER ==
[~2025-07-02] MED LIST changes: -DAPS100T22 PO; -SODI88SP NARES; +SODI88SP7 NARES; +[UNRECOGNIZED DRUG - CODE] PO
[2025-07-02 10:58] LABS: BASO # 0.1 10^3/uL (0.0-0.2); BASO % 0.5 % (0.0-1.0); EOS # 0.1 10^3/uL (0.0-0.5); EOS % 0.9 % (0.0-3.0); LYMPH # 1.6 10^3/uL (1.5-5.0); LYMPH % 15.9 % (24.0-44.0); MONO # 0.8 10^3/uL (0.0-0.8); MONO % 8.2 % (2.0-8.0); NEUTROPHILS # 7.3 10^3/uL (1.5-8.5); NEUTROPHILS % 74.2 % (36.0-66.0); PLATELET COUNT, AUTOMATED 218 10^3/uL (150-450)
[2025-07-02 11:20] LABS: ESTIMATED AVERAGE GLUCOSE 114.0 MG/DL (60-110)
[2025-07-02 11:25] LABS: ALT/SGPT 26.0 U/L (7.0-40); AST/SGOT 17.0 U/L (<34); CALCIUM LEVEL 9.1 MG/DL (8.5-10.1); CARBON DIOXIDE LEVEL 31.0 MMOL/L (20-31); CHLORIDE LEVEL 99.0 MMOL/L (98-107); CHOLESTEROL LEVEL 131.0 MG/DL (<200); CHOLESTEROL RISK RATIO 4.62 (<5); CREATININE FOR GFR 1.13 MG/DL (0.70-1.30); GLOMERULAR FILTRATION RATE 78.2 (>56); LDL CHOLESTEROL 66.1 MG/DL (<100); NON-HDL-C 102.7 MG/DL; POTASSIUM SERUM 3.4 MMOL/L (3.5-5.1); SODIUM LEVEL 140.0 MMOL/L (136-145); TRIGLYCERIDES LEVEL 183.0 MG/DL (<150)
== END ==
LOC: M PLALAB 08:59
PROVIDERS: ATTEND Physician Assistant
DX: E11.59 Type 2 diabetes mellitus with other circulatory complications (principal); E66.01 Morbid (severe) obesity due to excess calories; I10 Essential (primary) hypertension; I48.91 Unspecified atrial fibrillation

== ENCOUNTER → 2025-07-10 | Outpatient (REF) | payer MEDICARE, MEDICAID ==
[2025-07-10 13:38] LABS: MAGNESIUM LEVEL 2.3 MG/DL (1.8-2.4); POTASSIUM SERUM 3.4 MMOL/L (3.5-5.1)
== END ==
LOC: M SFHCADAM 09:13
PROVIDERS: ATTEND Physician Assistant
DX: E87.6 Hypokalemia (principal)